=== PATIENT | male | born 1945 | race Caucasian/White ===

== ENCOUNTER → 2016-09-02 | Day surgery (SDC) | payer OTHER ==
[2016-01-07 11:27] VITALS: Ht 167.6 cm; Wt 119.5 kg
[~2016-09-02] VITALS: Ht 167.6 cm; Wt 119.5 kg
[~2016-09-02] MED LIST: ACET-1256 PO; ARTIFICAL TEARS OPB; ASCO10003 PO; ASPEC81 PO; ASPI81TA28 PO; BCTCR/30 EXT; CHOL1CAP57 PO; CLIN300C2 PO; CRAN1CAP15 PO; CYAN500T13 PO; DOCU-94 PO; DOXY100C76 PO; FLEC100T21 PO; FRS/40 PO; LIDOCAINE HCL 2% 2 ML VIAL (20MG/ML) ONE; LOSA1TAB PO; LPR100 PO; LPT/40 PO; MAGN250T3 PO; MIDAZOLAM HCL 1 MG/ML 2ML VIAL ONE; MINEOIL26 PO; MORPHINE SC; MULT-506 PO; NTRGSL/4 UT; POLY99.02 OP; PRLSR20 PO; PROM25TA9 PO; PROPOFOL IV EMULSION 10 MG/ML 20 ML VIAL IV ONE; SENN1TAB25 PO; SODIUM CHLORIDE 0.9% 500ML 500 ML IV ONE; SPIR50TA3 PO; TMPOPS15 OPR; TRAM-10 PO; VITATAB19 PO; WARF1TAB PO
--- NOTE | 2016-09-02 09:30 | Endo History and Physical ---
History & Physical Date of Service: Sep 02, 2016. Chief Complaint: SCREENING FOR COLON CANCER Referring Physician: DR. YOLA VALE History of Present Illness 71 yo CM who presents for screening colonoscopy. Past Medical History Atrial Fibrillation, High Cholesterol, Heart Disease Past Surgical History Hx Cardiac Surgery: Yes (HEART CATH-NO STENTS) Hx Abdominal Surgery: Yes (OPEN MARIO, APPY) Hx Post-Op Nausea and Vomiting: No Hx Cancer Surgery: No Hx Thoracic Surgery: Yes (LUMBAR SURGERY X 5 (LUMBAR FUSION/CAN NOT LAY FLAT)) Hx Orthopedic: Yes (RT/LEFT CTR) Hx Urinary Tract Surgery: Yes (HYDROCELE) Family History Polyp Social History Smoking Status: Never Smoker Hx Substance Use: Yes (SEE MED REC) Hx Alcohol Use: No Allergies Coded Allergies: Penicillins (Verified Allergy, Mild, HIVES, 09/02/16) Ondansetron (Verified Allergy, Unknown, INCREASES GI UPSET, 09/02/16) Uncoded Allergies: [id number] (Allergy, Mild, 04/04/15) [id number] (Allergy, Unknown, ., 04/04/15) Current Medications Reported Home Medications Medications Dose Route/Sig Max Daily Dose Days Date Category Dose Instructions Lipitor (Atorvastatin) 40 Mg Tab 40 Mg PO HS 08/26/16 Reported Coumadin (Warfarin Sodium) 1 Mg Tab 1 Mg PO WK 07/22/16 Reported Saturdays Prilosec (Omeprazole) 20 Mg Capcr 20 Mg PO BID 03/27/16 Reported [Morphine] Unknown Dose SC CONT 01/07/16 Reported IMPLANTED PAIN PUMP IN ABDOMEN Artificial Tears Soln 1-2 Drops OP QID PRN 01/07/16 Reported TO AFFECTED EYE PRN Tambocor (Flecainide Acetate) 100 Mg Tab 100 Mg PO BID 01/07/16 Reported Aldactone (Spironolactone) 50 Mg Tab 50 Mg PO QAM 01/07/16 Reported Lasix (Furosemide) 40 Mg Tab 40 Mg PO QAM 01/07/16 Reported Metoprolol Tartrate 100 Mg Tab 100 Mg PO BID 01/07/16 Reported Magnesium 250 mg (Magnesium) 1 Tab Tab 1 Tab PO QAM 01/07/16 Reported Mineral Oil 1 Oil Oil 1 Tsp PO HS 01/07/16 Reported Cranberry (Cranberry-Vitamin C-Vitamin E) 1 Cap Cap 1 Cap PO QAM 01/07/16 Reported Vitamin A (Vitamin A-Beta Carotene) 1 Tab Tab 3 Tab PO QAM 01/07/16 Reported Vitamin C (Ascorbic Acid) 1,000 Mg Tab 1 Tab PO QAM 01/07/16 Reported Vitamin D3 (Cholecalciferol) 1,000 Unit Cap 3 Cap PO QAM 01/07/16 Reported Vitamin B12 500MCG (Cyanocobalamin) 500 Mcg Tab 500 Mcg PO QAM 01/07/16 Reported Multivitamin (Multivitamins) Tab 1 Tab PO QAM 01/07/16 Reported Colace (Docusate Sodium) 100 Mg Cap 3 Cap PO HS 15 05/22/15 Reported Coumadin (Warfarin Sodium) 1 Mg Tab 0.5 Mg PO 6XWK 04/23/14 Reported Ecotrin Or Generic * (Aspirin) 81 Mg Ectab 81 Mg PO QAM 06/29/11 Reported Vital Signs Weight (Kilograms): 119.55 Height (Feet): 5 Height (Inches): 6 Date Time Temp Pulse Resp B/P Pulse Ox O2 Delivery O2 Flow Rate FiO2 09/02/16 09:00 36.4 50 20 148/59 94 Room Air Physical Exam General Appearance: WD/WN, no apparent distress Respiratory/Chest: Auscultation: breath sounds normal Cardiovascular: Heart Auscultation: RRR Abdomen: Bowel Sounds: normal Inspection & Palpation: soft, non-distended, no tenderness, guarding & rebound Assessment and Plan Assessment: 71 yo CM who presents for screening colonoscopy. Plan: Proceed with colonoscopy.
--- NOTE | 2016-09-02 09:49 | Discharge Instructions ---
Endoscopy Patient Instructions Date / Procedure(s) Performed Sep 02, 2016. Colonoscopy Allergy Information Coded Allergies: Penicillins (Verified Allergy, Mild, HIVES, 09/02/16) Ondansetron (Verified Adverse Reaction, Unknown, INCREASES GI UPSET, ) Uncoded Allergies: [id number] (Allergy, Mild, 04/04/15) [id number] (Allergy, Unknown, ., 04/04/15) Discharge Date / Findings Sep 02, 2016. Melanosis coli Medication Instructions Stopped Medication(s): COUMADIN-LAST DOSE 08/25/16 ASPIRIN-LAST DOSE 09/01/16 Restart Stopped Medication(s): OK to resume all medications today as prescribed Reported Home Medications Medications Dose Route/Sig Max Daily Dose Days Date Category Dose Instructions Lipitor (Atorvastatin) 40 Mg Tab 40 Mg PO HS 08/26/16 Reported Coumadin (Warfarin Sodium) 1 Mg Tab 1 Mg PO WK 07/22/16 Reported Saturdays Prilosec (Omeprazole) 20 Mg Capcr 20 Mg PO BID 03/27/16 Reported [Morphine] Unknown Dose SC CONT 01/07/16 Reported IMPLANTED PAIN PUMP IN ABDOMEN Artificial Tears Soln 1-2 Drops OP QID PRN 01/07/16 Reported TO AFFECTED EYE PRN Tambocor (Flecainide Acetate) 100 Mg Tab 100 Mg PO BID 01/07/16 Reported Aldactone (Spironolactone) 50 Mg Tab 50 Mg PO QAM 01/07/16 Reported Lasix (Furosemide) 40 Mg Tab 40 Mg PO QAM 01/07/16 Reported Metoprolol Tartrate 100 Mg Tab 100 Mg PO BID 01/07/16 Reported Magnesium 250 mg (Magnesium) 1 Tab Tab 1 Tab PO QAM 01/07/16 Reported Mineral Oil 1 Oil Oil 1 Tsp PO HS 01/07/16 Reported Cranberry (Cranberry-Vitamin C-Vitamin E) 1 Cap Cap 1 Cap PO QAM 01/07/16 Reported Vitamin A (Vitamin A-Beta Carotene) 1 Tab Tab 3 Tab PO QAM 01/07/16 Reported Vitamin C (Ascorbic Acid) 1,000 Mg Tab 1 Tab PO QAM 01/07/16 Reported Vitamin D3 (Cholecalciferol) 1,000 Unit Cap 3 Cap PO QAM 01/07/16 Reported Vitamin B12 500MCG (Cyanocobalamin) 500 Mcg Tab 500 Mcg PO QAM 01/07/16 Reported Multivitamin (Multivitamins) Tab 1 Tab PO QAM 01/07/16 Reported Colace (Docusate Sodium) 100 Mg Cap 3 Cap PO HS 15 05/22/15 Reported Coumadin (Warfarin Sodium) 1 Mg Tab 0.5 Mg PO 6XWK 04/23/14 Reported Ecotrin Or Generic * (Aspirin) 81 Mg Ectab 81 Mg PO QAM 06/29/11 Reported Provider Instructions Activity Restrictions - No exercising or heavy lifting for 24 hours. - Do not drink alcohol the day of the procedure. - Do not drive a car or operate machinery until the day after the procedure. - Do not make any important decisions or sign important papers in 24 hours after the procedure. Following Day: - Return to full activity which may include returning to work/school. Diet Start your diet with liquids and light foods (jello, soup, juice, toast). Then eat your usual diet if not nauseated. Treatment For Common After Affects For mild abdominal pain, bloating, or excessive gas: - Rest - Eat lightly - Lie on right side Follow-Up Information Follow-up with DR. YOLA VALE as scheduled Anesthesia Information What You Should Know You have had a procedure that required some medicine to reduce anxiety and discomfort. This treatment is called moderate sedation. After receiving the treatment, you may be sleepy, but you will be able to breathe on your own. The effects of the treatment may last for several hours. Follow these instructions along with Activity/Diet recommendations noted above: * Do NOT do anything where dizziness or clumsiness would be dangerous. * Rest quietly at home today, then you can be up and about tomorrow. * Have a responsible person stay with you the rest of today. * You may have had an I.V. today. If so, you may take the dressing off later today. Recommendations Call your doctor if: * Trouble breathing * Continuous vomiting for more than 24 hours * Temperature above 101 degrees * Severe abdominal pain or bloating * Pain not relieved by pain medicine ordered * There is increased drainage or redness from any incision * A large amount of rectal bleeding greater than 2-3 tablespoons. (If you had a polyp/s removed or have hemorrhoids, a small amount of blood - from the rectum is to be expected.) * You have any unanswered questions or concerns. IN THE EVENT OF A SERIOUS EMERGENCY, GO TO THE NEAREST EMERGENCY ROOM Your discharge instructions were prepared by provider Berlin Jarvis. Patient Instructions Signature Page Nolberto Mitchell Patient (or Guardian) Signature/Date: I have read and understand the instructions given to me by my caregivers. Caregiver/RN/Doctor Signature/Date: The above-named patient and/or guardian has received patient instructions on this date. + Original Patient Signature Page (only) stays with chart. Please make copy for patient.
--- NOTE | 2016-09-02 09:54 | GI REPORT ---
Procedure Date: 09/02/2016 9:05 AM Procedure: Colonoscopy Indications: Screening for colorectal malignant neoplasm Medicines: Monitored Anesthesia Care Complications: No immediate complications. Estimated Blood Loss: Estimated blood loss: none. Procedure: Pre-Anesthesia Assessment: - Prior to the procedure, a History and Physical was performed, and patient medications and allergies were reviewed. The patient's tolerance of previous anesthesia was also reviewed. The risks and benefits of the procedure and the sedation options and risks were discussed with the patient. All questions were answered, and informed consent was obtained. Prior Anticoagulants: The patient last took Coumadin (warfarin) 7 days prior to the procedure and last took aspirin on the day of the procedure. ASA Grade Assessment: III - A patient with severe systemic disease. After reviewing the risks and benefits, the patient was deemed in satisfactory condition to undergo the procedure. After I obtained informed consent, the scope was passed under direct vision. Throughout the procedure, the patient's blood pressure, pulse, and oxygen saturations were monitored continuously. The scope was introduced through the anus and advanced to the terminal ileum. The colonoscopy was performed without difficulty. The patient tolerated the procedure well. The quality of the bowel preparation was good. The terminal ileum, ileocecal valve, appendiceal orifice, and rectum were photographed. Findings: A diffuse area of mild melanosis was found in the entire colon. The exam was otherwise without abnormality. Impression: - Melanosis in the colon. - The examination was otherwise normal. - No specimens collected. Recommendation: - Resume previous diet. - Continue present medications. - No repeat colonoscopy due to age and the absence of advanced adenomas. - Return to primary care physician as previously scheduled. Berlin Jarvis DO 09/02/2016 9:54:14 AM This report has been signed electronically. Note Initiated On: 09/02/2016 9:05 AM
--- NOTE | 2016-09-02 10:14 | Anesthesiology Progress Note ---
Anesthesia Post Op Note Date & Time Sep 02, 2016 at 10:13 Vital Signs Pain Intensity: 2 Vital Signs Past 12 Hours Date Time Temp Pulse Resp B/P Pulse Ox O2 Delivery O2 Flow Rate FiO2 09/02/16 10:08 45 18 111/56 95 Room Air 09/02/16 09:52 44 16 97/54 94 Room Air 09/02/16 09:00 36.4 50 20 148/59 94 Room Air Notes Mental Status: alert / awake / arousable, participated in evaluation Pt Amnestic to Procedure: Yes Nausea / Vomiting: adequately controlled Pain: adequately controlled Airway Patency, RR, SpO2: stable & adequate BP & HR: stable & adequate Hydration State: stable & adequate Anesthetic Complications: no major complications apparent
[2016-09-02 10:24] VITALS: BP 134/63; PULSE 45; O2SAT 95
== END | disposition home or self-care (01) ==
LOC: C.GI 08:39
PROVIDERS: ATTEND Internal Medicine
DX: Z12.11 Encounter for screening for malignant neoplasm of colon (principal); K63.89 Other specified diseases of intestine; I48.91 Unspecified atrial fibrillation; E78.5 Hyperlipidemia, unspecified; I51.9 Heart disease, unspecified; Z98.890 Other specified postprocedural states; Z98.1 Arthrodesis status; Z79.01 Long term (current) use of anticoagulants; Z79.82 Long term (current) use of aspirin; Z88.0 Allergy status to penicillin; Z88.8 Allergy status to other drugs, medicaments and biological substances; Z51.81 Encounter for therapeutic drug level monitoring; D69.6 Thrombocytopenia, unspecified

== ENCOUNTER → 2016-11-01 | Outpatient (CLI) | payer OTHER ==
[~2016-11-01] MED LIST changes: +CEPH500C2 PO; +CLC/300 PO; -DOXY100C76 PO; +FRRS300 PO; +LEVO1TAB33 PO; -LIDOCAINE HCL 2% 2 ML VIAL (20MG/ML) ONE; +METO-596 PO; +METO50TA17 PO; -MIDAZOLAM HCL 1 MG/ML 2ML VIAL ONE; +MISCCAP80 PO; +PROPDRO5 PO; -PROPOFOL IV EMULSION 10 MG/ML 20 ML VIAL IV ONE; +RXC5 PO; -SODIUM CHLORIDE 0.9% 500ML 500 ML IV ONE
--- NOTE | 2016-11-04 11:21 | CODING QUERY NO DIAGNOSIS ---
TREATMENT RENDERED WITHOUT A DIAGNOSIS 47 To promote full compliance with coding requirements relating to patient care, physician participation is requested in all cases of certified coder uncertainty. Please assist us with providing a diagnosis/symptom for the test(s) below: A diagnosis/symptom was not documented on your Order. A valid diagnosis/symptom is required to bill all insurances. Please remember that we are unable to code a diagnosis of rule out, probable, possible, questionable, or suspected. DOS 11/02/16 Tests that require a diagnosis: * CDIFF TOXIN B GENE DIAGNOSIS: Provider Signature: Date: Thank you Camille Guajardo Health Information Management Once completed, please kindly fax back to [phone] For questions please call [phone]
== END | disposition home or self-care (01) ==
LOC: C.LABSPEC 09:09
PROVIDERS: ATTEND Emergency Medicine
DX: R19.7 Diarrhea, unspecified (principal)

== ENCOUNTER → 2016-11-13 | Outpatient (CLI) | payer OTHER ==
[2016-11-13 17:22] LABS: BLOOD UREA NITROGEN 22 mg/dl (7-18)
== END | disposition home or self-care (01) ==
LOC: C.LABBC 12:52
PROVIDERS: ATTEND Physician Assistant
DX: M54.5 Low back pain (principal); M96.1 Postlaminectomy syndrome, not elsewhere classified

== ENCOUNTER → 2017-01-01 | Day surgery (SDC) | payer OTHER ==
[2016-11-24 11:06] VITALS: BMI 42.0
--- NOTE | 2016-11-27 14:49 | HISTORY & PHYSICAL EXAMINATION ---
DATE OF ADMISSION: 12/04/2016 CHIEF COMPLAINT: MRI to be completed with sedation. HISTORY OF PRESENT ILLNESS: Mr. Mitchell is a 71-year-old white male who is well known to the pain service with a history of chronic intractable low back pain secondary to lumbar post-laminectomy syndrome. This has required implantation of intrathecal pump and catheter delivery system for pain control. The patient has end of life pump and is in need of intrathecal pump revision/replacement. The patient has a prior history of catheter occlusion versus granuloma in 2011. MRI of the thoracic spine to evaluate catheter tip has been requested under sedation as the patient has been unable to tolerate similar procedures in the past. The patient has chronic axial low back pain as his predominant pain generator. His symptoms remain adequately controlled with his current intrathecal infusion rate. He rates his pain at a 1-2/10 at its best and 8-9/10 at its worst. His pain is 90% axial and 10% radicular in nature. He describes the pain as aching, throbbing and occasionally stabbing and sharp in characteristic. His symptoms remain aggravated with ambulatory and ADL activities. He does continue to perform his ambulatory and ADL activities with use of intrathecal pump with minimal limitation. The patient denies lower extremity weaknesses, footdrop or falling. He has no bowel or bladder incontinence. The patient has been cleared by the wound clinic due to abdominal wall ulceration, which is healed. He has a prior history of MRSA infection related to the skin infection. The patient has no further constitutional complaints at this time. PAST MEDICAL HISTORY: 1. Atrial fibrillation. 2. Hyperlipidemia. 3. CAD. 4. History of nephrolithiasis. 5. History of MRSA abdominal wound ulceration, superficial. 6. Chronic kidney disease. PAST SURGICAL HISTORY: 1. Appendectomy. 2. Tonsillectomy. 3. Adenoidectomy. 4. Cholecystectomy. 5. Lumbar spine surgery x3 with L4-L5 fusion. 6. Bilateral carpal tunnel release. 7. Hydrocelectomy. 8. Right inguinal herniorrhaphy. 9. Intrathecal pump and catheter implantation with revision in 2011. 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 SOCIAL HISTORY: The patient is and residing with his spouse. He has 2 adult children. He denies tobacco, alcohol or illicit drug use. FAMILY HISTORY: Noncontributory. REVIEW OF SYSTEMS: The patient denies complaints related to cardiac, pulmonary, GI, , endocrine, neurologic, hepatic, renal, ENT, dermatologic or musculoskeletal other than as described above in the HPI. ALLERGIES: ONDANSETRON AND PENICILLIN. CURRENT MEDICATIONS: 1. Acetaminophen 500 mg 2 tablets at bedtime. 2. Vitamin C 1000 mg daily. 3. ASA 81 mg daily. 4. Atorvastatin 40 mg at bedtime. 5. Vitamin D3 two capsules p.o. q.a.m. 6. Cranberry 1 capsule p.o. q.a.m. 7. Cyanocobalamin 500 mcg q.a.m. 8. Flecainide 100 mg b.i.d. 9. Furosemide 40 mg daily. 10. Magnesium 200 mg daily. 11. Metoprolol tartrate 100 mg b.i.d. 12. Mineral oil 1 tablespoon p.o. at bedtime p.r.n. 13. Multivitamin 1 tablet daily. 14. Nitroglycerin 0.4 mg sublingually p.r.n. 15. Omeprazole 20 mg b.i.d. 16. Stool softener, sennoside/docusate sodium 1 tablet p.o. q. 2 days. 17. Aldactone 50 mg q.a.m. 18. Timolol 0.5% ophthalmic solution 1 drop b.i.d. 19. Vitamin A 3 tablets daily. 20. Coumadin 0.5 mg p.o. 2 times weekly. 21. Coumadin 1 mg p.o. 5 times weekly. PHYSICAL EXAMINATION: VITAL SIGNS: Will be per admission. GENERAL: Mr. Mitchell appears to be his approximate stated age of 71. He is overweight and physically deconditioned state. Speech and thought process are appropriate. Mood and affect are appropriate. Cognition is intact. HEENT: No evidence of nasal or oral mucosal lesions. Mucous membranes are moist. NECK: Supple without adenopathy and full range of motion. CHEST: Nontender to palpation at the costosternal junction. LUNGS: Clear to auscultation without wheeze or rhonchi. CARDIAC: Regular rate and rhythm without murmur. ABDOMEN: Soft and nondistended. The pump present in the left lower quadrant without evidence of edema, erythema or skin breakdown over the incisional site. The pump is nontender to palpation. The pump is nonmobile. No organomegaly is appreciated. Bowel sounds are active. LOWER EXTREMITIES: SLR negative. No evidence of edema in the distal lower extremities. Strength testing 5/5 and equal. Sensation is intact without deficits. NEUROLOGIC: Cranial nerves grossly intact. His gait is slow and narrow based. ASSESSMENT: 1. Chronic lumbago. 2. Lumbar post-laminectomy syndrome. 3. Chronic intractable low back pain secondary to above requiring implantation of intrathecal pump and catheter delivery system. 4. Left hip pain with mild osteoarthritis per x-ray. 5. Recent history of right lower quadrant superficial ulceration -- currently healed with a history of methicillin-sensitive Staphylococcus aureus, positive sensitive to vancomycin and clindamycin. 6. Chronic kidney disease. 7. Chronic anticoagulation therapy with Coumadin. 8. History of atrial fibrillation. 9. History of coronary artery disease. TREATMENT AND RECOMMENDATIONS: 1. MRI has been requested of the thoracic spine with sedation to rule out catheter tip granuloma due to end of life intrathecal pump, which is slated for revision/replacement within the next 1 month to determine catheter status and potentially the need for catheter revision/replacement. MRI will be completed without contrast due to his chronic kidney disease and current GFR. 2. Intrathecal dose will not be changed at this time. Further recommendations will be made pending review of the MRI results. MTDD
--- NOTE | 2016-12-31 16:10 | HISTORY & PHYSICAL EXAMINATION ---
DATE OF ADMISSION: 01/01/2017 CHIEF COMPLAINT: MRI to be completed with sedation. SUBJECTIVE: Mr. Mitchell is a 71-year-old white male who is known to the pain service with a history of chronic intractable low back pain secondary to lumbar post-laminectomy syndrome. This has required implantation of intrathecal pump and catheter delivery system for pain control. The patient has end of life intrathecal battery and is in need of an intrathecal pump revision/replacement. The patient has a known prior history of catheter occlusion versus granulomatous in 2011. A repeat MRI scan of the thoracic spine to evaluate catheter tip has been requested under sedation. The patient is unable to tolerate similar procedures in the past. This is being completed to determine catheter status prior to pump replacement. The patient has chronic axial low back pain which remains his predominant pain generator. He reports adequate pain control with his current intrathecal infusion rate and desires no changes to his dose. He rates his overall pain at a 1-2/10 at its best and a 9/10 at its worst. His pain remains 90% axial and 10% radicular in nature, which he describes as aching, throbbing and occasionally sharp and stabbing in characteristic. Symptoms remain aggravated with ambulatory and ADL activities. The patient is performing his ambulatory and ADL activities with minimal limitation with use of his current intrathecal dose. The patient denies lower extremity weaknesses, footdrop or falling. He has no bowel or bladder incontinence. The patient has been cleared by wound clinic due to his abdominal ulceration which is healed at this time for surgical procedure. The patient does have prior history of MRSA related to skin infection. He has no further constitutional complaints at today's visit. PAST MEDICAL HISTORY: Atrial fibrillation, hyperlipidemia, CAD, history of nephrolithiasis, history of MRSA, abdominal wound ulceration -- superficial, and chronic kidney disease. PAST SURGICAL HISTORY: Appendectomy, tonsillectomy, adenoidectomy, cholecystectomy, lumbar spine surgery x3 with L4-5 fusion, bilateral carpal tunnel release, hydrocelectomy, right inguinal herniorrhaphy, intrathecal pump and catheter implantation with revision in 2011. WORK HISTORY: The patient is disabled. 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 SOCIAL HISTORY: The patient is , residing with his spouse. He has 2 adult children. He denies tobacco, alcohol or illicit drug use. FAMILY HISTORY: Noncontributory. REVIEW OF SYSTEMS: The patient denies complaints related to cardiac, pulmonary, GI, , endocrine, neurologic, hepatic, renal, ENT, dermatologic, musculoskeletal other than described above in the HPI. ALLERGIES: 1. ONDANSETRON. 2. PENICILLIN. CURRENT MEDICATIONS: 1. Acetaminophen 500 mg 2 tablets at bedtime. 2. Vitamin C 1000 mg daily. 3. ASA 81 mg daily. 4. Atorvastatin 40 mg at bedtime. 5. Vitamin D3 two capsules p.o. q.a.m. 6. Cranberry 1 capsule p.o. q.a.m. 7. Cyanocobalamin 500 mcg q.a.m. 8. Flecainide 100 mg b.i.d. 9. Furosemide 40 mg daily. 10. Magnesium 200 mg daily. 11. Metoprolol tartrate 100 mg b.i.d. 12. Mineral oil one tablet p.o. at bedtime p.r.n. 13. Multivitamin 1 tablet daily. 14. Nitroglycerin 0.4 mg sublingually p.r.n. 15. Omeprazole 20 mg b.i.d. 16. Sennosides/docusate sodium 1 tablet p.o. q. 2 days. 17. Aldactone 50 mg q.a.m. 18. Timolol 0.5% ophthalmic solution 1 drop b.i.d. 19. Vitamin D3 tablets daily. 20. Coumadin 0.5 mg p.o. 2 times weekly. 21. Coumadin 1 mg p.o. 5 times weekly. PHYSICAL EXAMINATION: VITAL SIGNS: Per admission. GENERAL: Mr. Mitchell appears to be his approximate stated age of 71. The patient is overweight and physically deconditioned state. Speech and thought process are appropriate. He is accompanied by his . Mood and affect are appropriate. Cognition is intact. HEENT: No evidence of nasal or oral mucosal lesion. Mucous membranes are moist. NECK: Supple without adenopathy and full range of motion. CHEST: Clear to auscultation without wheeze or rhonchi. CARDIAC: Regular rate rhythm without murmur. ABDOMEN: Soft and nondistended. The pump is in the left lower quadrant. No evidence of edema, erythema or skin breakdown at the incisional site. The pump was nontender to palpation and remains nonmobile. Bowel sounds are active. He has no organomegaly. LOWER EXTREMITIES: SLR negative. BACK AND SPINE: No evidence of edema in the distal lower extremities. Strength testing 5/5 and equal bilaterally. Sensation is intact to sharp and dull in the lower extremities. NEUROLOGIC: Cranial nerves grossly intact. Gait remains slow and narrow based. ASSESSMENT: 1. Chronic lumbago. 2. Lumbar post-laminectomy syndrome. 3. Chronic intractable low back pain secondary to above requiring implantation of intrathecal pump and catheter delivery system. 4. Left hip pain with mild osteoarthritis per x-ray. 5. Recent history of right lower quadrant superficial ulceration which is currently healed with history of methicillin-resistant Staphylococcus aureus sensitive to vancomycin and clindamycin. 6. Chronic kidney disease. 7. Chronic anticoagulation therapy with Coumadin. 8. History atrial fibrillation. 9. History of coronary artery disease. 10. End of life intrathecal pump. TREATMENT AND RECOMMENDATIONS: 1. MRI has been requested of the thoracic spine with sedation to rule out catheter tip granuloma due to end of life intrathecal pump. MRI will be completed without contrast due to his chronic kidney disease and current GFR status. 2. Further recommendations will be obtained on review of the MRI study. JHONYD
[~2017-01-01] VITALS: Ht 167.6 cm; Wt 119.1 kg
[~2017-01-01] MED LIST changes: -CLIN300C2 PO; -DOCU-94 PO; +FENTANYL CITRATE INJ 50 MCG/1 ML 2 ML VIAL ONE; +LIDOCAINE HCL 2% 2 ML VIAL (20MG/ML) ONE; +MIDAZOLAM HCL 1 MG/ML 2ML VIAL ONE; -PROM25TA9 PO; +PROPOFOL IV EMULSION 10 MG/ML 20 ML VIAL IV ONE; +SODIUM CHLORIDE 0.9% 1000ML 1,000 ML IV SCH
[2017-01-01 06:14] VITALS: BP 148/64; PULSE 51; TEMP 36.5; O2SAT 92; BMI 42.0
[2017-01-01 06:48] VITALS: Ht 167.6 cm; Wt 119.1 kg
[2017-01-01 06:52] LABS: PARTIAL THROMBOPLASTIN RATIO 2.2; PROTHROMBIN TIME (PATIENT) 80.7 SECONDS (9.0-12.0)
[2017-01-01 07:41] LABS: PARTIAL THROMBOPLASTIN RATIO 2.2; PROTHROMBIN TIME (PATIENT) 84.9 SECONDS (9.0-12.0)
[2017-01-01 07:56] LABS: INR 7.3 (0.9-1.1)
--- NOTE | 2017-01-01 08:22 | Anesthesiology Progress Note ---
Anesthesia Progress Note Date of Service January 01, 2017. Progress Notes Patient here for MRI with sedation and was found to have INR elevated to 7.0 this AM. Takes coumadin for a fib and was recently found to be 3.7 and was told to adjust his dosing down. He is very surprised that it is that high but said he has had one other time when he went very high and required vitamin K. I do not feel comfortable proceeding with the procedure at this point and spoke with Dr Askew about having medicine see him and potentially intervene vs observing him and they will be by to see him. Patient understands.
[2017-01-01 09:28] LABS: BASO % 0.2 %; BASO ABS # 0.01 K/uL (0-0.2); COMPLETE YES; EOS % 0.8 %; HEMATOCRIT 39.2 % (42-52); IG% 0.2 %; LYMPH % 21.6 %; LYMPH ABS # 1.12 K/uL (1.2-3.4); MEAN CELL VOLUME 93.8 fL (80-100); MEAN CORPUSCULAR HEMOGLOBIN 31.6 pg (25-34); MEAN CORPUSCULAR HGB CONC 33.7 g/dl (32-36); MEAN PLATELET VOLUME 9.7 fL (7.4-10.4); MONO % 6.2 %; PLATELET COUNT 103 K/uL (130-400); RED BLOOD COUNT 4.18 M/uL (4.7-6.1); WHITE BLOOD COUNT 5.19 K/uL (4.8-10.8)
--- NOTE | 2017-01-01 10:26 | Discharge Instructions ---
Discharge Instructions Date of Service January 01, 2017. Visit Reason for Visit: Chronic Lumbago, Eval Catherter Tip R/O Grangulom Discharge Discharge Diagnosis / Problem: Lumbago, supratherapeutic INR Discharge Goals Goal(s): Improve function Activity Recommendations Activity Limitations: resume your previous activity Lifting Limitations: none Exercise/Sports Limitations: none May Resume Sexual Activity: when tolerated Shower/Bathe: no limitations Driving or Machine Use: no limitations Anesthesia . Post Anesthesia Instructions: If you have had General Anesthesia or IV Sedation: * Do not drive today. * Resume driving when surgeon permits. * Do not make important decisions or sign legal documents today. * Call surgeon for: 1. Temperature elevations greater than 101 degrees F. 2. Uncontrollable pain. 3. Excessive bleeding. 4. Persistent nausea and vomiting. 5. Medication intolerance (nausea, vomiting or rash). * For nausea and vomiting use only clear liquids such as: tea, soda, bouillon until nausea subsides, then gradually increase diet as tolerated. * If you have any concerns or questions, call your surgeon's office. If physician is unavailable and it is an emergency, call 911 or go to the nearest emergency room. . Instructions / Follow-Up Instructions / Follow-Up [facility] will advise you on your coumadin dosing. Please travel to their office downstairs immediately after leaving the same day surgery center Diet Recommendations Recommended Home Diet: no limitations, resume previous diet Procedures Procedures Performed: none Pending Studies Studies pending at discharge: no Medical Emergencies . Who to Call and When: Medical Emergencies: If at any time you feel your situation is an emergency, please call 911 immediately. . Non-Emergent Contact Non-Emergency issues call your: Primary Care Provider . . "Provider Documentation" section prepared by Camelia Light. .
--- NOTE | 2017-01-01 10:38 | Pain Management Progress Note ---
Pain Management Progress Note Date of Service January 01, 2017. Subjective Mr. Mitchell arrived today for routine MRI to assess the possibility of granuloma formation at his intrathecal catheter tip. On arrival it, it was noted that his INR was supratherapeutic at 7.3. Subsequently his MRI scan for today was canceled. He will require MRI for assessing his catheters hip prior to his upcoming surgery to replace his intrathecal battery as well as his as a possible catheter revision. After his INR was noted to be supratherapeutic at 7.3 routine labs were drawn including a CBC and LFT panel to assess for any drop in hematocrit or liver function abnormalities that might influence his INR. Objective Vital Signs: Last Vital Signs Documentation Date Time Temp Pulse Resp B/P Pulse Ox O2 Delivery O2 Flow Rate FiO2 01/01/17 06:14 36.5 51 20 148/64 92 Room Air Physical Exam: Awake alert and oriented 3 2 small bruises noted over left forearm and one of her right hand. No other obvious signs of bleeding are noted. Cranial nerves are grossly intact gait is slow and guarded Catheter catheter and pump sites are unremarkable next is at bedside X Laboratory Laboratory Review: results personally reviewed by me Laboratory Findings 01/01/17 09:00 Red Blood Count 4.18 L, Mean Corpuscular Volume 93.8, Mean Corpuscular Hemoglobin 31.6, Mean Corpuscular Hemoglobin Concent 33.7, Mean Platelet Volume 9.7, Neutrophils (%) (Auto) 71.0, Lymphocytes (%) (Auto) 21.6, Monocytes (%) ( Auto) 6.2, Eosinophils (%) (Auto) 0.8, Basophils (%) (Auto) 0.2, Neutrophils # ( Auto) 3.69, Lymphocytes # (Auto) 1.12 L, Monocytes # (Auto) 0.32, Eosinophils # (Auto) 0.04, Basophils # (Auto) 0.01 Assessment 1. Supratherapeutic INR 2. Intractable pain requiring implanted intrathecal pump and catheter delivery system 3. Lumbago Recommendations 1. After a drop in hematocrit was not noted and LFTs were noted to be normal, the anticoagulation clinic was notified and they requested he be sent to them prior to discharge from the hospital. 2. According to the anticoag clinic there is no reason for admission at this time and they feel comfortable managing him as an outpatient. 3. The patient will be discharged at this time to the anticoagulation clinic. Discharge instructions were given. 4. We will attempt to do this proceed MRI with sedation under oral Valium sedation due to the patient's severe claustrophobia should that not be acceptable to the patient would plan for repeat MRI with sedation under anesthesia 5. Valium. 5 mg by mouth times up to 4 tablets one the night before one the morning of and 1 to 2 tablets 30 minutes prior to the procedure will be provided electronically through [facility] in the pain clinic office arrangements will be made for out of repeat MRI as an outpatient 6. All questions were answered prior to close of today's visit [employer] Voice [employer]ognition This chart was completed in part utilizing [employer] Voice Recognition Software. Random word insertions, pronoun errors, and incomplete sentences are an occasional consequence of this system due to software limitations and ambient noise. Any questions or concerns about the content, text or information contained within the body of this dictation should be directly addressed to the provider for clarification.
== END | disposition home or self-care (01) ==
LOC: C.ACU 05:36
PROVIDERS: ATTEND Anesthesiology
DX: M54.5 Low back pain (principal); R79.1 Abnormal coagulation profile; Z53.09 Procedure and treatment not carried out because of other contraindication; I48.91 Unspecified atrial fibrillation; E78.5 Hyperlipidemia, unspecified; N18.9 Chronic kidney disease, unspecified; M19.90 Unspecified osteoarthritis, unspecified site; I25.10 Atherosclerotic heart disease of native coronary artery without angina pectoris; Z87.442 Personal history of urinary calculi; Z86.14 Personal history of Methicillin resistant Staphylococcus aureus infection; Z90.49 Acquired absence of other specified parts of digestive tract; Z79.01 Long term (current) use of anticoagulants; Z51.81 Encounter for therapeutic drug level monitoring; D69.6 Thrombocytopenia, unspecified

== ENCOUNTER → 2017-01-04 | Day surgery (SDC) | payer OTHER ==
[2017-01-01 06:14] VITALS: BP 148/64; PULSE 51; TEMP 36.5; O2SAT 92
[2017-01-01 06:48] VITALS: BMI 42.0
[~2017-01-04] MED LIST changes: -FENTANYL CITRATE INJ 50 MCG/1 ML 2 ML VIAL ONE; -LIDOCAINE HCL 2% 2 ML VIAL (20MG/ML) ONE; -MIDAZOLAM HCL 1 MG/ML 2ML VIAL ONE; -PROPOFOL IV EMULSION 10 MG/ML 20 ML VIAL IV ONE; -SODIUM CHLORIDE 0.9% 1000ML 1,000 ML IV SCH
--- NOTE | 2017-01-04 16:30 | DIAGNOSTIC IMAGING REPORT ---
KUB HISTORY: CHECK POSITION OF PAIN PUMP COMPARISON: Chest and abdominal series 09/19/2012. FINDINGS: The bowel gas pattern is unremarkable. There are no dilated loops of small bowel to suggest an obstruction. No renal calculi. No ureteral calculi. No pneumoperitoneum or pneumatosis. There is a left lower quadrant pain pump which is unchanged in position. This is not in an axial position. Therefore, an MRI can be performed. The visualized portion of the catheter. Intact. There is L3-L5 decompression and fusion. Moderate right and severe left hip osteoarthritis. IMPRESSION: The left lower quadrant pain pump is unchanged in position. This is not an axial position. Therefore, an MRI can be performed for the patient. Electronically signed by: Leo Mendoza M.D. 01/04/2017 4:29 PM Dictated Date/Time: 01/04/2017 4:27 PM
--- NOTE | 2017-01-04 16:46 | DIAGNOSTIC IMAGING REPORT ---
THORACIC SPINE MRI HISTORY: Pain CHRONIC LUMBAGO TECHNIQUE: Multiplanar multisequence MRI of the thoracic spine was performed without the use of contrast. COMPARISON: None. FINDINGS: Mild degenerative disc changes throughout. Intrathecal catheter approximately level of T2. No evidence for tip granuloma. No significant compromise of the thecal sac. Postoperative changes to the lumbar spine. IMPRESSION: Catheter positioned at approximately T2 level of the thoracic spine. No evidence for tip granuloma. No major compromise of the thoracic spinal canal. Degenerative disc changes throughout Electronically signed by: Chris Stallings M.D. 01/04/2017 4:45 PM Dictated Date/Time: 01/04/2017 4:41 PM
== END | disposition home or self-care (01) ==
LOC: C.MRI 14:42
PROVIDERS: ATTEND Anesthesiology
DX: Z46.89 Encounter for fitting and adjustment of other specified devices (principal); M54.5 Low back pain; Z51.81 Encounter for therapeutic drug level monitoring; Z79.01 Long term (current) use of anticoagulants; D69.6 Thrombocytopenia, unspecified; I48.91 Unspecified atrial fibrillation

== ENCOUNTER 2017-01-26 07:32 | Day surgery (SDC) | payer OTHER ==
--- NOTE | 2017-01-12 10:48 | History and Physical ---
History & Physical Date of Service January 12, 2017. History & Physical Plan of care discussed with Dr. Askew CHIEF COMPLAINT: Chronic intractable low back pain HISTORY OF PRESENT ILLNESS: Mr. Mitchell is a 71 year old white male that is well known to the [facility] with a history of chronic intractable low back pain secondary to lumbar post-laminectomy syndrome. Patient continues to report approximately 90% axial low back pain and 10% radicular pain into the lateral hips. Patient hurtado have an intrathecal pump implanted which has been providing adequate pain relief. Patient rates his pain a 4/10 at all times with intrathecal Morphine and Bupivacaine. PAST MEDICAL HISTORY: 1. Atrial fibrillation 2. Hyperlipidemia 3. Coronary artery disease 4. History of nephrolithiasis 5. History of MRSA 6. Chronic kidney disease 7. Gastroesophageal reflux disease PAST SURGICAL HISTORY: 1. Appendectomy 2. Tonsillectomy and adenoidectomy 3. Cholecystectomy 4. Herniorrhaphy 5. Carpal tunnel release 6. Lumbar surgery 3 with L4-L5 fusion 7. Cataract surgery 8. Hydrocelectomy 9. Intrathecal pump and catheter implantation with revision in 2011 SOCIAL HISTORY: Patient is and has 2 grown children. He denies any tobacco, alcohol, or illicit substance abuse. WORK HISTORY: Patient is disabled. 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 ALLERGIES: 1. Doxycycline 2. Ondansetron 3. Penicillin MEDICATIONS: 1. Acetaminophen 500 mg 2 tablets at bedtime. 2. Vitamin C 1000 mg daily. 3. ASA 81 mg daily. 4. Atorvastatin 40 mg at bedtime. 5. Vitamin D3 two capsules p.o. q.a.m. 6. Cranberry 1 capsule p.o. q.a.m. 7. Cyanocobalamin 500 mcg q.a.m. 8. Flecainide 100 mg b.i.d. 9. Furosemide 40 mg daily. 10. Magnesium 200 mg daily. 11. Metoprolol tartrate 100 mg b.i.d. 12. Mineral oil one tablet p.o. at bedtime p.r.n. 13. Multivitamin 1 tablet daily. 14. Nitroglycerin 0.4 mg sublingually p.r.n. 15. Omeprazole 20 mg b.i.d. 16. Sennosides/docusate sodium 1 tablet p.o. q. 2 days. 17. Aldactone 50 mg q.a.m. 18. Timolol 0.5% ophthalmic solution 1 drop b.i.d. 19. Vitamin D3 tablets daily. 20. Coumadin 0.5 mg p.o. 2 times weekly. 21. Coumadin 1 mg p.o. 5 times weekly. REVIEW OF SYSTEMS: Denies any constitutional, cardiac, pulmonary, neurological, GI, , extremity, endocrine, neuro, ENT, dermatological, or musculoskeletal complaints. PHYSICAL EXAMINATION: VITAL SIGNS: Per admission GENERAL: Mr. Mitchell is a 71-year-old white male that appears his stated age. He is overweight and physically deconditioned. Speech and cognition is intact. Mood and affect is appropriate. HEAD: Normocephalic; atraumatic. EYES: Pupils are round, equal, and reactive to light; EOM intact. ENT: No external ear discharge or lesions. No rhinorrhea or epistaxis. No mucosal lesions. PULM: Clear to auscultation. No wheezes, rales, or rhonchi. CHEST: Regular chest respiration and excursion. ABDOMEN: Active bowel sounds throughout; non-tender to palpation. Intrathecal pump is located in the left lower quadrant and is non-tender. EXTREMITIES: Moving extremities appropriately. 5/5 strength of the bilateral lower extremities. Sensation is intact and equal. BACK: Loss of lumbar lordosis. There is nonfocal lumbosacral tenderness. NEURO: CN II-XII grossly intact with no focal deficits noted. AAO x 3. Slowed gait. SKIN: No lesions, erythema, or rashes noted. ASSESSMENT: Intractable low back pain secondary to postlaminectomy syndrome TREATMENT: Mr. Mitchell is a 71 year old white male with chronic intractable low back pain secondary to lumbar-laminectomy syndrome. He had an intrathecal pump containing Morphine and Bupivacaine implanted which does provide adequate pain control. A thoracic MRI was ordered on the patient to evaluate for a granuloma formation at the tip of the catheter. Thoracic MRI was negative. He was found to have a right lower quadrant ulceration with MRSA cultured. He is to apply mupirocin ointment into the nares for 5 days prior to the surgery. Patients intrathecal pump battery is due to be replaced. Risks and benefits were reviewed with the patient. Procedure was explained and he understands. He would like to proceed with the procedure. He is tentatively scheduled for an intrathecal pump replacement on 01/26/17.
[2017-01-13 09:33] VITALS: Ht 167.6 cm; Wt 119.7 kg
[2017-01-13 10:54] LABS: BASO % 0.2 %; BASO ABS # 0.01 K/uL (0-0.2); COMPLETE YES; EOS % 1.9 %; IG% 0.2 %; LYMPH % 21.1 %; LYMPH ABS # 1.24 K/uL (1.2-3.4); MEAN CELL VOLUME 93.5 fL (80-100); MEAN CORPUSCULAR HEMOGLOBIN 31.7 pg (25-34); MEAN CORPUSCULAR HGB CONC 33.8 g/dl (32-36); MEAN PLATELET VOLUME 9.6 fL (7.4-10.4); MONO % 7.1 %; NEUT % 69.5 %; PLATELET COUNT 126 K/uL (130-400); RED BLOOD COUNT 4.17 M/uL (4.7-6.1); WHITE BLOOD COUNT 5.89 K/uL (4.8-10.8)
[2017-01-13 10:55] LABS: URINE APPEARANCE CLEAR (CLEAR); URINE BILIRUBIN NEG (NEG); URINE COLOR DK YELLOW; URINE NITRITE NEG (NEG); URINE SPECIFIC GRAVITY 1.023 (1.000-1.030); UROBILINOGEN NEG (NEG)
[2017-01-13 11:04] LABS: MANUAL MICROSCOPIC REQUIRED? NO; REVIEW REQ? NO
[2017-01-13 11:33] LABS: CALCIUM 9.6 mg/dl (8.5-10.1)
[2017-01-13 11:34] LABS: BUN/CREATININE RATIO 18.5 (10-20); CREATININE 1.5 mg/dl (0.60-1.40); POTASSIUM 4.4 mmol/L (3.5-5.1)
[~2017-01-26] VITALS: Ht 167.6 cm; Wt 119.7 kg
[~2017-01-26 07:32] MED LIST changes: -ARTIFICAL TEARS OPB; -ASPI81TA28 PO; +BACITRACIN 50000 UNIT VIAL ONE; -BCTCR/30 EXT; +BUPIVACAINE/EPINEPHRINE 0.25% 1:200,000 30 ML VIAL ONE; -CEPH500C2 PO; -CLC/300 PO; -CRAN1CAP15 PO; -FRRS300 PO; +LACTATED RINGER'S 1000ML 1,000 ML IV SCH; -LEVO1TAB33 PO; +LIDOCAINE 2%/EPINEPHRINE 1:100,000 1.8 ML CARTRIDGE ONE; -LOSA1TAB PO; -METO-596 PO; -METO50TA17 PO; -MISCCAP80 PO; -PROPDRO5 PO; -RXC5 PO; -TRAM-10 PO; +VANCOMYCIN 1GM/270ML NSS 270 ML IV SCH
[2017-01-26 08:29] VITALS: BP 166/64; PULSE 46; TEMP 36.6; O2SAT 94
[2017-01-26] MEDS ORDERED: ATROPINE SULFATE 0.1 MG/ML 5ML SYR IV PRN (08:30)
[2017-01-26] MEDS ORDERED: EpHEDrine SULFATE INJ 50 MG/ML AMP IV PRN (08:30)
[2017-01-26] MEDS ORDERED: FENTANYL CITRATE INJ 50 MCG/1 ML 2 ML VIAL IV PRN (08:30)
[2017-01-26] MEDS ORDERED: ONDANSETRON INJ 2 MG/ML 2 ML VIAL IV PRN (08:30)
[2017-01-26 08:36] LABS: INR 1.2 (0.9-1.1); PARTIAL THROMBOPLASTIN RATIO 1.2; PROTHROMBIN TIME (PATIENT) 13.4 SECONDS (9.0-12.0)
[2017-01-26] MEDS ORDERED: BCTCR/30 EXT (08:39)
[2017-01-26] MEDS ORDERED: SUCCINYLCHOLINE CHLORIDE 20 MG/ML 10 ML VIAL IV ONE (09:06)
[2017-01-26] MEDS ORDERED: FENTANYL CITRATE INJ 50 MCG/1 ML 2 ML VIAL ONE (09:06)
[2017-01-26] MEDS ORDERED: LIDOCAINE HCL 2% 2 ML VIAL (20MG/ML) ONE (09:06)
[2017-01-26] MEDS ORDERED: MIDAZOLAM HCL 1 MG/ML 2ML VIAL ONE (09:06)
[2017-01-26] MEDS ORDERED: PROPOFOL IV EMULSION 10 MG/ML 20 ML VIAL IV ONE (09:06)
[2017-01-26] MEDS ORDERED: LIDO 2%/EPINEPHRINE 1:100000 20 ML VIAL INFIL ONE (09:15)
--- NOTE | 2017-01-26 09:39 | History & Physical Bridge Note ---
H&P Re-Evaluation Bridge Note: I have examined the patient, reviewed the History & Physical and in the interval since the performance of the History & Physical I have noted the following changes of clinical significance: No changes noted
[2017-01-26] MEDS ORDERED: ROCURONIUM BROMIDE 10 MG/ML 5 ML VIAL ONE (10:03)
[2017-01-26] MEDS ORDERED: EpHEDrine SULFATE 50MG/5ML SYR ONE (10:16)
[2017-01-26] MEDS ORDERED: ORM MISCELLANEOUS MED XX ONE (10:32)
--- NOTE | 2017-01-26 11:34 | Operative Note-Pain Management ---
Pain Clinic Operative Note PROCEDURE PERFORMED: Intrathecal pump replacement, catheter access port study, pump interrogation, reprogramming, and analysis. PREOPERATIVE DIAGNOSIS: End of life intrathecal pump POSTOPERATIVE DIAGNOSIS: Same. COMPLICATIONS: None. ANESTHESIA: General. MATERIAL FORWARDED TO THE LAB: Explanted pump Estimated blood loss 10 mL INDICATIONS: The patient had an end of life pump thus requiring replacement. The patient was explained the risks, benefits, alternatives of the procedure and agreed to proceed as above. Informed consent was obtained and witnessed. A time out was performed after the patient was brought into the Operating Room. Antibiotics were given. The patient was then induced with general anesthesia without complications and was placed in the supine position. The skin was prepped with duraprep and betadine and draped in sterile fashion. The existing pump was identified and using a scalpel, electrocautery, and blunt dissection, the existing pump was exposed. The two retaining sutures were removed and the old pump was explanted. The catheter was disconnected from the old pump and CSF was noted. The new pump was opened and prepared according to [employer]onic standards. The pump medication from the existing pump was removed and placed into the new pump. The pump catheter was secured to the new pump according to [employer] standards. The catheter access port was accessed and revealed free flowing CSF. Next, the pocket was irrigated with 3 bulb syringes full of sterile normal saline with bacitracin. Hemostasis was achieved. The new pump was placed into the pocket in the 12 O'clock position. The intrathecal pump was anchored in the pocket with one 0 Prolene sutures in addition to the [place]- Kevin sock that was present within the pocket. No complications were noted after the intrathecal pump was placed inside the pocket. Aspiration from the catheter access port revealed free flowing CSF. The skin and subcutaneous tissues of both incisions were closed with running V-LOC 0 sutures then running subcuticulars (3-O V-LOC) and then prineo dermabond without complications. The skin was cleansed and dried followed by 4 x 4's and Tegaderms were placed for closure dressings. No complications were noted throughout the procedure. The patient tolerated the procedure and general anesthesia well and was extubated at the end of the procedure. The patient was then transferred back to the [facility] and was taken to the recovery room in stable condition. The patient will follow up with our clinic within 14 days for a wound check. Pump size inserted: 40ml Medication placed in pump: Morphine 20 mg/mL and bupivacaine 3 mg/mL to run at morphine 8.156 mg per day and bupivacaine 1.2234 mg per day estimated refill interval is 92 days alarm date is 04/28/2017 I attest to the content of the Intraoperative Record and any orders documented therein. Any exceptions are noted below.
--- NOTE | 2017-01-26 11:40 | Discharge Instructions ---
Discharge Instructions Date of Service Jan 26, 2017. Visit Reason for Visit: End-of-Life Intrathecal Drug Administration System Discharge Discharge Diagnosis / Problem: end-of-life intrathecal drug administration system Discharge Goals Goal(s): Decrease discomfort, Improve function Medications Restart Stopped Medication(s): Restart her Coumadin as described by Dr. Abreu Activity Recommendations Activity Limitations: per Instructions/Follow-up section Lifting Limitations: no more than 10 pounds Exercise/Sports Limitations: until after follow-up appointment May Resume Sexual Activity: after follow-up appointment Shower/Bathe: keep incision dry (do not shower for 4 days please keep the incision dry must wear an abdominal binder 24 hours a day for the first 4 weeks) Anesthesia . Post Anesthesia Instructions: If you have had General Anesthesia or IV Sedation: * Do not drive today. * Resume driving when surgeon permits. * Do not make important decisions or sign legal documents today. * Call surgeon for: 1. Temperature elevations greater than 101 degrees F. 2. Uncontrollable pain. 3. Excessive bleeding. 4. Persistent nausea and vomiting. 5. Medication intolerance (nausea, vomiting or rash). * For nausea and vomiting use only clear liquids such as: tea, soda, bouillon until nausea subsides, then gradually increase diet as tolerated. * If you have any concerns or questions, call your surgeon's office. If physician is unavailable and it is an emergency, call 911 or go to the nearest emergency room. . Instructions / Follow-Up Instructions / Follow-Up Followup February 09 2017 at 2:40pm with Fredy Orona PA-C You have a prescription to use for as needed pain control, tramadol 50 mg take 1 tablet by mouth up to 4 times daily as needed for pain Diet Recommendations Recommended Home Diet: no limitations, resume previous diet Procedures Procedures Performed: Replacement of Intrathecal Drug Administration Pain Pump with Reprogramming, Analysis, and Interrogation Pending Studies Studies pending at discharge: no Medical Emergencies . Who to Call and When: If you have any questions aboutpain management please call the [facility] pain management office at [phone] Medical Emergencies: If at any time you feel your situation is an emergency, please call 911 immediately. . Non-Emergent Contact Non-Emergency issues call your: Primary Care Provider, Specialist (pain management) Call Non-Emergent contact if: you have a fever, your pain is not controlled, your pain is worsening, your pain is unusual for you, your pain is concerning you, wound has increased drainage, wound has increased redness, wound has increased pain, you have any medication questions . Past History Medical & Surgical History: (1) New onset atrial fibrillation (2) Hypomagnesemia (3) New onset atrial fibrillation (4) Supratherapeutic INR (5) Back pain (6) Supratherapeutic INR (7) Hematuria (8) Anticoagulation adequate (9) Hematuria (10) Atrial Fibrillation (11) Hyperlipidemia Nec/Nos (12) Hypertension Nos (13) Pure Hypercholesterolem (14) Upper respiratory infection, acute (15) Near syncope (16) Hypertension (17) Chest pain (18) Thrombocytopenia (19) Chronic back pain (20) Arthritis (21) Pancytopenia (22) Appendectomy (23) Cholecystectomy . "Provider Documentation" section prepared by Camelia Light. . [place] Drug Monitoring Program Search Results: patient reviewed within database, no issues identified
[2017-01-26] MEDS ORDERED: TRAMADOL HCL 50 MG TAB PO PRN (11:45)
--- NOTE | 2017-01-26 12:02 | Anesthesiology Progress Note ---
Anesthesia Post Op Note Date & Time Jan 26, 2017 at 12:02 Vital Signs Pain Intensity: 0 Vital Signs Past 12 Hours Date Time Temp Pulse Resp B/P (MAP) Pulse Ox O2 Delivery O2 Flow Rate FiO2 01/26/17 12:00 36.5 60 16 140/69 93 Room Air 01/26/17 11:50 60 16 142/78 94 Room Air 01/26/17 11:40 61 16 154/60 100 Mask 10 01/26/17 11:30 61 16 167/75 97 Mask 10 01/26/17 11:23 36.1 63 16 175/86 95 Mask 10 01/26/17 08:29 36.6 46 18 166/64 (98) 94 Room Air Notes Mental Status: alert / awake / arousable, participated in evaluation Pt Amnestic to Procedure: Yes Nausea / Vomiting: adequately controlled Pain: adequately controlled Airway Patency, RR, SpO2: stable & adequate BP & HR: stable & adequate Hydration State: stable & adequate Anesthetic Complications: no major complications apparent
[2017-01-26 12:05] VITALS: BP 148/72; PULSE 62; TEMP 36.3; O2SAT 94
[2017-01-26 12:35] VITALS: BP 135/62; PULSE 80; O2SAT 95
[2017-01-26 13:05] VITALS: BP 118/55; PULSE 56; TEMP 36.3; O2SAT 100
[2017-02-09] MEDS ORDERED: TRAM-10 PO (14:54)
[2017-04-02] MEDS ORDERED: LOSA1TAB PO (15:56)
[2017-05-12] MEDS ORDERED: FRS/40 PO (09:08)
[2017-05-12] MEDS ORDERED: ARTIFICAL TEARS OPB (09:08)
[2017-05-12] MEDS ORDERED: ACET-1256 PO (09:08)
[2017-05-12] MEDS ORDERED: ASPI81TA28 PO (09:08)
[2017-06-15] MEDS ORDERED: FRRS300 PO (10:36)
[2017-06-15] MEDS ORDERED: METO50TA17 PO (10:36)
[2017-06-15] MEDS ORDERED: RXC5 PO (13:21)
[2017-06-25] MEDS ORDERED: LEVO1TAB33 PO (12:11)
[2017-06-30] MEDS ORDERED: CEPH500C2 PO (07:38)
[2017-06-30] MEDS ORDERED: METO-596 PO (07:50)
[2017-06-30] MEDS ORDERED: METO50TA17 PO (15:13)
[2017-06-30] MEDS ORDERED: MISCCAP80 PO (15:18)
[2017-06-30] MEDS ORDERED: PROPDRO5 PO (15:21)
[2017-07-02] MEDS ORDERED: RXC5 PO (09:19)
== END 2017-01-26 13:20 | disposition home or self-care (01) ==
LOC: C.ACU 07:32
PROVIDERS: ATTEND Anesthesiology
DX: M54.5 Low back pain (principal); M96.1 Postlaminectomy syndrome, not elsewhere classified; G89.28 Other chronic postprocedural pain; I48.91 Unspecified atrial fibrillation; E78.5 Hyperlipidemia, unspecified; I25.10 Atherosclerotic heart disease of native coronary artery without angina pectoris; Z87.442 Personal history of urinary calculi; Z86.14 Personal history of Methicillin resistant Staphylococcus aureus infection; N18.3 Chronic kidney disease, stage 3 (moderate); Z79.899 Other long term (current) drug therapy; K21.9 Gastro-esophageal reflux disease without esophagitis; Z90.89 Acquired absence of other organs; Z90.49 Acquired absence of other specified parts of digestive tract; Z98.49 Cataract extraction status, unspecified eye; Z79.82 Long term (current) use of aspirin; Z79.01 Long term (current) use of anticoagulants; F41.9 Anxiety disorder, unspecified; I12.9 Hypertensive chronic kidney disease with stage 1 through stage 4 chronic kidney disease, or unspecified chronic kidney disease; Z86.711 Personal history of pulmonary embolism; M19.90 Unspecified osteoarthritis, unspecified site; E66.01 Morbid (severe) obesity due to excess calories

== ENCOUNTER → 2017-03-02 | Outpatient (CLI) | payer OTHER ==
[~2017-03-02] MED LIST changes: +ARTIFICAL TEARS OPB; +ASPI81TA28 PO; -BACITRACIN 50000 UNIT VIAL ONE; +BCTCR/30 EXT; -BUPIVACAINE/EPINEPHRINE 0.25% 1:200,000 30 ML VIAL ONE; -LACTATED RINGER'S 1000ML 1,000 ML IV SCH; -LIDOCAINE 2%/EPINEPHRINE 1:100,000 1.8 ML CARTRIDGE ONE; +LOSA1TAB PO; +TRAM-10 PO; -VANCOMYCIN 1GM/270ML NSS 270 ML IV SCH
[2017-03-02 14:23] LABS: HEMATOCRIT 38.7 % (42-52); MEAN CELL VOLUME 92.8 fL (80-100); MEAN CORPUSCULAR HEMOGLOBIN 31.2 pg (25-34); MEAN CORPUSCULAR HGB CONC 33.6 g/dl (32-36); PLATELET COUNT 111 K/uL (130-400); RED BLOOD COUNT 4.17 M/uL (4.7-6.1); WHITE BLOOD COUNT 6.36 K/uL (4.8-10.8)
[2017-03-02 14:35] LABS: ALT/SGPT 23 U/L (12-78); BLOOD UREA NITROGEN 33 mg/dl (7-18); BUN/CREATININE RATIO 20.3 (10-20); CALCIUM 9.4 mg/dl (8.5-10.1); CARBON DIOXIDE 34 mmol/L (21-32); CHLORIDE 105 mmol/L (98-107); CHOLESTEROL 124 mg/dl (0-200); GLUCOSE 91 mg/dl (70-99); POTASSIUM 4.1 mmol/L (3.5-5.1); SODIUM 142 mmol/L (136-145); TRIGLYCERIDES 142 mg/dl (0-150); VERY LOW DENSITY LIPOPROT CALC 28 mg/dl
[2017-03-02 14:46] LABS: ALKALINE PHOSPHATASE 78 U/L (45-117); AST/SGOT 24 U/L (15-37); CHOLESTEROL/HDL RATIO 3.3; ESTIMATED AVERAGE GLUCOSE 108 mg/dl; HA1C FLAG Normal (Normal); HDL CHOLESTEROL 38 mg/dl; LDL CHOLESTEROL CALCULATED 58 mg/dl
--- NOTE | 2017-04-07 09:35 | CODING QUERY MEDICAL NECESSITY ---
SUPPORTING DIAGNOSIS NEEDED Dr. Mcgregor, A supporting diagnosis is required for the test/procedure performed on this patient in order for us to be reimbursed by the patient's insurance. Please provide a supporting diagnosis for the following test/procedure listed below next to the test name along with your signature. *If there is no additional diagnosis for this patient that would support the following test/procedure please document that below next to the test/procedure. Test(s)/Procedure(s) that require a supporting diagnosis: * [id number] GLYCATED HEMOGLOBIN DIAGNOSIS: DATE OF SERVICE: 03/02/17 Provider Signature: Date: Thank you Maikel Dietrich [facility] Information Management Once completed, please kindly fax back to [phone] For questions please call [phone]
== END | disposition home or self-care (01) ==
LOC: C.LABBC 10:38
PROVIDERS: ATTEND Nurse Practitioner Family
DX: I25.10 Atherosclerotic heart disease of native coronary artery without angina pectoris (principal); I48.91 Unspecified atrial fibrillation; E78.00 Pure hypercholesterolemia, unspecified; N18.3 Chronic kidney disease, stage 3 (moderate); I12.9 Hypertensive chronic kidney disease with stage 1 through stage 4 chronic kidney disease, or unspecified chronic kidney disease; M54.5 Low back pain; M96.1 Postlaminectomy syndrome, not elsewhere classified; R73.9 Hyperglycemia, unspecified; Z88.0 Allergy status to penicillin; Z88.8 Allergy status to other drugs, medicaments and biological substances; M16.12 Unilateral primary osteoarthritis, left hip; G89.28 Other chronic postprocedural pain; E88.81 Metabolic syndrome and other insulin resistance

== ENCOUNTER → 2017-03-31 | Outpatient (CLI) | payer OTHER ==
--- NOTE | 2017-03-31 13:07 | DIAGNOSTIC IMAGING REPORT ---
LEFT HIP 2 VIEWS CLINICAL HISTORY: Chronic left hip pain. FINDINGS: AP and frog-leg views of left hip are compared to study dated 08/07/2016. The skeletal structures are osteopenic. There is no radiographic evidence of fracture in the left hip or visualized left hemipelvis. An electronic device partially obscures the left hip. Advanced arthritic change is seen in left hip with near complete loss of the joint space, bony sclerosis, and subchondral cyst formation. Sclerotic degenerative change is seen in the left sacroiliac joint. Fusion hardware is partially imaged in the lumbosacral spine. The overlying soft tissues are normal in appearance. IMPRESSION: 1. No acute bony abnormality is seen in the left hip. 2. Osteopenia and advanced arthritic change as above. Electronically signed by: Stan Barrow M.D. 03/31/2017 1:06 PM Dictated Date/Time: 03/31/2017 1:04 PM
== END | disposition home or self-care (01) ==
LOC: C.RADBC 12:22
PROVIDERS: ATTEND Nurse Practitioner Family
DX: M25.552 Pain in left hip (principal); M85.862 Other specified disorders of bone density and structure, left lower leg

== ENCOUNTER → 2017-06-29 | Outpatient (CLI) | payer OTHER ==
[~2017-06-29] MED LIST changes: +AMOX500C3 PO; -ASPEC81 PO; +CEPH500C2 PO; +CLC/300 PO; +FRRS300 PO; +LEVO1TAB33 PO; -LOSA1TAB PO; -LPR100 PO; +METO-596 PO; +METO50TA17 PO; +MISCCAP80 PO; -POLY99.02 OP; +PROPDRO5 PO; +RXC5 PO; +WARF2.5T8 PO
[2017-06-29 14:27] LABS: INR 2.1 (0.9-1.1)
--- NOTE | 2017-07-19 08:48 | CODING QUERY NO DIAGNOSIS ---
Valid Physician Order Needed A valid physician order must be submitted in order to properly bill for the service(s) provided, including date of service(s), valid diagnosis, and physician signature. If these tests are done on a recurring basis the original physican order must be submitted in order to code and bill for the service(s) provided. Please fax us the original, signed physician order so that we may expedite billing to [phone] DOS 06/29/17 * PT/INR Thank you Mae On License Of [facility] Information Management
== END | disposition home or self-care (01) ==
LOC: C.LABSPEC 14:12
PROVIDERS: ATTEND Nurse Practitioner Family
DX: I48.91 Unspecified atrial fibrillation (principal); Z47.1 Aftercare following joint replacement surgery; Z96.642 Presence of left artificial hip joint

== ENCOUNTER → 2017-06-30 | Outpatient (CLI) | payer OTHER ==
[~2017-06-30] MED LIST changes: -AMOX500C3 PO; -CLC/300 PO; -WARF2.5T8 PO
[2017-06-30 13:34] LABS: INR 1.8 (0.9-1.1); PARTIAL THROMBOPLASTIN RATIO 1.6; PROTHROMBIN TIME (PATIENT) 20.1 SECONDS (9.0-12.0)
[2017-06-30 13:48] LABS: BLOOD UREA NITROGEN 20 mg/dl (7-18); BUN/CREATININE RATIO 15.6 (10-20); CALCIUM 9.6 mg/dl (8.5-10.1); CARBON DIOXIDE 31 mmol/L (21-32); CHLORIDE 100 mmol/L (98-107); CREATININE 1.31 mg/dl (0.60-1.40); GLUCOSE 103 mg/dl (70-99); SODIUM 139 mmol/L (136-145)
[2017-06-30 13:52] LABS: BASO % 0.3 %; BASO ABS # 0.02 K/uL (0-0.2); COMPLETE YES; EOS % 1.4 %; IG% 0.3 %; LYMPH % 15.1 %; MEAN CELL VOLUME 97.3 fL (80-100); MEAN CORPUSCULAR HEMOGLOBIN 30.4 pg (25-34); MEAN CORPUSCULAR HGB CONC 31.3 g/dl (32-36); MEAN PLATELET VOLUME 9.1 fL (7.4-10.4); MONO % 9.7 %; NEUT % 73.2 %; PLATELET COUNT 237 K/uL (130-400); RED BLOOD COUNT 3.29 M/uL (4.7-6.1); WHITE BLOOD COUNT 6.63 K/uL (4.8-10.8)
== END | disposition home or self-care (01) ==
LOC: C.LABBC 11:00
PROVIDERS: ATTEND Orthopaedic Surgery
DX: M25.552 Pain in left hip (principal); Z96.642 Presence of left artificial hip joint; D64.9 Anemia, unspecified; I10 Essential (primary) hypertension

== ENCOUNTER 2017-07-01 12:54 | Observation (INO) | payer OTHER ==
[2017-06-30 15:21] VITALS: BMI 39.0
[2017-07-01] VITALS (8 sets, daily range): BP systolic 116–158; BP diastolic 61–79; PULSE 67–83; TEMP 36.5–36.7; O2SAT 95–99; Ht 175.3 cm; Wt 121.4 kg
[~2017-07-01] VITALS: Ht 175.3 cm; Wt 121.4 kg
--- NOTE | 2017-07-01 08:14 | HISTORY & PHYSICAL EXAMINATION ---
DATE OF ADMISSION: 07/01/2017 CHIEF COMPLAINT: Three weeks status post left total hip arthroplasty with postoperative seroma. HISTORY OF PRESENT ILLNESS: Nolberto is a pleasant 71-year-old male who has been having a several-year history of left hip pain. It got to the point where he was ambulating only with a walker, which increases his hip pain. He has a history of a lumbar fusion and a pain pump and he was taking Coumadin for atrial fibrillation. He was diagnosed with advanced osteoarthritis of the left hip and elected to undergo a left total hip arthroplasty 3 weeks ago. He underwent an uncomplicated total hip, but a bridging Lovenox was recommended. I will put him on 30 mg twice a day and start him back up on his Coumadin. Once his INR was stable after about 4 days, the Lovenox was discontinued. He has been doing fairly well with regards to his hip. He has been having some postoperative nausea and constipation. When I saw him in my office in about 2-1/2 weeks out from the surgery, he still had a little bit of drainage from his hip wound. I sent him over to wound care for possible incisional VAC placement. The wound care took a look at him sterilely and thought that there was enough of seroma that required surgical evacuation before a VAC was placed. I thought that was reasonable and he elected to proceed. PAST MEDICAL HISTORY: Significant for hypomagnesemia, hematuria, hypertension, new onset atrial fibrillation, hyperlipidemia, thrombocytopenia, chronic back pain, osteoarthritis. MEDICATIONS: Include Tylenol 1000 mg as needed, vitamin C 1000 mg daily, aspirin 81 mg daily, Lipitor 40 mg at night, vitamin D3 2000 units daily, vitamin B12 500 mcg daily, Tambocor 100 mg twice a day, Lasix 40 mg daily, Cozaar 25 mg daily, magnesium 200 mg daily, metoprolol 100 mg twice a day, Bactroban, Nitrostat 0.4 mg as needed, Prilosec 20 mg a day, stool softener twice a day, Aldactone 50 mg daily, timolol drops twice a day, tramadol 50 mg 3 times a day as needed for pain, Coumadin 0.5 mg daily, and a morphine pain pump. ALLERGIES: INCLUDE DOXYCYCLINE, ZOFRAN, AND PENICILLINS. FAMILY HISTORY: Significant for heart disease and diabetes. SOCIAL HISTORY: He is . Denies any alcohol or IV drug abuse. He is moderately active. He is retired and currently uses a walker because of his hip pain. REVIEW OF SYSTEMS: He complains of left hip pain and drainage from the wound. All other pertinent review of systems is negative. PHYSICAL EXAMINATION: GENERAL: He is awake, alert and oriented x3. He is in no apparent distress. He is very pleasant. HEENT: Pupils equal, round and reactive to light. Extraocular motion intact. Oral mucosa is pink and moist. HEART: Regular rate per radial pulse. LUNGS: [place] symmetrically bilaterally with no audible breath sounds. ABDOMEN: Soft, nontender, nondistended. MUSCULOSKELETAL: On physical examination of the left hip, he is ambulating with a walker, but he is not having much pain. He is already back to driving. The bridget have been removed. There is a small dehiscence at the lower aspect of the wound and there is persistent serous drainage. The wound has been covered at wound care by a sterile dressing. IMPRESSION: Three weeks status post left total hip arthroplasty with postoperative seroma. PLAN: We will take him to the operating room and do evacuation of seroma, wound closure and likely VAC placement. His INR is currently 2.1, but I would rather do the procedure with an INR like that, then gets INR levels down and bridge him with Lovenox. Postoperatively, he will be kept in the hospital at least overnight for a few doses of IV antibiotics. If this seroma looks more infected, then I am expecting maybe a longer stay.
[~2017-07-01 12:54] MED LIST changes: +ACETAMINOPHEN 500 MG TAB PO SCH; -ARTIFICAL TEARS OPB; -BCTCR/30 EXT; -FRRS300 PO; +LACTATED RINGER'S 1000ML 1,000 ML IV SCH; +LACTATED RINGER'S 1000ML IV SCH; -LEVO1TAB33 PO; -METO-596 PO; +PATIENT'S HEIGHT AND/OR WEIGHT NEEDED SCH; -TRAM-10 PO; +VANCOMYCIN INJ 1,750 MG in SODIUM CHLORIDE 0.9% 500ML 500 ML IV SCH
[2017-07-01 14:14] LABS: INR 1.7 (0.9-1.1); PARTIAL THROMBOPLASTIN RATIO 1.5; PROTHROMBIN TIME (PATIENT) 18.5 SECONDS (9.0-12.0)
[2017-07-01] MEDS ORDERED: FENTANYL CITRATE INJ 50 MCG/1 ML 2 ML VIAL ONE (14:27)
[2017-07-01] MEDS ORDERED: MIDAZOLAM HCL 1 MG/ML 2ML VIAL ONE (14:27)
[2017-07-01] MEDS ORDERED: EpHEDrine SULFATE INJ 50 MG/ML AMP IV PRN (15:30)
[2017-07-01] MEDS ORDERED: LABETALOL HCL IV 5 MG/ML 20ML IV PRN (15:30)
[2017-07-01] MEDS ORDERED: PHENYLEPHRINE 100MCG/ML 5ML SYR IV PRN (15:30)
[2017-07-01] MEDS ORDERED: ATROPINE SULFATE 0.1 MG/ML 5ML SYR IV PRN (15:30)
[2017-07-01] MEDS ORDERED: BACITRACIN 50000 UNIT VIAL ONE (15:33)
[2017-07-01] MEDS ORDERED: PROPOFOL IV EMULSION 10 MG/ML 20 ML VIAL IV ONE (16:06)
[2017-07-01] MEDS ORDERED: METOCLOPRAMIDE HCL INJ 5 MG/ML 2 ML VIAL ONE (16:06)
[2017-07-01] MEDS ORDERED: ROCURONIUM BROMIDE 10 MG/ML 5 ML VIAL IV ONE (16:06)
[2017-07-01] MEDS ORDERED: LIDOCAINE HCL 2% 2 ML VIAL (20MG/ML) ONE (16:06)
[2017-07-01] MEDS ORDERED: DEXAMETHASONE SOD INJ 4 MG/ML VIAL ONE (16:06)
[2017-07-01] MEDS ORDERED: EpHEDrine SULFATE 50MG/5ML SYR ONE (16:17)
[2017-07-01] MEDS: FENTANYL CITRATE INJ 50 MCG/1 ML 2 ML VIAL IV PRN ×4 (17:06→17:21)
--- NOTE | 2017-07-01 17:13 | [facility] Post Operative Brief Note ---
Immediate Operative Summary Operative Date Jul 01, 2017. Pre-Operative Diagnosis Post operative seroma Post-Operative Diagnosis Same Procedure(s) Performed Incision and Debridement of left hip wound Surgeon Dr Lopez [employer] Surgeon(s) Anita Hanna PA-C Estimated Blood Loss 25ml Findings as above Specimens Routine culture and anaerobic culture left hip wound Complication(s) None Disposition Recovery Room / PACU
[2017-07-01] MEDS ORDERED: DOCUSATE SODIUM/SENNA 50/8.6MG TAB PO PRN (17:15)
[2017-07-01] MEDS ORDERED: METOCLOPRAMIDE HCL INJ 5 MG/ML 2 ML VIAL IV PRN (17:15)
[2017-07-01] MEDS ORDERED: MINERAL OIL 473 ML BOTTLE PO PRN (17:15)
[2017-07-01] MEDS ORDERED: NITROGLYCERIN 0.4 MG SL PER TAB CHARGE UT PRN (17:15)
[2017-07-01] MEDS ORDERED: ONDANSETRON INJ 2 MG/ML 2 ML VIAL IV PRN (17:15)
[2017-07-01] MEDS ORDERED: CEFAZOLIN IV 2,000 MG in DEXTROSE 5% 50ML 50 ML IV SCH (17:15)
[2017-07-01] MEDS: HYDROmorphone INJ 1 MG/ML SYR IV PRN ×4 (17:26→17:41)
[2017-07-01] MEDS ORDERED: MEPERIDINE HCL 25 MG/ML CARP IV PRN (17:45)
[2017-07-01] MEDS ORDERED: MEPERIDINE HCL 25 MG/ML CARP ONE ×2 (17:46→17:55)
--- NOTE | 2017-07-01 18:11 | Anesthesiology Progress Note ---
Anesthesia Post Op Note Date & Time Jul 01, 2017 at 18:10 Vital Signs Pain Intensity: 6 Vital Signs Past 12 Hours Date Time Temp Pulse Resp B/P (MAP) Pulse Ox O2 Delivery O2 Flow Rate FiO2 07/01/17 18:00 74 16 136/61 99 Nasal Cannula 3 07/01/17 17:50 72 16 134/58 99 Nasal Cannula 3 07/01/17 17:40 73 16 139/62 100 Nasal Cannula 3 07/01/17 17:30 76 16 143/54 100 Nasal Cannula 3 07/01/17 17:20 75 16 145/61 100 Oxymask 10 07/01/17 17:10 77 16 121/66 100 Oxymask 10 07/01/17 17:04 36.6 80 16 146/48 98 Oxymask 10 07/01/17 13:25 36.5 67 20 132/65 (87) 96 Room Air Notes Mental Status: alert / awake / arousable, participated in evaluation Pt Amnestic to Procedure: Yes Nausea / Vomiting: adequately controlled Pain: adequately controlled Airway Patency, RR, SpO2: stable & adequate BP & HR: stable & adequate Hydration State: stable & adequate Anesthetic Complications: no major complications apparent
[2017-07-01] MEDS ORDERED: IV FLUIDS COMPLETED PRN (18:15)
--- NOTE | 2017-07-01 19:06 | OPERATIVE REPORT ---
DATE OF OPERATION: 07/01/2017 PREOPERATIVE DIAGNOSIS: Seroma of the left hip. POSTOPERATIVE DIAGNOSIS: Same. PROCEDURE: Irrigation and debridement of superficial seroma of the left hip. SURGEON: Neal Lopez DO. BUSINESS STRATEGIST: Jagjit Hanna PA-C, whose assistance was necessary for retraction and closure. ANESTHESIA: General. COMPLICATIONS: None. CONDITION: Stable to PACU. INDICATIONS: Nolberto is a pleasant 71-year-old male who underwent an anterior left total hip arthroplasty about 3 weeks ago. He came earlier this week for staple removal and I saw little bit of serous drainage still coming from the site. I sent him over to wound care hoping they would put an incisional VAC on it. Wound care called and said that they felt it was a little bit deeper and felt should go to the OR. I felt that was reasonable. The wound was cultured earlier by his primary care physician. He was already started on Levaquin and Keflex. OPERATION AND FINDINGS: On 07/01/2017, he arrived at [facility] for the above procedure. He was seen in the preoperative holding area and the operative extremity was identified and signed. He was then taken back to the operating room, laid on the table in supine position and put under general anesthesia. He was then put into a sloppy lateral position with a beanbag. The left hip was then prepped and draped in sterile fashion. Time-out was done and the patient and lower extremity was properly identified. There was some clear serous drainage coming from the wound, but it did not seem to be too excessive. There were very minimal purulent areas around certain aspects of the wound. About 70% of the wound was closed and about 30% had some drainage. The wound was opened the rest of the way. Skin edges were then freshened up with a sharp knife. There were no signs of abscess or deep infection. There was a seroma. The wound was initially irrigated with 3 liters of normal saline solution with bacitracin. A sharp knife was then done to do a debridement of the cavity. The floor of the cavity was the tensor fascia and at no point the tensor fascia seemed violated. It certainly did not seem to go deep. The wound was then irrigated with an additional 3 liters of normal saline solution without bacitracin. The deep fat layer was then closed with #1 PDS suture. The skin was then closed with 2-0 Vicryl and bridget. A Prevena VAC dressing was then placed. He was then extubated and taken to the postanesthesia care unit in stable condition. To note, cultures were taken of the deep portion of the wound. The wound also measured to be about 12 cm in length and 4 cm deep to the fascial layer. I attest to the content of the Intraoperative Record and any orders documented therein. Any exception s are noted below.
[2017-07-01 20:15] LABS: HEMATOCRIT 27.5 % (42-52); MEAN CELL VOLUME 95.8 fL (80-100); MEAN CORPUSCULAR HEMOGLOBIN 30.3 pg (25-34); MEAN PLATELET VOLUME 8.4 fL (7.4-10.4); PLATELET COUNT 146 K/uL (130-400); RED BLOOD COUNT 2.87 M/uL (4.7-6.1); WHITE BLOOD COUNT 4.19 K/uL (4.8-10.8)
[2017-07-01] MEDS ORDERED: WARFARIN SOD 0.5 MG TAB PO SCH (20:15)
[2017-07-01 20:20] LABS: MEAN CORPUSCULAR HGB CONC 31.6 g/dl (32-36)
[2017-07-01] MEDS ORDERED: ATORVASTATIN 40 MG TAB PO SCH (21:00)
[2017-07-01] MEDS: POTASSIUM CHLORIDE INJ 10 MEQ in SODIUM CHLORIDE 0.9% 1000ML 1,000 ML IV SCH (21:07)
[2017-07-01] MEDS: PANTOprazole SOD 40 MG TAB PO SCH (21:10)
[2017-07-01] MEDS: FLECAINIDE ACETATE 100 MG TAB PO SCH (21:10)
[2017-07-01] MEDS: METOPROLOL TARTRATE 50 MG TAB PO SCH (21:10)
[2017-07-01] MEDS: TIMOLOL MALEATE 0.5% OP SOLN 5 ML BTL OPR SCH (21:12)
[2017-07-01] MEDS: CEFAZOLIN IV 2,000 MG in SYRINGE 0 ML IV SCH (22:52)
[2017-07-01] MEDS: OXYCODONE HCL IR 5 MG TAB (IMMEDIATE RELEASE) PO PRN (22:53)
[2017-07-01] MEDS ORDERED: NURSING VERBAL MED ORDER ONE (23:30)
[2017-07-02 02:36] VITALS: BP 143/67; PULSE 72; TEMP 36.2; O2SAT 92
[2017-07-02] MEDS: OXYCODONE HCL IR 5 MG TAB (IMMEDIATE RELEASE) PO PRN ×2 (02:45→08:20)
[2017-07-02] MEDS: CEFAZOLIN IV 2,000 MG in SYRINGE 0 ML IV SCH (05:38)
[2017-07-02] MEDS: POTASSIUM CHLORIDE INJ 10 MEQ in SODIUM CHLORIDE 0.9% 1000ML 1,000 ML IV SCH (05:39)
[2017-07-02 06:56] LABS: HEMATOCRIT 25.5 % (42-52); MEAN CELL VOLUME 95.1 fL (80-100); MEAN CORPUSCULAR HEMOGLOBIN 30.6 pg (25-34); MEAN CORPUSCULAR HGB CONC 32.2 g/dl (32-36); MEAN PLATELET VOLUME 8.4 fL (7.4-10.4); PLATELET COUNT 142 K/uL (130-400); RED BLOOD COUNT 2.68 M/uL (4.7-6.1); WHITE BLOOD COUNT 4.22 K/uL (4.8-10.8)
[2017-07-02 07:09] LABS: PROTHROMBIN TIME (PATIENT) 22.4 SECONDS (9.0-12.0)
[2017-07-02 07:31] LABS: BUN/CREATININE RATIO 14.8 (10-20); CALCIUM 8.4 mg/dl (8.5-10.1); CREATININE 1.3 mg/dl (0.60-1.40); POTASSIUM 3.8 mmol/L (3.5-5.1)
[2017-07-02 07:47] VITALS: BP 109/53; PULSE 64; TEMP 36.5; O2SAT 96
[2017-07-02] MEDS: PANTOprazole SOD 40 MG TAB PO SCH (08:08)
[2017-07-02] MEDS: METOPROLOL TARTRATE 50 MG TAB PO SCH (08:08)
[2017-07-02] MEDS: FLECAINIDE ACETATE 100 MG TAB PO SCH (08:09)
[2017-07-02] MEDS: TIMOLOL MALEATE 0.5% OP SOLN 5 ML BTL OPR SCH (08:10)
[2017-07-02 08:45] VITALS: O2SAT 96
[2017-07-02] MEDS ORDERED: FUROSEMIDE 40 MG TAB PO SCH (09:00)
[2017-07-02] MEDS ORDERED: MAGNESIUM OXIDE 400 MG TAB PO SCH (09:00)
[2017-07-02] MEDS ORDERED: SPIRONOLACTONE 25 MG TAB PO SCH (09:00)
[2017-07-02] MEDS ORDERED: ARTIFICIAL TEARS OP SOLN OPB SCH ×2 (09:00)
[2017-07-02] MEDS ORDERED: MULTIVITAMIN TAB PO SCH (09:00)
[2017-07-02] MEDS ORDERED: SACCHAROMYCES BOUL (FLORASTOR) 250 MG CAP PO SCH (09:00)
[2017-07-02] MEDS ORDERED: ASCORBIC ACID 500 MG TAB PO SCH (09:00)
[2017-07-02] MEDS ORDERED: CHOLECALCIFEROL 1000 INTER.UNIT TAB PO SCH (09:00)
[2017-07-02] MEDS ORDERED: CYANOCOBALAMIN 500 MCG TAB (VIT B-12) PO SCH (09:00)
[2017-07-02] MEDS ORDERED: RXC5 PO (09:19)
--- NOTE | 2017-07-02 09:21 | Discharge Instructions ---
Discharge Instructions Date of Service Jul 02, 2017. Admission Reason for Admission: Post-Operative Seroma -Left Hip Discharge Discharge Diagnosis / Problem: Left hip seroma Discharge Goals Goal(s): Decrease discomfort, Improve function Activity Recommendations Activity Limitations: as noted below . Instructions / Follow-Up Instructions / Follow-Up follow-up with Dr Lopez WednesdayJuly 12 Current Hospital Diet Patient's current hospital diet: Regular Diet Discharge Diet Recommended Diet: Regular Diet Procedures Procedures Performed: Incision and Debridement of left hip wound Pending Studies Studies pending at discharge: no Medical Emergencies . Who to Call and When: Medical Emergencies: If at any time you feel your situation is an emergency, please call 911 immediately. . Non-Emergent Contact Non-Emergency issues call your: Surgeon Call Non-Emergent contact if: wound has increased drainage, wound has increased redness . "Provider Documentation" section prepared by Neal Lopez. . VTE Core Measure Inpt VTE Proph given/why not?: Warfarin (Coumadin)
--- NOTE | 2017-07-02 09:51 | PROGRESS NOTE ---
DATE: 07/02/2017 CHIEF COMPLAINT: Status post evacuation of seroma of the left hip, postop day #1. PROGRESS: Nolberto was seen and examined at bedside today. He said he is having a little soreness at the back side, but otherwise is doing well. He has been up and ambulating around the room. He has no other complaints. PHYSICAL EXAMINATION: LEFT HIP: The Prevena VAC dressing is intact. It is still appropriate to suction. There is no cellulitis. He is neurovascularly intact. His leg lengths are equal. LABORATORIES: He has an H&H today of 8.2 and 25.5, which is stable. His white count is 4.22. His glucose is 116. His vital signs are stable on room air and he is voiding on his own. Micro, many white blood cells, no organisms seen from the deep culture. IMPRESSION: Status post irrigation of left hip seroma, postop day #1. PLAN: I am going to send him home on oral Keflex. He was sensitive to that from a superficial swab that was done in his primary care physician's office. I am expecting the deep swab to likely grow something; however, there were no signs of gross infection within the hip wound. Everything was superficial. He has Prevena VAC dressing in place. We also got him set up with another canister, in case the one he has fills up. He feels comfortable going home today. He already has Keflex 500 mg 4 times a day at home for the next 3 weeks. I gave him some pain medications to help him out as well. He can go home later this morning.
--- NOTE | 2017-07-02 09:55 | DISCHARGE SUMMARY ---
DATE OF DISCHARGE: 07/02/2017 DISCHARGE DIAGNOSIS: Seroma of the left hip. PROCEDURE: Evacuation of neuroma of the left hip on 07/01/[address] Neal Lopez. DISCHARGE INSTRUCTIONS: 1. Keflex 500 mg 4 times a day for 3 weeks. 2. Tylenol 1000 mg at night as needed. 3. Vitamin C 1000 mg daily. 4. Aspirin 81 mg daily. 5. Lipitor 40 mg daily. 6. Vitamin D 2000 units daily. 7. Vitamin B12 500 mcg daily. 8. Tambocor 100 mg twice a day. 9. Lasix 40 mg daily. 10. Magnesium 200 mg daily. 11. Metoprolol 50 mg twice a day. 12. Mineral oil as needed for constipation. 13. Daily multivitamin. 14. Nitrostat 0.4 mg as needed. 15. Prilosec 20 mg twice a day. 16. Oxycodone 5-10 mg every 4 hours as needed for pain. 17. Daily probiotic. 18. Aldactone 50 mg daily. 19. Timolol drops 1 drop each eye twice a day. 20. Vitamin A daily. 21. Coumadin 0.5 mg daily. 22. Follow up with Dr. Lopez on 07/12/2017. 23. Call the office of Dr. Lopez with any questions or concerns. INDICATIONS: Roshan is a 71-year-old male who underwent a left total hip arthroplasty 3 weeks ago. There was a persistent draining seroma from the hip. He elected to undergo an evacuation of seroma and wound closure. On 07/01/2017 he arrived at [facility] and underwent evacuation of seroma and wound closure without complications. A Prevena VAC dressing was placed postoperatively. He was discharged to general orthopedic floors. A deep culture was taken. There was a little bit of purulent discharge superficially around the incision, but the deep portion just was mostly clear seroma. I gave him a couple doses of Ancef IV and started him with Keflex orally postoperatively at discharge home. He will continue with Coumadin 0.5 mg daily. He was given an extra cannister as well for the Prevena VAC dressing. I will see him in the office on 07/12/2017 to remove the VAC dressing. He was discharged under observation status with [facility].
[2017-07-02 10:32] VITALS: BP 109/53; PULSE 64; TEMP 36.5; O2SAT 96
== END 2017-07-02 13:40 | disposition home or self-care (01) ==
LOC: C.ACU 12:54 → C.MSW 17:24 → ENRESERV 18:16
PROVIDERS: ADMIT Orthopaedic Surgery; ATTEND Orthopaedic Surgery
DX: M96.841 Postprocedural hematoma of a musculoskeletal structure following other procedure (principal); I48.91 Unspecified atrial fibrillation; N18.3 Chronic kidney disease, stage 3 (moderate); F41.9 Anxiety disorder, unspecified; F32.9 Major depressive disorder, single episode, unspecified; M19.90 Unspecified osteoarthritis, unspecified site; G47.33 Obstructive sleep apnea (adult) (pediatric); E66.01 Morbid (severe) obesity due to excess calories; Z68.41 Body mass index [BMI] 40.0-44.9, adult; Z90.89 Acquired absence of other organs; Z88.0 Allergy status to penicillin; Z96.642 Presence of left artificial hip joint; Z98.41 Cataract extraction status, right eye; Z98.42 Cataract extraction status, left eye; Z79.899 Other long term (current) drug therapy; Z79.82 Long term (current) use of aspirin

== ENCOUNTER 2017-07-17 11:25 | Inpatient (IN) | payer OTHER ==
[~2017-07-17] VITALS: Ht 165.1 cm; Wt 120.5 kg
[~2017-07-17 11:25] MED LIST changes: -ACETAMINOPHEN 500 MG TAB PO SCH; -LACTATED RINGER'S 1000ML 1,000 ML IV SCH; -LACTATED RINGER'S 1000ML IV SCH; -PATIENT'S HEIGHT AND/OR WEIGHT NEEDED SCH; -VANCOMYCIN INJ 1,750 MG in SODIUM CHLORIDE 0.9% 500ML 500 ML IV SCH
--- NOTE | 2017-07-17 11:47 | EMERGENCY ROOM VISIT NOTE ---
History Report prepared by Heidi: Gavin Miramontes Under the Supervision of: Dr. Vish Hernandez M.D. First contact with patient: 11:40 Chief Complaint: WOUND RECHECK Stated Complaint: WOUND ON FOOT OPEN History of Present Illness The patient is a 71 year old male who presents to the Emergency Room with complaints of a persistent wound on his left foot that started this morning. Per the patient's , the patient's left foot was noted to be completely normal last night, but this morning, the foot was noted to be swollen with a wound. The patient denies that the foot was rubbed on anything. He states that the foot is not painful but he has neuropathy in his feet. The patient has had 2 left hip surgeries in the past month, and recently had a wound vac taken off. He denies any fevers. The patient is not diabetic. He denies using any new detergents or having anything unusual touching his foot. The patient has been on Keflex for 3 weeks. He takes a low dose of Coumadin. Source of History: patient, spouse/significant other Onset: This morning Position: foot (left) Symptom Intensity: swollen Quality: other (wound) Timing: other (persistent) Associated Symptoms: No fevers Note: Associated symptoms: Denies pain, but has neuropathy in feet. Review of Systems All systems have been listed, reviewed, and are negative other than those previously mentioned. Please see Additional Medical History Sheet. Past Medical & Surgical Medical Problems: (1) Arthritis (2) Atrial Fibrillation (3) Chronic back pain (4) Hyperlipidemia Nec/Nos (5) Hypertension Nos (6) Osteoarthritis of hip (7) Pancytopenia (8) Pure Hypercholesterolem (9) Seroma (10) Thrombocytopenia Surgical Problems: (1) Appendectomy (2) Cholecystectomy Family History FH: heart disease Hypertension Social History Smoking Status: Never Smoker Alcohol Use: none Drug Use: none Marital Status: Housing Status: lives with family Occupation Status: employed Current/Historical Medications Scheduled Ascorbic Acid (Vitamin C), 1 TAB PO QAM Aspirin (Aspirin Ec), 81 MG PO DAILY Atorvastatin (Lipitor), 40 MG PO HS Cephalexin Monohydrate (Keflex), 500 MG PO QID Cholecalciferol (Vitamin D3), 2 CAP PO QAM Cyanocobalamin (Vitamin B12 500MCG), 500 MCG PO QAM Flecainide (Tambocor), 100 MG PO BID Furosemide (Lasix), 40 MG PO QAM Magnesium (Magnesium 250 mg), 200 MG PO QAM Metoprolol Tartrate (Metoprolol Tartrate), 1 TAB PO BID Multivitamin (Multivitamin), 1 TAB PO QAM Nitroglycerin (Nitrostat), 0.4 MG UT PRN Omeprazole (Prilosec), 20 MG PO BID Probiotic Product (Probiotic), 1 TAB PO QAM Sennosides-Docusate Sodium (Stool Softener & Stimulan), 1-4 TAB PO HS Spironolactone (Aldactone), 50 MG PO QAM Timolol Maleate (Timolol 0.5% Oph Soln 15 Ml), 1 DROP OPR BID Vitamin A-Beta Carotene (Vitamin A), Unknown Dose PO QAM Warfarin Sodium (Coumadin), 0.5 MG PO [id number] [Morphine], Unknown Dose SC CONT Scheduled PRN Acetaminophen (Tylenol), 1,000 MG PO HS PRN for Pain Mineral Oil (Mineral Oil), 1 TSP PO HS PRN for CONSTIPATION Oxycodone HCl (Oxycodone HCl), 5-10 MG PO Q4H PRN for Pain Propylene Glycol-Glycerin (Artificial Tears), 1 DROP PO QAM PRN for Allergies Coded Allergies: Penicillins (Verified Allergy, Intermediate, HIVES, 07/17/17) 07/01/17: patient tolerated keflex in past (no reaction) Doxycycline (Verified Adverse Reaction, Intermediate, vomiting, 07/17/17) Ondansetron (Verified Adverse Reaction, Intermediate, INCREASES GI UPSET, 07/17/17) Physical Exam Vital Signs Date Time Temp Pulse Resp B/P (MAP) Pulse Ox O2 Delivery O2 Flow Rate FiO2 07/17/17 14:28 66 144/72 94 Room Air 07/17/17 13:28 67 18 132/64 97 07/17/17 12:52 66 17 143/56 98 Room Air 07/17/17 11:30 36.4 72 20 158/67 93 Room Air Physical Exam GENERAL: Patient awake, alert, oriented x 3. Patient follows commands. SKIN: No erythema, pallor, cyanosis or rash HEENT: Normal head, pupils equal, reactive to light and accommodation. LUNGS: Clear to auscultation. No wheezes, no rales, no rhonchi. HEART: No murmurs. No gallops. No rubs ABDOMEN: Pump in left lower quadrant without signs of infection. No masses, no rebound, no hepatomegaly or splenomegaly. EXTREMITIES: Large bleb approximately 10 cm in length on dorsum of left foot and over dorsum of all toes. German along incision of left hip. No pedal or pretibial edema. No calf or thigh tenderness. NEUROLOGIC: Cranial nerves II-XII within normal limits. No gross motor sensory function deficits. Medical Decision & Procedures ER Provider Diagnostic Interpretation: Radiology results as stated below per my review and radiologist interpretation: CHEST 2 VIEWS ROUTINE HISTORY: 71 years-old Male foot infection acute foot infection. COMPARISON: Chest radiograph 06/12/2017 TECHNIQUE: AP and lateral views of the chest FINDINGS: Cardiomediastinal and hilar silhouettes are within normal limits. There is no pneumothorax, pleural effusion, focal airspace consolidation or overt pulmonary edema. Mild right hemidiaphragmatic elevation. Degenerative changes are seen within the shoulders and spine. Surgical clips of the right upper abdomen suggest prior cholecystectomy. IMPRESSION: No acute cardiopulmonary process. The above report was generated using voice recognition software. It may contain grammatical, syntax or spelling errors. Electronically signed by: Anival Baum M.D. 07/17/2017 12:53 PM Dictated Date/Time: 07/17/2017 12:52 PM L FOOT MIN 3 VIEWS ROUTINE HISTORY: 71 years-old Male blebs on dorsum acute left foot swelling with infection COMPARISON: None available TECHNIQUE: 3 views of the left foot FINDINGS: There is moderate to severe first MTP joint osteoarthritis with prominent marginal spurring. At least mild multidigit interphalangeal and metatarsal phalangeal degenerative changes are seen involving the second through fifth digits. Type II accessory navicular. Fracture or dislocation identified. Degenerative changes are seen within the tibiotalar joint and dorsal midfoot. Small Achilles and moderate plantar enthesophyte about the calcaneus. Vascular calcifications are noted. Moderate forefoot soft tissue swelling without opaque foreign body. IMPRESSION: 1. Moderate forefoot soft tissue swelling without acute bony abnormality. 2. Degenerative changes about the foot as above. 3. Peripheral vascular disease. The above report was generated using voice recognition software. It may contain grammatical, syntax or spelling errors. Electronically signed by: Anival Baum M.D. 07/17/2017 12:52 PM Dictated Date/Time: 07/17/2017 12:48 PM Laboratory Results 07/17/17 12:07 Red Blood Count 3.84, Mean Corpuscular Volume 91.7, Mean Corpuscular Hemoglobin 28.1, Mean Corpuscular Hemoglobin Concent 30.7, Mean Platelet Volume 9.5, Neutrophils (%) (Auto) 71.3, Lymphocytes (%) (Auto) 20.8, Monocytes (%) (Auto) 6.6, Eosinophils (%) (Auto) 1.1, Basophils (%) (Auto) 0.2, Neutrophils # (Auto) 4.01, Lymphocytes # (Auto) 1.17, Monocytes # (Auto) 0.37, Eosinophils # (Auto) 0.06, Basophils # (Auto) 0.01 07/17/17 12:07 Test 07/17/17 11:55 07/17/17 12:07 Urine Color YELLOW Urine Appearance CLEAR (CLEAR) Urine pH 7.0 (4.5-7.5) Urine Specific Whiting 1.010 (1.000-1.030) Urine Protein NEG (NEG) Urine Glucose (UA) NEG (NEG) Urine Ketones NEG (NEG) Urine Occult Blood NEG (NEG) Urine Nitrite NEG (NEG) Urine Bilirubin NEG (NEG) Urine Urobilinogen NEG (NEG) Urine Leukocyte Esterase NEG (NEG) White Blood Count 5.62 K/uL (4.8-10.8) Red Blood Count 3.84 M/uL (4.7-6.1) Hemoglobin 10.8 g/dL (14.0-18.0) Hematocrit 35.2 % (42-52) Mean Corpuscular Volume 91.7 fL (80-100) Mean Corpuscular Hemoglobin 28.1 pg (25-34) Mean Corpuscular Hemoglobin Concent 30.7 g/dl (32-36) Platelet Count 197 K/uL (130-400) Mean Platelet Volume 9.5 fL (7.4-10.4) Neutrophils (%) (Auto) 71.3 % Lymphocytes (%) (Auto) 20.8 % Monocytes (%) (Auto) 6.6 % Eosinophils (%) (Auto) 1.1 % Basophils (%) (Auto) 0.2 % Neutrophils # (Auto) 4.01 K/uL (1.4-6.5) Lymphocytes # (Auto) 1.17 K/uL (1.2-3.4) Monocytes # (Auto) 0.37 K/uL (0.11-0.59) Eosinophils # (Auto) 0.06 K/uL (0-0.5) Basophils # (Auto) 0.01 K/uL (0-0.2) RDW Standard Deviation 52.1 fL (36.4-46.3) RDW Coefficient of Variation 15.5 % (11.5-14.5) Immature Granulocyte % (Auto) 0.0 % Immature Granulocyte # (Auto) 0.00 K/uL (0.00-0.02) Prothrombin Time 18.7 SECONDS (9.0-12.0) Prothromb Time International Ratio 1.7 (0.9-1.1) Anion Gap 3.0 mmol/L (3-11) Est Creatinine Clear Calc Drug Dose 63.1 ml/min BUN/Creatinine Ratio 19.4 (10-20) Lactic Acid Level 1.9 mmol/L (0.4-2.0) Calcium Level 9.4 mg/dl (8.5-10.1) Total Bilirubin 0.5 mg/dl (0.2-1) Aspartate Amino Transf (AST/SGOT) 26 U/L (15-37) Alanine Aminotransferase (ALT/SGPT) 23 U/L (12-78) Alkaline Phosphatase 151 U/L (45-117) Troponin I < 0.015 ng/ml (0-0.045) Total Protein 7.7 gm/dl (6.4-8.2) Albumin 2.9 gm/dl (3.4-5.0) Globulin 4.8 gm/dl (2.5-4.0) Albumin/Globulin Ratio 0.6 (0.9-2) Laboratory results as stated above per my review. Medications Administered Medications (Trade) Dose Ordered Sig/Edward Route Start Time Stop Time Status Last Admin Dose Admin Clindamycin Phosphate 600 mg/ Dextrose 54 ml @ 108 mls/hr ONE ONCE IV 07/17/17 14:30 07/17/17 14:59 DC 07/17/17 14:29 108 MLS/HR Vancomycin HCl 1000 mg/Sodium Chloride 270 ml @ 125 mls/hr ONE ONCE IV 12/2/17 14:30 07/17/17 16:39 07/17/17 14:32 125 MLS/HR ECG Indication: other (wounds) Rate (beats per minute): 66 Rhythm: normal sinus Findings: no acute ischemic change, left axis deviation, no ectopy ED Course 1140: Past medical records reviewed. The patient was evaluated in room C3. A complete history and physical examination was performed. 1336: Upon reevaluation, the patient is resting, but is having a slight increase in erythema around his legs. I discussed today's findings with him. He verbalized agreement of the treatment plan. He will be evaluated for further treatment. 1357: Ordered Vancomycin 1 gm/270ml Nss 1 gm IV. 1358: Discussed the patient's case with Dr. Horn - [facility] air [employer] pilot - he will evaluate the patient for further treatment. 1400: Ordered Cleocin 600mg/54ml D5W 600 mg IV. 1415: Dr. Horn informed me that he wants a surgery consult. 1430: Ordered Vancomycin HCl 1000 mg/Sodium Chloride 270 ml @ 125 mls/hr IV, Clindamycin Phosphate 600 mg/Dextrose 54 ml @ 108 mls/hr IV. 1420: I discussed the patient with Dr. Crews - [facility] general surgery. 1450: Dr. Crews suggested a CT scan. Medical Decision Nurses notes reviewed. Medical history sheet reviewed. Differential diagnosis includes but is not limited to: contact dermatitis, infection, gas gangrene, cellulitis, necrotizing fasciitis. The patient is here with swelling of his left foot. The patient had a left hip surgery over one month ago and then had subsequent infection that hip resulting in another surgical intervention. He's had a wound VAC and been on antibiotics. The patient is currently on Keflex. He now comes in with 1 day history of large blebs on the dorsum of his left foot and toes. Patient has slight erythema but no fever. Multiple labs, EKG and imaging were obtained. Please see above. While here in the ED nursing noted slight increase in erythema around the blebs. Patient appears to have some cellulitis. 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 I also discussed care with the patient and his family. Patient will require IV antibiotics. A CT was also ordered to rule out any collection of fluid within the leg. Medication Reconcilliation Current Medication List: was personally reviewed by me Blood Pressure Screening Patient's blood pressure: Elevated blood pressure Blood pressure disposition: Elevated BP felt to be situational Consults Time Called: 1355 Consulting Physician: Dr. Kory BARRIOS air [employer] pilot Returned Call: 1357 Discussed the patient's case with Dr. Kory BARRIOS air [employer] pilot - he will evaluate the patient for further treatment. Additional Consults: Time Called: 1415 Consulted Physician: Dr. Mars Booker general surgery Returned Call: 1420 Additional Comments: I discussed the patient with Dr. Mars Booker general surgery. Time Called: -- Consulted Physician: Dr. Mars Booker general surgery Returned Call: 1450 (in person) Additional Comments: I discussed the patient with Dr. Mars bates - he suggested a CT. Impression Primary Impression: Cellulitis of left leg Scribe Attestation The scribe's documentation has been prepared under my direction and personally reviewed by me in its entirety. I confirm that the note above accurately reflects all work, treatment, procedures, and medical decision making performed by me. Departure Information Dispostion Being Evaluated By Hospitalist Referrals Giancarlo Dumont III, CRNP (PCP) Patient Instructions My [facility]
[2017-07-17 12:18] LABS: URINE APPEARANCE CLEAR (CLEAR); URINE BILIRUBIN NEG (NEG); URINE COLOR YELLOW; URINE NITRITE NEG (NEG); UROBILINOGEN NEG (NEG); ZZUR CULT IF INDIC CLEAN CATCH NO
[2017-07-17 12:23] LABS: MANUAL MICROSCOPIC REQUIRED? NO; REVIEW REQ? NO
[2017-07-17 12:29] LABS: BASO % 0.2 %; BASO ABS # 0.01 K/uL (0-0.2); COMPLETE YES; EOS % 1.1 %; HEMATOCRIT 35.2 % (42-52); LYMPH % 20.8 %; LYMPH ABS # 1.17 K/uL (1.2-3.4); MEAN CELL VOLUME 91.7 fL (80-100); MEAN CORPUSCULAR HEMOGLOBIN 28.1 pg (25-34); MEAN CORPUSCULAR HGB CONC 30.7 g/dl (32-36); MEAN PLATELET VOLUME 9.5 fL (7.4-10.4); MONO % 6.6 %; NEUT % 71.3 %; PLATELET COUNT 197 K/uL (130-400); RED BLOOD COUNT 3.84 M/uL (4.7-6.1); WHITE BLOOD COUNT 5.62 K/uL (4.8-10.8)
[2017-07-17 12:36] LABS: INR 1.7 (0.9-1.1); PROTHROMBIN TIME (PATIENT) 18.7 SECONDS (9.0-12.0)
[2017-07-17 12:48] LABS: ALT/SGPT 23 U/L (12-78); AST/SGOT 26 U/L (15-37); BLOOD UREA NITROGEN 26 mg/dl (7-18); BUN/CREATININE RATIO 19.4 (10-20); CALCIUM 9.4 mg/dl (8.5-10.1); CARBON DIOXIDE 32 mmol/L (21-32); CHLORIDE 100 mmol/L (98-107); CREATININE 1.33 mg/dl (0.60-1.40); GLUCOSE 128 mg/dl (70-99); POTASSIUM 3.7 mmol/L (3.5-5.1); SODIUM 135 mmol/L (136-145)
[2017-07-17 12:53] LABS: ALB/GLOB RATIO 0.6 (0.9-2); ALKALINE PHOSPHATASE 151 U/L (45-117)
--- NOTE | 2017-07-17 12:53 | DIAGNOSTIC IMAGING REPORT ---
L FOOT MIN 3 VIEWS ROUTINE HISTORY: 71 years-old Male blebs on dorsum acute left foot swelling with infection COMPARISON: None available TECHNIQUE: 3 views of the left foot FINDINGS: There is moderate to severe first MTP joint osteoarthritis with prominent marginal spurring. At least mild multidigit interphalangeal and metatarsal phalangeal degenerative changes are seen involving the second through fifth digits. Type II accessory navicular. Fracture or dislocation identified. Degenerative changes are seen within the tibiotalar joint and dorsal midfoot. Small Achilles and moderate plantar enthesophyte about the calcaneus. Vascular calcifications are noted. Moderate forefoot soft tissue swelling without opaque foreign body. IMPRESSION: 1. Moderate forefoot soft tissue swelling without acute bony abnormality. 2. Degenerative changes about the foot as above. 3. Peripheral vascular disease. The above report was generated using voice recognition software. It may contain grammatical, syntax or spelling errors. Electronically signed by: Anival Baum M.D. 07/17/2017 12:52 PM Dictated Date/Time: 07/17/2017 12:48 PM
--- NOTE | 2017-07-17 12:55 | DIAGNOSTIC IMAGING REPORT ---
CHEST 2 VIEWS ROUTINE HISTORY: 71 years-old Male foot infection acute foot infection. COMPARISON: Chest radiograph 06/12/2017 TECHNIQUE: AP and lateral views of the chest FINDINGS: Cardiomediastinal and hilar silhouettes are within normal limits. There is no pneumothorax, pleural effusion, focal airspace consolidation or overt pulmonary edema. Mild right hemidiaphragmatic elevation. Degenerative changes are seen within the shoulders and spine. Surgical clips of the right upper abdomen suggest prior cholecystectomy. IMPRESSION: No acute cardiopulmonary process. The above report was generated using voice recognition software. It may contain grammatical, syntax or spelling errors. Electronically signed by: Anival Baum M.D. 07/17/2017 12:53 PM Dictated Date/Time: 07/17/2017 12:52 PM
[2017-07-17] MEDS ORDERED: VANCOMYCIN 1GM/270ML NSS IV STA (13:57)
[2017-07-17] MEDS ORDERED: ARTIFICIAL TEARS OP SOLN OP PRN ×2 (14:00)
[2017-07-17] MEDS ORDERED: CLINDAMYCIN 600 MG/54 ML D5W IV ONE (14:00)
[2017-07-17] MEDS ORDERED: POLYETHYLENE (MIRALAX) 17 GM PACK PO PRN (14:30)
[2017-07-17] MEDS ORDERED: ACETAMINOPHEN 325 MG TAB PO PRN (14:30)
[2017-07-17] MEDS ORDERED: MAGNESIUM HYDROXIDE SUSP 30 ML UDC PO PRN (14:30)
[2017-07-17] MEDS ORDERED: ALUMINUM/MAGNESIUM/SIMETH (MAALOX MAX) 30 ML UDC PO PRN (14:30)
[2017-07-17] MEDS ORDERED: CLINDAMYCIN IV 600 MG in DEXTROSE 5% 50ML 50 ML IV ONE (14:30)
[2017-07-17] MEDS ORDERED: VANCOMYCIN INJ 1,000 MG in SODIUM CHLORIDE 0.9% 250ML 250 ML IV ONE (14:30)
[2017-07-17] MEDS ORDERED: ONDANSETRON INJ 2 MG/ML 2 ML VIAL IV PRN (14:30)
--- NOTE | 2017-07-17 14:59 | History and Physical ---
History & Physical Date & Time of Service: Jul 17, 2017 at 14:38 Chief Complaint: Wound On Foot Open Primary Care Physician: Giancarlo Dumont III, CRNP History of Present Illness Source: patient 71 y/o M Hx chronic AF, HTN, HPL, peripheral neuropathy, PVD, chronic anemia. Pt underwent a L hip arthroplasty 06/04. he developed a Seroma at the wound site which required evacuation and wound vac placement 07/01. The wound vac was removed the prior week - he remains on Keflex for a wound culture that had grown out pansensitive Proteus. when he woke up this AM he noted a large blister on the dorsum of his R foot with surrounding erythema. This ruptured and then reformed. He denies significant pain at the site, denies fevers/ rigors. He presented to the ER in light of his recent history due to concern for infection. It is noted that he has limited sensation in his lower extremities due to neuropathy, however, he cannot recall sustaining any any trauma to the area. Initial imaging reveals tissue inflammation only. There is no clear evidence of systemic infection per labs/vitals and exam at the time of admission. Past Medical/Surgical History 1) Chronic AF 2) Peripheral - lower extremity neuropathy - per pt this occured following back surgery and he has little or no sensation in his distal LEs 3) HTN 4) HPL 5) Obesity 6) PVD Surgical Problems: 1) Appendectomy 2) Cholecystectomy 3) L MORGAN 06/01 4) Lumbar spinal surgery Family History FH: heart disease Hypertension Social History Smoking Status: Never Smoker Drug Use: none Marital Status: Housing status: lives with family Occupational Status: employed Immunizations History of Influenza Vaccine: Yes Influenza Vaccine Date: Jul 01, 2012 History of Tetanus Vaccine?: Yes History of Pneumococcal: Yes History of Hepatitis B Vaccine: No Multi-Drug Resistant Organisms History of MDRO: Yes Type of MDRO: MRSA Allergies Coded Allergies: Penicillins (Verified Allergy, Intermediate, HIVES, 07/17/17) 07/01/17: patient tolerated keflex in past (no reaction) Doxycycline (Verified Adverse Reaction, Intermediate, vomiting, 07/17/17) Ondansetron (Verified Adverse Reaction, Intermediate, INCREASES GI UPSET, 07/17/17) Home Medications Scheduled Ascorbic Acid (Vitamin C), 1 TAB PO QAM Aspirin (Aspirin Ec), 81 MG PO DAILY Atorvastatin (Lipitor), 40 MG PO HS Cephalexin Monohydrate (Keflex), 500 MG PO QID Cholecalciferol (Vitamin D3), 2 CAP PO QAM Cyanocobalamin (Vitamin B12 500MCG), 500 MCG PO QAM Flecainide (Tambocor), 100 MG PO BID Furosemide (Lasix), 40 MG PO QAM Magnesium (Magnesium 250 mg), 200 MG PO QAM Metoprolol Tartrate (Metoprolol Tartrate), 1 TAB PO BID Multivitamin (Multivitamin), 1 TAB PO QAM Nitroglycerin (Nitrostat), 0.4 MG UT PRN Omeprazole (Prilosec), 20 MG PO BID Probiotic Product (Probiotic), 1 TAB PO QAM Sennosides-Docusate Sodium (Stool Softener & Stimulan), 1-4 TAB PO HS Spironolactone (Aldactone), 50 MG PO QAM Timolol Maleate (Timolol 0.5% Oph Soln 15 Ml), 1 DROP OPR BID Vitamin A-Beta Carotene (Vitamin A), Unknown Dose PO QAM Warfarin Sodium (Coumadin), 0.5 MG PO [id number] [Morphine], Unknown Dose SC CONT Scheduled PRN Acetaminophen (Tylenol), 1,000 MG PO HS PRN for Pain Mineral Oil (Mineral Oil), 1 TSP PO HS PRN for CONSTIPATION Oxycodone HCl (Oxycodone HCl), 5-10 MG PO Q4H PRN for Pain Propylene Glycol-Glycerin (Artificial Tears), 1 DROP PO QAM PRN for Review of Systems Constitutional: No fever, No chills, No sweats Eyes: No worsening of vision ENT: No hearing loss Respiratory: No cough, No wheezing Cardiovascular: No chest pain Abdomen: No pain, No nausea, No vomiting Musculoskeletal: No joint pain Genitourinary - Male: No hematuria, No dysuria Neurologic: + numbness/tingling (LE numbness - chronic), No memory loss, No paralysis Psychiatric: No depression symptoms Endocrine: No fatigue Hematologic / Lymphatic: No abnormal bleeding/bruising Integumentary: + problem reported (Large blister with surrounding erythema on Dorsum of foot) Physical Exam Vital Signs Date Time Temp Pulse Resp B/P (MAP) Pulse Ox O2 Delivery O2 Flow Rate FiO2 07/17/17 13:28 67 18 132/64 97 07/17/17 12:52 66 17 143/56 98 Room Air 07/17/17 11:30 36.4 72 20 158/67 93 Room Air General Appearance: WD/WN, no apparent distress Head: normocephalic Eyes: normal inspection Neck: supple, no JVD Respiratory/Chest: chest non-tender, lungs clear Cardiovascular: regular rate, rhythm, no murmur Abdomen/GI: normal bowel sounds, non tender, soft Back: normal inspection, no CVA tenderness Extremities/Musculoskelatal: + pertinent finding (Large blister on dorsum of L foot - small blisters over L toes - mild erythema at superior aspect of blister - no warmth - cannot assess for tenderness due to neuropathy - There is some erythema at the incision site at the L hip - no tenderness or separation of the wound is present) 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, no motor/sensory deficits, alert, oriented x 3 Skin: + pertinent finding (Large blister on dorsum of L foot - small blisters over L toes - mild erythema at superior aspect of blister - no warmth - cannot assess for tenderness due to neuropathy) Diagnostics Laboratory Results Results Past 24 Hours Test 07/17/17 11:55 07/17/17 12:07 Range/Units Urine Color YELLOW Urine Appearance CLEAR CLEAR Urine pH 7.0 4.5-7.5 Urine Specific [place] 1.010 1.000-1.030 Urine Protein NEG NEG Urine Glucose (UA) NEG NEG Urine Ketones NEG NEG Urine Occult Blood NEG NEG Urine Nitrite NEG NEG Urine Bilirubin NEG NEG Urine Urobilinogen NEG NEG Urine Leukocyte Esterase NEG NEG White Blood Count 5.62 4.8-10.8 K/uL Red Blood Count 3.84 4.7-6.1 M/uL Hemoglobin 10.8 14.0-18.0 g/dL Hematocrit 35.2 42-52 % Mean Corpuscular Volume 91.7 80-100 fL Mean Corpuscular Hemoglobin 28.1 25-34 pg Mean Corpuscular Hemoglobin Concent 30.7 32-36 g/dl Platelet Count 197 130-400 K/uL Mean Platelet Volume 9.5 7.4-10.4 fL Neutrophils (%) (Auto) 71.3 % Lymphocytes (%) (Auto) 20.8 % Monocytes (%) (Auto) 6.6 % Eosinophils (%) (Auto) 1.1 % Basophils (%) (Auto) 0.2 % Neutrophils # (Auto) 4.01 1.4-6.5 K/uL Lymphocytes # (Auto) 1.17 1.2-3.4 K/uL Monocytes # (Auto) 0.37 0.11-0.59 K/uL Eosinophils # (Auto) 0.06 0-0.5 K/uL Basophils # (Auto) 0.01 0-0.2 K/uL RDW Standard Deviation 52.1 36.4-46.3 fL RDW Coefficient of Variation 15.5 11.5-14.5 % Immature Granulocyte % (Auto) 0.0 % Immature Granulocyte # (Auto) 0.00 0.00-0.02 K/uL Prothrombin Time 18.7 9.0-12.0 SECONDS Prothromb Time International Ratio 1.7 0.9-1.1 Sodium Level 135 136-145 mmol/L Potassium Level 3.7 3.5-5.1 mmol/L Chloride Level 100 98-107 mmol/L Carbon Dioxide Level 32 21-32 mmol/L Anion Gap 3.0 3-11 mmol/L Blood Urea Nitrogen 26 7-18 mg/dl Creatinine 1.33 0.60-1.40 mg/dl Est Creatinine Clear Calc Drug Dose 63.1 ml/min Estimated GFR () 62.8 Estimated GFR (Non- 54.2 BUN/Creatinine Ratio 19.4 10-20 Random Glucose 128 70-99 mg/dl Lactic Acid Level 1.9 0.4-2.0 mmol/L Calcium Level 9.4 8.5-10.1 mg/dl Total Bilirubin 0.5 0.2-1 mg/dl Aspartate Amino Transf (AST/SGOT) 26 15-37 U/L Alanine Aminotransferase (ALT/SGPT) 23 12-78 U/L Alkaline Phosphatase 151 45-117 U/L Troponin I < 0.015 0-0.045 ng/ml Total Protein 7.7 6.4-8.2 gm/dl Albumin 2.9 3.4-5.0 gm/dl Globulin 4.8 2.5-4.0 gm/dl Albumin/Globulin Ratio 0.6 0.9-2 Microbiology Results 12/2/17 Blood Culture, Received Pending 07/17/17 Blood Culture, Received Pending 07/17/17 Gram Stain, Received Pending 07/17/17 Wound Culture, Received Pending Impression Assessment and Plan 71 y/o M Hx chronic AF, HTN, HPL, peripheral neuropathy, PVD, chronic anemia. Pt underwent a L hip arthroplasty 06/04. he developed a Seroma at the wound site which required evacuation and wound vac placement 07/01. The wound vac was removed the prior week - he remains on Keflex for a wound culture that had grown out pansensitive Proteus. when he woke up this AM he noted a large blister on the dorsum of his R foot with surrounding erythema. This ruptured and then reformed. He denies significant pain at the site, denies fevers/ rigors. He presented to the ER in light of his recent history due to concern for infection. It is noted that he has limited sensation in his lower extremities due to neuropathy, however, he cannot recall sustaining any any trauma to the area. Initial imaging reveals tissue inflammation only. There is no clear evidence of systemic infection per labs/vitals and exam at the time of admission. 1) Blistering - concern for cellulitis - there is some erythema at the hip wound as well although there is no exudate or evidence of dehiscence. The blister was cultured in the ER and he has been placed on Vanc and Clinda. We will request a surgical evaluation and he may need to be seen by his orthopedist prior to DC if infection is confirmed and there is any concern for seeding. 2) AF - INR is slightly subtherapeutic - will hold off on additional Coumadin dosing pending evaluation by surgery. Rate is controlled with Metoprolol. 3) Anemia - Hb has ranged from 8-11 following surgery - will trend in hospital and should be followed up on DC 4) HTN - combines Metoprolol and Aldactone due to HTN and LE edema - cont as scheduled Full code - Coumadin prophylaxis Total time for this admit including review of labs, meds, imaging, records - discussion with pt and ER attending - 35 min Level of Care Med/Surg Resuscitation Status FULL RESUSCITATION VTE Prophylaxis VTE Risk Assessment Done? Y/N: Yes Risk Level: Moderate Given or contraindicated: Warfarin (Coumadin)
[2017-07-17] MEDS ORDERED: IV FLUIDS COMPLETED PRN (15:00)
--- NOTE | 2017-07-17 15:52 | Pharmacy Progress Note ---
Pharmacy Abx Initial Consult Date of Service Jul 17, 2017. Pharmacy Dosing Scope Date of Consult: 07/17/17 Consultation requested by: Dr. Horn Pharmacy is consulted to initiate Vancomycin IV dosing therapy, order appropriate labs and adjust drug dose/frequency. Subjective The patient is a 71 year old male admitted on Jul 17, 2017 at 14:31. Objective Height (Feet): 5 Height (Inches): 5.00 Weight (Kilograms): 120.500 Vital Signs (Past 12Hrs) Vital Signs Past 12 Hours Date Time Temp Pulse Resp B/P (MAP) Pulse Ox O2 Delivery O2 Flow Rate FiO2 07/17/17 15:28 60 112/55 95 07/17/17 14:28 66 144/72 94 Room Air 07/17/17 13:28 67 18 132/64 97 07/17/17 12:52 66 17 143/56 98 Room Air 07/17/17 11:30 36.4 72 20 158/67 93 Room Air Lab Results (24Hrs) Laboratory Tests (24 Hours) Test 07/17/17 12:07 Lactic Acid Level 1.9 mmol/L (0.4-2.0) White Blood Count 5.62 K/uL (4.8-10.8) Red Blood Count 3.84 M/uL (4.7-6.1) L Hemoglobin 10.8 g/dL (14.0-18.0) L Hematocrit 35.2 % (42-52) L Mean Corpuscular Volume 91.7 fL (80-100) Mean Corpuscular Hemoglobin 28.1 pg (25-34) Mean Corpuscular Hemoglobin Concent 30.7 g/dl (32-36) L Platelet Count 197 K/uL (130-400) Mean Platelet Volume 9.5 fL (7.4-10.4) Neutrophils (%) (Auto) 71.3 % Lymphocytes (%) (Auto) 20.8 % Monocytes (%) (Auto) 6.6 % Eosinophils (%) (Auto) 1.1 % Basophils (%) (Auto) 0.2 % Neutrophils # (Auto) 4.01 K/uL (1.4-6.5) Lymphocytes # (Auto) 1.17 K/uL (1.2-3.4) L Monocytes # (Auto) 0.37 K/uL (0.11-0.59) Eosinophils # (Auto) 0.06 K/uL (0-0.5) Basophils # (Auto) 0.01 K/uL (0-0.2) Micro Results Date/Time Source Procedure Growth Status 07/17/17 14:22 Blood Blood Culture Pending Received 07/17/17 14:19 Blood Blood Culture Pending Received 07/17/17 11:50 Drainage-Deep Foot Left Gram Stain Pending Received 07/17/17 11:50 Drainage-Deep Foot Left Wound Culture Pending Received Risk Factors for Resistance * Hospitalization for 48 hours or more within the past 90 days: Recent hip surgery * Antimicrobial use within the last 90 days: Keflex Assessment & Plan Assessment 71 year old male admitted with blistering/cellulitis, initiated on Vancomycin and Clindamycin IV. Blood cultures and drainage cultures pending. Plan Vancomycin IV * Loading dose: 1000 mg (8 mg/kg) * Maintenance dose: 1750 mg IV (14.5 mg/kg) every 14 hours -->initiate maintenance dose immediately after 1000 mg dose finished infusing to = ~25 mg/kg load * Goal trough level for cellulitis: 15 mcg/mL * Trough level ordered for 07/19/17 @1130 prior to 1200 dose. * Likelihood of drug accumulation in obese patient with CKD - will likely need to drop dosing back on 07/19/17 Pharmacy will continue to follow and will adjust dose/frequency as necessary. Thank you.
[2017-07-17 15:56] VITALS: BP 163/67; PULSE 60; TEMP 36.6; O2SAT 93
[2017-07-17] MEDS ORDERED: VANCOMYCIN CONSULT ACTIVE PRN (16:00)
[2017-07-17] MEDS: WARFARIN SOD 0.5 MG TAB PO SCH (17:18)
[2017-07-17] MEDS: OXYCODONE HCL IR 5 MG TAB (IMMEDIATE RELEASE) PO PRN ×2 (17:18→22:30)
--- NOTE | 2017-07-17 17:32 | Pre-Operative Consultation ---
History General Date of Service: Jul 17, 2017. HPI HPI: The patient is a 71 year old male being seen for dorsal blistering of distal left foot. He came to the ED the blister on his left foot that started this morning. Per the patient's , the patient's left foot was noted to be completely normal last night, but this morning, the foot was noted to be swollen with blistering, there is some erythema associated. The patient denies ant trauma. He states that the foot is not painful but he has neuropathy in his feet. The patient has had 2 left hip surgeries in the past month, and recently had a wound vac taken off. He denies any fevers. The patient is not diabetic. He denies using any new detergents or having anything unusual touching his foot. The patient has been on Keflex for 3 weeks. He takes a low dose of Coumadin. Historian: patient, family Procedure Urgency: Acute Risk Assessment Daily beta cooper use?: Yes Beta Cooper Details Indication Beta Cooper use: hypertension Problem List Medical Problems: (1) Cellulitis of left leg Status: Acute Medical & Surgical History Past Medical History: atrial fibrillation, chronic back pain, diabetes, high cholesterol, hypertension Past Surgical History: adenoidectomy, appendectomy, cardiac catheterization, cholecystectomy, hernia repair, mediport, spinal surgery Family History Family History: hypertension Social History Hx Tobacco Use In Past Year?: No Smoking Status: Never Smoker Alcohol: none Drug Use: none Marital status: Housing status: lives with family Occupation status: employed Immunizations Have You Had Influenza Vaccine: Yes Date Of Influenza Vaccine: Jul 01, 2012 Have You Had Tetanus Vaccine: Yes History of Pneumococcal: Yes History Hepatitis B Vaccine: No History of MDRO History of MDRO?: MRSA Allergies Allergies: Coded Allergies: Penicillins (Verified Allergy, Intermediate, HIVES, 07/17/17) 07/01/17: patient tolerated keflex in past (no reaction) Doxycycline (Verified Adverse Reaction, Intermediate, vomiting, 07/17/17) Ondansetron (Verified Adverse Reaction, Intermediate, INCREASES GI UPSET, 07/17/17) Medications Current Inpatient Medications Current Inpatient Medications Medications (Trade) Dose Ordered Sig/Edward Route Start Time Stop Time Status Last Admin Dose Admin Aspirin (Ecotrin Tab) 81 mg DAILY PO 07/18/17 09:00 08/17/17 08:59 Atorvastatin Calcium (Lipitor Tab) 40 mg HS PO 07/17/17 21:00 08/16/17 20:59 Cyanocobalamin (Vitamin B-12 Tab) 500 mcg QAM PO 07/18/17 09:00 08/17/17 08:59 Flecainide Acetate (Tambocor Tab) 100 mg BID PO 07/17/17 21:00 08/16/17 20:59 Furosemide (Lasix Tab) 40 mg QAM PO 07/18/17 09:00 08/17/17 08:59 Metoprolol Tartrate (Lopressor Tab) 50 mg BID PO 07/17/17 21:00 08/16/17 20:59 Oxycodone HCl (Roxicodone Immediate Rel Tab) 10 mg Q4H PRN PO 07/17/17 14:00 07/31/17 13:59 Senna/Docusate Sodium (Senokot S Tab) 2 tab HS PO 07/17/17 21:00 08/16/17 20:59 Timolol Maleate (Timoptic 0.5% Oph Soln) 1 drops BID OPR 07/17/17 21:00 08/16/17 20:59 Warfarin Sodium (Coumadin Tab) 0.5 mg DAILY@1600 PO 07/17/17 17:00 08/16/17 16:59 Ascorbic Acid (Vitamin C Tab) 1,000 mg QAM PO 07/18/17 09:00 08/17/17 08:59 Cholecalciferol (Vitamin D Tab) 2,000 inter.unit QAM PO 07/18/17 09:00 08/17/17 08:59 Magnesium Oxide (Mag-Ox Tab) 200 mg QAM PO 07/18/17 09:00 08/17/17 08:59 Pantoprazole Sodium (Protonix Tab) 40 mg BID PO 07/17/17 21:00 08/16/17 20:59 Lactobacillus Acidophilus (Floranex Tab) 1 tab QAM PO 07/18/17 09:00 08/17/17 08:59 Artificial Tears (Artificial Tears) 1 drops QAM PRN OP 07/17/17 14:00 08/16/17 13:59 Spironolactone (Aldactone Tab) 50 mg QAM PO 07/18/17 09:00 08/17/17 08:59 Acetaminophen (Tylenol Tab) 650 mg Q4H PRN PO 07/17/17 14:30 08/16/17 14:29 Al Hydrox/Mg Hydrox/Simethicone (Maalox Max Susp) 15 ml Q4H PRN PO 07/17/17 14:30 08/16/17 14:29 Magnesium Hydroxide (Milk Of Magnesia Susp) 30 ml Q6H PRN PO 07/17/17 14:30 08/16/17 14:29 Polyethylene (Miralax Powder Packet) 17 gm DAILY PRN PO 07/17/17 14:30 08/16/17 14:29 Ondansetron HCl (Zofran Inj) 4 mg Q6H PRN IV 07/17/17 14:30 08/16/17 14:29 Clindamycin Phosphate 600 mg/ Dextrose 54 ml @ 100 mls/hr Q8H IV 07/17/17 22:00 07/27/17 21:59 Vancomycin HCl 1750 mg/Sodium Chloride 535 ml @ 200 mls/hr Q14H IV 07/17/17 18:00 07/27/17 17:59 Miscellaneous (Iv Fluids Completed) 1 ea PRN PRN N/A 07/17/17 15:00 07/17/18 14:59 Vancomycin HCl (Consult) 1 ea UD PRN N/A 07/17/17 16:00 08/16/17 15:59 Review of Systems Review of Systems Constitutional: denies chills, denies diaphoresis, denies fever Eyes: reports: no symptoms ENT: reports: no symptoms reported Cardiovascular: denies: chest pain, chest tightness, chest pressure, palpitations Respiratory: denies: cough, short of breath, stridor Gastrointestinal: denies abdominal pain, denies constipation, denies diarrhea, denies nausea, denies vomiting Genitourinary - Male: reports: no symptoms Musculoskeletal: back pain, joint pain, joint swelling, muscle stiffness, denies neck pain Integumentary: rash, other (blistering) Neurologic: reports: numbness, general weakness, denies: focal weakness Psychiatric: reports: no symptoms Endocrine: no symptoms Hematologic / Lymphatic: no symptoms Allergic / Immunologic: no symptoms Physical Exam Physical Exam General Appearance: + WD/WN, No distress Ears, Nose, Throat: + normal ENT inspection Neck: No tracheal deviation, No lymphadenophy, No stiffness, No tenderness Respiratory: No decreased breath sounds, No rhonchi, No stridor, No wheezing Cardiovascular: No tachycardia, No gallop/S3, No diastolic murmur, No gallop/S4 , No bradycardia, No systolic murmur Abdomen: No rebound, No tenderness, No distension, No guarding Extremities: + edema, + swelling, + inflammation, + other (10cm dorsal blsiter ; no flucyuance; no foul smell; some erythema), No tenderness Neurologic/Psychiatric: + motor deficit/weakness, + sensory deficit, No disorientation Skin Characteristics: + abnormal color, No diaphoresis, No pallor, No jaundice , No rash Lymphatic: No abnormal adenopathy Diagnostics Labs Labs Results Past 24 Hours Test 07/17/17 11:55 07/17/17 12:07 Range/Units Urine Color YELLOW Urine Appearance CLEAR CLEAR Urine pH 7.0 4.5-7.5 Urine Specific [place] 1.010 1.000-1.030 Urine Protein NEG NEG Urine Glucose (UA) NEG NEG Urine Ketones NEG NEG Urine Occult Blood NEG NEG Urine Nitrite NEG NEG Urine Bilirubin NEG NEG Urine Urobilinogen NEG NEG Urine Leukocyte Esterase NEG NEG White Blood Count 5.62 4.8-10.8 K/uL Red Blood Count 3.84 4.7-6.1 M/uL Hemoglobin 10.8 14.0-18.0 g/dL Hematocrit 35.2 42-52 % Mean Corpuscular Volume 91.7 80-100 fL Mean Corpuscular Hemoglobin 28.1 25-34 pg Mean Corpuscular Hemoglobin Concent 30.7 32-36 g/dl Platelet Count 197 130-400 K/uL Mean Platelet Volume 9.5 7.4-10.4 fL Neutrophils (%) (Auto) 71.3 % Lymphocytes (%) (Auto) 20.8 % Monocytes (%) (Auto) 6.6 % Eosinophils (%) (Auto) 1.1 % Basophils (%) (Auto) 0.2 % Neutrophils # (Auto) 4.01 1.4-6.5 K/uL Lymphocytes # (Auto) 1.17 1.2-3.4 K/uL Monocytes # (Auto) 0.37 0.11-0.59 K/uL Eosinophils # (Auto) 0.06 0-0.5 K/uL Basophils # (Auto) 0.01 0-0.2 K/uL RDW Standard Deviation 52.1 36.4-46.3 fL RDW Coefficient of Variation 15.5 11.5-14.5 % Immature Granulocyte % (Auto) 0.0 % Immature Granulocyte # (Auto) 0.00 0.00-0.02 K/uL Prothrombin Time 18.7 9.0-12.0 SECONDS Prothromb Time International Ratio 1.7 0.9-1.1 Sodium Level 135 136-145 mmol/L Potassium Level 3.7 3.5-5.1 mmol/L Chloride Level 100 98-107 mmol/L Carbon Dioxide Level 32 21-32 mmol/L Anion Gap 3.0 3-11 mmol/L Blood Urea Nitrogen 26 7-18 mg/dl Creatinine 1.33 0.60-1.40 mg/dl Est Creatinine Clear Calc Drug Dose 63.1 ml/min Estimated GFR () 62.8 Estimated GFR (Non- 54.2 BUN/Creatinine Ratio 19.4 10-20 Random Glucose 128 70-99 mg/dl Lactic Acid Level 1.9 0.4-2.0 mmol/L Calcium Level 9.4 8.5-10.1 mg/dl Total Bilirubin 0.5 0.2-1 mg/dl Aspartate Amino Transf (AST/SGOT) 26 15-37 U/L Alanine Aminotransferase (ALT/SGPT) 23 12-78 U/L Alkaline Phosphatase 151 45-117 U/L Troponin I < 0.015 0-0.045 ng/ml Total Protein 7.7 6.4-8.2 gm/dl Albumin 2.9 3.4-5.0 gm/dl Globulin 4.8 2.5-4.0 gm/dl Albumin/Globulin Ratio 0.6 0.9-2 Microbiology Results 07/17/17 Blood Culture, Received Pending 07/17/17 Blood Culture, Received Pending 07/17/17 Gram Stain, Received Pending 07/17/17 Wound Culture, Received Pending Impression Assessment and Plan Assessment and Plan Cellulitis/blistering left foot; no signs of fascitis or abscess -CT of leg may give clue to wetiology -IV abx -would have his ortho physician evaluate leg -foot is warm with reasonable cap refill
[2017-07-17 18:35] VITALS: BP 163/67; PULSE 60; TEMP 36.6; O2SAT 95; Ht 165.1 cm; Wt 120.5 kg
[2017-07-17] MEDS: VANCOMYCIN INJ 1,750 MG in SODIUM CHLORIDE 0.9% 500ML 500 ML IV SCH (19:21)
--- NOTE | 2017-07-17 19:32 | DIAGNOSTIC IMAGING REPORT ---
L LOWER EXTREMITY WITHOUT HISTORY: 71 years-old Male infection vs necrotizing fascitis acute left foot pain with wound. Concern for infection versus necrotizing fasciitis. COMPARISON: Left foot radiographs of same day TECHNIQUE: Axial CT images of the left lower extremity were obtained without contrast. Coronal and sagittal reformatted images were obtained from the axial data set and cemented for review. A dose lowering technique was used consistent with the principals of JL. 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 Mild to moderate interphalangeal degenerative changes are seen throughout the remaining digits. Midfoot alignment is anatomic. Lisfranc ligament is identified and appears intact. Type II accessory navicular noted. Corticated bone fragments are seen adjacent to the lateral malleolus suggesting accessory ossicles or remote fracture fragments. There is no acute fracture or dislocation identified. Mild degenerative changes of the tibiotalar joint. There is moderate spurring about the calcaneus at both the Achilles and plantar insertion sites. No osteochondral defect of the talar dome. No erosive changes to suggest osteomyelitis. There is moderate subcutaneous edema about the foot, notably the dorsal forefoot with associated skin thickening suggesting cellulitis. There is moderate atrophy of the intrinsic musculature of the foot with peripheral vascular calcifications. No drainable fluid collections, abscess or deep tissue air to suggest fasciitis. No opaque foreign body identified. There is mild thickening of the distal Achilles tendon suggesting tendinosis. Moderate thickening is noted involving the medial cord plantar fascia with associated dystrophic calcifications compatible with chronic plantar fasciitis. IMPRESSION: 1. Moderate dorsal forefoot subcutaneous edema and skin thickening suggests cellulitis. No focal abscess, drainable fluid collection or deep tissue air to suggest fasciitis. 2. No acute fracture or dislocation. No erosive changes to suggest osteomyelitis. 3. Moderate to severe degenerative changes of the first MTP joint. 4. Evidence of chronic plantar fasciitis. The above report was generated using voice recognition software. It may contain grammatical, syntax or spelling errors. Electronically signed by: Anival Baum M.D. 07/17/2017 7:30 PM Dictated Date/Time: 07/17/2017 7:22 PM
[2017-07-17] MEDS: ATORVASTATIN 40 MG TAB PO SCH (20:47)
[2017-07-17] MEDS: PANTOprazole SOD 40 MG TAB PO SCH (20:48)
[2017-07-17] MEDS: METOPROLOL TARTRATE 50 MG TAB PO SCH (20:48)
[2017-07-17] MEDS: DOCUSATE SODIUM/SENNA 50/8.6MG TAB PO SCH (20:49)
[2017-07-17] MEDS: FLECAINIDE ACETATE 100 MG TAB PO SCH (20:50)
[2017-07-17] MEDS: TIMOLOL MALEATE 0.5% OP SOLN 5 ML BTL OPR SCH (20:50)
[2017-07-17] MEDS: CLINDAMYCIN IV 600 MG in DEXTROSE 5% 50ML 50 ML IV SCH (21:48)
[2017-07-17] MEDS ORDERED: PROMETHAZINE HCL INJ 12.5 MG in SODIUM CHLORIDE 0.9% 50ML 50 ML IV PRN (23:15)
[2017-07-17 23:24] VITALS: BP 162/67; PULSE 76; TEMP 36.3; O2SAT 94
[2017-07-18] VITALS (7 sets, daily range): BP systolic 112–130; BP diastolic 63–69; PULSE 59–71; TEMP 36.9–37; O2SAT 91–95
--- NOTE | 2017-07-18 07:05 | Surgery Progress Note ---
Surgery Progress Note Date of Service Jul 18, 2017. Subjective Post OP Day: HD 2 + feeling well, + complaints (minimal pain), + diet (regular) Objective Vital Signs: Date Time Temp Pulse Resp B/P (MAP) Pulse Ox O2 Delivery O2 Flow Rate FiO2 07/18/17 00:00 95 Room Air 07/17/17 23:24 36.3 76 20 162/67 (98) 94 Room Air 07/17/17 18:35 36.6 60 20 163/67 95 Room Air 07/17/17 15:56 36.6 60 20 163/67 (99) 93 Room Air 07/17/17 15:28 60 112/55 95 07/17/17 14:28 66 144/72 94 Room Air 07/17/17 13:28 67 18 132/64 97 07/17/17 12:52 66 17 143/56 98 Room Air 07/17/17 11:30 36.4 72 20 158/67 93 Room Air General Appearance: WD/WN, no apparent distress Head: normocephalic, atraumatic Neck: supple, trachea midline Respiratory/Chest: chest non-tender, lungs clear Cardiovascular: regular rate, rhythm, no edema, no murmur Abdomen: normal bowel sounds, non tender, non distended, soft Extremities: + pedal edema, + pertinent finding (cellulitis w/blistering left foot; no signs abscess or fascitis) Laboratory Results: Results Past 24 Hours Test 07/17/17 11:55 07/17/17 12:07 07/18/17 04:44 Range/Units Urine Color YELLOW Urine Appearance CLEAR CLEAR Urine pH 7.0 4.5-7.5 Urine Specific [place] 1.010 1.000-1.030 Urine Protein NEG NEG Urine Glucose (UA) NEG NEG Urine Ketones NEG NEG Urine Occult Blood NEG NEG Urine Nitrite NEG NEG Urine Bilirubin NEG NEG Urine Urobilinogen NEG NEG Urine Leukocyte Esterase NEG NEG White Blood Count 5.62 4.8-10.8 K/uL Red Blood Count 3.84 4.7-6.1 M/uL Hemoglobin 10.8 14.0-18.0 g/dL Hematocrit 35.2 42-52 % Mean Corpuscular Volume 91.7 80-100 fL Mean Corpuscular Hemoglobin 28.1 25-34 pg Mean Corpuscular Hemoglobin Concent 30.7 32-36 g/dl Platelet Count 197 130-400 K/uL Mean Platelet Volume 9.5 7.4-10.4 fL Neutrophils (%) (Auto) 71.3 % Lymphocytes (%) (Auto) 20.8 % Monocytes (%) (Auto) 6.6 % Eosinophils (%) (Auto) 1.1 % Basophils (%) (Auto) 0.2 % Neutrophils # (Auto) 4.01 1.4-6.5 K/uL Lymphocytes # (Auto) 1.17 1.2-3.4 K/uL Monocytes # (Auto) 0.37 0.11-0.59 K/uL Eosinophils # (Auto) 0.06 0-0.5 K/uL Basophils # (Auto) 0.01 0-0.2 K/uL RDW Standard Deviation 52.1 36.4-46.3 fL RDW Coefficient of Variation 15.5 11.5-14.5 % Immature Granulocyte % (Auto) 0.0 % Immature Granulocyte # (Auto) 0.00 0.00-0.02 K/uL Prothrombin Time 18.7 9.0-12.0 SECONDS Prothromb Time International Ratio 1.7 0.9-1.1 Sodium Level 135 136-145 mmol/L Potassium Level 3.7 3.5-5.1 mmol/L Chloride Level 100 98-107 mmol/L Carbon Dioxide Level 32 21-32 mmol/L Anion Gap 3.0 3-11 mmol/L Blood Urea Nitrogen 26 7-18 mg/dl Creatinine 1.33 0.60-1.40 mg/dl Est Creatinine Clear Calc Drug Dose 63.1 ml/min Estimated GFR () 62.8 Estimated GFR (Non- 54.2 BUN/Creatinine Ratio 19.4 10-20 Random Glucose 128 70-99 mg/dl Lactic Acid Level 1.9 0.4-2.0 mmol/L Calcium Level 9.4 8.5-10.1 mg/dl Total Bilirubin 0.5 0.2-1 mg/dl Aspartate Amino Transf (AST/SGOT) 26 15-37 U/L Alanine Aminotransferase (ALT/SGPT) 23 12-78 U/L Alkaline Phosphatase 151 45-117 U/L Troponin I < 0.015 0-0.045 ng/ml Total Protein 7.7 6.4-8.2 gm/dl Albumin 2.9 3.4-5.0 gm/dl Globulin 4.8 2.5-4.0 gm/dl Albumin/Globulin Ratio 0.6 0.9-2 Microbiology Results 07/17/17 Blood Culture, Received Pending 07/17/17 Blood Culture, Received Pending 07/17/17 Gram Stain, Received Pending 07/17/17 Wound Culture, Received Pending Diagnostic Interpretation: L LOWER EXTREMITY WITHOUT HISTORY: 71 years-old Male infection vs necrotizing fascitis acute left foot pain with wound. Concern for infection versus necrotizing fasciitis. COMPARISON: Left foot radiographs of same day TECHNIQUE: Axial CT images of the left lower extremity were obtained without contrast. Coronal and sagittal reformatted images were obtained from the axial data set and cemented for review. A dose lowering technique was used consistent with the principals of ALARA. 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 Mild to moderate interphalangeal degenerative changes are seen throughout the remaining digits. Midfoot alignment is anatomic. Lisfranc ligament is identified and appears intact. Type II accessory navicular noted. Corticated bone fragments are seen adjacent to the lateral malleolus suggesting accessory ossicles or remote fracture fragments. There is no acute fracture or dislocation identified. Mild degenerative changes of the tibiotalar joint. There is moderate spurring about the calcaneus at both the Achilles and plantar insertion sites. No osteochondral defect of the talar dome. No erosive changes to suggest osteomyelitis. There is moderate subcutaneous edema about the foot, notably the dorsal forefoot with associated skin thickening suggesting cellulitis. There is moderate atrophy of the intrinsic musculature of the foot with peripheral vascular calcifications. No drainable fluid collections, abscess or deep tissue air to suggest fasciitis. No opaque foreign body identified. There is mild thickening of the distal Achilles tendon suggesting tendinosis. Moderate thickening is noted involving the medial cord plantar fascia with associated dystrophic calcifications compatible with chronic plantar fasciitis. IMPRESSION: 1. Moderate dorsal forefoot subcutaneous edema and skin thickening suggests cellulitis. No focal abscess, drainable fluid collection or deep tissue air to suggest fasciitis. 2. No acute fracture or dislocation. No erosive changes to suggest osteomyelitis. 3. Moderate to severe degenerative changes of the first MTP joint. 4. Evidence of chronic plantar fasciitis. Assessment & Plan cellulitis left foot -IV abx -dressings -CT scan without signs of abscess or fascitis
[2017-07-18] MEDS: FLECAINIDE ACETATE 100 MG TAB PO SCH ×2 (07:20→22:13)
[2017-07-18] MEDS: PANTOprazole SOD 40 MG TAB PO SCH ×2 (07:20→22:12)
[2017-07-18] MEDS: FUROSEMIDE 40 MG TAB PO SCH (07:21)
[2017-07-18] MEDS: METOPROLOL TARTRATE 50 MG TAB PO SCH ×2 (07:21→22:13)
[2017-07-18] MEDS: LACTOBACILLUS ACIDOPHILUS (FLORANEX) TAB PO SCH (07:21)
[2017-07-18] MEDS: ASPIRIN 81 MG ECTAB PO SCH (07:22)
[2017-07-18] MEDS: ASCORBIC ACID 500 MG TAB PO SCH (07:22)
[2017-07-18] MEDS: CYANOCOBALAMIN 500 MCG TAB (VIT B-12) PO SCH (07:23)
[2017-07-18] MEDS: MAGNESIUM OXIDE 400 MG TAB PO SCH (07:23)
[2017-07-18] MEDS: SPIRONOLACTONE 25 MG TAB PO SCH (07:23)
[2017-07-18] MEDS: CHOLECALCIFEROL 1000 INTER.UNIT TAB PO SCH (07:24)
[2017-07-18] MEDS: TIMOLOL MALEATE 0.5% OP SOLN 5 ML BTL OPR SCH ×2 (07:28→22:10)
[2017-07-18 08:31] LABS: HEMATOCRIT 31.5 % (42-52); MEAN CELL VOLUME 91.6 fL (80-100); MEAN CORPUSCULAR HEMOGLOBIN 28.8 pg (25-34); MEAN CORPUSCULAR HGB CONC 31.4 g/dl (32-36); MEAN PLATELET VOLUME 9.6 fL (7.4-10.4); PLATELET COUNT 163 K/uL (130-400); RED BLOOD COUNT 3.44 M/uL (4.7-6.1); WHITE BLOOD COUNT 5.14 K/uL (4.8-10.8)
[2017-07-18 09:05] LABS: CREATININE 1.28 mg/dl (0.60-1.40)
[2017-07-18] MEDS: CLINDAMYCIN IV 600 MG in DEXTROSE 5% 50ML 50 ML IV SCH ×3 (10:36→22:14)
[2017-07-18] MEDS: VANCOMYCIN INJ 1,750 MG in SODIUM CHLORIDE 0.9% 500ML 500 ML IV SCH ×2 (11:07→22:14)
--- NOTE | 2017-07-18 15:09 | Progress Note ---
Subjective Date of Service: Jul 18, 2017. Subjective Pt evaluation today including: conversation w/ patient, conversation w/ family (), physical exam, lab review, review of inpatient medication list Pain: no pain PO Intake: adequate Voiding: no voiding problems left dorsal aspect of foot with large blistering, desquamation, drainage not tender but patient has neuropathy labs normal wound culture with pinpoint growth CT left foot: no osteomyelitis, no abscess or fasciitis Problem List Medical Problems: (1) Cellulitis of left leg Status: Acute Review of Systems Skin: + problem reported (left dorsal foot with clear drainage, soaking through dressing, blistering) All Other Systems: Reviewed and Negative Medications Current Inpatient Medications Medications (Trade) Dose Ordered Sig/Edward Route Start Time Stop Time Status Last Admin Dose Admin Aspirin (Ecotrin Tab) 81 mg DAILY PO 07/18/17 09:00 08/17/17 08:59 07/18/17 07:22 81 MG Atorvastatin Calcium (Lipitor Tab) 40 mg HS PO 07/17/17 21:00 08/16/17 20:59 07/17/17 20:47 40 MG Cyanocobalamin (Vitamin B-12 Tab) 500 mcg QAM PO 07/18/17 09:00 08/17/17 08:59 07/18/17 07:23 500 MCG Flecainide Acetate (Tambocor Tab) 100 mg BID PO 07/17/17 21:00 08/16/17 20:59 07/18/17 07:20 100 MG Furosemide (Lasix Tab) 40 mg QAM PO 07/18/17 09:00 08/17/17 08:59 07/18/17 07:21 40 MG Metoprolol Tartrate (Lopressor Tab) 50 mg BID PO 07/17/17 21:00 08/16/17 20:59 07/18/17 07:21 50 MG Oxycodone HCl (Roxicodone Immediate Rel Tab) 10 mg Q4H PRN PO 07/17/17 14:00 07/31/17 13:59 07/17/17 22:30 10 MG Senna/Docusate Sodium (Senokot S Tab) 2 tab HS PO 07/17/17 21:00 08/16/17 20:59 07/17/17 20:49 2 TAB Timolol Maleate (Timoptic 0.5% Oph Soln) 1 drops BID OPR 07/17/17 21:00 08/16/17 20:59 07/18/17 07:28 1 DROPS Warfarin Sodium (Coumadin Tab) 0.5 mg DAILY@1600 PO 07/17/17 17:00 08/16/17 16:59 07/17/17 17:18 0.5 MG Ascorbic Acid (Vitamin C Tab) 1,000 mg QAM PO 07/18/17 09:00 08/17/17 08:59 07/18/17 07:22 1,000 MG Cholecalciferol (Vitamin D Tab) 2,000 inter.unit QAM PO 07/18/17 09:00 08/17/17 08:59 07/18/17 07:24 2,000 INTER.UNIT Magnesium Oxide (Mag-Ox Tab) 200 mg QAM PO 07/18/17 09:00 08/17/17 08:59 07/18/17 07:23 200 MG Pantoprazole Sodium (Protonix Tab) 40 mg BID PO 07/17/17 21:00 08/16/17 20:59 07/18/17 07:20 40 MG Lactobacillus Acidophilus (Floranex Tab) 1 tab QAM PO 07/18/17 09:00 08/17/17 08:59 07/18/17 07:21 1 TAB Artificial Tears (Artificial Tears) 1 drops QAM PRN OP 07/17/17 14:00 08/16/17 13:59 Spironolactone (Aldactone Tab) 50 mg QAM PO 07/18/17 09:00 08/17/17 08:59 07/18/17 07:23 50 MG Acetaminophen (Tylenol Tab) 650 mg Q4H PRN PO 07/17/17 14:30 08/16/17 14:29 Al Hydrox/Mg Hydrox/Simethicone (Maalox Max Susp) 15 ml Q4H PRN PO 07/17/17 14:30 08/16/17 14:29 Magnesium Hydroxide (Milk Of Magnesia Susp) 30 ml Q6H PRN PO 07/17/17 14:30 08/16/17 14:29 Polyethylene (Miralax Powder Packet) 17 gm DAILY PRN PO 07/17/17 14:30 08/16/17 14:29 Ondansetron HCl (Zofran Inj) 4 mg Q6H PRN IV 07/17/17 14:30 08/16/17 14:29 Clindamycin Phosphate 600 mg/ Dextrose 54 ml @ 100 mls/hr Q8H IV 07/17/17 22:00 07/27/17 21:59 07/18/17 14:27 100 MLS/HR Vancomycin HCl 1750 mg/Sodium Chloride 535 ml @ 200 mls/hr Q14H IV 07/17/17 18:00 07/27/17 17:59 07/18/17 11:07 200 MLS/HR Miscellaneous (Iv Fluids Completed) 1 ea PRN PRN N/A 07/17/17 15:00 07/17/18 14:59 Vancomycin HCl (Consult) 1 ea UD PRN N/A 07/17/17 16:00 08/16/17 15:59 Promethazine HCl 12.5 mg/Sodium Chloride 50.5 ml @ 204 mls/hr Q6H PRN IV 07/17/17 23:15 08/16/17 23:14 Objective Vital Signs Date Time Temp Pulse Resp B/P (MAP) Pulse Ox O2 Delivery O2 Flow Rate FiO2 07/18/17 10:40 95 Room Air 07/18/17 07:20 36.9 65 20 130/69 (89) 91 Room Air 07/18/17 00:00 95 Room Air 07/17/17 23:24 36.3 76 20 162/67 (98) 94 Room Air 07/17/17 18:35 36.6 60 20 163/67 95 Room Air 07/17/17 15:56 36.6 60 20 163/67 (99) 93 Room Air 07/17/17 15:28 60 112/55 95 Physical Exam General Appearance: WD/WN, no apparent distress Eyes: normal inspection, EOMI, sclerae normal ENT: normal ENT inspection, hearing grossly normal, pharynx normal Neck: supple, no adenopathy, no JVD, trachea midline Respiratory/Chest: chest non-tender, lungs clear, normal breath sounds, no respiratory distress, no accessory muscle use Cardiovascular: regular rate, rhythm, no edema, no gallop, no JVD, no murmur Abdomen: normal bowel sounds, non tender, soft, no organomegaly Extremities: normal range of motion, non-tender, normal inspection, no pedal edema, no calf tenderness, pelvis stable Neurologic/Psychiatric: director of bands II-XII nml as tested, no motor/sensory deficits, alert, normal mood/affect, oriented x 3 Skin: warm/dry, + pertinent finding (dorsal foot with large area of blister/ desquamation, clear drainage, slightly warm, erythema surrounding area, no redness streaking up leg) Laboratory Results Last 24 Hours Test 07/18/17 07:40 White Blood Count 5.14 K/uL Red Blood Count 3.44 M/uL Hemoglobin 9.9 g/dL Hematocrit 31.5 % Mean Corpuscular Volume 91.6 fL Mean Corpuscular Hemoglobin 28.8 pg Mean Corpuscular Hemoglobin Concent 31.4 g/dl RDW Standard Deviation 53.1 fL RDW Coefficient of Variation 15.7 % Platelet Count 163 K/uL Mean Platelet Volume 9.6 fL Creatinine 1.28 mg/dl Est Creatinine Clear Calc Drug Dose 65.6 ml/min Estimated GFR () 65.7 Estimated GFR (Non- 56.7 Assessment and Plan 71 yo male with recent left hip infection after MORGAN, presents with sudden onset of blister that broke and then further desquamation, clear drainage, redness - Cellulitis of left dorsal foot: continue Vancomycin and Clindamycin today CT negative for osteomyelitis, abscess, fasciitis WBC normal, afebrile no redness spreading proximally so appears contained consult Dr. Russell to see tomorrow to evaluate for any need for debridement dressing changed several times today - Atrial fibrillation: hold Coumadin for now with possible debridement tomorrow rate controlled with metoprolol - Anemia: Hb 9.9 - HTN; metoprolol and Aldactone of note, scheduled to have bridget removed in left hip wound tomorrow call office of Dr. Lopez tomorrow, normally would remove them but he had complications with infection
[2017-07-18] MEDS: WARFARIN SOD 0.5 MG TAB PO SCH (15:42)
[2017-07-18] MEDS: OXYCODONE HCL IR 5 MG TAB (IMMEDIATE RELEASE) PO PRN ×2 (17:04→22:11)
[2017-07-18] MEDS: ATORVASTATIN 40 MG TAB PO SCH (22:12)
[2017-07-18] MEDS: DOCUSATE SODIUM/SENNA 50/8.6MG TAB PO SCH (22:12)
[2017-07-19 00:07] VITALS: O2SAT 95
[2017-07-19] MEDS: OXYCODONE HCL IR 5 MG TAB (IMMEDIATE RELEASE) PO PRN ×2 (03:06→21:57)
[2017-07-19] MEDS ORDERED: MICONAZOLE NITRATE POWDER 43 GM EXT PRN (03:30)
[2017-07-19] MEDS ORDERED: NURSING DECISION MEDICATION ORDER SCH (03:30)
[2017-07-19] MEDS: CLINDAMYCIN IV 600 MG in DEXTROSE 5% 50ML 50 ML IV SCH ×3 (05:41→21:58)
[2017-07-19 07:10] VITALS: BP 125/70; PULSE 63; TEMP 37.1; O2SAT 96
[2017-07-19 07:37] LABS: CREATININE 1.33 mg/dl (0.60-1.40)
[2017-07-19] MEDS: METOPROLOL TARTRATE 50 MG TAB PO SCH ×2 (07:45→21:55)
[2017-07-19] MEDS: ASPIRIN 81 MG ECTAB PO SCH (07:45)
[2017-07-19] MEDS: SPIRONOLACTONE 25 MG TAB PO SCH (07:45)
[2017-07-19] MEDS: LACTOBACILLUS ACIDOPHILUS (FLORANEX) TAB PO SCH (07:45)
[2017-07-19] MEDS: FUROSEMIDE 40 MG TAB PO SCH (07:45)
[2017-07-19] MEDS: PANTOprazole SOD 40 MG TAB PO SCH ×2 (07:46→21:56)
[2017-07-19] MEDS: FLECAINIDE ACETATE 100 MG TAB PO SCH ×2 (07:46→21:55)
[2017-07-19] MEDS: MAGNESIUM OXIDE 400 MG TAB PO SCH (07:46)
[2017-07-19] MEDS: CYANOCOBALAMIN 500 MCG TAB (VIT B-12) PO SCH (07:46)
[2017-07-19] MEDS: ASCORBIC ACID 500 MG TAB PO SCH (07:46)
[2017-07-19] MEDS: CHOLECALCIFEROL 1000 INTER.UNIT TAB PO SCH (07:47)
[2017-07-19] MEDS ORDERED: VANCOMYCIN TROUGH SCH (11:30)
[2017-07-19] MEDS: VANCOMYCIN INJ 1,750 MG in SODIUM CHLORIDE 0.9% 500ML 500 ML IV SCH (12:03)
[2017-07-19] MEDS: TIMOLOL MALEATE 0.5% OP SOLN 5 ML BTL OPR SCH ×2 (13:01→21:54)
[2017-07-19 14:57] VITALS: BP 152/68; PULSE 69; TEMP 36.6; O2SAT 95
--- NOTE | 2017-07-19 15:46 | Pharmacy Progress Note ---
Pharmacy Abx Dose Short Note Date of Service Jul 19, 2017. Assessment & Plan 71 year old male receiving Vancomycin and clindamycin for treatment of blistering/cellulitis. Assessment Day # 3 of antimicrobial therapy. Vancomycin Item Value Date Time Vancomycin Level Trough 24.3 mcg/ml 07/19/17 1145 Trough level of 24.3 mcg/mL is supratherapeutic. Will decrease dose and keep dosing interval as half-life is predicted to be around 12 hours. Trough level appropriately drawn prior to dose being hung. Second maintenance dose hung late, but should not affect trough level to a great degree. Pt had debridement today. Repeat cultures taken. Wound drainage cultures from 07/17 grew coag neg staph. Consider possible switch to PO doxycycline when appropriate. Plan Vancomycin * Change dosing to 1250 mg (10.4mg/kg) IV every 14 hours * Goal trough level for cellulitis=15 mcg/mL * Trough or random level ordered for: 07/21 @1130 Pharmacy will continue to follow and will adjust dose/frequency as necessary. Thank you.
[2017-07-19 16:00] VITALS: O2SAT 95
[2017-07-19] MEDS: WARFARIN SOD 0.5 MG TAB PO SCH (16:35)
--- NOTE | 2017-07-19 16:53 | Surgery Progress Note ---
Surgery Progress Note Date of Service Jul 19, 2017. Subjective + feeling well pt is doing better, no fever, pt had debridement on left foot by wound care surgeon today, Objective Vital Signs: Date Time Temp Pulse Resp B/P (MAP) Pulse Ox O2 Delivery O2 Flow Rate FiO2 07/19/17 14:57 36.6 69 20 152/68 (96) 95 Room Air 07/19/17 09:13 Room Air 07/19/17 07:10 37.1 63 20 125/70 (88) 96 Room Air 07/19/17 00:07 95 Room Air 07/18/17 23:40 37.0 59 21 112/68 (83) 94 Room Air 07/18/17 22:08 37.0 67 119/63 (81) 07/18/17 17:03 37.0 71 20 117/65 (82) 95 Room Air General Appearance: WD/WN Head: normocephalic Neck: supple, no JVD Respiratory/Chest: chest non-tender, lungs clear Cardiovascular: regular rate, rhythm, no edema Abdomen: normal bowel sounds, non tender, non distended Incision(s): clean, dry, intact Extremities: normal range of motion, non-tender, normal inspection (fresh wound on left foot, no tenderness, no drainage) Laboratory Results: Results Past 24 Hours Test 07/19/17 06:16 07/19/17 11:45 Range/Units Creatinine 1.33 0.60-1.40 mg/dl Est Creatinine Clear Calc Drug Dose 63.1 ml/min Estimated GFR () 62.8 Estimated GFR (Non- 54.2 Vancomycin Level Trough 24.3 SEE COMMENT mcg/ml Microbiology Results 07/19/17 Gram Stain, Ordered Pending 07/19/17 Wound Culture, Ordered Pending Assessment & Plan IMP, left foot infection, plan, continue antibiotic, no abscess on left foot, sign off today please call us if any thing change, thanks,
[2017-07-19 17:55] VITALS: O2SAT 97
--- NOTE | 2017-07-19 18:12 | Hospitalist Progress Note ---
Hospitalist Progress Note Date of Service Jul 19, 2017. Subjective Pt evaluation today including: conversation w/ patient, conversation w/ family , physical exam Pt feeling well. Had debridement of the blister on his foot today. Afebrile. Denies CP/SOB/N/V/D. All Other Systems: Reviewed and Negative Objective Vital Signs Date Time Temp Pulse Resp B/P (MAP) Pulse Ox O2 Delivery O2 Flow Rate FiO2 07/19/17 17:55 97 Room Air 07/19/17 14:57 36.6 69 20 152/68 (96) 95 Room Air 07/19/17 09:13 Room Air 07/19/17 07:10 37.1 63 20 125/70 (88) 96 Room Air 07/19/17 00:07 95 Room Air 07/18/17 23:40 37.0 59 21 112/68 (83) 94 Room Air 07/18/17 22:08 37.0 67 119/63 (81) Physical Exam General Appearance: WD/WN, no apparent distress Eyes: normal inspection, sclerae normal ENT: hearing grossly normal Neck: trachea midline Respiratory/Chest: lungs clear, normal breath sounds, no respiratory distress, no accessory muscle use Cardiovascular: regular rate, rhythm, no edema, no murmur Abdomen: normal bowel sounds, non tender, soft Extremities: no pedal edema, no calf tenderness, + pertinent finding (left foot in dressing not removed, no erythema on anterior ankle that is visible; left hip incision with bridget in place, small scab, no erythema or drainage, looks good) Neurologic/Psychiatric: alert, normal mood/affect, oriented x 3 Skin: no rash Laboratory Results Last 24 Hours Test 07/19/17 06:16 07/19/17 11:45 Creatinine 1.33 mg/dl Est Creatinine Clear Calc Drug Dose 63.1 ml/min Estimated GFR () 62.8 Estimated GFR (Non- 54.2 Vancomycin Level Trough 24.3 mcg/ml Assessment and Plan Pt is a 71 yo male with recent left hip infection after MORGAN, presents with sudden onset of left foot erythema and blister while on po keflex for previous hip wound, failed outpt therapy essentially - Cellulitis of left dorsal foot:debrided today by Wound Care MD. Growing Coag neg Staph in wound cx, repeat wound cxs taken today CT negative for osteomyelitis, abscess, fasciitis WBC normal, afebrile no redness spreading proximally so appears contained -dressing changes as per Wound Care-will need outpt f/u and can likely be dc' d to home tomorrow -f/u on latest wound cx when available -will dc Vanco, continue Clinda and likely dc on po clinda tomorrow - Atrial fibrillation: in NSR here, Coumadin was on hold for debridement -can now restart coumadin, follow INR -rate controlled with metoprolol, rhythm controlled with flecainide - Anemia: Hb 9.9, higher than 1 month ago after surgery, likely from blood loss during surgery, chronic disease -cannot tolerate Fe tabs due to constipation -follow CBC as outpt - HTN; controlled -continue metoprolol, lasix, and Aldactone -check PRP in AM -Left hip infection-resolved -Spoke to Dr. Lopez who will be in this evening to remove bridget Proph-coumadin Dispo- likely to home tomorrow, needs PT/OT evbal to assess for safety of returning home, has Left foot/leg orthotic
--- NOTE | 2017-07-19 20:53 | CONSULTATION REPORT ---
DATE OF CONSULTATION: 07/19/2017 REASON FOR REFERRAL: Cellulitis with bullous formation, left foot. HISTORY OF PRESENT ILLNESS: This 71-year-old gentleman with a history of chronic AF, hypertension,peripheral neuropathy, PVD, chronic anemia and status post recent left hip arthroplasty with postop complication of seroma requiring drainage, presented to the hospital with a complaint of redness and blistering to his left foot. The patient states that 3 days ago he noticed some redness to the left foot. Over the next 24 hours, the redness increased and was associated with blistering . He presented to the Emergency Department and was admitted. He is currently on Vancomycin and Clindamycin. At this time, he denies any pain, but is neuropathic. He denies any recent fever. He does complain of some hip pain related to his recent surgery. PREVIOUS MEDICAL HISTORY: Significant for chronic AF, peripheral neuropathy post-back surgery, hypertension, peripheral neuropathy,obesity, PVD. PREVIOUS SURGICAL HISTORY: Appendectomy, cholecystectomy, left total hip arthroplasty; drainage of seroma, left hip; and lumbar spinal surgery. FAMILY HISTORY: Significant for heart disease and hypertension. SOCIAL HISTORY: The patient is , lives with family. Denies cigarette use. HOME MEDICATIONS: Ascorbic acid 1 tab daily, aspirin 81 mg daily, atorvastatin 40 mg at bedtime, Keflex 500 mg q.i.d., vitamin D3 two capsules p.o. q.a.m., vitamin B12 500 mcg q.a.m., flecainide 100 mg b.i.d., furosemide 40 mg q.a.m., magnesium 250 mg q.a.m., metoprolol tartrate 1 tab b.i.d., multivitamin daily, nitroglycerin 0.4 p.r.n.,Prilosec 20 mg bid,., probiotic 1 tab q.a.m., spironolactone 50 mg q.a.m., timolol ophthalmic drops 1 drop each eye b.i.d., vitamin A beta-carotene daily, Coumadin 0.5 mg daily, and morphine p.r.n. ALLERGIES: ACETAMINOPHEN, MINERAL OIL, OXYCODONE AND ARTIFICIAL TEARS. PHYSICAL EXAMINATION: GENERAL: Reveals a pleasant 71-year-old gentleman who is alert and oriented in no acute distress. VITAL SIGNS: Temperature 37.1, pulse 63, respiratory rate 20 and unlabored, O2 sat on room air is 96% ,blood pressure 125/70. SKIN: Warm and dry. HEENT: Normocephalic, atraumatic. PERRL, EOMI. LUNGS: Clear. HEART: Regular rate and rhythm. ABDOMEN: Soft, nontender. EXTREMITIES: With attention to the left foot: Diffuse erythema over the dorsum of his foot with multiple large bullae extending circumferentially around his toes . Area measures 13 cm X 25.5cm . No active drainage or odor. Distal pulses are intact. DIAGNOSTIC TESTING: Blood cultures x2- no growth to date. A wound culture done on 07/17/2017 is growing coag negative staph. CT scan of the foot without signs of osteomyelitis or abscess. ASSESSMENT: Cellulitis, left foot with associated bullae formation. PLAN: The area did require debridement. With the patient's permission and after the application of topical Xylocaine, the blisters were unroofed using scissors and forceps. A wound culture was done. The foot will be dressed with Aquacel AG and gauze, change daily and p.r.n. Will Consult orthotics to assist with offloading. Will monitor the patient's course while hospitalized. Post-discharge, the patient is welcome to follow up at the [facility] for further treatment. This represented a nonexcisional debridement of 331.5 cm2. Thank you for this consultation. PATTI
[2017-07-19] MEDS: ATORVASTATIN 40 MG TAB PO SCH (21:56)
[2017-07-19] MEDS: DOCUSATE SODIUM/SENNA 50/8.6MG TAB PO SCH (21:57)
[2017-07-19 22:14] VITALS: BP 115/58; PULSE 71
--- NOTE | 2017-07-19 22:31 | PROGRESS NOTE ---
DATE: 07/19/2017 CHIEF COMPLAINT: 2-1/2 weeks status post I&D, left hip wound. PROGRESS: Nolberto has been admitted back to the hospital because of a left foot cellulitis and foot blisters. He was scheduled to have his bridget removed to my office today, but because he was in the hospital he is being seen there. He has soreness in the hip, but otherwise is doing well. PHYSICAL EXAMINATION: His leg lengths are equal. The hip incision looks great and is ready for bridget to be removed. There are no signs of infection or cellulitis around the hip. IMPRESSION: 2-1/2 weeks status post I&D of the left hip. PLAN: The incision looks so good and an order was put in for the nursing staff to remove the bridget. I will see him in my office as previously scheduled.
[2017-07-19] MEDS ORDERED: LIDOCAINE HCL 2% JELLY 30 ML TUBE EXT ONE (22:40)
[2017-07-20 00:25] VITALS: BP 144/64; PULSE 66; TEMP 36.2; O2SAT 97
[2017-07-20] MEDS: OXYCODONE HCL IR 5 MG TAB (IMMEDIATE RELEASE) PO PRN ×3 (01:53→16:04)
[2017-07-20] MEDS: CLINDAMYCIN IV 600 MG in DEXTROSE 5% 50ML 50 ML IV SCH ×2 (05:31→13:36)
[2017-07-20 07:53] VITALS: BP 130/71; PULSE 62; TEMP 36.5; O2SAT 94
[2017-07-20] MEDS ORDERED: VANCOMYCIN INJ 1,250 MG in SODIUM CHLORIDE 0.9% 250ML 250 ML IV SCH (08:00)
[2017-07-20] MEDS: TIMOLOL MALEATE 0.5% OP SOLN 5 ML BTL OPR SCH (08:34)
[2017-07-20] MEDS: MAGNESIUM OXIDE 400 MG TAB PO SCH (08:35)
[2017-07-20] MEDS: ASCORBIC ACID 500 MG TAB PO SCH (08:35)
[2017-07-20] MEDS: CHOLECALCIFEROL 1000 INTER.UNIT TAB PO SCH (08:36)
[2017-07-20] MEDS: FLECAINIDE ACETATE 100 MG TAB PO SCH (08:36)
[2017-07-20] MEDS: SPIRONOLACTONE 25 MG TAB PO SCH (08:36)
[2017-07-20] MEDS: FUROSEMIDE 40 MG TAB PO SCH (08:37)
[2017-07-20] MEDS: CYANOCOBALAMIN 500 MCG TAB (VIT B-12) PO SCH (08:37)
[2017-07-20] MEDS: PANTOprazole SOD 40 MG TAB PO SCH (08:37)
[2017-07-20] MEDS: METOPROLOL TARTRATE 50 MG TAB PO SCH (08:37)
[2017-07-20] MEDS: LACTOBACILLUS ACIDOPHILUS (FLORANEX) TAB PO SCH (08:37)
[2017-07-20] MEDS: ASPIRIN 81 MG ECTAB PO SCH (08:38)
[2017-07-20 09:18] LABS: BASO % 0.4 %; BASO ABS # 0.02 K/uL (0-0.2); COMPLETE YES; EOS % 2.8 %; LYMPH % 25.4 %; LYMPH ABS # 1.28 K/uL (1.2-3.4); MEAN CELL VOLUME 90.7 fL (80-100); MEAN CORPUSCULAR HEMOGLOBIN 28.6 pg (25-34); MEAN CORPUSCULAR HGB CONC 31.6 g/dl (32-36); MEAN PLATELET VOLUME 9.7 fL (7.4-10.4); MONO % 8.9 %; NEUT % 62.5 %; PLATELET COUNT 167 K/uL (130-400); RED BLOOD COUNT 3.53 M/uL (4.7-6.1); WHITE BLOOD COUNT 5.04 K/uL (4.8-10.8)
[2017-07-20 09:30] LABS: INR 2.7 (0.9-1.1)
[2017-07-20 09:49] LABS: BUN/CREATININE RATIO 16.3 (10-20); CALCIUM 9.1 mg/dl (8.5-10.1); CREATININE 1.35 mg/dl (0.60-1.40); POTASSIUM 4.1 mmol/L (3.5-5.1)
[2017-07-20] MEDS ORDERED: CLC/300 PO (10:46)
--- NOTE | 2017-07-20 10:53 | Discharge Instructions ---
Discharge Instructions Date of Service Jul 20, 2017. Admission Reason for Admission: Cellulitis Of Left Leg Discharge Discharge Diagnosis / Problem: Cellulitis of Left Foot/leg Discharge Goals Goal(s): Decrease discomfort, Improve function, Increase independence, Improve disease control Activity Recommendations Activity Limitations: resume your previous activity Lifting Limitations: no more than 25 pounds, gradually increase as tolerated Exercise/Sports Limitations: rest today, gradually increase as tolerated May Resume Sexual Activity: when tolerated Shower/Bathe: no limitations Driving or Machine Use: Do Not Drive until cleared by your PCP . Instructions / Follow-Up Instructions / Follow-Up You were admitted to [facility] with left foot redness and blister and diagnosed with cellulitis of the left foot and leg. During your stay here you were treated with intravenous antibiotics, wound care was consulted, and other supportive care. Wound care took cultures of your left foot blister and found that coag negative staph was growing. Repeat cultures are in process and should be followed up by wound care and your family physician. An antibiotics has been prescribed for this infection. Belva from previous left hip surgery were removed during your stay here. Medications: Continue taking antibiotic as directed: Clindamycin 600 mg by mouth every 8 hours for 7 more days, this will complete a 10 day course. Start the first dose tonight 07/20/17 and finish 12/25/16. Continue taking your medications as above. Appointments: Follow up with your Primary Care Provider within 1 week. Follow up with wound clinic on Jul 27 as already scheduled. You have been set up with home health services to change the wound dressing within 24 hours of discharge. Home health services can check your INR during their visit with you and results will be faxed to the coumadin clinic. Your INR at time of discharge was 2.7. Current Hospital Diet Patient's current hospital diet: AHA Diet (Heart Healthy) Discharge Diet Recommended Diet: AHA Diet (Heart Healthy) Pending Studies Studies pending at discharge: yes List of pending studies: Wound culture results Medical Emergencies . Who to Call and When: Medical Emergencies: If at any time you feel your situation is an emergency, please call 911 immediately. . Non-Emergent Contact Non-Emergency issues call your: Primary Care Provider Call Non-Emergent contact if: you have a fever, temperature is above 100.5, your pain is not controlled, your pain is worsening, your pain is unusual for you, your pain is concerning you, you have any medication questions . Past History Medical & Surgical History: (1) Cellulitis of left leg (2) Hypertension (3) Back pain (4) Hyperlipidemia Nec/Nos (5) Atrial Fibrillation . "Provider Documentation" section prepared by Mayda Gallagher. . VTE Core Measure Inpt VTE Proph given/why not?: Warfarin (Coumadin)
--- NOTE | 2017-07-20 10:56 | Discharge Summary ---
Discharge Summary Date of Service Jul 20, 2017. Discharge Summary Admission Date: Jul 18, 2017 at 15:01 Discharge Date: Jul 20, 2017 Discharge Disposition: Home Principal Diagnosis: Cellulitis of the Left Foot Problems/Secondary Diagnoses: Recent left hip infection after MORGAN Cellulitis of left dorsal foot Atrial fibrillation Anemia HTN Left hip infection Immunizations: Have You Had Influenza Vaccine: Yes Influenza Vaccine Date: Jul 01, 2012 History of Tetanus Vaccine?: Yes History of Pneumococcal: Yes History of Hepatitis B Vaccine: No Procedures: L FOOT MIN 3 VIEWS ROUTINE 07/17/17 IMPRESSION: 1. Moderate forefoot soft tissue swelling without acute bony abnormality. 2. Degenerative changes about the foot as above. 3. Peripheral vascular disease. CHEST 2 VIEWS ROUTINE 07/17/17 FINDINGS: Cardiomediastinal and hilar silhouettes are within normal limits. There is no pneumothorax, pleural effusion, focal airspace consolidation or overt pulmonary edema. Mild right hemidiaphragmatic elevation. Degenerative changes are seen within the shoulders and spine. Surgical clips of the right upper abdomen suggest prior cholecystectomy. IMPRESSION: No acute cardiopulmonary process. L LOWER EXTREMITY WITHOUT 07/17/17 IMPRESSION: 1. Moderate dorsal forefoot subcutaneous edema and skin thickening suggests cellulitis. No focal abscess, drainable fluid collection or deep tissue air to suggest fasciitis. 2. No acute fracture or dislocation. No erosive changes to suggest osteomyelitis. 3. Moderate to severe degenerative changes of the first MTP joint. 4. Evidence of chronic plantar fasciitis. Consultations: Orthotic Wound Medication Reconciliation New Medications: Clindamycin HCl (Clindamycin HCl) 300 Mg Cap 2 CAP PO TID for 7 Days, #42 CAP Continued Medications: Acetaminophen (Tylenol) 500 Mg Tab 1000 MG PO HS PRN for Pain, TAB PATIENT REPORTS WILL TAKE TYLENOL OR TRAMADOL IF NEEDED FOR PAIN, DOES NOT TAKE THEM BOTH TOGETHER Ascorbic Acid (Vitamin C) 1,000 Mg Tab 1 TAB PO QAM Aspirin (Aspirin Ec) 81 Mg Tab 81 MG PO DAILY PT NOT SURE WHAT TIME HE TAKES THIS Atorvastatin (Lipitor) 40 Mg Tab 40 MG PO HS, TAB Cholecalciferol (Vitamin D3) 1,000 Unit Cap 2 CAP PO QAM Cyanocobalamin (Vitamin B12 500MCG) 500 Mcg Tab 500 MCG PO QAM, TAB Flecainide (Tambocor) 100 Mg Tab 100 MG PO BID, TAB Furosemide (Lasix) 40 Mg Tab 40 MG PO QAM, TAB Magnesium (Magnesium 250 mg) 1 Tab Tab 200 MG PO QAM Metoprolol Tartrate (Metoprolol Tartrate) 50 Mg Tab 1 TAB PO BID Mineral Oil (Mineral Oil) 1 Oil Oil 1 TSP PO HS PRN for CONSTIPATION Multivitamin (Multivitamin) Tab 1 TAB PO QAM, TAB Nitroglycerin (Nitrostat) 0.4 Mg Tab 0.4 MG UT PRN, BTL Omeprazole (Prilosec) 20 Mg Capcr 20 MG PO BID, CAP Oxycodone HCl (Oxycodone HCl) 5 Mg Tab 5-10 MG PO Q4H PRN for Pain, #40 TAB Probiotic Product (Probiotic) 1 Cap Cap 1 TAB PO QAM Propylene Glycol-Glycerin (Artificial Tears) 1 Geo Geo 1 DROP PO QAM PRN for Sennosides-Docusate Sodium (Stool Softener & Stimulan) 1 Tab Tab 1-4 TAB PO HS for Constipation Spironolactone (Aldactone) 50 Mg Tab 50 MG PO QAM, TAB Timolol Maleate (Timolol 0.5% Oph Soln 15 Ml) 15 Ml Soln 1 DROP OPR BID Vitamin A-Beta Carotene (Vitamin A) Unknown Strength Tab Unknown Dose PO QAM Warfarin Sodium (Coumadin) 1 Mg Tab 0.5 MG PO [id number], TAB [Morphine] () Unknown Dose SC CONT IMPLANTED PAIN PUMP IN ABDOMEN Discontinued Medications: Cephalexin Monohydrate (Keflex) 500 Mg Cap 500 MG PO QID, CAP Discharge Exam The patient was seen and examined this morning. Pt reports doing well other than his foot. He denies any acute pain due to neuropathy up to the level of his ankles bilaterally. Wound was debrided by wound physician last evening. His dressing is saturated at this point, and is asking to shower since he hasn' t since his previous L hip surgery. Denies fever, chills or sweats. No chest pain or shortness of breath. Denies issues with bowels, no bladder incontinence. ROS: 10 point ROS reviewed and otherwise negative. Physical Exam: General Appearance: WD/WN, no apparent distress, + obese Eyes: PERRL, EOMI ENT: hearing grossly normal, pharynx normal Neck: supple, thyroid normal Respiratory/Chest: lungs clear, no respiratory distress, no accessory muscle use, + pertinent finding (on RA) Cardiovascular: regular rate, rhythm, no murmur, normal peripheral pulses Abdomen / GI: normal bowel sounds, non tender, soft Extremities: no calf tenderness, no pedal edema, + pertinent finding (LLE in mechanical boot. Dressing appears saturated with serosanginous drainage. Left hip wound appears well healed, stapels have been removed, scabbing over site, minimal surrounding erythema, no drainage, nontender to palpation.) Neurologic/Psychiatric: alert, normal mood/affect, oriented x 3 Skin: normal color, warm/dry Hospital Course History of Present Illness Source: patient 71 y/o M Hx chronic AF, HTN, HPL, peripheral neuropathy, PVD, chronic anemia. Pt underwent a L hip arthroplasty 06/04. he developed a Seroma at the wound site which required evacuation and wound vac placement 07/01. The wound vac was removed the prior week - he remains on Keflex for a wound culture that had grown out pansensitive Proteus. when he woke up this AM he noted a large blister on the dorsum of his R foot with surrounding erythema. This ruptured and then reformed. He denies significant pain at the site, denies fevers/ rigors. He presented to the ER in light of his recent history due to concern for infection. It is noted that he has limited sensation in his lower extremities due to neuropathy, however, he cannot recall sustaining any any trauma to the area. Initial imaging reveals tissue inflammation only. There is no clear evidence of systemic infection per labs/vitals and exam at the time of admission. Physical Exam General Appearance: WD/WN, no apparent distress Head: normocephalic Eyes: normal inspection Neck: supple, no JVD Respiratory/Chest: chest non-tender, lungs clear Cardiovascular: regular rate, rhythm, no murmur Abdomen/GI: normal bowel sounds, non tender, soft Back: normal inspection, no CVA tenderness Extremities/Musculoskelatal: + pertinent finding (Large blister on dorsum of L foot - small blisters over L toes - mild erythema at superior aspect of blister - no warmth - cannot assess for tenderness due to neuropathy - There is some erythema at the incision site at the L hip - no tenderness or separation of the wound is present) 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 Growing Coag neg Staph in wound cx 07/17, repeat wound cxs taken 07/19 CT negative for osteomyelitis, abscess, fasciitis WBC normal, afebrile no redness spreading proximally so appears contained - some warmth over dorsal aspect, minimal erythema -dressing changes as per Wound Care-will have home health services see the pt within 1 day after discharge. -Wound and PCP to follow repeat wound culture -will dc Vanco, continue Clinda and dc on po clinda x 7 more days to complete a 10 day course - Atrial fibrillation: in NSR here, Coumadin was on hold for debridement -can now restart coumadin, follow INR - INR 2.7 at time of discharge -rate controlled with metoprolol, rhythm controlled with flecainide - Anemia: Hb 9.9, higher than 1 month ago after surgery, likely from blood loss during surgery, chronic disease -cannot tolerate Fe tabs due to constipation -follow CBC as outpt - HTN; controlled -continue metoprolol, lasix, and Aldactone -check PRP in AM -Left hip infection-resolved - Spoke to Dr. Lopez- removed bridget on 07/19 - PT on board and cleared the patient for return home DVT Proph-coumadin Dispo- dc to home today, has Left foot/leg orthotic Total Time Spent: Greater than 30 minutes This includes examination of the patient, discharge planning, medication reconciliation, and communication with other providers. Discharge Instructions Please refer to the electronic Patient Visit Report (Discharge Instructions) for additional information. Follow-Up Follow up with your Primary Care Provider within 1 week. Follow up with wound clinic on Jul 27 as already scheduled. You have been set up with home health services to change the wound dressing within 24 hours of discharge. Home health services can check your INR during their visit with you and results will be faxed to the coumadin clinic. Your INR at time of discharge was 2.7. Additional Copies To Giancarlo Dumont III, AALIYAH
[2017-07-20 13:57] VITALS: BP 130/71; PULSE 62; TEMP 36.5; O2SAT 94
[2017-07-21] MEDS ORDERED: VANCOMYCIN TROUGH ONE (11:30)
== END 2017-07-20 16:30 | disposition home health service (06) | DRG 603 ==
LOC: C.EDB 11:27 → C.MS2W 14:31 → ENRESERV 14:54 → OBSVTOIN 07-18 15:01
PROVIDERS: ADMIT Internal Medicine; ATTEND Family Medicine
PROC: 0HDNXZZ Extraction of Left Foot Skin, External Approach (ICD-10-PCS; principal; 2017-07-19)
DX: L03.116 Cellulitis of left lower limb (principal); D64.9 Anemia, unspecified; G62.9 Polyneuropathy, unspecified; E78.5 Hyperlipidemia, unspecified; I48.2 Chronic atrial fibrillation; I10 Essential (primary) hypertension; E66.9 Obesity, unspecified; Z79.01 Long term (current) use of anticoagulants; Z79.82 Long term (current) use of aspirin; Z79.899 Other long term (current) drug therapy; Z88.0 Allergy status to penicillin; Z88.1 Allergy status to other antibiotic agents; Z96.642 Presence of left artificial hip joint

== ENCOUNTER → 2017-07-22 | Outpatient (CLI) | payer OTHER ==
[~2017-07-22] MED LIST changes: -CEPH500C2 PO; +CLC/300 PO
[2017-07-22 11:28] LABS: INR 2.3 (0.9-1.1); PROTHROMBIN TIME (PATIENT) 24.2 SECONDS (9.0-12.0)
== END | disposition home or self-care (01) ==
LOC: C.LABSPEC 10:23
PROVIDERS: ATTEND Family Medicine
DX: Z79.01 Long term (current) use of anticoagulants (principal)

== ENCOUNTER → 2017-07-23 | Outpatient (CLI) | payer OTHER ==
[2017-07-23 14:01] LABS: BLOOD UREA NITROGEN 20 mg/dl (7-18); BUN/CREATININE RATIO 16.4 (10-20); CALCIUM 9.1 mg/dl (8.5-10.1); CARBON DIOXIDE 30 mmol/L (21-32); CHLORIDE 100 mmol/L (98-107); CREATININE 1.22 mg/dl (0.60-1.40); GLUCOSE 117 mg/dl (70-99); POTASSIUM 4.2 mmol/L (3.5-5.1); SODIUM 135 mmol/L (136-145)
== END | disposition home or self-care (01) ==
LOC: C.LABBC 11:19
PROVIDERS: ATTEND Nurse Practitioner Family
DX: I10 Essential (primary) hypertension (principal)

== ENCOUNTER → 2017-07-29 | Outpatient (CLI) | payer OTHER ==
[~2017-07-29] MED LIST changes: +AMOX500C3 PO; -CLC/300 PO; +WARF2.5T8 PO
[2017-07-29 15:06] LABS: INR 1.3 (0.9-1.1)
--- NOTE | 2017-08-03 09:07 | CODING QUERY NO DIAGNOSIS ---
Valid Physician Order Needed 47 A valid physician order must be submitted in order to properly bill for the service(s) provided, including date of service(s), valid diagnosis, and physician signature. If these tests are done on a recurring basis the original physician order must be submitted in order to code and bill for the service(s) provided. Please fax us the original, signed physician order so that we may expedite billing to [phone] DOS 07/29/2017 * PT/INR Thank you Camille [facility] Information Management
== END | disposition home or self-care (01) ==
LOC: C.LABSPEC 14:14
PROVIDERS: ATTEND Family Medicine
DX: Z01.89 Encounter for other specified special examinations (principal)

== ENCOUNTER → 2017-08-05 | Outpatient (CLI) | payer OTHER ==
[~2017-08-05] MED LIST changes: -WARF2.5T8 PO
[2017-08-05 12:05] LABS: INR 2.2 (0.9-1.1); PROTHROMBIN TIME (PATIENT) 22.7 SECONDS (9.0-12.0)
== END | disposition home or self-care (01) ==
LOC: C.LABSPEC 11:49
PROVIDERS: ATTEND Family Medicine
DX: Z79.01 Long term (current) use of anticoagulants (principal); Z51.81 Encounter for therapeutic drug level monitoring

== ENCOUNTER → 2017-08-11 | Outpatient (CLI) | payer OTHER ==
[~2017-08-11] MED LIST changes: +ALFU10TA2 PO; +PANT40TA PO; -SPIR50TA3 PO; +SPIR50TA5 PO; +WARF1TAB6 PO; +WARF2.5T8 PO
[2017-08-11 12:06] LABS: BASO % 0.3 %; BASO ABS # 0.02 K/uL (0-0.2); EOS % 1.7 %; HEMATOCRIT 32.4 % (42-52); HEMOGLOBIN 9.8 g/dL (14.0-18.0); IG# 0.01 K/uL (0.00-0.02); MEAN CELL VOLUME 87.3 fL (80-100); MEAN CORPUSCULAR HEMOGLOBIN 26.4 pg (25-34); MEAN CORPUSCULAR HGB CONC 30.2 g/dl (32-36); MEAN PLATELET VOLUME 9.6 fL (7.4-10.4); MONO % 10.2 %; MONO ABS # 0.61 K/uL (0.11-0.59); NEUT % 62.6 %; NEUT ABS # 3.76 K/uL (1.4-6.5); PLATELET COUNT 190 K/uL (130-400); RED CELL DISTRIBUTION WIDTH CV 16.3 % (11.5-14.5); RED CELL DISTRIBUTION WIDTH SD 52.2 fL (36.4-46.3)
== END | disposition home or self-care (01) ==
LOC: C.LAB1850 10:51
PROVIDERS: ATTEND Nurse Practitioner Family
DX: I48.91 Unspecified atrial fibrillation (principal); D64.9 Anemia, unspecified

== ENCOUNTER → 2017-08-12 | Outpatient (CLI) | payer OTHER ==
[~2017-08-12] MED LIST changes: -ALFU10TA2 PO; -PANT40TA PO; +SPIR50TA3 PO; -SPIR50TA5 PO
[2017-08-12 11:33] LABS: INR 1.9 (0.9-1.1)
--- NOTE | 2017-08-24 12:16 | CODING QUERY NO DIAGNOSIS ---
Valid Physician Order Needed A valid physician order must be submitted in order to properly bill for the service(s) provided, including date of service(s), valid diagnosis, and physician signature. If these tests are done on a recurring basis the original physican order must be submitted in order to code and bill for the service(s) provided. Please fax us the original, signed physician order so that we may expedite billing to [phone] DOS 08/12/17 * PT/INR Thank you Mae [facility] Information Management
== END | disposition home or self-care (01) ==
LOC: C.LABSPEC 11:09
PROVIDERS: ATTEND Nurse Practitioner Family
DX: Z01.89 Encounter for other specified special examinations (principal)

== ENCOUNTER → 2017-08-18 | Outpatient (CLI) | payer OTHER ==
[~2017-08-18] MED LIST changes: -WARF1TAB6 PO; -WARF2.5T8 PO
[2017-08-18 12:56] LABS: INR 2.1 (0.9-1.1)
--- NOTE | 2017-08-19 08:44 | CODING QUERY NO DIAGNOSIS ---
Valid Physician Order Needed 47 A valid physician order must be submitted in order to properly bill for the service(s) provided, including date of service(s), valid diagnosis, and physician signature. If these tests are done on a recurring basis the original physician order must be submitted in order to code and bill for the service(s) provided. Please fax us the original, signed physician order so that we may expedite billing to [phone] DOS 08/18/2017 * PT/INR Thank you Camille [facility] Information Management
== END | disposition home or self-care (01) ==
LOC: C.LABSPEC 12:18
PROVIDERS: ATTEND Family Medicine
DX: Z79.01 Long term (current) use of anticoagulants (principal); L03.116 Cellulitis of left lower limb; Z48.00 Encounter for change or removal of nonsurgical wound dressing; Z96.642 Presence of left artificial hip joint

== ENCOUNTER → 2017-08-26 | Outpatient (CLI) | payer OTHER ==
[2017-08-26 11:54] LABS: INR 3.4 (0.9-1.1)
== END | disposition home or self-care (01) ==
LOC: C.LABSPEC 11:19
PROVIDERS: ATTEND Family Medicine
DX: Z79.01 Long term (current) use of anticoagulants (principal); Z51.81 Encounter for therapeutic drug level monitoring

== ENCOUNTER 2017-09-01 12:11 | Inpatient (IN) | payer OTHER ==
[~2017-09-01] VITALS: Ht 170.2 cm; Wt 121.2 kg
[2017-09-01] MEDS ORDERED: WARF2.5T8 PO (12:21)
[2017-09-01] MEDS ORDERED: ASPIRIN 81 MG CHEW PO STA (12:57)
[2017-09-01 13:12] LABS: BASO % 0.2 %; BASO ABS # 0.01 K/uL (0-0.2); EOS % 1.2 %; EOS ABS # 0.06 K/uL (0-0.5); HEMATOCRIT 32.4 % (42-52); HEMOGLOBIN 9.9 g/dL (14.0-18.0); IG# 0.01 K/uL (0.00-0.02); LYMPH % 19.5 %; MEAN CELL VOLUME 84.8 fL (80-100); MEAN CORPUSCULAR HEMOGLOBIN 25.9 pg (25-34); MEAN CORPUSCULAR HGB CONC 30.6 g/dl (32-36); MEAN PLATELET VOLUME 9.6 fL (7.4-10.4); MONO % 6.6 %; MONO ABS # 0.34 K/uL (0.11-0.59); NEUT % 72.3 %; NEUT ABS # 3.72 K/uL (1.4-6.5); PLATELET COUNT 149 K/uL (130-400); RED CELL DISTRIBUTION WIDTH CV 17.4 % (11.5-14.5); RED CELL DISTRIBUTION WIDTH SD 53.8 fL (36.4-46.3); WHITE BLOOD COUNT 5.14 K/uL (4.8-10.8)
[2017-09-01 13:23] LABS: BLOOD UREA NITROGEN 30 mg/dl (7-18); CALCIUM 9.3 mg/dl (8.5-10.1); CARBON DIOXIDE 28 mmol/L (21-32); CREATININE 1.34 mg/dl (0.60-1.40); GLUCOSE 95 mg/dl (70-99); POTASSIUM 4.1 mmol/L (3.5-5.1); SODIUM 139 mmol/L (136-145)
[2017-09-01 13:28] LABS: CKMB 2.1 ng/ml (0.5-3.6)
--- NOTE | 2017-09-01 13:50 | DIAGNOSTIC IMAGING REPORT ---
CHEST ONE VIEW PORTABLE CLINICAL HISTORY: Chest pain. Shortness of breath. COMPARISON STUDY: Chest radiograph July 17, 2017. FINDINGS: Lung volumes are normal. No pneumothorax or pleural effusion is noted. There is mild enlargement of the cardiac silhouette which may be technical. There is no evidence for pulmonary edema. No consolidation. IMPRESSION: 1. No acute cardiopulmonary findings. 2. Mild enlargement of the cardiac silhouette. Electronically signed by: Best Soto M.D. 09/01/2017 1:48 PM Dictated Date/Time: 09/01/2017 1:40 PM
[2017-09-01] MEDS ORDERED: MAGNESIUM HYDROXIDE SUSP 30 ML UDC PO PRN (14:00)
[2017-09-01] MEDS ORDERED: NITROGLYCERIN 0.4 MG SL PER TAB CHARGE UT PRN (14:00)
[2017-09-01] MEDS ORDERED: POLYETHYLENE (MIRALAX) 17 GM PACK PO PRN (14:00)
[2017-09-01] MEDS ORDERED: ONDANSETRON INJ 2 MG/ML 2 ML VIAL IV PRN (14:00)
[2017-09-01] MEDS ORDERED: MoRPHine SULFATE 2 MG/ML CARP IV PRN (14:00)
[2017-09-01] MEDS ORDERED: ACETAMINOPHEN 500 MG TAB PO PRN (14:00)
[2017-09-01 14:05] LABS: INR 2.7 (0.9-1.1)
--- NOTE | 2017-09-01 14:38 | History and Physical ---
History & Physical Date & Time of Service: Sep 01, 2017 at 13:58 Chief Complaint: Cp/Sob Primary Care Physician: Giancarlo Dumont III, CRNP History of Present Illness Source: patient This is a 72-year-old male with PMHx of atrial fibrillation on Coumadin, anemia of chronic disease, thrombocytopenia, HTN, GERD, Recent left hip infection after MORGAN who was recently admitted in Jul 2017 for cellulitis of the left foot. The patient has been seeing wound clinic for a left lower extremity cellulitis and home health was in to change the bandage this morning where they noted him to become more short of breath, and insisted he come to the ER. The patient was seen with his and son present at bedside. The patient notes his shortness of breath started approximately 2 weeks ago when he was outside working in the cold air. Patient notes increased shortness of breath 3 days and is influencing his ADLs. He does report missing Lasix 40 mg by mouth dose 3 days now by choice (pres[facility], Wednesday, and yesterday). He reports having a substernal chest pain which occurs approximately 4 times a day, waxes and wanes and radiates to the right shoulder. The pain lasts for approximately 10-20 seconds and resolves on its own the patient does not necessarily need to be performing exertional activities for this pain to occur. The patient has never experienced this pain before. Pt denies any sick contacts. Typically ambulates with a walker at baseline. Here in the ER chest x-ray was performed and shows no pulmonary congestion. Initial troponin is negative, EKG is unremarkable, in NSR without ST-T wave inversions or signs of ischemia. VSS. Past Medical/Surgical History Medical Problems: (1) Arthritis (2) Atrial Fibrillation (3) Chronic back pain (4) Hyperlipidemia Nec/Nos (5) Hypertension Nos (6) Osteoarthritis of hip (7) Pancytopenia (8) Pure Hypercholesterolem (9) Seroma (10) Thrombocytopenia Surgical Problems: (1) Appendectomy (2) Cholecystectomy Family History FH: heart disease Hypertension Social History Smoking Status: Never Smoker Drug Use: none Marital Status: Housing status: lives with family Occupational Status: retired Immunizations History of Influenza Vaccine: Yes Influenza Vaccine Date: Jul 01, 2012 History of Tetanus Vaccine?: Yes History of Pneumococcal: Yes History of Hepatitis B Vaccine: No Multi-Drug Resistant Organisms History of MDRO: Yes Type of MDRO: MRSA Allergies Coded Allergies: Penicillins (Verified Allergy, Intermediate, HIVES, 09/01/17) 07/01/17: patient tolerated keflex in past (no reaction) Doxycycline (Verified Adverse Reaction, Intermediate, vomiting, 09/01/17) Ondansetron (Verified Adverse Reaction, Intermediate, INCREASES GI UPSET, 09/01/17) Home Medications Scheduled Ascorbic Acid (Vitamin C), 1 TAB PO QAM Aspirin (Aspirin Ec), 81 MG PO DAILY Atorvastatin (Lipitor), 40 MG PO HS Cholecalciferol (Vitamin D3), 2 CAP PO QAM Cyanocobalamin (Vitamin B12 500MCG), 500 MCG PO QAM Flecainide (Tambocor), 100 MG PO BID Furosemide (Lasix), 40 MG PO QAM Magnesium (Magnesium 250 mg), 200 MG PO QPM Metoprolol Tartrate (Metoprolol Tartrate), 1 TAB PO BID Multivitamin (Multivitamin), 1 TAB PO QAM Nitroglycerin (Nitrostat), 0.4 MG UT PRN Omeprazole (Prilosec), 20 MG PO BID Probiotic Product (Probiotic), 1 TAB PO QAM Sennosides-Docusate Sodium (Stool Softener & Stimulan), 1-4 TAB PO HS Spironolactone (Aldactone), 50 MG PO QAM Timolol Maleate (Timolol 0.5% Oph Soln 15 Ml), 1 DROP OPR BID Vitamin A-Beta Carotene (Vitamin A), Unknown Dose PO QAM Warfarin Sod (Jantoven), 1.25 MG PO 3XWK Warfarin Sodium (Coumadin), 0.5 MG PO 2XWK [Morphine], Unknown Dose SC CONT Scheduled PRN Acetaminophen (Tylenol), 1,000 MG PO HS PRN for Pain Mineral Oil (Mineral Oil), 1 TSP PO HS PRN for CONSTIPATION Propylene Glycol-Glycerin (Artificial Tears), 1 DROP PO QAM PRN for Review of Systems Constitutional: No fever, sweats or chills Eyes: No diplopia, no worsening or blurred vision ENT: normal hearing, no trouble swallowing Respiratory: See history of present illness Cardiovascular: See history of present illness Abdomen: No pain, nausea, vomiting, diarrhea or constipation Musculoskeletal: No joint pain, calf pain, swelling, + LLE wound Neurologic: No weakness, numbness/tingling, or balance problems Psychiatric: No anxiety or depression Skin: No rash or itch Physical Exam Vital Signs Date Time Temp Pulse Resp B/P (MAP) Pulse Ox O2 Delivery O2 Flow Rate FiO2 09/01/17 13:00 66 18 155/80 95 Room Air 09/01/17 12:26 65 09/01/17 12:16 94 Room Air 09/01/17 12:16 36.6 67 18 160/60 95 Room Air 09/01/17 12:16 97 Room Air General Appearance: WD/WN, no apparent distress Head: normocephalic, atraumatic Eyes: PERRL, EOMI ENT: hearing grossly normal, pharynx normal Neck: supple, no JVD Respiratory/Chest: chest non-tender, no respiratory distress, no accessory muscle use, + pertinent finding (on 2 L via NC, diminished breath sounds throughout, no crackles or rales. + mild expiratory wheeze. ) Cardiovascular: regular rate, rhythm, + systolic murmur (grade III/), + pertinent finding (JVD difficult to assess due to neck habitus) Abdomen/GI: normal bowel sounds, non tender, soft Back: normal inspection Extremities/Musculoskelatal: + pertinent finding (LLE wrapped in kerlix dressing. No surrounding erythema. 2+ pitting edema in BLE up to knees) Neurologic/Psych: alert, normal reflexes, oriented x 3 Skin: normal color, warm/dry Diagnostics Laboratory Results Results Past 24 Hours Test 09/01/17 12:30 Range/Units White Blood Count 5.14 4.8-10.8 K/uL Red Blood Count 3.82 4.7-6.1 M/uL Hemoglobin 9.9 14.0-18.0 g/dL Hematocrit 32.4 42-52 % Mean Corpuscular Volume 84.8 80-100 fL Mean Corpuscular Hemoglobin 25.9 25-34 pg Mean Corpuscular Hemoglobin Concent 30.6 32-36 g/dl Platelet Count 149 130-400 K/uL Mean Platelet Volume 9.6 7.4-10.4 fL Neutrophils (%) (Auto) 72.3 % Lymphocytes (%) (Auto) 19.5 % Monocytes (%) (Auto) 6.6 % Eosinophils (%) (Auto) 1.2 % Basophils (%) (Auto) 0.2 % Neutrophils # (Auto) 3.72 1.4-6.5 K/uL Lymphocytes # (Auto) 1.00 1.2-3.4 K/uL Monocytes # (Auto) 0.34 0.11-0.59 K/uL Eosinophils # (Auto) 0.06 0-0.5 K/uL Basophils # (Auto) 0.01 0-0.2 K/uL RDW Standard Deviation 53.8 36.4-46.3 fL RDW Coefficient of Variation 17.4 11.5-14.5 % Immature Granulocyte % (Auto) 0.2 % Immature Granulocyte # (Auto) 0.01 0.00-0.02 K/uL Sodium Level 139 136-145 mmol/L Potassium Level 4.1 3.5-5.1 mmol/L Chloride Level 103 98-107 mmol/L Carbon Dioxide Level 28 21-32 mmol/L Anion Gap 8.0 3-11 mmol/L Blood Urea Nitrogen 30 7-18 mg/dl Creatinine 1.34 0.60-1.40 mg/dl Est Creatinine Clear Calc Drug Dose 65.5 ml/min Estimated GFR () 61.8 Estimated GFR (Non- 53.3 BUN/Creatinine Ratio 22.7 10-20 Random Glucose 95 70-99 mg/dl Calcium Level 9.3 8.5-10.1 mg/dl Total Creatine Kinase 93 39-308 U/L Creatine Kinase MB 2.1 0.5-3.6 ng/ml Creatine Kinase MB Ratio 2.3 0-3.0 Troponin I < 0.015 0-0.045 ng/ml Diagnostic Radiology CHEST ONE VIEW PORTABLE CLINICAL HISTORY: Chest pain. Shortness of breath. COMPARISON STUDY: Chest radiograph July 17, 2017. FINDINGS: Lung volumes are normal. No pneumothorax or pleural effusion is noted. There is mild enlargement of the cardiac silhouette which may be technical. There is no evidence for pulmonary edema. No consolidation. IMPRESSION: 1. No acute cardiopulmonary findings. 2. Mild enlargement of the cardiac silhouette. Electronically signed by: Best Soto M.D. 09/01/2017 1:48 PM Dictated Date/Time: 09/01/2017 1:40 PM The status of this report is Signed. EKG Normal sinus rhythm Left axis deviation Left bundle branch block Abnormal ECG When compared with ECG of 17-JUL-2017 12:12, No significant change was found Vent. rate 67 BPM UT interval 156 ms QRS duration 142 ms QT/QTc 470/496 ms P-R-T axes 59 -34 12 Impression Assessment and Plan This is a 72-year-old male with PMHx of atrial fibrillation on Coumadin, anemia of chronic disease, thrombocytopenia, HTN, GERD, Recent left hip infection after MORGAN who was recently admitted in Jul 2017 for cellulitis of the left foot. The patient has been seeing wound clinic for a left lower extremity cellulitis and home health was in to change the bandage this morning where they noted him to become more short of breath, and insisted he come to the ER. Chest Pain/ Shortness of breath HTN HLD - Admit to telemetry for observation - Initial troponin negative, trending 2 more sets - EKG reviewed as above negative for any ST-T wave inversions or signs of ischemia - Echo ordered, if troponins are negative patient will need a dobutamine stress test. Patient had a Lexiscan in August 2014 but only achieved 53% of max heart rate. Therefore in the study was nondiagnostic. - Patient missed Lasix 3 days, will order 40 mg IV now and resume 40 mg PO tomorrow morning. - strict I's/O's, daily weights - ASA 81 mg atorvastatin 40 mg QHS, flecainide 100 mg BID, metoprolol tartrate 100 mg BID, - PT/OT Atrial fibrillation - Patient INR=2.7, can continue 0.5 mg daily, Trend INR. - At home pt uses alternating doses of 1.25 mg and 0.5 mg as per med rec -Trend daily INR LLE wound - Wound care consulted and he is following them as outpt, using Aquacel topically on the wound and wrap with Kerlix dressing DVT PPX: teds, SCDs, Coumadin CODE STATUS: DO NOT RESUSCITATE Disposition: Patient from home, lives with , PT OT to JOSSELINE issa to assist with discharge planning i personally examined pt and verified all higgins points uvaldo Gallagher PAC SOB - likely CHF related, w CP will rule out ACS vitals noted nad breathing unlabored CP - likely CHF related, lasix as above, enzymes/stress - home once feeling better Level of Care Telemetry Advanced Directives Existing Advance Directive: Yes Existing Living Will: Yes Existing Power of County Engineer: Yes Existing Health Care Proxy: Yes Resuscitation Status DO NOT RESUSCITATE VTE Prophylaxis Risk Level: Very Low Given or contraindicated: Warfarin (Coumadin), T.E.DAnnika Stockings, SCD's
[2017-09-01 14:40] VITALS: O2SAT 94; BMI 43.7
[2017-09-01] MEDS ORDERED: IV FLUIDS COMPLETED PRN (15:00)
[2017-09-01] MEDS: LEVALBUTEROL 1.25MG/3ML NEB INH SCH ×2 (15:00→19:18)
[2017-09-01] MEDS ORDERED: FUROSEMIDE INJ 40 MG in SYRINGE 0 ML IV ONE (15:55)
[2017-09-01 16:00] VITALS: BP 167/78; PULSE 66; TEMP 36.7; O2SAT 93
[2017-09-01] MEDS ORDERED: WARFARIN SOD 0.5 MG TAB PO SCH (16:00)
[2017-09-01] MEDS: NITROGLYCERIN 2% OINTMENT 30GM TUBE EXT SCH ×2 (16:54→22:00)
--- NOTE | 2017-09-01 17:45 | ECHOCARDIOGRAM REPORT ---
*NOTICE TO RECEIVING CONSTITUTION PARTY AGENCY This information is strictly Confidential and protected under [place] law. [place] law prohibits you from making any further disclosure of this information unless further disclosure is expressly permitted by the written consent of the person to whom it pertains or is authorized by law. A general authorization for the release of medical or other information is not sufficient for this purpose. Hospital accepts no responsibility if the information is made available to any other person, INCLUDING THE PATIENT. Interpretation Summary * Name: JAIDA MICHEL Study Date: 09/01/2017 02:54 PM BP: 145/65 mmHg * [facility] * : 1945 (M/d/yyyy) Gender: Male Height: 67 in * Age: 72 yrs Ethnicity: CA Weight: 279 lb * Ordering Physician: Estephania Gallagher * Referring Physician: Daylin Wilson * Performed By: Julissa Oneal RDCS * * Reason For Study: CHEST PAIN * BSA: 2.3 m2 * -- Conclusions -- * 1. Normal LV size. Mild concentric LVH. * 2. Normal LV systolic function. LVEF 55-60 %. No regional wall motion abnormalities. * 3. RV not well visualized. Size grossly normal, normal RV function. * 4. Aortic valve sclerosis without stenosis. * 5. Mild pulmonary hypertension, estimated PASP greater than 40 mm Hg. * 6. Compared with prior study on 12/14/2012: No significant change Procedure Details * A contrast injection of Definity was performed to improve assessment of LV function. * Contrast was injected into an intravenous site in the left arm. * One vial of Definity ultrasound contrast was diluted in normal saline to a total volume of 10 ml. A total of '1' ml of solution was administered during imaging. * Lot # [id number] of Definity utilized for procedure. * Expiration date 1 OCT 04. * The attending nurse who injected the contrast agent was FRANCESCA LOWRY. Left Ventricle * The left ventricle is grossly normal size. * There is mild concentric left ventricular hypertrophy. * Ejection Fraction = 55-60%. * No regional wall motion abnormalities noted. Right Ventricle * The right ventricle is not well visualized. * The right ventricular systolic function is normal as assessed by tricuspid annular plane systolic excursion (TAPSE) (normal >1.5 cm). Atria * The left atrial size is normal. * Right atrial size is normal. * No ASD detected; PFO is not assessed. Mitral Valve * The mitral valve is grossly normal. * There is no mitral valve stenosis. * There is trace mitral regurgitation. Tricuspid Valve * There is trace tricuspid regurgitation. * Right ventricular systolic pressure is elevated at 40-50mmHg. Aortic Valve * The aortic valve opens well. * The aortic valve is trileaflet. * Aortic valve sclerosis mild, without significant aortic valvular stenosis. * No hemodynamically significant valvular aortic stenosis. * There is no significant aortic regurgitation. Pulmonic Valve * The pulmonary valve is inadequately visualized, but the Doppler data is adequate for interpretation. * Pulmonic stenosis is absent. * Trace pulmonic valvular regurgitation. Great Vessels * The aortic root and proximal ascending aorta are normal sized. Pericardium/Pleural * There is no pericardial effusion. MMode 2D Measurements and Calculations IVSd 1.5 cm IVSs 2.3 cm LVIDd 5.3 cm LVIDs 3.7 cm LVPWd 1.3 cm LVPWs 1.5 cm IVS/LVPW 1.2 FS 29.6 % EDV(Teich) 136.2 ml ESV(Teich) 59.7 ml EF(Teich) 56.2 % EDV(cubed) 150.1 ml ESV(cubed) 52.4 ml EF(cubed) 65.1 % % IVS thick 52.8 % % LVPW thick 18.5 % LV mass(C)d 314.7 grams LV mass(C)dI 135.1 grams/m\S\2 LV mass(C)s 311.8 grams LV mass(C)sI 133.8 grams/m\S\2 SV(Teich) 76.5 ml SI(Teich) 32.8 ml/m\S\2 SV(cubed) 97.7 ml SI(cubed) 42.0 ml/m\S\2 Ao root diam 3.4 cm Ao root area 9.1 cm\S\2 LVOT diam 2.0 cm LVOT area 3.3 cm\S\2 LVAd ap4 35.9 cm\S\2 LVLd ap4 9.5 cm EDV(MOD-sp4) 106.2 ml EDV(sp4-el) 114.9 ml LVAs ap4 21.4 cm\S\2 LVLs ap4 7.3 cm ESV(MOD-sp4) 50.9 ml ESV(sp4-el) 53.3 ml EF(MOD-sp4) 52.1 % EF(sp4-el) 53.6 % LVAd ap2 35.9 cm\S\2 LVLd ap2 9.5 cm EDV(MOD-sp2) 109.8 ml EDV(sp2-el) 115.0 ml LVAs ap2 22.0 cm\S\2 LVLs ap2 7.9 cm ESV(MOD-sp2) 49.1 ml ESV(sp2-el) 51.9 ml EF(MOD-sp2) 55.3 % EF(sp2-el) 54.9 % LVLd %diff -0.15 % EDV(MOD-bp) 108.7 ml LVLs %diff 7.8 % ESV(MOD-bp) 51.8 ml EF(MOD-bp) 52.3 % SV(MOD-sp4) 55.3 ml SI(MOD-sp4) 23.7 ml/m\S\2 SV(MOD-sp2) 60.7 ml SI(MOD-sp2) 26.1 ml/m\S\2 SV(MOD-bp) 56.9 ml SI(MOD-bp) 24.4 ml/m\S\2 SV(sp4-el) 61.6 ml SI(sp4-el) 26.5 ml/m\S\2 SV(sp2-el) 63.1 ml SI(sp2-el) 27.1 ml/m\S\2 Doppler Measurements and Calculations MV E max noel 129.2 cm/sec MV A max noel 105.0 cm/sec MV E/A 1.2 MV dec time 0.25 sec Ao V2 max 210.0 cm/sec Ao max PG 17.6 mmHg Ao max PG (full) 11.2 mmHg Ao V2 mean 130.9 cm/sec Ao mean PG 8.0 mmHg Ao mean PG (full) 4.9 mmHg Ao V2 VTI 47.3 cm AMIRA(I,A) 2.3 cm\S\2 AMIRA(I,D) 2.3 cm\S\2 AMIRA(V,A) 2.0 cm\S\2 AMIRA(V,D) 2.0 cm\S\2 LV V1 max PG 6.4 mmHg LV V1 mean PG 3.1 mmHg LV V1 max 126.7 cm/sec LV V1 mean 80.5 cm/sec LV V1 VTI 33.2 cm SV(Ao) 432.6 ml SI(Ao) 185.7 ml/m\S\2 SV(LVOT) 109.5 ml SI(LVOT) 47.0 ml/m\S\2 TR max noel 320.1 cm/sec
[2017-09-01] MEDS: ACETAMINOPHEN 325 MG TAB PO PRN (18:23)
[2017-09-01] MEDS ORDERED: PROMETHAZINE HCL 25 MG TAB PO PRN (18:45)
--- NOTE | 2017-09-01 19:03 | EMERGENCY ROOM VISIT NOTE ---
History Report prepared by Heidi: Jeri Oliveira Under the Supervision of: Dr. Isiah Vera D.O. First contact with patient: 12:46 Chief Complaint: CHEST PAIN Stated Complaint: CP/SOB Nursing Triage Summary: pt reports CP that comes and goes and SOB for several weeks. "it's a cool feeling in my chest. like pins and needles". Difficulty breathing, wheezing at time per . denies cough. Hx of A fib. was at Coumadin clinic today, INR was 3.9. Pt reports seeing wound clinic for cellulitis of left foot. healing. finished abx today History of Present Illness The patient is a 72 year old male who presents to the Emergency Room with complaints of intermittent chest pain for two weeks. The patient notes chest pain that worsens with exertion. He states that he gets a cold sensation in his chest while walking out in the cold weather. He also states that he develops chest pain while sitting inside his home. He states the pain worsens with exertion. He notes shortness of breath. He describes the pain as pins and needles. He denies any jaw pain. He is currently taking Coumadin for atrial fibrillation. He reports his Coumadin level is 3.9 and has not recently been low. The patient took a baby aspirin this morning and states that he does not currently have chest pain. The patient's left foot is wrapped and he notes there are sores that are being cleaned out every week and are healing well. The patient has a history of HTN. He denies any history of CT. Patient denies diabetes, blood clots, hyperlipidemia, CAD, family history of sudden at a young age, and smoking. Patient denies swelling of calves, recent trips, history of immobilization or recent surgery, prior history of DVT, hemoptysis, history of malignancy, or history of smoking. Source of History: patient Onset: two weeks Position: chest Quality: other (feels like pins and needles) Timing: intermittent Modifying Factors (Relieving): exertion Associated Symptoms: + SOB Note: He notes chest pain. He denies any jaw pain. Review of Systems See HPI for pertinent positives & negatives. A total of 10 systems reviewed and were otherwise negative. Past Medical & Surgical Medical Problems: (1) Arthritis (2) Atrial Fibrillation (3) Chronic back pain (4) Hyperlipidemia Nec/Nos (5) Hypertension Nos (6) Osteoarthritis of hip (7) Pancytopenia (8) Pure Hypercholesterolem (9) Seroma (10) Thrombocytopenia Surgical Problems: (1) Appendectomy (2) Cholecystectomy Family History FH: heart disease Hypertension Social History Smoking Status: Never Smoker Smokeless Tobacco Use: No Alcohol Use: none Drug Use: none Marital Status: Housing Status: lives with family Occupation Status: retired Current/Historical Medications Scheduled Ascorbic Acid (Vitamin C), 1 TAB PO QAM Aspirin (Aspirin Ec), 81 MG PO DAILY Atorvastatin (Lipitor), 40 MG PO HS Cholecalciferol (Vitamin D3), 2 CAP PO QAM Cyanocobalamin (Vitamin B12 500MCG), 500 MCG PO QAM Flecainide (Tambocor), 100 MG PO BID Furosemide (Lasix), 40 MG PO QAM Magnesium (Magnesium 250 mg), 200 MG PO QPM Metoprolol Tartrate (Metoprolol Tartrate), 1 TAB PO BID Multivitamin (Multivitamin), 1 TAB PO QAM Nitroglycerin (Nitrostat), 0.4 MG UT PRN Omeprazole (Prilosec), 20 MG PO BID Probiotic Product (Probiotic), 1 TAB PO QAM Sennosides-Docusate Sodium (Stool Softener & Stimulan), 1-4 TAB PO HS Spironolactone (Aldactone), 50 MG PO QAM Timolol Maleate (Timolol 0.5% Oph Soln 15 Ml), 1 DROP OPR BID Vitamin A-Beta Carotene (Vitamin A), Unknown Dose PO QAM Warfarin Sod (Jantoven), 1.25 MG PO 3XWK Warfarin Sodium (Coumadin), 0.5 MG PO 2XWK [Morphine], Unknown Dose SC CONT Scheduled PRN Acetaminophen (Tylenol), 1,000 MG PO HS PRN for Pain Mineral Oil (Mineral Oil), 1 TSP PO HS PRN for CONSTIPATION Propylene Glycol-Glycerin (Artificial Tears), 1 DROP PO QAM PRN for Allergies Coded Allergies: Penicillins (Verified Allergy, Intermediate, HIVES, 09/01/17) 07/01/17: patient tolerated keflex in past (no reaction) Doxycycline (Verified Adverse Reaction, Intermediate, vomiting, 09/01/17) Ondansetron (Verified Adverse Reaction, Intermediate, INCREASES GI UPSET, 09/01/17) Physical Exam Vital Signs Date Time Temp Pulse Resp B/P (MAP) Pulse Ox O2 Delivery O2 Flow Rate FiO2 09/01/17 13:00 66 18 155/80 95 Room Air 09/01/17 12:26 65 09/01/17 12:16 94 Room Air 09/01/17 12:16 36.6 67 18 160/60 95 Room Air 09/01/17 12:16 97 Room Air Physical Exam GENERAL: Sitting up in bed, alert, chronically ill-appearing, no distress, non- toxic EYE EXAM: normal conjunctiva. OROPHARYNX: no exudate, no erythema, lips, buccal mucosa, and tongue normal and mucous membranes are moist NECK: supple, no nuchal rigidity, no adenopathy, non-tender LUNGS: Clear to auscultation. Normal chest wall mechanics HEART: Positive systolic injection murmur, S1 normal and S2 normal CHEST: No reproducible anterior chest wall pain. ABDOMEN: abdomen soft, non-tender, normo-active bowel sounds, no masses, no rebound or guarding. BACK: Back is symmetrical on inspection and there is no deformity, no midline tenderness, no CVA tenderness. SKIN: no rashes and no bruising UPPER EXTREMITIES: upper extremities are grossly normal. LOWER EXTREMITIES: Faint pitting edema bilaterally. Left lower foot wrapped. NEURO EXAM: Normal sensorium, cranial nerves II-XII grossly intact, normal speech, no gross weakness of arms, no gross weakness of legs. Medical Decision & Procedures ER Provider Diagnostic Interpretation: Radiology results as stated below per my review and the radiologist's interpretation: CHEST ONE VIEW PORTABLE CLINICAL HISTORY: Chest pain. Shortness of breath. COMPARISON STUDY: Chest radiograph July 17, 2017. FINDINGS: Lung volumes are normal. No pneumothorax or pleural effusion is noted. There is mild enlargement of the cardiac silhouette which may be technical. There is no evidence for pulmonary edema. No consolidation. IMPRESSION: 1. No acute cardiopulmonary findings. 2. Mild enlargement of the cardiac silhouette. Electronically signed by: Best Soto M.D. 09/01/2017 1:48 PM Dictated Date/Time: 09/01/2017 1:40 PM Laboratory Results 09/01/17 12:30 Red Blood Count 3.82, Mean Corpuscular Volume 84.8, Mean Corpuscular Hemoglobin 25.9, Mean Corpuscular Hemoglobin Concent 30.6, Mean Platelet Volume 9.6, Neutrophils (%) (Auto) 72.3, Lymphocytes (%) (Auto) 19.5, Monocytes (%) (Auto) 6.6, Eosinophils (%) (Auto) 1.2, Basophils (%) (Auto) 0.2, Neutrophils # (Auto) 3.72, Lymphocytes # (Auto) 1.00, Monocytes # (Auto) 0.34, Eosinophils # (Auto) 0.06, Basophils # (Auto) 0.01 09/01/17 12:30 Test 09/01/17 12:30 White Blood Count 5.14 K/uL (4.8-10.8) Red Blood Count 3.82 M/uL (4.7-6.1) Hemoglobin 9.9 g/dL (14.0-18.0) Hematocrit 32.4 % (42-52) Mean Corpuscular Volume 84.8 fL (80-100) Mean Corpuscular Hemoglobin 25.9 pg (25-34) Mean Corpuscular Hemoglobin Concent 30.6 g/dl (32-36) Platelet Count 149 K/uL (130-400) Mean Platelet Volume 9.6 fL (7.4-10.4) Neutrophils (%) (Auto) 72.3 % Lymphocytes (%) (Auto) 19.5 % Monocytes (%) (Auto) 6.6 % Eosinophils (%) (Auto) 1.2 % Basophils (%) (Auto) 0.2 % Neutrophils # (Auto) 3.72 K/uL (1.4-6.5) Lymphocytes # (Auto) 1.00 K/uL (1.2-3.4) Monocytes # (Auto) 0.34 K/uL (0.11-0.59) Eosinophils # (Auto) 0.06 K/uL (0-0.5) Basophils # (Auto) 0.01 K/uL (0-0.2) RDW Standard Deviation 53.8 fL (36.4-46.3) RDW Coefficient of Variation 17.4 % (11.5-14.5) Immature Granulocyte % (Auto) 0.2 % Immature Granulocyte # (Auto) 0.01 K/uL (0.00-0.02) Prothrombin Time 28.3 SECONDS (9.0-12.0) Prothromb Time International Ratio 2.7 (0.9-1.1) Anion Gap 8.0 mmol/L (3-11) Est Creatinine Clear Calc Drug Dose 65.5 ml/min Estimated GFR () 61.8 Estimated GFR (Non- 53.3 BUN/Creatinine Ratio 22.7 (10-20) Calcium Level 9.3 mg/dl (8.5-10.1) Total Creatine Kinase 93 U/L (39-308) Creatine Kinase MB 2.1 ng/ml (0.5-3.6) Creatine Kinase MB Ratio 2.3 (0-3.0) Troponin I < 0.015 ng/ml (0-0.045) Laboratory results per my review. Medications Administered Medications (Trade) Dose Ordered Sig/Edward Route Start Time Stop Time Status Last Admin Dose Admin Aspirin (Aspirin Chew) 324 mg NOW STAT PO 09/01/17 12:57 09/01/17 12:58 DC 09/01/17 13:00 324 MG Acetaminophen (Tylenol Tab) 650 mg Q4H PRN PO 09/01/17 14:00 10/01/17 13:59 09/01/17 18:23 650 MG ECG Indication: chest pain Rate (beats per minute): 67 Rhythm: sinus rhythm Findings: nonspecific-ST abn (in high lateral leads ), left axis deviation, other (Poor baseline in septal leads) ED Course ED COURSE: Vital signs were reviewed and showed hypertensive. The patients medical record was reviewed The above diagnostic studies were performed and reviewed. ED treatments and interventions as stated above. 1247: The patient was evaluated in room A12B. A complete history and physical examination was performed. 1257: Ordered Aspirin 324 mg PO 1339: I spoke with Dr. Wilson, senior statistical programmer. We discussed the patients case. When the patient was walking, he clenched his chest and became boubacar and lee. 1346: I spoke with Dr. Day, hospitalist. We discussed the patients case. The patient will be evaluated by the [facility] for further management. 1349: Upon reevaluation, I discussed my findings with the patient and he understands and agrees with the treatment plan. Based on the patients age, coexisting illnesses, exam and lab findings the decision to treat as an inpatient was made. The patient remained stable while under my care. The patient will be evaluated for further management. Medical Decision Differential diagnoses includes but is not limited to acute coronary syndrome, myocardial infarction, pericarditis, pulmonary embolus, aortic dissection, pneumonia, pneumothorax, musculoskeletal, shingles, esophageal. Patient is a 72-year-old male who presents to ER for exertional chest pain associated with shortness of breath which has been intermittent over the past several days. He has had a seventh awakening. He was down at the Coumadin clinic and was exerting himself and started to having severe chest pain and became diaphoretic and ashen per Dr. Abreu. Patient does have a history of hypertension and A. fib. INR was 2.9 earlier this morning. CBC shows a hemoglobin of 9.9. BMP along with troponin was negative. INR was 2.7. Chest x -ray unremarkable. EKG was nondiagnostic. Patient was updated bedside. He had no pain while resting in the ER. He was admitted to internal medicine for further workup of his chest pain. Medication Reconcilliation Current Medication List: was personally reviewed by me Blood Pressure Screening Patient's blood pressure: Elevated blood pressure Blood pressure disposition: Elevated BP felt to be situational Consults Time Called: 1337 Consulting Physician: Dr. Wilson, senior statistical programmer Returned Call: [address] Wilson, senior statistical programmer. We discussed the patients case. When the patient was walking, he clenched his chest and became boubacar and lee. Additional Consults: Time Called: 1346 Consulted Physician: Dr. Day, hospitalist Additional Comments: I spoke with Dr. Day, hospitalist. We discussed the patients case. The patient will be evaluated by the [facility] for further management. Impression Primary Impression: Exertional chest pain Scribe Attestation The scribe's documentation has been prepared under my direction and personally reviewed by me in its entirety. I confirm that the note above accurately reflects all work, treatment, procedures, and medical decision making performed by me. Departure Information Dispostion Being Evaluated By Hospitalist Referrals Luba Mcgregor DO (PCP) Patient Instructions [facility]
[2017-09-01 19:18] VITALS: PULSE 74; O2SAT 95
[2017-09-01 19:22] VITALS: BP 133/54; PULSE 60; TEMP 36.4; O2SAT 95
[2017-09-01] MEDS: TIMOLOL MALEATE 0.5% OP SOLN 5 ML BTL OPR SCH (20:28)
[2017-09-01] MEDS: FLECAINIDE ACETATE 100 MG TAB PO SCH (20:29)
[2017-09-01] MEDS: DOCUSATE SODIUM/SENNA 50/8.6MG TAB PO SCH (20:29)
[2017-09-01] MEDS: METOPROLOL TARTRATE 50 MG TAB PO SCH (20:29)
[2017-09-01] MEDS: ATORVASTATIN 40 MG TAB PO SCH (20:30)
[2017-09-01 22:43] VITALS: BP 149/67; PULSE 55; TEMP 37; O2SAT 92
[2017-09-02] VITALS (13 sets, daily range): BP systolic 107–164; BP diastolic 57–76; PULSE 59–125; TEMP 36.5–36.7; O2SAT 92–95; Ht 170.2 cm; Wt 121.2 kg
[2017-09-02] MEDS: NITROGLYCERIN 2% OINTMENT 30GM TUBE EXT SCH ×4 (04:00→22:31)
[2017-09-02 04:31] LABS: BASO % 0.2 %; BASO ABS # 0.01 K/uL (0-0.2); EOS % 1.6 %; EOS ABS # 0.08 K/uL (0-0.5); HEMATOCRIT 30.7 % (42-52); HEMOGLOBIN 9.4 g/dL (14.0-18.0); IG# 0.01 K/uL (0.00-0.02); LYMPH % 22.4 %; MEAN CELL VOLUME 83.9 fL (80-100); MEAN CORPUSCULAR HEMOGLOBIN 25.7 pg (25-34); MEAN CORPUSCULAR HGB CONC 30.6 g/dl (32-36); MEAN PLATELET VOLUME 8.8 fL (7.4-10.4); MONO % 8.6 %; MONO ABS # 0.42 K/uL (0.11-0.59); NEUT ABS # 3.28 K/uL (1.4-6.5); PLATELET COUNT 118 K/uL (130-400); RED CELL DISTRIBUTION WIDTH CV 17.5 % (11.5-14.5); RED CELL DISTRIBUTION WIDTH SD 53.5 fL (36.4-46.3)
[2017-09-02 04:40] LABS: INR 3.3 (0.9-1.1)
[2017-09-02 04:48] LABS: BLOOD UREA NITROGEN 26 mg/dl (7-18); CALCIUM 9.2 mg/dl (8.5-10.1); CARBON DIOXIDE 33 mmol/L (21-32); CREATININE 1.41 mg/dl (0.60-1.40); GLUCOSE 122 mg/dl (70-99); POTASSIUM 4.1 mmol/L (3.5-5.1); SODIUM 138 mmol/L (136-145)
[2017-09-02 04:53] LABS: CHOLESTEROL 83 mg/dl (0-200); LDL CHOLESTEROL CALCULATED 26 mg/dl
[2017-09-02 06:38] LABS: HEMOGLOBIN A1C 5.6 % (4.5-5.6)
[2017-09-02] MEDS: LEVALBUTEROL 1.25MG/3ML NEB INH SCH ×3 (07:15→19:28)
[2017-09-02] MEDS: TIMOLOL MALEATE 0.5% OP SOLN 5 ML BTL OPR SCH ×2 (08:22→20:39)
[2017-09-02] MEDS: FLECAINIDE ACETATE 100 MG TAB PO SCH ×2 (08:23→20:41)
[2017-09-02] MEDS: METOPROLOL TARTRATE 50 MG TAB PO SCH ×3 (08:23→20:40)
[2017-09-02] MEDS: ASPIRIN 81 MG ECTAB PO SCH (08:24)
[2017-09-02] MEDS: MULTIVITAMIN TAB PO SCH (08:24)
[2017-09-02] MEDS: CYANOCOBALAMIN 500 MCG TAB (VIT B-12) PO SCH (08:25)
[2017-09-02] MEDS ORDERED: FUROSEMIDE 40 MG TAB PO SCH (09:00)
--- NOTE | 2017-09-02 15:07 | Hospitalist Progress Note ---
Hospitalist Progress Note Date of Service Sep 02, 2017. Subjective Pt evaluation today including: conversation w/ patient, conversation w/ family ( at bedside), chart review, lab review, review of studies, review of inpatient medication list Pain: None PO Intake: Tolerating PO diet Voiding: no voiding problems The patient reports feeling better. He currently denies any chest pain or shortness of breath. He states he has been urinating a lot and feels better. He is concerned regarding the dressing of his left foot. He reports some nausea but does not want to take anything for it at the moment. The patient denies fevers, chills, sweats, chest pain, palpitations, claudication, cough, wheezing, shortness of breath, vomiting, abdominal pain, dysuria, hematuria, urinary retention, paralysis, weakness, numbness and tingling. Additional Comments: See HPI for pertinent positives and negatives. All other systems reviewed and negative. Objective Vital Signs Date Time Temp Pulse Resp B/P (MAP) Pulse Ox O2 Delivery O2 Flow Rate FiO2 09/02/17 14:26 66 18 93 Room Air 09/02/17 12:00 Room Air 09/02/17 11:33 36.7 59 18 164/62 (96) 92 Room Air 09/02/17 08:05 36.5 60 18 161/67 (98) 95 Room Air 09/02/17 08:00 Room Air 09/02/17 07:17 68 18 94 Room Air 09/02/17 04:19 36.6 60 18 146/64 (91) 94 Room Air 09/02/17 04:00 Room Air 09/02/17 00:01 Room Air 09/01/17 22:43 37.0 55 19 149/67 (94) 92 Room Air 09/01/17 20:00 Room Air 09/01/17 19:22 36.4 60 18 133/54 (80) 95 Room Air 09/01/17 19:18 74 18 95 Room Air 09/01/17 16:00 Room Air 09/01/17 16:00 36.7 66 16 167/78 (107) 93 Room Air 09/01/17 15:40 69 16 145/65 96 09/01/17 15:32 69 16 145/65 96 Room Air Physical Exam Notes: General appearance: +Morbidly obese. Well-developed, well-nourished, no apparent distress Head: Normocephalic, atraumatic Eyes: Normal inspection, PERRL, EOMI ENT: Normal ENT inspection, hearing grossly normal, pharynx normal Neck: Supple, no JVD, trachea midline Respiratory/Chest: +Decreased breath sounds. Lungs clear to auscultation, no respiratory distress Cardiovascular: Regular rate & rhythm, no gallop, no murmur Abdomen/GI: Normal bowel sounds, non-tender, soft Extremities/Musculoskeletal: +1-2+ pitting edema. Normal inspection, no calf tenderness Neurological/Psych: Alert, normal mood/affect, oriented x 3 Skin: Normal color, warm/dry, no rash Laboratory Results Last 24 Hours Test 09/01/17 20:20 09/02/17 04:22 Troponin I 0.016 ng/ml < 0.015 ng/ml White Blood Count 4.90 K/uL Red Blood Count 3.66 M/uL Hemoglobin 9.4 g/dL Hematocrit 30.7 % Mean Corpuscular Volume 83.9 fL Mean Corpuscular Hemoglobin 25.7 pg Mean Corpuscular Hemoglobin Concent 30.6 g/dl Platelet Count 118 K/uL Mean Platelet Volume 8.8 fL Neutrophils (%) (Auto) 67.0 % Lymphocytes (%) (Auto) 22.4 % Monocytes (%) (Auto) 8.6 % Eosinophils (%) (Auto) 1.6 % Basophils (%) (Auto) 0.2 % Neutrophils # (Auto) 3.28 K/uL Lymphocytes # (Auto) 1.10 K/uL Monocytes # (Auto) 0.42 K/uL Eosinophils # (Auto) 0.08 K/uL Basophils # (Auto) 0.01 K/uL RDW Standard Deviation 53.5 fL RDW Coefficient of Variation 17.5 % Immature Granulocyte % (Auto) 0.2 % Immature Granulocyte # (Auto) 0.01 K/uL Prothrombin Time 34.1 SECONDS Prothromb Time International Ratio 3.3 Sodium Level 138 mmol/L Potassium Level 4.1 mmol/L Chloride Level 102 mmol/L Carbon Dioxide Level 33 mmol/L Anion Gap 3.0 mmol/L Blood Urea Nitrogen 26 mg/dl Creatinine 1.41 mg/dl Est Creatinine Clear Calc Drug Dose 62.3 ml/min Estimated GFR () 58.1 Estimated GFR (Non- 50.1 BUN/Creatinine Ratio 18.8 Random Glucose 122 mg/dl Estimated Average Glucose 114 mg/dl Hemoglobin A1c 5.6 % Calcium Level 9.2 mg/dl Triglycerides Level 112 mg/dl Cholesterol Level 83 mg/dl HDL Cholesterol 35 mg/dl LDL Cholesterol, Calculated 26 mg/dl VLDL Cholesterol, Calculated 22 mg/dl Cholesterol/HDL Ratio 2.4 Assessment and Plan 72-year-old male with PMHx of atrial fibrillation on Coumadin, anemia of chronic disease, thrombocytopenia, HTN, HLD, CKD stage III, GERD, Recent left hip infection after MORGAN who was recently admitted in Jul 2017 for cellulitis of the left foot. The patient has been seeing wound clinic for a left lower extremity cellulitis and home health was in to change the bandage this morning where they noted him to become more short of breath, and insisted he come to the ER. Chest pain, ACS r/o--resolved. May be more related to CHF -Admit to telemetry for observation. No acute events overnight. Pt in sinus rhythm/sinus bradycardia with HR 50s-60s -Troponin negative x3 -Resting echo shows LVEF 55-60%, no WMA, mild LVH, mild pulmonary HTN -Cannot do exercise stress test -Scheduled for nuclear stress test tomorrow -EKG q am and prn chest pain Fluid overload--no documented h/o CHF, no noted systolic or diastolic dysfunction on echo as above - Patient missed Lasix 3 days, received Lasix 40 mg IV x1, now back on home dose Lasix 40 mg PO qd - strict I's/O's, daily weights - UO 1900 cc, net balance -1325 cc 09/01 HTN, HLD--stable - Continue ASA, atorvastatin 40 mg PO hs, metoprolol tartrate 100 mg PO BID Atrial fibrillation--rate controlled, sinus rhythm - Continue flecainide 100 mg BID, metoprolol, warfarin 0.5 mg PO qd - INR 3.3 on 09/02 LLE wound--stable - Wound care consulted and he is following them as outpt, using Aquacel topically on the wound and wrap with Kerlix dressing CKD stage III--creatinine around baseline 1.3-1.6 DVT prophylaxis -Warfarin -PATSY hose and SCDs Code Status -Level V, DO NOT RESUSCITATE Dispo -From home w/ -PT/OT evaluate and treat
[2017-09-02] MEDS: WARFARIN SOD 0.5 MG TAB PO SCH (16:39)
[2017-09-02] MEDS: ACETAMINOPHEN 325 MG TAB PO PRN (18:05)
[2017-09-02] MEDS: ATORVASTATIN 40 MG TAB PO SCH (20:40)
[2017-09-02] MEDS: DOCUSATE SODIUM/SENNA 50/8.6MG TAB PO SCH (20:41)
[2017-09-02] MEDS ORDERED: METOPROLOL TARTRATE 1 MG/ML VIAL IV STA (22:59)
--- NOTE | 2017-09-02 23:02 | Progress Note ---
Progress Note Date of Service Sep 02, 2017. Progress Note notified of a fibb with RVR which occurred at approx 2030. After PO metoprolol given HR remained elevated but improved plan for IV metoprolol with parameters, ekg ordered, mag and TSH patient asymptomatic
[2017-09-02] MEDS ORDERED: METOPROLOL TARTRATE 1 MG/ML VIAL ONE (23:03)
[2017-09-03] MEDS ORDERED: METOPROLOL TARTRATE 1 MG/ML VIAL IV STA (00:22)
[2017-09-03] MEDS ORDERED: DILTIAZEM BOLUS / DRIP IV STA (01:39)
[2017-09-03] MEDS ORDERED: hydrOXYzine HCL 25 MG TAB PO PRN (01:45)
[2017-09-03] MEDS ORDERED: DILTIAZEM HCL 5 MG/ML 5 ML VIAL BOLUS/OMNI IV SCH (02:00)
[2017-09-03] MEDS ORDERED: DILTIAZEM HCL INJ 125 MG in DEXTROSE 5% 100ML IV PRN (02:00)
[2017-09-03 03:12] VITALS: BP 132/58; PULSE 63; TEMP 36.7; O2SAT 97
[2017-09-03] MEDS: NITROGLYCERIN 2% OINTMENT 30GM TUBE EXT SCH ×2 (05:03→10:00)
[2017-09-03 07:37] VITALS: BP 116/57; PULSE 58; TEMP 37; O2SAT 93
[2017-09-03 08:03] LABS: BASO % 0.5 %; BASO ABS # 0.03 K/uL (0-0.2); EOS % 1.9 %; EOS ABS # 0.11 K/uL (0-0.5); HEMATOCRIT 33.4 % (42-52); HEMOGLOBIN 10.2 g/dL (14.0-18.0); IG# 0.02 K/uL (0.00-0.02); LYMPH % 24.7 %; LYMPH ABS # 1.43 K/uL (1.2-3.4); MEAN CELL VOLUME 83.5 fL (80-100); MEAN CORPUSCULAR HEMOGLOBIN 25.5 pg (25-34); MEAN CORPUSCULAR HGB CONC 30.5 g/dl (32-36); MEAN PLATELET VOLUME 9.4 fL (7.4-10.4); MONO % 10.6 %; MONO ABS # 0.61 K/uL (0.11-0.59); NEUT ABS # 3.58 K/uL (1.4-6.5); PLATELET COUNT 160 K/uL (130-400); RED CELL DISTRIBUTION WIDTH CV 17.6 % (11.5-14.5); RED CELL DISTRIBUTION WIDTH SD 54.3 fL (36.4-46.3); WHITE BLOOD COUNT 5.78 K/uL (4.8-10.8)
[2017-09-03 08:18] LABS: INR 3.6 (0.9-1.1)
[2017-09-03 08:36] LABS: CALCIUM 9.5 mg/dl (8.5-10.1); CREATININE 1.35 mg/dl (0.60-1.40); POTASSIUM 3.9 mmol/L (3.5-5.1)
--- NOTE | 2017-09-03 08:48 | Clinical Documentation Query ---
CLINICAL DOCUMENTATION QUERY Dr. ELLIOTT, In your clinical opinion is this patient being managed for: ( ) Atrial fibrillation, POA possibly causing intermittent chest discomfort (x ) Not Agree, because the relation between with Atrial fibrillation, and intermittent chest discomfort is very difficult to define ( ) Other explanation of clinical findings (Please Explain) ( ) Unable to determine (Please Define) ( ) Need to Discuss The medical record reflects the following clinical findings, treatment, and risk factors. Clinical Indicators: 72 yo male presenting with intermittent chest pain x 2 weeks, noted to be worse with exertion. Initial EKG showed NSR with L BBB (unchanged from prior EKG). Pt later developed A fib with HR 100-140's. Pt spontaneously converted back to NSR before cardizem gtt could be started. Treatment: rhythm change reported to physician, IV metoprolol x 2, tele monitoring, ECHO, cardizem gtt ordered but not started due to spontaneous return to NSR Risk Factors: hx A fib, HTN, age Please clarify and document your clinical opinion in the progress notes and discharge summary. Terms such as "probable", "suspected", "likely", "questionable", "possible", or "still to be ruled out" are acceptable. IF IN AGREEMENT, YOU MUST DOCUMENT ABOVE DIAGNOSTIC STATEMENT IN DAILY PROGRESS NOTES AND DISCHARGE SUMMARY. This document is not part of the patient's record. Thank You, Karlie Crump RN [phone]
[2017-09-03] MEDS: TIMOLOL MALEATE 0.5% OP SOLN 5 ML BTL OPR SCH (10:47)
[2017-09-03] MEDS: ASPIRIN 81 MG ECTAB PO SCH (10:48)
[2017-09-03] MEDS: MULTIVITAMIN TAB PO SCH (10:48)
[2017-09-03] MEDS: CYANOCOBALAMIN 500 MCG TAB (VIT B-12) PO SCH (10:48)
[2017-09-03] MEDS: FLECAINIDE ACETATE 100 MG TAB PO SCH ×2 (10:48→16:51)
[2017-09-03 11:00] VITALS: BP 127/53; PULSE 61; TEMP 36.5; O2SAT 95
[2017-09-03 12:15] VITALS: O2SAT 95
[2017-09-03] MEDS ORDERED: METOPROLOL TARTRATE 1 MG/ML VIAL ONE (13:04)
[2017-09-03] MEDS ORDERED: ATROPINE SULFATE 0.1 MG/ML 5ML SYR ONE (13:04)
[2017-09-03] MEDS ORDERED: DOBUTamine HCL 12.5 MG/ML 20 ML VIAL ONE (13:04)
[2017-09-03] MEDS ORDERED: PERFLUTREN LIPID MICROSPHERE (DEFINITY) IV ONE (14:12)
--- NOTE | 2017-09-03 14:30 | Discharge Instructions ---
Discharge Instructions Date of Service Sep 03, 2017. Admission Reason for Admission: Chest Pain Discharge Discharge Diagnosis / Problem: Chest pain, ACS rule out Discharge Goals Goal(s): Decrease discomfort, Improve function, Increase independence, Improve disease control, Improve nutritional status, Learn about illness, Diagnostic testing, Therapeutic intervention, Prevent Disease Progression, Specific goals Activity Recommendations Activity Limitations: resume your previous activity . Instructions / Follow-Up Instructions / Follow-Up You have chest pain, stress test per verbal report is negative, he will be released to home if formal report is negative you was having episode of atrial fibrillation overnight , you need to continue current medications , follow up with cardiology as instructed You are on Coumadin , today's INR is 3.6 from yesterday 3.3 , you need to hold Coumadin tonight, Rx included in this discharge, resume Coumadin tomorrow after checking INR if <3 You have left lower extremity wound, need to continue following with Wound care as outpt, using Aquacel topically on the wound and wrap with Kerlix dressing You have CKD stage III, baseline , creatinine around baseline 1.3-1.6, you need to follow up this condition with PCP Follow up with cardiology as instructed - you need to follow up with your primary care physician in 1 week, - take medication as instructed, never overdose or any misuse, or take with alcohol, because misuse of medicine may cause organ damage or , call your primary care physician if have questions of medicaitons. - call your primary care physician OR go to local emergency room if has any fever/chill, chest pain, shortness of breathing, nausea/vomiting/abdominal pain , facial droop/slurry speech/local weakness, or if has any questions. - fall precaution - diet as instructed - you need to follow up with your subspecialist - you should understand that it is important to follow up the above instruction , and "not following the above instruction" may cause delayed or missed care of your medical conditions which may cause permanent organ damage and even . Current Hospital Diet Patient's current hospital diet: AHA Diet (Heart Healthy) Discharge Diet Recommended Diet: AHA Diet (Heart Healthy) Pending Studies Studies pending at discharge: no Laboratory Results Hemoglobin A1c Test 09/02/17 04:22 Range/Units Estimated Average Glucose 114 mg/dl Hemoglobin A1c 5.6 4.5-5.6 % Lipid Panel Test 09/02/17 04:22 Range/Units Triglycerides Level 112 0-150 mg/dl Cholesterol Level 83 0-200 mg/dl HDL Cholesterol 35 mg/dl Cholesterol/HDL Ratio 2.4 LDL Cholesterol, Calculated 26 mg/dl Medical Emergencies . Who to Call and When: Medical Emergencies: If at any time you feel your situation is an emergency, please call 911 immediately. . Non-Emergent Contact Non-Emergency issues call your: Primary Care Provider, Electric Drill Operator Call Non-Emergent contact if: you have a fever . . "Provider Documentation" section prepared by Дмитрий Alonzo. . VTE Core Measure Inpt VTE Proph given/why not?: Warfarin (Coumadin), T.E.DAnnika Stockings, SCD's
--- NOTE | 2017-09-03 14:39 | Discharge Summary ---
Discharge Summary Date of Service Sep 03, 2017. 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 Medication Reconciliation Continued Medications: Acetaminophen (Tylenol) 500 Mg Tab 1000 MG PO HS PRN for Pain, TAB PATIENT REPORTS WILL TAKE TYLENOL OR TRAMADOL IF NEEDED FOR PAIN, DOES NOT TAKE THEM BOTH TOGETHER Ascorbic Acid (Vitamin C) 1,000 Mg Tab 1 TAB PO QAM Aspirin (Aspirin Ec) 81 Mg Tab 81 MG PO DAILY PT NOT SURE WHAT TIME HE TAKES THIS Atorvastatin (Lipitor) 40 Mg Tab 40 MG PO HS, TAB Cholecalciferol (Vitamin D3) 1,000 Unit Cap 2 CAP PO QAM Cyanocobalamin (Vitamin B12 500MCG) 500 Mcg Tab 500 MCG PO QAM, TAB Flecainide (Tambocor) 100 Mg Tab 100 MG PO BID, TAB Furosemide (Lasix) 40 Mg Tab 40 MG PO QAM, TAB Magnesium (Magnesium 250 mg) 1 Tab Tab 200 MG PO QPM Metoprolol Tartrate (Metoprolol Tartrate) 50 Mg Tab 1 TAB PO BID Mineral Oil (Mineral Oil) 1 Oil Oil 1 TSP PO HS PRN for CONSTIPATION Multivitamin (Multivitamin) Tab 1 TAB PO QAM, TAB Nitroglycerin (Nitrostat) 0.4 Mg Tab 0.4 MG UT PRN, BTL Omeprazole (Prilosec) 20 Mg Capcr 20 MG PO BID, CAP Probiotic Product (Probiotic) 1 Cap Cap 1 TAB PO QAM Propylene Glycol-Glycerin (Artificial Tears) 1 Geo Geo 1 DROP PO QAM PRN for Sennosides-Docusate Sodium (Stool Softener & Stimulan) 1 Tab Tab 1-4 TAB PO HS for Constipation Timolol Maleate (Timolol 0.5% Oph Soln 15 Ml) 15 Ml Soln 1 DROP OPR BID Vitamin A-Beta Carotene (Vitamin A) Unknown Strength Tab Unknown Dose PO QAM Warfarin Sod (Jantoven) 2.5 Mg Tab 1.25 MG PO 3XWK, TAB WEDNESDAY, WEDNESDAY, WEDNESDAY NO WARFARIN ON WEDNESDAYS AND WEDNESDAY Warfarin Sodium (Coumadin) 1 Mg Tab 0.5 MG PO 2XWK, TAB WEDNESDAY, WEDNESDAY [Morphine] () Unknown Dose SC CONT IMPLANTED PAIN PUMP IN ABDOMEN Discontinued Medications: Spironolactone (Aldactone) 50 Mg Tab 50 MG PO QAM, TAB Discharge Exam No more chest pain, doing well, conversational, has stress test done, eager to go home Review of Systems: Constitutional: No fever, No chills, No sweats, No weight loss, No weakness , No fatigue, No problem reported Eyes: No worsening of vision, No eye pain, No redness, No discharge, No diplopia, No problem reported ENT: No hearing loss, No unusual epistaxis, No nasal symptoms, No sore throat, No tinnitus, No dental problems, No trouble swallowing, No problem reported Respiratory: No cough, No sputum, No wheezing, No shortness of breath, No dyspnea on exertion, No dyspnea at rest, No hemoptysis, No problem reported Cardiovascular: No chest pain, No orthopnea, No PND, No edema, No claudication, No palpitations, No problem reported Abdomen: No pain, No nausea, No vomiting, No diarrhea, No constipation, No GI bleeding, No problem reported Musculoskeletal: + joint pain (hip pain is not new), No muscle pain, No swelling, No calf pain, No problem reported Genitourinary - Male: No hematuria, No dysuria, No urinary frequency, No urinary urgency, No urinary hesitancy, No urinary retention, No urinary incontinence, No penile discharge, No lesions, No impotence, No problem reported Neurologic: No memory loss, No paralysis, No weakness, No numbness/tingling , No vertigo, No balance problems, No problem reported Psychiatric: No depression symptoms, No anhedonism, No anxiety, No insomnia , No substance abuse, No problem reported Endocrine: No fatigue, No excessive thirst, No excessive urination, No problem reported Hematologic / Lymphatic: No abnormal bleeding/bruising, No clotting problems , No swollen lymph nodes, No night sweats, No problem reported Hospital Course 72-year-old male with more short of breath, Chest pain/shortness of breath ACS r/o has been on telemetry , was having A. fib episodes last night, currently is resolved and is NSR -Troponin negative x3 -Resting echo shows LVEF 55-60%, no WMA, mild LVH, mild pulmonary HTN -Cannot do exercise stress test, have had a dobutamine stress echo done, per verbal report which is negative, will be discharged to home if he is negative after we get formal report Fluid overload--no documented h/o CHF, no noted systolic or diastolic dysfunction on echo as above Patient missed Lasix 3 days prior to admission, received Lasix 40 mg IV x1, now back on home dose Lasix 40 mg PO qd - strict I's/O's, daily weights HTN, HLD--stable - Continue ASA, atorvastatin 40 mg PO hs, metoprolol tartrate 100 mg PO BID Atrial fibrillation--rate controlled, sinus rhythm, Continue flecainide 100 mg BID, metoprolol, warfarin 0.5 mg PO qd, INR 3.3 on 09/02, and today is 3.6, has otherwise hold denies Coumadin, check PT/INR tomorrow morning, prescription given to patient, adjust dose by Coumadin clinic or by PCP LLE wound--stable - Wound care consulted and he is following them as outpt, using Aquacel topically on the wound and wrap with Kerlix dressing CKD stage III--creatinine around baseline 1.3-1.6 DVT prophylaxis -Warfarin -PATSY rose and SCDs Code Status -Level V, DO NOT RESUSCITATE Dispo -From home w/ -PT/OT evaluate and treat Discussed with patient about a care plan, answered all questions Instructions / Follow-Up You have chest pain, stress test per verbal report is negative, he will be released to home if formal report is negative you was having episode of atrial fibrillation overnight , you need to continue current medications , follow up with cardiology as instructed You are on Coumadin , today's INR is 3.6 from yesterday 3.3 , you need to hold Coumadin tonight, Rx included in this discharge, resume Coumadin tomorrow after checking INR if <3 You have left lower extremity wound, need to continue following with Wound care as outpt, using Aquacel topically on the wound and wrap with Kerlix dressing You have CKD stage III, baseline , creatinine around baseline 1.3-1.6, you need to follow up this condition with PCP Follow up with cardiology as instructed - you need to follow up with your primary care physician in 1 week, - take medication as instructed, never overdose or any misuse, or take with alcohol, because misuse of medicine may cause organ damage or , call your primary care physician if have questions of medicaitons. - call your primary care physician OR go to local emergency room if has any fever/chill, chest pain, shortness of breathing, nausea/vomiting/abdominal pain , facial droop/slurry speech/local weakness, or if has any questions. - fall precaution - diet as instructed - you need to follow up with your subspecialist - you should understand that it is important to follow up the above instruction , and "not following the above instruction" may cause delayed or missed care of your medical conditions which may cause permanent organ damage and even . Total Time Spent: Greater than 30 minutes This includes examination of the patient, discharge planning, medication reconciliation, and communication with other providers. Discharge Instructions Please refer to the electronic Patient Visit Report (Discharge Instructions) for additional information. Additional Copies To Giancarlo Dumont III, CRNP; Senthil Vides M.D.
--- NOTE | 2017-09-03 15:10 | Cardiology Consultation ---
Cardiology Consultation Date of Consultation: Sep 03, 2017. Requesting Physician: Dr. Alonzo Reason for Consultation: Chest pain Pt evaluation today including: conversation w/ patient, conversation w/ family , physical exam, lab review, review of studies, review of inpatient medication list, conversation w/ attending History of Present Illness This is a very pleasant 72-year-old gentleman who presented with what was felt to be asymptomatic atrial fibrillation on 03/16/2014 which was identified when he underwent his routine physical examination. He also has a history of coronary artery disease. He had cardiac catheterization performed on 11/06/2007 , this showed nonobstructive but clearly identifiable coronary artery disease. He has not had a myocardial infarction. He does not seem to have symptoms of angina. Although he was felt to be asymptomatic in his atrial fibrillation he did complain of some fatigue with exertion and tiredness for the prior 6 months and that may represent the duration of his arrhythmia prior to discovery although it was not known. He may have had occasional palpitations and he fell asleep easily. He does not have lightheadedness or dizziness or presyncope. With these symptoms we elected to perform cardioversion which was performed on 05/18/2014. He thinks he felt better for a short time, however he felt that he went back into atrial fibrillation and had an electrocardiogram which did confirm that on 05/29/2014. We therefore started flecainide on 05/30/2014 and arranged cardioversion again on 06/01/2014. Shortly thereafter he felt somewhat poorly but on physical exam he appeared to be in a regular rhythm and he did take a few extra doses of his diuretic. In mid August 2014 he noticed a little worsening of shortness of breath and some edema, he seemed to be of little bit fluid overloaded and his diuretic was increased. He has been doing well in that regard since. He underwent hip replacement in 2017, following his hip replacement he had a seroma which had to be evacuated, he then developed a left foot infection and is still being treated for that. That has slowed him down considerably but he is gradually improving. 09/01/2017 he presented with symptoms of shortness of breath and came to the emergency room. He has had about 2 weeks shortness of breath while working outside in the cold, although it worsened several days prior to admission. He also has some chest discomfort, this radiates to his right shoulder, it has been present on-and-off for several days. It is not necessarily associated with exertion or any other cardiovascular symptoms. In the emergency room his cardiac enzymes were negative, his chest x-ray did not show significant heart failure and he was in sinus rhythm. He was admitted. Past Medical/Surgical History (1) Atrial Fibrillation (2) Hyperlipidemia Nec/Nos (3) Arthritis (4) Appendectomy (5) Cholecystectomy Family History FH: heart disease Hypertension Social History Smoking Status: Never Smoker History of Alcohol Use: No Review of Systems Constitutional: No fever, No weight loss, No weakness Respiratory: + shortness of breath, + dyspnea on exertion Cardiac: + see HPI, + chest pain, No orthopnea, No PND, No edema, No palpitations Abdomen: No pain, No nausea, No vomiting, No diarrhea, No GI bleeding Male : No urinary frequency, No nocturia more than once/night, No slowing stream, No sexual dysfunction Neurologic: No paralysis, No weakness, No numbness/tingling, No balance problems Heme: No abnormal bleeding/bruising, No clotting problems Endo: No fatigue Skin: No problem reported All Other Systems: Reviewed and Negative Allergies Coded Allergies: Penicillins (Verified Allergy, Intermediate, HIVES, 09/01/17) 07/01/17: patient tolerated keflex in past (no reaction) Doxycycline (Verified Adverse Reaction, Intermediate, vomiting, 09/01/17) Ondansetron (Verified Adverse Reaction, Intermediate, INCREASES GI UPSET, 09/01/17) Medications Current Inpatient Medications Medications (Trade) Dose Ordered Sig/Edward Route Start Time Stop Time Status Last Admin Dose Admin Acetaminophen (Tylenol Tab) 650 mg Q4H PRN PO 09/01/17 14:00 10/01/17 13:59 09/02/17 18:05 650 MG Magnesium Hydroxide (Milk Of Magnesia Susp) 30 ml Q12H PRN PO 09/01/17 14:00 10/01/17 13:59 Nitroglycerin (Nitroglycerin 2% Oint) 1 inch Q6H EXT 09/01/17 16:00 10/01/17 15:59 09/03/17 05:03 1 INCH Morphine Sulfate (MoRPHine SULFATE INJ) 2 mg Q30M PRN IV 09/01/17 14:00 09/15/17 13:59 Polyethylene (Miralax Powder Packet) 17 gm DAILY PRN PO 09/01/17 14:00 10/01/17 13:59 Aspirin (Ecotrin Tab) 81 mg DAILY PO 09/02/17 09:00 10/02/17 08:59 09/03/17 10:48 81 MG Atorvastatin Calcium (Lipitor Tab) 40 mg HS PO 09/01/17 21:00 10/01/17 20:59 09/02/17 20:40 40 MG Cyanocobalamin (Vitamin B-12 Tab) 500 mcg QAM PO 09/02/17 09:00 10/02/17 08:59 09/03/17 10:48 500 MCG Furosemide (Lasix Tab) 40 mg QAM PO 09/02/17 09:00 10/02/17 08:59 09/02/17 08:23 40 MG Metoprolol Tartrate (Lopressor Tab) 50 mg BID PO 09/01/17 21:00 10/01/17 20:59 09/02/17 20:40 50 MG Multivitamins (Multivitamin Tab) 1 tab QAM PO 09/02/17 09:00 10/02/17 08:59 09/03/17 10:48 1 TAB Nitroglycerin (Nitrostat Tab) 0.4 mg UD PRN UT 09/01/17 14:00 10/01/17 13:59 Senna/Docusate Sodium (Senokot S Tab) 2 tab HS PO 09/01/17 21:00 10/01/17 20:59 09/02/17 20:41 2 TAB Timolol Maleate (Timoptic 0.5% Oph Soln) 1 drops BID OPR 09/01/17 21:00 10/01/17 20:59 09/03/17 10:47 1 DROPS Warfarin Sodium (Coumadin Tab) 0.5 mg DAILY@1600 PO 09/02/17 16:00 10/02/17 15:59 09/02/17 16:39 0.5 MG Miscellaneous (Iv Fluids Completed) 1 ea PRN PRN N/A 09/01/17 15:00 09/01/18 14:59 Promethazine HCl (Phenergan Tab) 12.5 mg Q6H PRN PO 09/01/17 18:45 10/01/17 18:44 Flecainide Acetate (Tambocor Tab) 100 mg BID@0900,1600 PO 09/03/17 09:00 10/03/17 08:59 09/03/17 10:48 100 MG Hydroxyzine HCl (Vistaril Tab) 25 mg HSZ PRN PO 09/03/17 01:45 10/03/17 01:44 09/03/17 02:02 25 MG Physical Exam Vital Signs Past 12 Hours Date Time Temp Pulse Resp B/P (MAP) Pulse Ox O2 Delivery O2 Flow Rate FiO2 09/03/17 12:15 95 Room Air 09/03/17 11:00 36.5 61 20 127/53 (77) 95 Room Air 09/03/17 08:00 Room Air 09/03/17 07:37 37.0 58 20 116/57 (76) 93 Room Air 09/03/17 04:00 Room Air 09/03/17 03:12 36.7 63 18 132/58 (82) 97 Room Air Constitutional: General Apperance: heathly-appearing Level of Distress: NAD Psychiatric: Mental Status: active & alert Head: normocephalic Eyes: EOM: EOMI ENMT: normal ENT inspection, hearing grossly normal Neck: supple, no masses Lungs: Respiratory effort: no dyspnea, good air movement Auscultation: breath sounds normal, no wheezing Cardiovascular: Heart Auscultation: RRR, no murmurs, no rubs, no gallops Peripheral Pulses: Bruits: none appreciated Abdomen: Bowel Sounds: normal Inspection & Palpation: soft, no tenderness, guarding & rebound, no masses Musculoskeletal: normal strength (5/5 throughout) Extremities: no edema Neurologic: Cranial Nerves: grossly intact Sensation: grossly intact Data Laboratory Results: Last 24 Hours Test 09/02/17 23:08 09/03/17 06:59 Magnesium Level 1.8 mg/dl Thyroid Stimulating Hormone (TSH) 3.550 uIu/ml White Blood Count 5.78 K/uL Red Blood Count 4.00 M/uL Hemoglobin 10.2 g/dL Hematocrit 33.4 % Mean Corpuscular Volume 83.5 fL Mean Corpuscular Hemoglobin 25.5 pg Mean Corpuscular Hemoglobin Concent 30.5 g/dl Platelet Count 160 K/uL Mean Platelet Volume 9.4 fL Neutrophils (%) (Auto) 62.0 % Lymphocytes (%) (Auto) 24.7 % Monocytes (%) (Auto) 10.6 % Eosinophils (%) (Auto) 1.9 % Basophils (%) (Auto) 0.5 % Neutrophils # (Auto) 3.58 K/uL Lymphocytes # (Auto) 1.43 K/uL Monocytes # (Auto) 0.61 K/uL Eosinophils # (Auto) 0.11 K/uL Basophils # (Auto) 0.03 K/uL RDW Standard Deviation 54.3 fL RDW Coefficient of Variation 17.6 % Immature Granulocyte % (Auto) 0.3 % Immature Granulocyte # (Auto) 0.02 K/uL Prothrombin Time 36.4 SECONDS Prothromb Time International Ratio 3.6 Sodium Level 139 mmol/L Potassium Level 3.9 mmol/L Chloride Level 101 mmol/L Carbon Dioxide Level 31 mmol/L Anion Gap 7.0 mmol/L Blood Urea Nitrogen 26 mg/dl Creatinine 1.35 mg/dl Est Creatinine Clear Calc Drug Dose 63.5 ml/min Estimated GFR () 61.2 Estimated GFR (Non- 52.8 BUN/Creatinine Ratio 19.0 Random Glucose 88 mg/dl Calcium Level 9.5 mg/dl Imaging: An echocardiogram done on admission shows normal left ventricular size , mild concentric left ventricular hypertrophy and aortic sclerosis without stenosis. Mild pulmonary hypertension. Similar to 2013. A chest x-ray on admission was reviewed, it does not show significant congestive heart failure. EKG: An electrocardiogram on admission demonstrates sinus rhythm, left bundle branch block, no acute changes Telemetry reviewed: Sinus rhythm with an episode of atrial fibrillation lasting about 5-1/2 hours at a rate of around 100 bpm during the night. Evidently asymptomatic. Assessment & Plan #1. Chest discomfort: His symptoms are very atypical for coronary artery disease , his electrocardiogram does not show any changes but he does have a somewhat wide QRS and his enzymes were negative. He does have known coronary artery disease however and I think it would be prudent to perform a stress test. His baseline echo images are adequate and I was able to perform a stress ( pharmacologic) echo today. He did not have any anginal symptoms during the test , the images were adequate. The formal report is not available as yet but on my initial preliminary review I did not see any significant abnormality. As long as the test showed no ischemia I would not pursue this further. #2. Atrial fibrillation: He has been doing very well clinically on flecainide with no recurrence of his persistent atrial fibrillation (in the past he had required cardioversion). He did have an episode of paroxysmal atrial fibrillation here, but the rate was well-controlled and he was asymptomatic. It is possible he has other episodes of paroxysmal atrial fibrillation but he is protected on an anticoagulant, and this is certainly adequate control of his arrhythmia. I would therefore continue anticoagulation and flecainide. Thank you for allowing me to participate in his care.
[2017-09-03 16:12] VITALS: BP 109/70; PULSE 65; TEMP 36.5; O2SAT 93
[2017-09-03 16:23] VITALS: BP 109/70; PULSE 65; TEMP 36.5; O2SAT 93
--- NOTE | 2017-09-03 16:26 | DOBUTAMINE ECHO ---
*NOTICE TO RECEIVING REPUBLICAN AGENCY This information is strictly Confidential and protected under [place] law. [place] law prohibits you from making any further disclosure of this information unless further disclosure is expressly permitted by the written consent of the person to whom it pertains or is authorized by law. A general authorization for the release of medical or other information is not sufficient for this purpose. Hospital accepts no responsibility if the information is made available to any other person, INCLUDING THE PATIENT. Interpretation Summary * Name: JAIDA MICHEL Study Date: 09/03/2017 12:20 PM BP: 151/54 mmHg * Patient Location: C.2T\S\S244\S\1 HR: 65 * : 1945 (M/d/yyyy) Gender: Male Height: 67 in * Age: 72 yrs Ethnicity: CA Weight: 267 lb * Ordering Physician: Дмитрий Alonzo * Referring Physician: Daylin Wilson * Performed By: Marquita Russ RCS * * Reason For Study: CHEST PAIN * BSA: 2.3 m2 * -- Conclusions -- * 1. Negative dobutamine stress echo for ischemia at 81% MPHR. * 2. Negative dobutamine stress ECG for ischemia. * 3. Normal resting LV size and function. For full details of resting function see echo report from 09/01/2017. Procedure Details * DOBUTAMINE ECHO, CPT#57084 * A contrast injection of Definity was performed to improve assessment of LV function. * Contrast was injected into an intravenous site in the right arm. * One vial of Definity ultrasound contrast was diluted in normal saline to a total volume of 10 ml. A total of '5.5' ml of solution was administered during imaging. * Lot # [id number] of Definity utilized for procedure. * Expiration date SEP 03. * The attending nurse who injected the contrast agent was NAOMY LEE CPL, RN. Left Ventricle * The left ventricle is grossly normal size. * There is mild concentric left ventricular hypertrophy. * Ejection Fraction = 60-65%. * Resting wall motion: Normal. Stress wall motion: Appropriate increase in Left ventricular systolic function and decrease in cavity size. No stress induced segmental wall motion abnormalities. Pericardium * There is no pericardial effusion. Stress Parameters * Normal sinus rhythm, nonspecific intraventricular conduction delay, possible septal infarct. * Stress ECG: No ST changes. No arrhythmias. * The stress portion of this study was personally supervised by the undersigned interpreting physician. * Rest heart rate was '65' BPM. * Rest blood pressure was '151/54' * Maximum heart rate achieved was 122 bpm. * Maximum heart rate was 81 % of maximum age-predicted heart rate. * Maximum blood pressure was '191/43' * Maximum Dobutamine infusion rate was '50' mcg/kg/min. * A total of 0.5 mg of intravenous Atropine was used to supplement Dobutamine for heart rate response. * Dobutamine infusion was terminated due to end of protocol/maximum medication doses * A total of 5.0 mg of IV Metoprolol was administered to reverse Dobutamine-induced tachycardia.
[2017-09-03] MEDS: METOPROLOL TARTRATE 50 MG TAB PO SCH (16:47)
[2017-09-03] MEDS: WARFARIN SOD 0.5 MG TAB PO SCH (16:49)
--- NOTE | 2017-09-07 11:24 | EDITING REQUIRED CODING QUERY ---
CHEST PAIN To promote full compliance with coding requirements relating to patient care physician participation is requested in all cases of certified coder uncertainty. Please assist us with the question(s) below: Please list a more specific chest pain diagnosis or cause of chest pain if known by placing an X within the parenthesis (x): (x ) Atypical Chest Pain ( ) Chest Wall Pain ( ) Midsternal Chest Pain ( ) Musculoskeletal Chest Pain ( ) Pleuritic Chest Pain ( ) Substernal Chest Pain ( ) Costochondral Chest Pain ( ) Other (please Specify) ( ) Unable to Determine Thank you ELSIE Oneal CCS
== END 2017-09-03 18:19 | disposition home health service (06) | DRG 313 ==
LOC: EDBD 12:11 → C.EDA 12:13 → C.2T 14:05 → ENRESERV 14:45 → OBSVTOIN 09-02 16:57
PROVIDERS: ADMIT Family Medicine; ATTEND Hospitalist
DX: R07.89 Other chest pain (principal); I48.91 Unspecified atrial fibrillation; E78.5 Hyperlipidemia, unspecified; I12.9 Hypertensive chronic kidney disease with stage 1 through stage 4 chronic kidney disease, or unspecified chronic kidney disease; Z79.01 Long term (current) use of anticoagulants; D64.9 Anemia, unspecified; Z96.642 Presence of left artificial hip joint; I25.10 Atherosclerotic heart disease of native coronary artery without angina pectoris; Z86.14 Personal history of Methicillin resistant Staphylococcus aureus infection; Z88.0 Allergy status to penicillin; Z66 Do not resuscitate; N18.3 Chronic kidney disease, stage 3 (moderate)

== ENCOUNTER → 2017-09-06 | Outpatient (CLI) | payer OTHER ==
[~2017-09-06] MED LIST changes: -AMOX500C3 PO; -RXC5 PO; -SPIR50TA3 PO; +WARF2.5T8 PO
[2017-09-06 09:45] LABS: INR 3.1 (0.9-1.1)
== END | disposition home or self-care (01) ==
LOC: C.LABSPEC 09:19
PROVIDERS: ATTEND Family Medicine
DX: Z79.01 Long term (current) use of anticoagulants (principal); Z51.81 Encounter for therapeutic drug level monitoring

== ENCOUNTER → 2018-03-02 | Outpatient (CLI) | payer OTHER ==
[~2018-03-02] MED LIST changes: +PANT40TA PO; +WARF1TAB6 PO; -WARF2.5T8 PO
[2018-03-02 13:05] LABS: BASO % 0.3 %; BASO ABS # 0.02 K/uL (0-0.2); EOS % 2.4 %; EOS ABS # 0.15 K/uL (0-0.5); HEMATOCRIT 42.4 % (42-52); HEMOGLOBIN 13.5 g/dL (14.0-18.0); IG# 0.02 K/uL (0.00-0.02); LYMPH % 22.4 %; LYMPH ABS # 1.38 K/uL (1.2-3.4); MEAN CELL VOLUME 90.6 fL (80-100); MEAN CORPUSCULAR HEMOGLOBIN 28.8 pg (25-34); MEAN CORPUSCULAR HGB CONC 31.8 g/dl (32-36); MEAN PLATELET VOLUME 10.5 fL (7.4-10.4); MONO % 8.9 %; MONO ABS # 0.55 K/uL (0.11-0.59); NEUT % 65.7 %; NEUT ABS # 4.05 K/uL (1.4-6.5); PLATELET COUNT 128 K/uL (130-400); RED CELL DISTRIBUTION WIDTH CV 16.6 % (11.5-14.5); RED CELL DISTRIBUTION WIDTH SD 54.2 fL (36.4-46.3); WHITE BLOOD COUNT 6.17 K/uL (4.8-10.8)
[2018-03-02 13:22] LABS: BLOOD UREA NITROGEN 34 mg/dl (7-18); CALCIUM 9.8 mg/dl (8.5-10.1); CARBON DIOXIDE 35 mmol/L (21-32); CREATININE 1.61 mg/dl (0.60-1.40); GLUCOSE 100 mg/dl (70-99); SODIUM 141 mmol/L (136-145)
== END | disposition home or self-care (01) ==
LOC: C.LABBC 09:27
PROVIDERS: ATTEND Nurse Practitioner Family
DX: D64.9 Anemia, unspecified (principal); I25.10 Atherosclerotic heart disease of native coronary artery without angina pectoris; I50.9 Heart failure, unspecified

== ENCOUNTER 2019-10-17 11:33 | Observation (INO) ==
[2019-10-17] MEDS ORDERED: CLINDAMYCIN PHOS 300 MG/2 ML VIAL ONE (12:09)
[2019-10-17] MEDS ORDERED: MIDAZOLAM HCL 5 MG/ML 1 ML VIAL ONE ×2 (12:18→14:20)
[2019-10-17] MEDS ORDERED: fentaNYL citrate 100 MCG/2 ML VIAL ONE ×2 (12:18→14:20)
[2019-10-17] MEDS ORDERED: LIDOCAINE HCL 1% 20 ML VIAL ONE (12:51)
--- NOTE | 2019-10-17 13:15 | History & Physical Bridge Note ---
Date of Service October 17, 2019 History & Physical Bridge Note I have examined the patient, reviewed the History & Physical and in the interval since the performance of the History & Physical I have noted the following changes of clinical significance: no changes noted. I reviewed the indications, procedure, risks and alternatives of pacemaker implantation with him and his as well as his daughter and her and they understand and he agrees to proceed. Consent obtained. I also reviewed sedation with them and they are agreeable. Consent obtained.
--- NOTE | 2019-10-17 13:16 | Pre Anesthesia Assessment ---
Date of Service October 17, 2019 Pre Sedation Assessment Vital Signs Temp Pulse Resp BP Pulse Ox 10/17/19 11:49 37 C 55 L 20 165/65 H 90 Cardiovascular RRR, no murmur, no edema Respiratory normal respiratory effort, lungs clear to auscultation Pre-Sedation Airway Assessment Smoking Status: Never smoker Hx Sleep Apnea: Yes Hx Difficult Intubation: No Short, Thick Neck: Yes Thyromental Distance: < 3.5 Finger Breadths Oral Cavity: + Dentures Mallampati Class: II ASA: ASA4 NPO Status Date of Last Intake of Fluids: 10/17/19 Time of Last Intake of Fluids: 07:00 Date of Last Intake of Solid Food: 10/16/19 Time of Last Intake of Solid Foods: 18:00 Procedure Planning Contraindications for Sedation: none Current Medications Reviewed: Yes Notes The planned sedation has been discussed with the patient. Informed Consent was obtained. I have identified the patient, determined the appropriateness of sedation and have assessed the patient immediately prior to the procedure. All medicine(s) and interventions are by my order.
[2019-10-17] MEDS ORDERED: BACITRACIN OINT 0.9 GM PKT ONE ×2 (15:29→15:39)
--- NOTE | 2019-10-17 16:00 | Electrophysiology Report ---
Date of Service October 17, 2019 Electrophysiology Procedure Electrophysiology Procedure Report Preoperative diagnosis: Sick sinus syndrome Postoperative diagnosis: Same Procedure: 1. Left subclavian venogram 2. 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 The left prepectoral region was anesthetized with 1% lidocaine local anesthetic and dye was injected the left arm IV site to opacify the left subclavian vein. The subclavian vein was identified and found to be free of obstruction. Left axillary venipuncture was performed by percutaneous technique and a guidewire placed through the left subclavian vein into the superior vena cava. The area was further infiltrated with 1% lidocaine local anesthetic and a 5 cm incision was made parallel to the left clavicle and 2 cm below it and carried down to the anterior pectoralis fascia. A pacemaker pocket was formed by blunt dissection anterior to the pectoralis fascia and a bacitracin-soaked sponge (50,000 units in 50 cc normal saline solution) was placed in the pocket. An 8 [place] [employer] lead introducer was placed over the guidewire into the left subclavian vein, the dilator and guidewire were removed and a bipolar active fixation steroid tipped ventricular lead was advanced through the introducer into the superior vena cava. A guidewire was placed through the introducer and the introducer was stripped from the lead and guidewire. Another 8 [place] [employer] lead introducer was placed over the guidewire into the left subclavian vein, the dilator and guidewire were removed and a bipolar active fixation steroid tipped atrial lead was advanced through the introducer into the superior vena cava. A guidewire was placed back through the introducer and the introducer was stripped from the lead and guidewire. Using a curved stylette the ventricular lead was advanced through the right ventricular outflow tract into the pulmonary artery and then using a straight stylette was positioned in the right ventricular apex. The screw was extended fixing the lead in position. Several positions were tested before adequate numbers were obtained. Pacing and sensing thresholds were evaluated in bipolar configuration and are recorded on the implant data sheet. Using a curved stylette the atrial lead was positioned in the region of the atrial appendage and the screw extended fixing the lead in position. Several positions in the appendage as well as outside the appendage were tested with high measurements. A new atrial lead was placed by removing the first atrial lead, using another 8 [place] [employer] lead introducer over the guidewire which remained in place and placing a new 8 [place] lead into the atrium. Ultimately an acceptable position was identified although not ideal. Pacing and sensing thresholds were evaluated in bipolar configuration and are recorded on the implant data sheet. Once the leads were in position they were attached to the anterior pectoralis fascia using 2 sutures of 2-0 silk around each lead collar. The bacitracin- soaked sponge was removed from the pocket, hemostasis was obtained, the pacemaker was attached to the leads and placed in the pocket with the leads coiled beneath it. The incision was closed with a running double subcutaneous closure of 3-0 Vicryl absorbable suture, followed by running subcuticular skin closure of 4-0 Vicryl absorbable suture. Bacitracin ointment was placed on the incision and a pressure dressing applied. [facility] Electrophysiology codes Indication for Procedure (1) Sinus node dysfunction: Pacing Procedure 1: Pacin Insert/Replace Pacer A & V Miscellaneous Procedures Procedure 1: EP Miscellaneous: 26866 Contrast injection for venography Procedure 2: EP Miscellaneous: 63687-25 Vengraphy, extremity PG Moderate Sedation Codes Moderate Sedation Codes Procedure 1: Sedation/Anesthesia: 27802 Mod Sedation by the same physician;Init15 Min Child Age 5 & Up Procedure 2: Sedation/Anesthesia: 63807 Mod Sedation by the same physician; Ea [id number] Minutes
[2019-10-17] MEDS ORDERED: ACETAMINOPHEN 325 MG TAB PO PRN (16:01)
[2019-10-17] MEDS ORDERED: NITROGLYCERIN SL 0.4 MG/TAB TAB SL PRN (16:02)
[2019-10-17] MEDS ORDERED: PROCHLORPERAZINE MALEATE 10 MG TAB PO PRN (16:02)
[2019-10-17] MEDS ORDERED: ACETAMINOPHEN 500 MG TAB PO PRN (16:02)
[2019-10-17] MEDS ORDERED: WARFARIN SOD 2 MG TAB PO ONE (16:06)
[2019-10-17] MEDS: FLECAINIDE ACETATE 100 MG TABLET PO SCH (18:23)
[2019-10-17] MEDS: CARBIDOPA/LEVODOPA 25/100MG TAB PO SCH ×2 (18:23→20:08)
[2019-10-17] MEDS: ACETAMINOPHEN W/CODEINE #3 1 TAB PO PRN (20:07)
[2019-10-17] MEDS: TIMOLOL MALEATE 0.25% OP SOLN 5 ML BTL OP SCH (20:08)
[2019-10-18] MEDS: ACETAMINOPHEN W/CODEINE #3 1 TAB PO PRN ×2 (00:26→05:06)
[2019-10-18] MEDS: FLECAINIDE ACETATE 100 MG TABLET PO SCH (04:03)
--- NOTE | 2019-10-18 07:20 | XRay Report ---
XR chest 2V PA/lateral CLINICAL HISTORY: 74 years-old Male presenting with EXACT TIME ORDERED Evaluate for pneumothorax and l. TECHNIQUE: PA and lateral views of the chest were obtained. COMPARISON: . FINDINGS: There has been interval placement of a left subclavian pacer with leads to the right atrium and right ventricular apex. The right ventricular lead is somewhat posteriorly oriented on lateral view, which is unexpected. Atherosclerosis of the aortic arch. Cardiac silhouette normal in size. Allowing for e xaggerated thoracic kyphosis and suboptimal positioning, no pneumothorax. Minimal bibasilar opacities . No pleural effusion. Degenerative changes of the thoracic spine. Cholecystectomy clips noted. IMPRESSION: 1. The right ventricular lead is somewhat posteriorly oriented on lateral view. This may be within t he range of acceptable positioning. No pneumothorax. 2. Minimal bibasilar atelectasis. The report will be called/faxed according to standard departmental protocol. ACT 112: Negative or not required by law. Electronically signed by: Femi Mar M.D. 10/18/2019 7:19 AM
[2019-10-18] MEDS: CARBIDOPA/LEVODOPA 25/100MG TAB PO SCH (07:33)
[2019-10-18] MEDS: TIMOLOL MALEATE 0.25% OP SOLN 5 ML BTL OP SCH (07:35)
--- NOTE | 2019-10-18 08:28 | Post Anesthesia Assessment ---
Date of Service October 18, 2019 Post Sedation Assessment Vital Signs Temp Pulse Pulse Resp BP Pulse Ox 10/18/19 07:14 36.9 C 60 18 147/69 H 93 10/18/19 03:38 37 C 59 L 16 152/71 H 93 10/17/19 22:59 36.8 C 60 18 135/68 92 10/17/19 19:19 36.7 C 60 19 143/63 H 90 10/17/19 18:00 60 10/17/19 16:46 60 20 130/75 99 10/17/19 16:31 59 L 20 137/77 96 10/17/19 16:16 60 19 157/75 H 90 10/17/19 16:01 36.6 C 60 19 157/76 H 90 10/17/19 16:00 60 20 165/69 H 90 10/17/19 15:45 62 20 174/71 H 91 10/17/19 11:49 37 C 55 L 20 165/65 H 90 Recovery Score Activity: Moves 4 extremities Respiration: Deep Breath/Cough Circulation: +/-20% PreAnes Value Consciousness: Fully Awake Oxygen Saturation: > 92% On Room Air Post Anesthesia Score: 10 Discharge Sedation Level of Care: Fast Track Phase II Post Sedation Plan On clinical assessment, the patient appears to have tolerated the sedation without complications. Patient is recovering as anticipated. Patient will continue to be monitored by nursing and may be discharged when sedation discharge criteria are met per below protocol. Upon Completions of procedure up to 15 minutes continue every 5 minute vital signs and the P.A.R. score; then discharge to a Phase I or Fast Track to Phase II per the following guidelines: * Discharge Patient to appropriate Phase II area if PAR is 8 or greater or return to pre- procedure baseline. The post - procedure orders will be as directed. * If PAR score is less than 8 or not return to pre-procedure baseline then pa tient will follow Phase I monitoring till PAR is reached for Phase II. The Phase I may be done in procedure room or may call to secure a Phase I area. * If naloxone or flumazenil are used for reversal, hold in Phase I for continued monitoring from when last reversal dose was given for a minimum of 60 minutes or longer pending the nurse and/or physician discretion of patient condition before discharge to Phase II. Please call the Sedation Physician to re-evaluate and complete post-note for discharge to Phase II area. Do NOT discharge from procedure sedation or Phase 1 until post- sedation evaluation note is complete by procedure /sedation MD Sedation Discharge Instructions to be given to the patient at discharge to home.
[2019-10-18] MEDS ORDERED: MAGNESIUM OXIDE 400 MG TAB PO SCH (09:00)
[2019-10-18] MEDS ORDERED: LEVOTHYROXINE SODIUM 25 MCG TABLET PO SCH (09:00)
[2019-10-18] MEDS ORDERED: FUROSEMIDE 40 MG TAB PO SCH (09:00)
[2019-10-18] MEDS ORDERED: CHOLECALCIFEROL 1,000 UNITS 25 MCG TAB PO SCH (09:00)
[2019-10-18] MEDS ORDERED: ATORVASTATIN 40 MG TAB PO SCH (09:00)
[2019-10-18] MEDS ORDERED: MULTIVITAMIN TAB PO SCH (09:00)
[2019-10-18] MEDS ORDERED: CYANOCOBALAMIN 500 MCG TABLET (VITAMIN B-12) PO SCH (09:00)
[2019-10-18] MEDS ORDERED: ARTIFICIAL TEARS OP SCH (09:00)
[2019-10-18] MEDS ORDERED: ALFUZOSIN HCL 10 MG TAB PO SCH (09:00)
[2019-10-18] MEDS ORDERED: LACTOBACILLUS ACIDOPHILUS (FLORANEX) TAB PO SCH (09:00)
[2019-10-18] MEDS ORDERED: SPIRONOLACTONE 25 MG TAB PO SCH (09:00)
[2019-10-18] MEDS ORDERED: ASCORBIC ACID 500 MG TAB PO SCH (09:00)
--- NOTE | 2019-10-18 09:21 | Cardiology Progress Note ---
Date of Service October 18, 2019 Assessment & Plan (1) Status post placement of cardiac pacemaker: Postop day #1: He is doing well following pacemaker implantation, the site looks good, he has minimal discomfort, the chest x-ray looks good and the device measurements are good. He is stable for discharge with no change in his medications. He did receive warfarin 2 mg last evening and will go to the coagulation clinic in 2 days and he also has an office visit for his incision in 2 days. Admission and Anticipated Discharge Date Admission Date: October 17, 2019 Subjective Minimal incisional discomfort, no other complaints Physical Exam Physical Exam: The pacer site is clean and dry, no swelling or erythema. Results & Data ([facility]) Vital Signs (Past 12 Hours) Vital Signs Temp Pulse Resp BP Pulse Ox 10/18/19 07:14 36.9 C 60 18 147/69 H 93 10/18/19 03:38 37 C 59 L 16 152/71 H 93 10/17/19 22:59 36.8 C 60 18 135/68 92 Laboratory Results Intake and Output 10/17/19 10/18/19 10/18/19 22:59 06:59 14:59 Output Total 250 / 250 Balance -250 / -250 Output: Urine 250 / 250 Other: # Unmeasured Voids 1 1 Weight 105.9 kg Diagnostic Findings Postop electrocardiogram: Atrial pacing with intact AV conduction and a wide QRS complex Telemetry: Normal pacemaker function with predominantly atrial pacing Chest x-ray: Good lead position, no pneumothorax Pacemaker evaluation: Good pacing and sensing characteristics PG Care Time/CCT Total # of Minutes Spent Total Time Spent with Patient: Total time spent is greater than 50% in coordination of care (as documented) at patient's floor/unit and/or counseling patient: Coding Level of Care Code 67630 Post Operative Follow-Up Diagnoses Status post placement of cardiac pacemaker Z95.0 CPT Codes Dual Lead Pacemaker System - 18245 ([id number])
--- NOTE | 2019-10-18 16:01 | Electrocardiogram Report ---
Test Reason : Blood Pressure : / mmHG Vent. Rate : 062 BPM Atrial Rate : 062 BPM P-R Int : 278 ms QRS Dur : 174 ms QT Int : 478 ms P-R-T Axes : 000 -58 011 degrees QTc Int : 485 ms Atrial-paced rhythm with prolonged AV conduction Left bundle branch block Abnormal ECG When compared with ECG of 03-SEP-2017 00:12, Electronic atrial pacemaker has replaced Atrial fibrillation Vent. rate has decreased BY 31 BPM QRS duration has increased Nonspecific T wave abnormality now evident in Anterior leads Confirmed by Amol López ([id number]) on 10/18/2019 4:01:25 PM Referred By: Senthil Vides Confirmed By:Amol López
--- NOTE | 2019-10-31 11:25 | Discharge Summary ---
Date of Service October 18, 2019 Admission HPI Per Admitting Provider This is a 73-year-old male with a long history of tachybradycardia syndrome including paroxysmal atrial fibrillation and sinus node dysfunction. He also has coronary artery disease. He had symptoms suggestive of bradycardia and therefore a pacemaker has been recommended and he is brought to the hospital for that procedure. Admission Exam (Per Admitting) Respiratory normal respiratory effort, lungs clear to auscultation Cardiovascular Rate/Rhythm: regular rate and + bradycardic Discharge Data Procedures Performed Operation Date: 10/17/19 13:00 Actual Procedures p Pacer with A/V Leads (Dual) - Senthil Vides MD Hospital Course (1) Status post placement of cardiac pacemaker: He was brought to the hospital on October 17, 2019 and a pacemaker was implanted that day. The procedure was uneventful. He was monitored overnight, chest x-ray, pacer evaluation and electrocardiography were performed following the procedure. This was unremarkable and he was discharged on October 18, 2019. Coding Level of Care Code None Diagnoses Status post placement of cardiac pacemaker Z95.0
== END 2019-10-18 11:06 | disposition home or self-care (01) ==
LOC: 2S 11:33 → EP 11:33 → 2S 16:59

== ENCOUNTER 2020-06-01 20:40 | Inpatient (IN) ==
[2020-06-01] MEDS ORDERED: SODIUM CHLORIDE 0.9% 1000ML 500 ML IV ONE (20:49)
--- NOTE | 2020-06-01 21:08 | Emergency Department Note ---
Impression & Plan Pneumonia, Acute alteration in mental status, Fever, Hypomagnesemia ED Provider Note NAME: JAIDA MICHEL AGE: 74 SEX: M : 1945 ARRIVES VIA: Ambulance INFORMANT: Patient, ED PROVIDER(S): Amol Cheatham DO CHIEF COMPLAINT: Altered mental status HPI: The patient is a 74-year-old male has a history of atrial fibrillation as well as chronic renal insufficiency who presented to the emergency department by ambulance for an evaluation of altered mental status. According to the prehospital personnel there was concerns that this could represent a stroke the patient's symptoms began at around 5 PM. Talking the patient he states that he has been feeling "not myself and ill". The patient states that the symptoms began approximately 1 week ago. He states he has been noticing generalized weakness. He is been having difficulty ambulating. He was noted to have a low- grade fever and hypoxia prior to arrival. He does complain of shortness of breath and slight cough. He denies any Covid exposures. He notices no vomiting but has had nausea. His significant other does report dark foul-smelling urine as well. The patient has had urine infections in the past according to him. Otherwise he states that he has been compliant with his outpatient medication regimen. The patient denies having any headache. He has no history of recent falls. ROS: See above HPI for pertinent positives & negatives. A total of 10 systems reviewed and were otherwise negative. PAST MEDICAL HISTORY: See Below PAST SURGICAL HISTORY: See Below FAMILY HISTORY: See Below SOCIAL HISTORY: See Below HOME MEDICATIONS: See Below ALLERGIES: See Below VITALS: See Below PHYSICAL EXAMINATION: GENERAL: The patient is awake and alert. He is slow to answer questions but answers appropriately. His speech is understandable. EYES: The conjunctivae are clear. The pupils are round and reactive. EARS, NOSE, MOUTH AND THROAT: The nose is without any evidence of any deformity. Mucous membranes are dry. NECK: The neck is nontender and supple. RESPIRATORY: Diminished breath sounds are noted throughout. There is no tachypnea or conversational dyspnea. CARDIOVASCULAR: Irregular rhythm was noted to auscultation. Systolic murmur was suggested. GASTROINTESTINAL: The abdomen is soft. Abdomen is nontender. MUSCULOSKELETAL/EXTREMITIES: There is no evidence of gross deformity full range of motion is noted in the hips and shoulders. SKIN: Skin is warm and dry. There is pedal edema bilaterally. NEUROLOGIC: Patient is awake and oriented to person place and situation. There was no drift in the upper extremities. Patient is able to hold each leg off the bed for greater than 5 seconds. There is no facial droop appreciated. MEDICAL DECISION MAKING: The patient is a 74-year-old male who presented to the emergency department for an evaluation of altered mental status. We received a prehospital notification about the patient requesting possible stroke alert however the patient was not having focal neurologic deficits. He was found to have low-grade fever. He did have some difficulty breathing and hypoxia. Chest x-ray could be consistent with right lower lobe infiltrate. I discussed the patient's laboratory and radiographic studies with him and his significant other. He was treated with IV fluids and IV antibiotics. On subsequent reevaluation he was feeling much better. He was placed on supplemental oxygen. Given his findings I discussed this case with the on-call [facility] hospitalist. They have agreed to evaluate the patient in the emergency department for further management and disposition. Triage Nursing notes reviewed. Prior medical records reviewed Vital Signs: reviewed and remarkable for hypoxia Differential diagnosis: Infection, dehydration, metabolic abnormality, hypo/hyperglycemia, electrolyte disturbance, anemia, hypoxia, cardiac sources, intracerebral event, toxicologic, neurologic, as well as other pathologies. ER treatment provided: See below Diagnostics interpreted by me: ECG: EKG was obtained in the emergency department. My interpretation is atrial fibrillation at 83 bpm. PVCs were noted. Atrial paced beats were also noted. Left bundle branch block pattern was favored. This was compared to a tracing from October 172019. No significant changes were noted. Cardiac Monitoring: An order was placed for continuous cardiac monitoring. The monitor shows a rate of 68 bpm with sinus rhythm. Laboratory studies: As stated above and show below. Imaging studies: See below Consultation(s): 2345: I discussed this case with Dr. 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 Lumbar post-laminectomy syndrome Near syncope New onset atrial fibrillation Pancytopenia Presence of intrathecal pump Sinus node dysfunction Supratherapeutic INR Thrombocytopenia Urinary stream slowing Surgical History History of back surgery History of cholecystectomy History of hernia repair History of tonsillectomy S/P appendectomy S/P carpal tunnel release S/P hip replacement S/P wisdom tooth extraction Status post placement of cardiac pacemaker Family History Father Heart disease Diabetes Cardiac disorder Neck fracture Mother Heart disease Diabetes Myocardial infarction Sister Stroke Daughter Multiple sclerosis Denies family history of Ovarian cancer Prostate cancer Breast cancer Colorectal cancer Social History Smoking Status: Never smoker Hx Alcohol Use: No Hx Substance Use: No Preferred Language: Guamanian Communication Ability: Effective Visual Impairment: Diminished Hearing Ability: Use of Hearing Aid Health And Wellness 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 Required: No Beliefs That Will Affect Care: None marital status: Current Living Situation: Spouse current occupational status: retired Feels Safe at Home: Yes Dental Care, Regularly: No Physical Activity Frequency: Does not Exercise Seatbelt Use: always Assistive Devices: Glasses and Hearing Aid - Bilateral Allergies Allergies Allergy/AdvReac Type Severity Reaction Status Date / Time Penicillins Allergy Intermediate Hives Verified 06/01/20 22:29 doxycycline AdvReac Intermediate Vomiting Verified 06/01/20 22:29 ondansetron AdvReac Intermediate Gastrointestinal Verified 06/01/20 22:29 Upset Home Meds Home Medications Medication Instructions Recorded Confirmed acetaminophen 500 mg tablet 1,000 mg PO HS tab 04/25/18 06/01/20 ascorbic acid (vitamin C) 1,000 mg 1,000 mg PO DAILY tab 04/25/18 06/01/20 tablet cyanocobalamin (vitamin B-12) 500 500 mcg PO DAILY 04/25/18 06/01/20 mcg tablet multivitamin 1 cap PO DAILY 04/25/18 06/01/20 nitroglycerin 0.4 mg sublingual 0.4 mg SL DIRECTED PRN 04/25/18 06/01/20 tablet peg [id number] 1 1 drops OPHTHALMIC (EYE) DAILY 04/25/18 06/01/20 %-0.2 %-0.2 % eye drops timolol maleate 0.5 % eye drops 1 drops OPR BID 04/25/18 06/01/20 lactobacillus combination no.9 4 4,000 mmu cells PO DAILY 04/26/18 06/01/20 billion cell capsule Pain Pump See Rx Instructions .ROUTE .COMPLEX 06/01/20 06/01/20 magnesium 250 mg PO DAILY 06/01/20 06/01/20 mineral oil 0 ml PO DAILY PRN 06/01/20 06/01/20 prochlorperazine maleate 10 mg PO Q6H PRN 06/01/20 06/01/20 sennosides-docusate sodium [Senna 3 tab PO HS 06/01/20 06/01/20 with Docusate Sodium] trazodone 50 mg PO HS 06/01/20 06/01/20 warfarin 0.5 mg PO DAILY 06/01/20 06/01/20 Previous Rx's Medication Instructions Recorded cholecalciferol (vitamin D3) 125 5,000 units PO DAILY #90 cap 09/11/19 mcg (5,000 unit) capsule atorvastatin 40 mg tablet 40 mg PO DAILY #90 tab 04/09/20 carbidopa 25 mg-levodopa 100 mg 1.5 tab PO QID 90 Days #540 tab 04/11/20 tablet alfuzosin 10 mg tablet,extended 10 mg PO DAILY #90 tab 04/17/20 release 24 hr flecainide 100 mg tablet 100 mg PO Q12H #180 tab 04/17/20 furosemide 40 mg tablet 40 mg PO DAILY #180 tab 04/17/20 levothyroxine 25 mcg tablet 25 mcg PO DAILY #90 tab 04/17/20 spironolactone 50 mg tablet 50 mg PO DAILY #90 tab 04/17/20 Results & Data (ED) Vital Signs Vital Signs - 24 hr 06/01/20 20:45 06/01/20 20:50 06/01/20 21:00 Temperature 37.2 C Temperature Source Oral Pulse Rate 76 81 75 Pulse Rate [Apical] Pulse Rate from SpO2 Sensor 81 76 Pulse Rhythm Irregular Pulse Strength Normal Respiratory Rate 20 Respiratory Effort / Characteristics Non-Labored Spontaneous Respiratory Depth Normal Respiratory Pattern Regular Blood Pressure 131/69 131/69 116/60 Blood Pressure [Right Arm] Blood Pressure Mean 89 93 70 Blood Pressure Mean [Right Arm] Blood Pressure Position Lying Pulse Oximetry 91 94 93 Oxygen Delivery Method Nasal Cannula Nasal Cannula Nasal Cannula Oxygen Flow Rate 3 4 4 Sepsis Recent Fever Within 48 Hours Yes Sepsis New/Unexplained Change in Mental Status Yes Sepsis Action Taken by Nursing No Action Required 06/01/20 21:55 06/01/20 22:44 06/01/20 23:32 Temperature Temperature Source Pulse Rate Pulse Rate [Apical] 74 65 Pulse Rate from SpO2 Sensor Pulse Rhythm Pulse Strength Respiratory Rate 16 18 Respiratory Effort / Characteristics Non-Labored Spontaneous Respiratory Depth Respiratory Pattern Blood Pressure Blood Pressure [Right Arm] 107/58 L 124/60 Blood Pressure Mean Blood Pressure Mean [Right Arm] 74 81 Blood Pressure Position Pulse Oximetry 94 97 89 L Oxygen Delivery Method Nasal Cannula Nasal Cannula Room Air Oxygen Flow Rate 4 4 Sepsis Recent Fever Within 48 Hours Sepsis New/Unexplained Change in Mental Status Sepsis Action Taken by Nursing 06/01/20 23:33 06/01/20 23:41 Temperature Temperature Source Pulse Rate Pulse Rate [Apical] Pulse Rate from SpO2 Sensor Pulse Rhythm Pulse Strength Respiratory Rate Respiratory Effort / Characteristics Non-Labored Spontaneous Respiratory Depth Respiratory Pattern Blood Pressure Blood Pressure [Right Arm] Blood Pressure Mean Blood Pressure Mean [Right Arm] Blood Pressure Position Pulse Oximetry 93 95 Oxygen Delivery Method Nasal Cannula Nasal Cannula Oxygen Flow Rate 3 3 Sepsis Recent Fever Within 48 Hours Sepsis New/Unexplained Change in Mental Status Sepsis Action Taken by Group Home Medications Current Medication List: was personally reviewed by me Laboratory Data Attestation: I reviewed the patient's lab results. Result diagrams: 06/01/20 20:55 06/01/20 20:55 Lab Results 06/01/20 06/01/20 06/01/20 Range/Units 20:55 20:55 20:55 WBC 9.70 (4.8-10.8) K/uL RBC 4.09 L (4.7-6.1) M/uL Hgb 13.1 L (14.0-18.0) g/dL Hct 38.2 L (42-52) % MCV 93.4 (80-100) fL MCH 32.0 (25-34) pg MCHC 34.3 (32-36) g/dL RDW Std Deviation 45.3 (36.4-46.3) fL RDW Coeff of Ese 13.3 (11.5-14.5) % Plt Count 82 L (130-400) K/uL MPV 9.8 (7.4-10.4) fL Immature Gran % (Auto) 0.2 % Neut % (Auto) 89.6 % Lymph % (Auto) 5.5 % [place] % (Auto) 4.4 % Eos % (Auto) 0.1 % Baso % (Auto) 0.2 % Neut # (Auto) 8.69 H (1.4-6.5) K/uL Lymph # (Auto) 0.53 L (1.2-3.4) K/uL [place] # (Auto) 0.43 (0.11-0.59) K/uL Eos # (Auto) 0.01 (0-0.5) K/uL Baso # (Auto) 0.02 (0-0.2) K/uL Immature Gran # (Auto) 0.02 (0.00-0.02) K/uL Platelet Estimate Decreased L (Normal) PT 26.6 H (9.0-12.0) Seconds INR 2.7 H (0.9-1.1) APTT 39.0 H (21.0-31.0) Seconds PTT Ratio 1.4 Sodium 135 L (136-145) mmol/L Potassium 3.8 (3.5-5.1) mmol/L Chloride 99 (98-107) mmol/L Carbon Dioxide 31 (21-32) mmol/L Anion Gap 6.0 (3-11) BUN 16 (7-18) mg/dl Creatinine 1.50 H (0.6-1.4) mg/dl Est Cr Clr Drug Dosing 51.2 ml/min Est GFR ( Amer) 53.1 Est GFR (Non-Af Amer) 45.9 BUN/Creatinine Ratio 10.5 (10-20) Glucose 115 H (70-99) mg/dl POC Glucose (70-99) mg/dl Lactate (0.4-2.0) mmol/L Calcium 9.8 (8.5-10.1) mg/dl Magnesium 1.3 L (1.8-2.4) mg/dl Total Bilirubin 0.6 (0.2-1) mg/dl AST 26 (15-37) U/L ALT 6 L (12-78) U/L Alkaline Phosphatase 107 (45-117) U/L Troponin I < 0.015 (0-0.045) ng/ml Total Protein 6.8 (6.4-8.2) gm/dl Albumin 3.1 L (3.4-5.0) gm/dl Globulin 3.7 (2.5-4.0) gm/dl Albumin/Globulin Ratio 0.8 L (0.9-2) Procalcitonin (0-0.5) ng/ml Specimen Hemolysis Urine Color Urine Appearance (Clear) Urine pH (4.5-7.5) Ur Specific [place] (1.000-1.030) Urine Protein (Negative) Urine Glucose (UA) (Negative) Urine Ketones (Negative) Urine Blood (Negative) Urine Nitrite (Negative) Urine Bilirubin (Negative) Urine Urobilinogen (Negative) Ur Leukocyte Esterase (Negative) COVID-19 Eval Order COVID-19 PCR (Negative) Influ A Molecular Assay (Negative) Influ B Molecular Assay (Negative) SARS-CoV-2, RNA, NAAT 06/01/20 06/01/20 06/01/20 Range/Units 20:55 20:55 20:57 WBC (4.8-10.8) K/uL RBC (4.7-6.1) M/uL Hgb (14.0-18.0) g/dL Hct (42-52) % MCV (80-100) fL MCH (25-34) pg MCHC (32-36) g/dL RDW Std Deviation (36.4-46.3) fL RDW Coeff of Ese (11.5-14.5) % Plt Count (130-400) K/uL MPV (7.4-10.4) fL Immature Gran % (Auto) % Neut % (Auto) % Lymph % (Auto) % [place] % (Auto) % Eos % (Auto) % Baso % (Auto) % Neut # (Auto) (1.4-6.5) K/uL Lymph # (Auto) (1.2-3.4) K/uL [place] # (Auto) (0.11-0.59) K/uL Eos # (Auto) (0-0.5) K/uL Baso # (Auto) (0-0.2) K/uL Immature Gran # (Auto) (0.00-0.02) K/uL Platelet Estimate (Normal) PT (9.0-12.0) Seconds INR (0.9-1.1) APTT (21.0-31.0) Seconds PTT Ratio Sodium (136-145) mmol/L Potassium (3.5-5.1) mmol/L Chloride (98-107) mmol/L Carbon Dioxide (21-32) mmol/L Anion Gap (3-11) BUN (7-18) mg/dl Creatinine (0.6-1.4) mg/dl Est Cr Clr Drug Dosing ml/min Est GFR ( Amer) Est GFR (Non-Af Amer) BUN/Creatinine Ratio (10-20) Glucose (70-99) mg/dl POC Glucose 114 H (70-99) mg/dl Lactate 1.3 (0.4-2.0) mmol/L Calcium (8.5-10.1) mg/dl Magnesium (1.8-2.4) mg/dl Total Bilirubin (0.2-1) mg/dl AST (15-37) U/L ALT (12-78) U/L Alkaline Phosphatase (45-117) U/L Troponin I (0-0.045) ng/ml Total Protein (6.4-8.2) gm/dl Albumin (3.4-5.0) gm/dl Globulin (2.5-4.0) gm/dl Albumin/Globulin Ratio (0.9-2) Procalcitonin 0.23 (0-0.5) ng/ml Specimen Hemolysis Urine Color Urine Appearance (Clear) Urine pH (4.5-7.5) Ur Specific [place] (1.000-1.030) Urine Protein (Negative) Urine Glucose (UA) (Negative) Urine Ketones (Negative) Urine Blood (Negative) Urine Nitrite (Negative) Urine Bilirubin (Negative) Urine Urobilinogen (Negative) Ur Leukocyte Esterase (Negative) COVID-19 Eval Order COVID-19 PCR (Negative) Influ A Molecular Assay (Negative) Influ B Molecular Assay (Negative) SARS-CoV-2, RNA, NAAT 06/01/20 06/01/20 06/01/20 Range/Units 21:00 21:15 21:15 WBC (4.8-10.8) K/uL RBC (4.7-6.1) M/uL Hgb (14.0-18.0) g/dL Hct (42-52) % MCV (80-100) fL MCH (25-34) pg MCHC (32-36) g/dL RDW Std Deviation (36.4-46.3) fL RDW Coeff of Ese (11.5-14.5) % Plt Count (130-400) K/uL MPV (7.4-10.4) fL Immature Gran % (Auto) % Neut % (Auto) % Lymph % (Auto) % [place] % (Auto) % Eos % (Auto) % Baso % (Auto) % Neut # (Auto) (1.4-6.5) K/uL Lymph # (Auto) (1.2-3.4) K/uL [place] # (Auto) (0.11-0.59) K/uL Eos # (Auto) (0-0.5) K/uL Baso # (Auto) (0-0.2) K/uL Immature Gran # (Auto) (0.00-0.02) K/uL Platelet Estimate (Normal) PT (9.0-12.0) Seconds INR (0.9-1.1) APTT (21.0-31.0) Seconds PTT Ratio Sodium (136-145) mmol/L Potassium (3.5-5.1) mmol/L Chloride (98-107) mmol/L Carbon Dioxide (21-32) mmol/L Anion Gap (3-11) BUN (7-18) mg/dl Creatinine (0.6-1.4) mg/dl Est Cr Clr Drug Dosing ml/min Est GFR ( Amer) Est GFR (Non-Af Amer) BUN/Creatinine Ratio (10-20) Glucose (70-99) mg/dl POC Glucose (70-99) mg/dl Lactate (0.4-2.0) mmol/L Calcium (8.5-10.1) mg/dl Magnesium (1.8-2.4) mg/dl Total Bilirubin (0.2-1) mg/dl AST (15-37) U/L ALT (12-78) U/L Alkaline Phosphatase (45-117) U/L Troponin I (0-0.045) ng/ml Total Protein (6.4-8.2) gm/dl Albumin (3.4-5.0) gm/dl Globulin (2.5-4.0) gm/dl Albumin/Globulin Ratio (0.9-2) Procalcitonin (0-0.5) ng/ml Specimen Hemolysis Urine Color Yellow Urine Appearance Clear (Clear) Urine pH 6.5 (4.5-7.5) Ur Specific [place] 1.014 (1.000-1.030) Urine Protein Negative (Negative) Urine Glucose (UA) Negative (Negative) Urine Ketones Negative (Negative) Urine Blood Negative (Negative) Urine Nitrite Negative (Negative) Urine Bilirubin Negative (Negative) Urine Urobilinogen Negative (Negative) Ur Leukocyte Esterase Negative (Negative) COVID-19 Eval Order Covid19 Done at [facility] COVID-19 PCR (Negative) Influ A Molecular Assay Negative (Negative) Influ B Molecular Assay Negative (Negative) SARS-CoV-2, RNA, NAAT Cancelled 06/01/20 Range/Units 21:15 WBC (4.8-10.8) K/uL RBC (4.7-6.1) M/uL Hgb (14.0-18.0) g/dL Hct (42-52) % MCV (80-100) fL MCH (25-34) pg MCHC (32-36) g/dL RDW Std Deviation (36.4-46.3) fL RDW Coeff of Ese (11.5-14.5) % Plt Count (130-400) K/uL MPV (7.4-10.4) fL Immature Gran % (Auto) % Neut % (Auto) % Lymph % (Auto) % [place] % (Auto) % Eos % (Auto) % Baso % (Auto) % Neut # (Auto) (1.4-6.5) K/uL Lymph # (Auto) (1.2-3.4) K/uL [place] # (Auto) (0.11-0.59) K/uL Eos # (Auto) (0-0.5) K/uL Baso # (Auto) (0-0.2) K/uL Immature Gran # (Auto) (0.00-0.02) K/uL Platelet Estimate (Normal) PT (9.0-12.0) Seconds INR (0.9-1.1) APTT (21.0-31.0) Seconds PTT Ratio Sodium (136-145) mmol/L Potassium (3.5-5.1) mmol/L Chloride (98-107) mmol/L Carbon Dioxide (21-32) mmol/L Anion Gap (3-11) BUN (7-18) mg/dl Creatinine (0.6-1.4) mg/dl Est Cr Clr Drug Dosing ml/min Est GFR ( Amer) Est GFR (Non-Af Amer) BUN/Creatinine Ratio (10-20) Glucose (70-99) mg/dl POC Glucose (70-99) mg/dl Lactate (0.4-2.0) mmol/L Calcium (8.5-10.1) mg/dl Magnesium (1.8-2.4) mg/dl Total Bilirubin (0.2-1) mg/dl AST (15-37) U/L ALT (12-78) U/L Alkaline Phosphatase (45-117) U/L Troponin I (0-0.045) ng/ml Total Protein (6.4-8.2) gm/dl Albumin (3.4-5.0) gm/dl Globulin (2.5-4.0) gm/dl Albumin/Globulin Ratio (0.9-2) Procalcitonin (0-0.5) ng/ml Specimen Hemolysis Urine Color Urine Appearance (Clear) Urine pH (4.5-7.5) Ur Specific [place] (1.000-1.030) Urine Protein (Negative) Urine Glucose (UA) (Negative) Urine Ketones (Negative) Urine Blood (Negative) Urine Nitrite (Negative) Urine Bilirubin (Negative) Urine Urobilinogen (Negative) Ur Leukocyte Esterase (Negative) COVID-19 Eval Order COVID-19 PCR NEGATIVE (Negative) Influ A Molecular Assay (Negative) Influ B Molecular Assay (Negative) SARS-CoV-2, RNA, NAAT Administered Medications Discontinued Medications Sodium Chloride (Nss 1000ml) 500 mls @ 999 mls/hr IV .Q31M ONE Stop: 06/01/20 21:19 Last Infusion: 06/01/20 21:58 Dose: 0 mls/hr Documented by: [id number] Admin: 06/01/20 21:26 Dose: 999 mls/hr Documented by: [id number] Sodium Chloride (Nss) 500 mls @ 999 mls/hr IV .Q31M ONE Stop: 06/01/20 23:58 Last Admin: 06/01/20 23:39 Dose: 999 mls/hr Documented by: [id number] Ceftriaxone Sodium (Rocephin) 1,000 mg in 50 mls @ 100 mls/hr IV NOW STA Stop: 06/01/20 23:57 Last Admin: 06/01/20 23:39 Dose: 100 mls/hr Documented by: [id number] Imaging Data Attestation: I personally reviewed and interpreted this imaging study as follows: My Impression: 1 view the chest was obtained in the emergency department. My interpretation is atelectasis versus right lower lobe infiltrate was noted. No free air. Heart size is top normal. Radiologist's Impression: Patient: JAIDA MICHEL (Male) : 49 Status: ER Date: 06/01/20 21:49 Room #: History: ALTERED MS Slices: 65 Priors: Tech: Evangelist Bonilla @ [phone] Exams: CT HEAD Contrast: Accession Numbers: [id number] Preliminary Findings Only See Final Report For Complete Findings CT HEAD: Comparison is made to CT head on 03/16/2019. No acute intracranial abnormality identified. Stable mild chronic small vessel ischemic disease and cerebral volume loss. Bilateral lens implants. Mild mucosal thickening in the right maxillary sinus with hyperostosis of the sinus wall, suggesting chronic sinusitis. Postsurgical changes of the right paranasal sinuses. Atherosclerotic ossifications in the intracranial vasculature. Radiologist: Guy Cha M.D. Blood Pressure Blood Pressure Findings: Normal blood pressure Discharge Plan Visit Data Chief Complaint: Neuro Symptoms/Deficit Stated Complaint: ALTERED MENTAL STATUS/FACIAL DROOP ED Provider: Amol Cheatham Discharge Problem: Pneumonia, Acute alteration in mental status, Fever, Hypomagnesemia Patient Disposition: Being Evaluated by Hospitalist Condition: Good Forms Stand Alone Forms: My [facility] Prescriptions Prescriptions: No Action ascorbic acid (vitamin C) 1,000 mg tablet 1,000 mg PO DAILY RF: 0 acetaminophen [Tylenol Extra Strength] 500 mg tablet 1,000 mg PO HS RF: 0 cyanocobalamin (vitamin B-12) 500 mcg tablet 500 mcg PO DAILY RF: 0 nitroglycerin 0.4 mg tablet, sublingual 0.4 mg SL DIRECTED PRN (Reason: Chest Pain) RF: 0 timolol maleate 0.5 % drops 1 drops OPR BID RF: 0 multivitamin capsule 1 cap PO DAILY RF: 0 peg [id number] [Artificial Tears([id number])] 1-0.2-0.2 % drops 1 drops ophthalmic (eye) DAILY RF: 0 lactobacillus combination no.9 [Adult 50 Plus Probiotic] 4 billion cell capsule 4,000 mmu cells PO DAILY RF: 0 atorvastatin [Lipitor] 40 mg tablet 40 mg PO DAILY Qty: 90 RF: 1 cholecalciferol (vitamin D3) 125 mcg (5,000 unit) capsule 5,000 units PO DAILY Qty: 90 RF: 12 carbidopa-levodopa [Sinemet] 25-100 mg tablet 1.5 tab PO QID 90 Days Qty: 540 RF: 1 furosemide [Lasix] 40 mg tablet 40 mg PO DAILY Qty: 180 RF: 1 levothyroxine [Synthroid] 25 mcg tablet 25 mcg PO DAILY Qty: 90 RF: 1 alfuzosin 10 mg tablet extended release 24 hr 10 mg PO DAILY Qty: 90 RF: 3 flecainide 100 mg tablet 100 mg PO Q12H Qty: 180 RF: 1 spironolactone 50 mg tablet 50 mg PO DAILY Qty: 90 RF: 1 sennosides-docusate sodium [Senna with Docusate Sodium] 8.6-50 mg Tablet 3 tab PO HS RF: 0 magnesium 250 mg Tablet 250 mg PO DAILY RF: 0 warfarin 1 mg tablet 0.5 mg PO DAILY RF: 0 trazodone 50 mg tablet 50 mg PO HS RF: 0 prochlorperazine maleate 10 mg tablet 10 mg PO Q6H PRN (Reason: Nausea And Vomiting) RF: 0 Pain Pump See Rx Instructions .ROUTE .COMPLEX RF: 0 mineral oil Oil 0 ml PO DAILY PRN (Reason: Constipation) RF: 0 Referrals Referrals: Giancarlo Dumont III, CRNP [Primary Care Provider] - Discharge Problem: Pneumonia Qualifiers: Pneumonia type: due to unspecified organism Laterality: right Lung location: lower lobe of lung Qualified Code(s): J18.9 - Pneumonia, unspecified organism Fever Qualifiers: Fever type: unspecified Qualified Code(s): R50.9 - Fever, unspecified
[2020-06-01 21:13] LABS: Hematocrit (blood only) 38.2 % (42-52); Hemoglobin 13.1 g/dL (14.0-18.0); Mean Corpuscular Hgb Conc 34.3 g/dL (32-36); Mean Corpuscular Volume 93.4 fL (80-100); RDW Coefficient of Variation 13.3 % (11.5-14.5); RDW Standard Deviation 45.3 fL (36.4-46.3); Red Blood Count 4.09 M/uL (4.7-6.1)
[2020-06-01 21:25] LABS: INR 2.7 (0.9-1.1); Partial Thromboplastin Ratio 1.4; Prothrombin Time 26.6 Seconds (9.0-12.0)
[2020-06-01 21:30] LABS: Appearance Urine Clear (Clear); Bilirubin Urine Negative (Negative); Blood Urine Negative (Negative); Color Urine Yellow; Glucose Urine UA Negative (Negative); Ketones Urine Negative (Negative); Leukocyte Esterase Urine Negative (Negative); Nitrite Urine Negative (Negative); Protein Urine Negative (Negative); Specific Gravity Urine 1.014 (1.000-1.030); Urobilinogen Urine Negative (Negative); pH Urine 6.5 (4.5-7.5)
[2020-06-01 21:32] LABS: Alanine Aminotransferase 6 U/L (12-78); Albumin Level 3.1 gm/dl (3.4-5.0); Aspartate Aminotransferase 26 U/L (15-37); BUN Creatinine Ratio 10.5 (10-20); Blood Urea Nitrogen 16 mg/dl (7-18); Calcium 9.8 mg/dl (8.5-10.1); Carbon Dioxide 31 mmol/L (21-32); Chloride 99 mmol/L (98-107); Creatinine Clr Calc Pharmacy 51.2 ml/min; Est GFR (African American) 53.1; Est GFR (Non-African American) 45.9; Glucose 115 mg/dl (70-99); Magnesium 1.3 mg/dl (1.8-2.4); Potassium 3.8 mmol/L (3.5-5.1); Sodium 135 mmol/L (136-145)
[2020-06-01 21:39] LABS: Albumin Globulin Ratio 0.8 (0.9-2); Alkaline Phosphatase 107 U/L (45-117); Bilirubin,Total 0.6 mg/dl (0.2-1); Globulin 3.7 gm/dl (2.5-4.0); Mean Platelet Volume 9.8 fL (7.4-10.4); Platelet Count 82 K/uL (130-400); Total Protein 6.8 gm/dl (6.4-8.2); Troponin I < 0.015 ng/ml (0-0.045)
[2020-06-01 21:40] LABS: Basophils # (auto) 0.02 K/uL (0-0.2); Basophils % (auto) 0.2 %; Eosinophils # (auto) 0.01 K/uL (0-0.5); Eosinophils % (auto) 0.1 %; Immature Granulocytes # (auto) 0.02 K/uL (0.00-0.02); Immature Granulocytes % (auto) 0.2 %; Lymphocytes # (auto) 0.53 K/uL (1.2-3.4); Lymphocytes % (auto) 5.5 %; Monocytes # (auto) 0.43 K/uL (0.11-0.59); Monocytes % (auto) 4.4 %; Neutrophils # (auto) 8.69 K/uL (1.4-6.5); Neutrophils % (auto) 89.6 %; Platelet Estimate Decreased (Normal)
[2020-06-01 21:58] LABS: Influenza A virus by PCR Negative (Negative); Influenza B virus by PCR Negative (Negative)
[2020-06-01] MEDS ORDERED: SODIUM CHLORIDE 0.9% 500 ML IV ONE (23:28)
[2020-06-01] MEDS ORDERED: cefTRIAXone SODIUM 1,000 MG/50 ML BAG IV STA (23:28)
[2020-06-02] MEDS: MAGNESIUM SULFATE / D5W 1 GM/100 ML BAG IV SCH ×2 (00:10→01:12)
[2020-06-02] MEDS ORDERED: AZTREONAM 1,000 MG in DEXTROSE 5% 100 ML IV STA (00:21)
[2020-06-02] MEDS ORDERED: VANCOMYCIN CONSULT ACTIVE PRN ×2 (00:21→02:01)
[2020-06-02] MEDS ORDERED: VANCOMYCIN HCL 2,000 MG in SODIUM CHLORIDE 0.9% 500 ML IV ONE (00:21)
[2020-06-02] MEDS ORDERED: ACETAMINOPHEN 325 MG TAB PO PRN (02:01)
[2020-06-02] MEDS ORDERED: POLYETHYLENE (MIRALAX) 17 GM PACK PO PRN (02:01)
[2020-06-02] MEDS ORDERED: MAGNESIUM HYDROXIDE SUSP 30 ML UDC PO PRN (02:01)
[2020-06-02] MEDS ORDERED: NITROGLYCERIN SL 0.4 MG/TAB TAB SL PRN (02:01)
[2020-06-02] MEDS ORDERED: ONDANSETRON INJ 2 MG/ML 2 ML VIAL IV PRN (02:01)
[2020-06-02] MEDS ORDERED: ALUMINUM/MAGNESIUM SUSP 30 ML UDC PO PRN (02:01)
[2020-06-02] MEDS ORDERED: PROCHLORPERAZINE MALEATE 10 MG TAB PO PRN (02:01)
--- NOTE | 2020-06-02 02:52 | History & Physical Report ---
Date of Service June 02, 2020 Assessment & Plan (1) Acute alteration in mental status: Confusion likely secondary to pneumonia with hypoxia, with aggravation of underlying Parkinson disease and dementia. Patient was COVID-19 negative and influenza A/B negative with testing while in the ED. Present on Admission?: Yes (2) Pneumonia: The patient initially received ceftriaxone IV from the ED. However, recommendation was given to them to start vancomycin IV and aztreonam IV due to likelihood of aspiration pneumonia. Duonebs every 4 hours while awake and every 2 hours when necessary. Nasal cannula 2 L oxygen titrate to keep pulse ox around 95% Present on Admission?: Yes (3) Hypomagnesemia: Magnesium was 1.3 upon admission, with creatinine 1.50. Patient received 2 g of mag sulfate IV, and will recheck in the a.m. Present on Admission?: Yes (4) Mild dementia: Predisposing to confusion with illness. No behavior disturbance. Present on Admission?: Yes (5) Gait disorder: May need PT OT consult by the time of discharge Present on Admission?: Yes (6) Chronic low back pain: Chronic low back pain/postlaminectomy syndrome- Managed with intrathecal pump Present on Admission?: Yes (7) Presence of intrathecal pump: Continue present pump Present on Admission?: Yes (8) Post laminectomy syndrome: See above Present on Admission?: Yes (9) Atrial fibrillation: Atrial fibrillation/hypertension/CHF-. Continue flecainide, furosemide, spironolactone and warfarin. Follow serial laboratories Present on Admission?: Yes (10) Parkinson disease: Continue carbidopa levodopa Present on Admission?: Yes (11) REM sleep behavior disorder: Continue usual meds including trazodone Present on Admission?: Yes Admission and Anticipated Discharge Date Admission Date: June 02, 2020 History of Present Illness Chief Complaint: The patient was brought to the emergency department via EMS due to confusion noted by his at home. Primary Care Provider: Giancarlo Dumont III, AALIYAH The patient is a 74-year-old male with a past medical history including edema of left upper extremity, mild dementia, gait disorder, pacemaker, sinus node dysfunction, chronic anticoagulation, hematuria, chronic low back pain, presence of intrathecal pump, postlaminectomy syndrome, CHF, atrial fibrillation, REM sleep behavior disorder, Parkinson disease, bilateral hearing loss, allergic rhinitis, anemia, CAD, BPH with LUTS/OBS, disc metabolic syndrome X, hypercholesterolemia, hypothyroidism, stage III chronic kidney disease, vitamin D deficiency, chronic venous insufficiency, thrombocytopenia and pancytopenia. The patient presents to the emergency department with generalized weakness of again about 1 week ago, with more difficulty ambulating over the past day. He is noted and intermittently productive cough, and shortness of breath. He denies any recent travels or sick exposures, including [facility] [employer] He has been taking his medications as directed, with the assistance of his , who is his primary hospice home care coordinator. In the emergency department, work-up included laboratories: Magnesium 1.3, platelets 82, INR 2.7, creatinine within normal range at 1.50. Patient was COVID-19 negative and influenza negative. Chest x-ray revealed pneumonia. His pulse ox was at its lowest 89% on room air, that improved with 2 L to 98% Allergies Allergy/AdvReac Type Severity Reaction Status Date / Time Penicillins Allergy Intermediate Hives Verified 06/01/20 22:29 doxycycline AdvReac Intermediate Vomiting Verified 06/01/20 22:29 ondansetron AdvReac Intermediate Gastrointestinal Verified 06/01/20 22:29 Upset Home Medications Home Medications Medication Instructions Recorded Confirmed Type acetaminophen 500 mg tablet 1,000 mg PO HS tab 04/25/18 06/01/20 History ascorbic acid (vitamin C) 1,000 mg 1,000 mg PO DAILY tab 04/25/18 06/01/20 History tablet cyanocobalamin (vitamin B-12) 500 500 mcg PO DAILY 04/25/18 06/01/20 History mcg tablet multivitamin 1 cap PO DAILY 04/25/18 06/01/20 History nitroglycerin 0.4 mg sublingual 0.4 mg SL DIRECTED PRN 04/25/18 06/01/20 History tablet peg 300-xhirmunncaal-fpzieyrp 1 1 drops OPHTHALMIC (EYE) DAILY 04/25/18 06/01/20 History %-0.2 %-0.2 % eye drops timolol maleate 0.5 % eye drops 1 drops OPR BID 04/25/18 06/01/20 History lactobacillus combination no.9 4 4,000 mmu cells PO DAILY 04/26/18 06/01/20 History billion cell capsule cholecalciferol (vitamin D3) 125 5,000 units PO DAILY #90 cap 09/11/19 06/01/20 Rx mcg (5,000 unit) capsule atorvastatin 40 mg tablet 40 mg PO DAILY #90 tab 04/09/20 06/01/20 Rx carbidopa 25 mg-levodopa 100 mg 1.5 tab PO QID 90 Days #540 tab 04/11/20 06/01/20 Rx tablet alfuzosin 10 mg tablet,extended 10 mg PO DAILY #90 tab 04/17/20 06/01/20 Rx release 24 hr flecainide 100 mg tablet 100 mg PO Q12H #180 tab 04/17/20 06/01/20 Rx furosemide 40 mg tablet 40 mg PO DAILY #180 tab 04/17/20 06/01/20 Rx levothyroxine 25 mcg tablet 25 mcg PO DAILY #90 tab 04/17/20 06/01/20 Rx spironolactone 50 mg tablet 50 mg PO DAILY #90 tab 04/17/20 06/01/20 Rx Pain Pump See Rx Instructions .ROUTE .COMPLEX 06/01/20 06/01/20 History magnesium 250 mg PO DAILY 06/01/20 06/01/20 History mineral oil 0 ml PO DAILY PRN 06/01/20 06/01/20 History prochlorperazine maleate 10 mg PO Q6H PRN 06/01/20 06/01/20 History sennosides-docusate sodium [Senna 3 tab PO HS 06/01/20 06/01/20 History with Docusate Sodium] trazodone 50 mg PO HS 06/01/20 06/01/20 History warfarin 0.5 mg PO DAILY 06/01/20 06/01/20 History Past Med/Surg History Medical History Anticoagulation adequate Chronic low back pain Hematuria Hiatal hernia Hypomagnesemia 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 Lumbar post-laminectomy syndrome Near syncope New onset atrial fibrillation Pancytopenia Presence of intrathecal pump Sinus node dysfunction Supratherapeutic INR Thrombocytopenia Urinary stream slowing Surgical History History of back surgery History of cholecystectomy History of hernia repair History of tonsillectomy S/P appendectomy S/P carpal tunnel release S/P hip replacement S/P wisdom tooth extraction Status post placement of cardiac pacemaker Family History Father Heart disease Diabetes Cardiac disorder Neck fracture Mother Heart disease Diabetes Myocardial infarction Sister Stroke Daughter Multiple sclerosis Denies family history of Ovarian cancer Prostate cancer Breast cancer Colorectal cancer Social History Smoking Status: Never smoker Hx Alcohol Use: No Hx Substance Use: No Preferred Language: Gambian Communication Ability: Effective Visual Impairment: Diminished Hearing Ability: Use of Hearing Aid Delivery Assistant Required: No Beliefs That Will Affect Care: None marital status: Current Living Situation: Spouse current occupational status: retired Feels Safe at Home: Yes Safety Concerns: Feels Safe At This Time Dental Care, Regularly: No Physical Activity Frequency: Does not Exercise Seatbelt Use: always Assistive Devices: Denture - Upper, Denture - Lower, Glasses, Hearing Aid - Left and Walker Review of Systems Review of Systems: The patient denies chest pain, palpitations, Sore throat, fevers, chills, sweats, nausea, vomiting, diarrhea , constipation, abdominal pain, pelvic pain, blood in urine or stool, dysuria, urinary frequency or urgency, loss of consciousness, rash, abnormal bruising or bleeding, focal weakness, numbness or tingling in arms or legs, generalized arthralgias or myalgias, neck pain, or night sweats. The review of systems is otherwise negative other than for that already noted above, and at least 10 systems have been reviewed. Physical Exam Physical Exam: The patient is awake, oriented 3, lethargic with fatigue, well developed and well nourished, normocephalic and atraumatic, lying in bed and in no acute distress. HEENT--PERRL, EOMI, mucous membranes and oropharynx dry. Neck--supple. No JVD. No bruits. Thyroid normal, trachea midline, no adenopathy. Heart--normal S1 and S2. No murmurs, rubs or gallops. Lungs--few coarse breath sounds no wheezes bilaterally. No respiratory distress, no accessory muscle use. Abdomen--normal bowel sounds and soft. Nontender. Nondistended. Obese Extremities--no cyanosis or clubbing. No edema. Dermatologic--normal skin turgor, normal color, no abnormal lymph nodes, no rash. Neurologic--cranial nerves II through XII grossly intact. Rheumatologic--limited exam Psychiatric--normal affect. Results & Data Results & Data ([facility]) Vital Signs (Past 12 Hours) Vital Signs Temp Pulse Pulse Resp BP BP Pulse Ox 06/02/20 02:02 97.7 F 68 16 159/65 H 98 06/02/20 01:35 68 21 134/67 95 06/02/20 00:46 66 22 132/64 95 06/01/20 23:41 95 06/01/20 23:33 93 06/01/20 23:32 65 18 124/60 89 L 06/01/20 22:44 97 06/01/20 21:55 74 16 107/58 L 94 06/01/20 21:00 75 116/60 93 06/01/20 20:50 81 131/69 94 06/01/20 20:45 99.0 F 76 20 131/69 91 Laboratory Results Laboratory Results WBC 9.70 K/uL (4.8-10.8) 06/01/20 20:55 RBC 4.09 M/uL (4.7-6.1) L 06/01/20 20:55 Hgb 13.1 g/dL (14.0-18.0) L 06/01/20 20:55 Hct 38.2 % (42-52) L 06/01/20 20:55 MCV 93.4 fL (80-100) 06/01/20 20:55 MCH 32.0 pg (25-34) 06/01/20 20:55 MCHC 34.3 g/dL (32-36) 06/01/20 20:55 RDW Std Deviation 45.3 fL (36.4-46.3) 06/01/20 20:55 RDW Coeff of Ese 13.3 % (11.5-14.5) 06/01/20 20:55 Plt Count 82 K/uL (130-400) L 06/01/20 20:55 MPV 9.8 fL (7.4-10.4) 06/01/20 20:55 Immature Gran % (Auto) 0.2 % 06/01/20 20:55 Neut % (Auto) 89.6 % 06/01/20 20:55 Lymph % (Auto) 5.5 % 06/01/20 20:55 [place] % (Auto) 4.4 % 06/01/20 20:55 Eos % (Auto) 0.1 % 06/01/20 20:55 Baso % (Auto) 0.2 % 06/01/20 20:55 Neut # (Auto) 8.69 K/uL (1.4-6.5) H 06/01/20 20:55 Lymph # (Auto) 0.53 K/uL (1.2-3.4) L 06/01/20 20:55 Winston # (Auto) 0.43 K/uL (0.11-0.59) 06/01/20 20:55 Eos # (Auto) 0.01 K/uL (0-0.5) 06/01/20 20:55 Baso # (Auto) 0.02 K/uL (0-0.2) 06/01/20 20:55 Immature Gran # (Auto) 0.02 K/uL (0.00-0.02) 06/01/20 20:55 Platelet Estimate Decreased (Normal) L 06/01/20 20:55 PT 26.6 Seconds (9.0-12.0) H 06/01/20 20:55 INR 2.7 (0.9-1.1) H 06/01/20 20:55 APTT 39.0 Seconds (21.0-31.0) H 06/01/20 20:55 PTT Ratio 1.4 06/01/20 20:55 Sodium 135 mmol/L (136-145) L 06/01/20 20:55 Potassium 3.8 mmol/L (3.5-5.1) 06/01/20 20:55 Chloride 99 mmol/L (98-107) 06/01/20 20:55 Carbon Dioxide 31 mmol/L (21-32) 06/01/20 20:55 Anion Gap 6.0 (3-11) 06/01/20 20:55 BUN 16 mg/dl (7-18) 06/01/20 20:55 Creatinine 1.50 mg/dl (0.6-1.4) H 06/01/20 20:55 Est Cr Clr Drug Dosing 51.2 ml/min 06/01/20 20:55 Est GFR ( Amer) 53.1 06/01/20 20:55 Est GFR (Non-Af Amer) 45.9 06/01/20 20:55 BUN/Creatinine Ratio 10.5 (10-20) 06/01/20 20:55 Glucose 115 mg/dl (70-99) H 06/01/20 20:55 POC Glucose 114 mg/dl (70-99) H 06/01/20 20:57 Lactate 1.3 mmol/L (0.4-2.0) 06/01/20 20:55 Calcium 9.8 mg/dl (8.5-10.1) 06/01/20 20:55 Magnesium 1.3 mg/dl (1.8-2.4) L 06/01/20 20:55 Total Bilirubin 0.6 mg/dl (0.2-1) 06/01/20 20:55 AST 26 U/L (15-37) 06/01/20 20:55 ALT 6 U/L (12-78) L 06/01/20 20:55 Alkaline Phosphatase 107 U/L (45-117) 06/01/20 20:55 Troponin I < 0.015 ng/ml (0-0.045) 06/01/20 20:55 Total Protein 6.8 gm/dl (6.4-8.2) 06/01/20 20:55 Albumin 3.1 gm/dl (3.4-5.0) L 06/01/20 20:55 Globulin 3.7 gm/dl (2.5-4.0) 06/01/20 20:55 Albumin/Globulin Ratio 0.8 (0.9-2) L 06/01/20 20:55 Procalcitonin 0.23 ng/ml (0-0.5) 06/01/20 20:55 Specimen Hemolysis 06/01/20 20:55 Urine Color Yellow 06/01/20 21:00 Urine Appearance Clear (Clear) 06/01/20 21:00 Urine pH 6.5 (4.5-7.5) 06/01/20 21:00 Ur Specific [place] 1.014 (1.000-1.030) 06/01/20 21:00 Urine Protein Negative (Negative) 06/01/20 21:00 Urine Glucose (UA) Negative (Negative) 06/01/20 21:00 Urine Ketones Negative (Negative) 06/01/20 21:00 Urine Blood Negative (Negative) 06/01/20 21:00 Urine Nitrite Negative (Negative) 06/01/20 21:00 Urine Bilirubin Negative (Negative) 06/01/20 21:00 Urine Urobilinogen Negative (Negative) 06/01/20 21:00 Ur Leukocyte Esterase Negative (Negative) 06/01/20 21:00 COVID-19 Eval Order Covid19 Done at [facility] 06/01/20 21:15 COVID-19 PCR NEGATIVE (Negative) 06/01/20 21:15 Influ A Molecular Assay Negative (Negative) 06/01/20 21:15 Influ B Molecular Assay Negative (Negative) 06/01/20 21:15 SARS-CoV-2, RNA, NAAT Cancelled 06/01/20 21:15 Diagnostic Findings [facility] Patient: JAIDA MICHEL (Male) : 49 Status: ER Date: 06/01/20 21:49 Room #: History: ALTERED MS Slices: 65 Priors: Tech: Evangelist Bonilla @ [phone] Exams: CT HEAD Contrast: Accession Numbers: [id number] Preliminary Findings Only See Final Report For Complete Findings CT HEAD: Comparison is made to CT head on 03/16/2019. No acute intracranial abnormality identified. Stable mild chronic small vessel ischemic disease and cerebral volume loss. Bilateral lens implants. Mild mucosal thickening in the right maxillary sinus with hyperostosis of the sinus wall, suggesting chronic sinusitis. Postsurgical changes of the right paranasal sinuses. Atherosclerotic ossifications in the intracranial vasculature. Radiologist: Guy Cha M.D. Study ready at 21:54 and initial results transmitted at 22:04 *This report constitutes a preliminary interpretation only. Non-acute findings felt to be unrelated to the clinical presentation may not be discussed in this report. The study will be interpreted and a final report will be generated by the local Radiologist the following shift. To reach the hospital radiology department call [phone]. If a discrepancy is found between the preliminary and final interpretations of this study, please notify us via our Client Portal at [email or web address] under QA Exams.You can also fax this report with a description of the discrepancy, or include the final report, to our daytime fax number [phone].If faxing, please indicate the severity of discrepancy using one of the following categories: [ ] 1 - Agree/Informational [ ] 2 - Unlikely to Affect Management [ ] 3 - Possible Eventual Change of Management [ ] 4 - Probable Immediate Change of Management For all other patient related information, please fax us at [phone]. [id number] Code Status & VTE Plan Code Status Full code VTE Prophylaxis Plan VTE Prophylaxis will be ordered: Yes PG Care Time/CCT Total # of Minutes Spent Total Time Spent with Patient: Total time spent is greater than 50% in coordination of care (as documented) at patient's floor/unit and/or counseling patient: Coding Level of Care Code 66024 Initial Inpt Care Lvl 3 Diagnoses Acute alteration in mental status R41.82 Pneumonia J18.9 Laterality: right Lung location: lower lobe of lung Pneumonia type: due to unspecified organism Hypomagnesemia E83.42 Mild dementia F03.90 Gait disorder R26.9 Chronic low back pain M54.5; G89.29 Presence of intrathecal pump Z96.89 Post laminectomy syndrome M96.1 Atrial fibrillation I48.91 Parkinson disease G20 REM sleep behavior disorder G47.52 (1) Pneumonia Laterality: right Lung location: lower lobe of lung Pneumonia type: due to unspecified organism Qualified Code(s): J18.9 - Pneumonia, unspecified organism
[2020-06-02] MEDS: TIMOLOL MALEATE 0.25% OP SOLN 5 ML BTL OPR SCH ×3 (02:58→21:01)
[2020-06-02 05:42] LABS: INR 2.5 (0.9-1.1); Prothrombin Time 25.4 Seconds (9.0-12.0)
[2020-06-02] MEDS: LEVOTHYROXINE SODIUM 25 MCG TABLET PO SCH (06:10)
[2020-06-02] MEDS: ALBUT/IPRATROP 3MG/0.5MG NEB 3 ML VIAL NEB SCH ×4 (07:15→19:08)
--- NOTE | 2020-06-02 07:19 | CT Scan Report ---
CT head/brain wo con CLINICAL HISTORY: Acute change in mental status COMPARISON STUDY: March 16, 2019 TECHNIQUE: Axial CT of the brain is performed from the vertex to the skull base. IV contrast was not administered for this examination. A dose lowering technique was utilized adhering to the principles of ALARA. CT DOSE: 884.08 mGy.cm FINDINGS: No intra or extra-axial mass lesions are visualized. There is no CT evidence of acute cortical infarc tion. There is no evidence of midline shift. There is no acute hemorrhage. No calvarial fractures ar e visualized. There are patchy white matter hypodensities likely on a small vessel basis. There is no evidence of pathologic ventricular dilatation. There is right maxillary sinus mucosal thickening. Postsurgical changes are present within the parana ivan sinuses. IMPRESSION: No acute intracranial findings ACT 112: Negative or not required by law. Electronically signed by: Bhupendra Hess M.D. 06/02/2020 7:18 AM
[2020-06-02] MEDS: AZTREONAM 2,000 MG in DEXTROSE 5% 100 ML IV SCH ×2 (07:34→16:58)
--- NOTE | 2020-06-02 08:04 | XRay Report ---
XR chest 1V portable CLINICAL HISTORY: SEPSIS COMPARISON STUDY: 10/18/2019 FINDINGS: The heart is normal in size. There is a left subclavian dual-chamber central venous pacemak er. There is no failure. There is no lobar consolidation. There are bibasilar opacities likely atelec tatic, although an inflammatory process could potentially appear similar[ IMPRESSION: Bibasilar opacities, likely atelectatic. ACT 112: Negative or not required by law. Electronically signed by: Bhupendra Hess M.D. 06/02/2020 8:03 AM
[2020-06-02] MEDS: ATORVASTATIN 40 MG TAB PO SCH (08:56)
[2020-06-02] MEDS: SPIRONOLACTONE 25 MG TAB PO SCH (08:57)
[2020-06-02] MEDS: CARBIDOPA/LEVODOPA 25/100MG TAB PO SCH ×4 (08:58→21:00)
[2020-06-02] MEDS: MAGNESIUM OXIDE 400 MG TAB PO SCH (08:58)
[2020-06-02] MEDS: FUROSEMIDE 40 MG TAB PO SCH (08:59)
[2020-06-02] MEDS: MULTIVITAMIN TAB PO SCH (08:59)
[2020-06-02] MEDS ORDERED: VANCOMYCIN HCL 1,000 MG in SODIUM CHLORIDE 0.9% 250 ML IV SCH (09:00)
[2020-06-02] MEDS: ARTIFICIAL TEARS OP SCH (09:00)
[2020-06-02] MEDS: CYANOCOBALAMIN 500 MCG TABLET (VITAMIN B-12) PO SCH (09:01)
[2020-06-02] MEDS: ADVANCED PROBIOTIC 1250 MG CAPSULE PO SCH (09:01)
[2020-06-02] MEDS: CHOLECALCIFEROL 1,000 UNITS 25 MCG TAB PO SCH (09:02)
[2020-06-02] MEDS: ASCORBIC ACID 500 MG TAB PO SCH (09:02)
[2020-06-02] MEDS: FLECAINIDE ACETATE 100 MG TABLET PO SCH ×2 (09:06→21:00)
--- NOTE | 2020-06-02 10:36 | Electrocardiogram Report ---
Test Reason : Blood Pressure : / mmHG Vent. Rate : 083 BPM Atrial Rate : 085 BPM P-R Int : 000 ms QRS Dur : 172 ms QT Int : 422 ms P-R-T Axes : 000 -56 067 degrees QTc Int : 495 ms Poor data quality Sequential atrial-ventricular pacing Left bundle branch block Abnormal ECG When compared with ECG of 18-OCT-2019 08:25, No significant change was found Confirmed by Ted Dent ([id number]) on 06/02/2020 10:36:16 AM Referred By: REFERRED SELF Confirmed By:Ted Dent
--- NOTE | 2020-06-02 10:47 | Pharmacy Report ---
Pharmacy Abx Initial Consult - Date of Service June 02, 2020 - Pharmacy Dosing Scope Date of Consult: 06/01/20 Consultation requested by: Dr. Mei Pharmacy is consulted to initiate vancomycin IV dosing therapy, order appropriate labs and adjust drug dose/frequency. - Subjective The patient is a 74 year old M admitted on 06/02/20 01:02. - Objective Height: 5 ft 7 in Weight: 99.8 kg Vital Signs (Past 12hrs): Vital Signs Temp Pulse Pulse Pulse Resp BP Pulse Ox 06/02/20 09:05 60 120/67 06/02/20 07:41 36.4 C L 60 16 132/73 99 06/02/20 07:15 60 17 98 06/02/20 06:33 16 98 06/02/20 06:20 16 98 06/02/20 05:36 16 98 06/02/20 05:11 16 98 06/02/20 04:30 16 98 06/02/20 04:26 16 98 06/02/20 02:02 36.5 C 68 16 159/65 H 98 06/02/20 01:50 36.5 C 68 16 159/65 H 98 06/02/20 01:35 68 21 134/67 95 06/02/20 00:46 66 22 132/64 95 06/01/20 23:41 95 06/01/20 23:33 93 06/01/20 23:32 65 18 124/60 89 L 06/01/20 22:44 97 Lab Results (24hrs): Laboratory Tests (24 Hours) 06/01/20 06/01/20 06/01/20 20:55 20:55 20:55 WBC 9.70 Neut # (Auto) 8.69 H Creatinine 1.50 H Est Cr Clr Drug Dosing 51.2 Procalcitonin 0.23 Micro Results: 06/01/20 21:00 Aerobic Blood Culture - Pending Blood Anaerobic Blood Culture - Pending 06/01/20 20:55 Aerobic Blood Culture - Pending Blood Anaerobic Blood Culture - Pending - Assessment & Plan Assessment * 74 year old M admitted to [facility] for confusion secondary to aspiration pneumonia. * COVID negative. Flu A/B negative as well. * WBCs 9.7 upon admission. Patient is afebrile. * SCr = 1.5 which has been patient's baseline for about the past two years. * Placed on Vanc + Azactam. * Blood cultures obtained and pending. Plan Vancomycin IV * Estimated PK Parameters: Vd 0.65 L/kg, Dionicio 0.043 hr-1, t1/2 16 hr * Loading dose: 2000 mg (20 mg/kg) * Maintenance dose: 1000 mg IV (10 mg/kg) every 18 hours * Goal trough level: 15 to 20 mcg/mL * Trough ordered for 06/04 @0530 * A less than traditional dose and/or extended dosing interval has/have been selected due to likelihood of drug accumulation in obese patient Pharmacy will continue to follow and will adjust dose/frequency as necessary. Thank you.
--- NOTE | 2020-06-02 13:44 | Hospitalist Progress Note ---
Date of Service June 02, 2020 Assessment & Plan (1) Acute alteration in mental status: Resolved Confusion likely secondary to pneumonia with hypoxia, with aggravation of underlying Parkinson disease and dementia. Patient was COVID-19 negative and influenza A/B negative with testing while in the ED. (2) Pneumonia: Continue vancomycin IV and aztreonam IV for aspiration pneumonia. BC growing gram positive cocci x1 vial Duonebs every 4 hours while awake and every 2 hours when necessary Supplemental O2 as necessary (3) Hypomagnesemia: Magnesium was 1.3 upon admission - given 2g Recheck am (4) Mild dementia: Predisposing to confusion with illness. No behavior disturbance. (5) Gait disorder: PT/OT evals (6) Chronic low back pain: Chronic low back pain/postlaminectomy syndrome- Managed with intrathecal pump (7) Presence of intrathecal pump: Continue present pump (8) Post laminectomy syndrome: See above (9) Atrial fibrillation: Atrial fibrillation/hypertension/CHF-. Continue flecainide, furosemide, spironolactone and warfarin. INR therapeutic (10) Parkinson disease: Continue carbidopa levodopa (11) REM sleep behavior disorder: Continue usual meds including trazodone (12) Thrombocytopenia: Platelets 82,000, chronic (13) DVT prophylaxis: SCDs - hold chemoprophylaxis for thrombocytopenia Admission and Anticipated Discharge Date Admission Date: June 02, 2020 Subjective Mr. Mitchell is feeling better than admission, is awake and alert, appropriate. ROS Constitutional: no chills, aches, sweats or fever Respiratory: no sob,cough, sputum, or wheezing Cardiac: no chest pain, palpitations, edema, orthopnea or lightheadedness GI: no abdominal pain, nausea, vomiting, diarrhea or constipation : no dysuria or hesitancy Extremities: no joint pain or weakness Skin: no rash All other systems reviewed and negative Physical Exam Physical Exam: General: no distress Eyes: normal inspection, PERLL Respiratory: chest non tender, clear to auscultation, normal breath sounds, no respiratory distress, no accessory muscle use Cardiac: regular rate and rhythm, no rub or gallop, no murmur, no edema, no jvd GI/: active bowel sounds, no abd pain or tenderness, soft, non distended Extremities: normal range of motion, normal strength, non tender Neuro/Psych: alert and oriented x 3, normal mood and affect Skin: normal color, dry Results & Data Results & Data ([facility]) Vital Signs (Past 12 Hours) Vital Signs Temp Pulse Pulse Pulse Resp BP Pulse Ox 06/02/20 11:23 61 18 98 06/02/20 09:05 60 120/67 06/02/20 07:41 36.4 C L 60 16 132/73 99 06/02/20 07:15 60 17 98 06/02/20 06:33 16 98 06/02/20 06:20 16 98 06/02/20 05:36 16 98 06/02/20 05:11 16 98 06/02/20 04:30 16 98 06/02/20 04:26 16 98 06/02/20 02:02 36.5 C 68 16 159/65 H 98 06/02/20 01:50 36.5 C 68 16 159/65 H 98 PG Care Time/CCT Total # of Minutes Spent Total Time Spent with Patient: Total time spent is greater than 50% in coordination of care (as documented) at patient's floor/unit and/or counseling patient: Coding Level of Care Code 48689 Subseq Hosp Care Lvl 3 Diagnoses Acute alteration in mental status R41.82 Pneumonia J18.9 Laterality: right Lung location: lower lobe of lung Pneumonia type: due to unspecified organism Hypomagnesemia E83.42 Mild dementia F03.90 Gait disorder R26.9 Chronic low back pain M54.5; G89.29 Presence of intrathecal pump Z96.89 Post laminectomy syndrome M96.1 Atrial fibrillation I48.91 Parkinson disease G20 REM sleep behavior disorder G47.52 Thrombocytopenia D69.6 DVT prophylaxis Z29.9 (1) Pneumonia Laterality: right Lung location: lower lobe of lung Pneumonia type: due to unspecified organism Qualified Code(s): J18.9 - Pneumonia, unspecified organism
[2020-06-02] MEDS: WARFARIN SOD 0.5 MG TAB PO SCH (16:55)
[2020-06-02] MEDS: VANCOMYCIN HCL 1,000 MG in SODIUM CHLORIDE 0.9% 250 ML IV SCH (18:17)
[2020-06-02] MEDS: DOCUSATE SODIUM/SENNA 50/8.6MG TAB PO SCH (20:59)
[2020-06-02] MEDS: ACETAMINOPHEN 500 MG TAB PO SCH (21:00)
[2020-06-02] MEDS: ALFUZOSIN HCL 10 MG TAB PO SCH (21:00)
[2020-06-02] MEDS: traZODone HCL 50 MG TAB PO SCH (21:00)
[2020-06-03] MEDS: AZTREONAM 2,000 MG in DEXTROSE 5% 100 ML IV SCH ×3 (00:05→16:32)
[2020-06-03] MEDS: LEVOTHYROXINE SODIUM 25 MCG TABLET PO SCH (05:38)
[2020-06-03] MEDS: ALBUT/IPRATROP 3MG/0.5MG NEB 3 ML VIAL NEB SCH ×2 (07:12→11:03)
[2020-06-03 08:37] LABS: Hematocrit (blood only) 35.2 % (42-52); Hemoglobin 11.6 g/dL (14.0-18.0); Mean Corpuscular Hemoglobin 31.6 pg (25-34); Mean Corpuscular Volume 95.9 fL (80-100); RDW Coefficient of Variation 13.7 % (11.5-14.5); RDW Standard Deviation 48.2 fL (36.4-46.3); Red Blood Count 3.67 M/uL (4.7-6.1); White Blood Count 4.89 K/uL (4.8-10.8)
[2020-06-03 08:45] LABS: Mean Platelet Volume 9.9 fL (7.4-10.4); Platelet Count 84 K/uL (130-400)
[2020-06-03 08:54] LABS: INR 2.6 (0.9-1.1); Partial Thromboplastin Ratio 1.6; Prothrombin Time 25.9 Seconds (9.0-12.0)
[2020-06-03 09:00] LABS: Eosinophils # (auto) 0.09 K/uL (0-0.5); Eosinophils % (auto) 1.8 %; Immature Granulocytes # (auto) 0.01 K/uL (0.00-0.02); Immature Granulocytes % (auto) 0.2 %; Lymphocytes # (auto) 0.84 K/uL (1.2-3.4); Lymphocytes % (auto) 17.2 %; Monocytes # (auto) 0.36 K/uL (0.11-0.59); Monocytes % (auto) 7.4 %; Neutrophils # (auto) 3.59 K/uL (1.4-6.5); Neutrophils % (auto) 73.4 %
[2020-06-03 09:04] LABS: Albumin Level 2.7 gm/dl (3.4-5.0); BUN Creatinine Ratio 12.9 (10-20); Calcium 9.7 mg/dl (8.5-10.1); Creatinine Clr Calc Pharmacy 64.2 ml/min; Est GFR (African American) 71.8; Est GFR (Non-African American) 61.9; Magnesium 1.9 mg/dl (1.8-2.4)
[2020-06-03 09:07] LABS: Albumin Globulin Ratio 0.8 (0.9-2); Bilirubin,Total 0.5 mg/dl (0.2-1); Globulin 3.3 gm/dl (2.5-4.0)
[2020-06-03 09:22] LABS: Partial Thromboplastin Time 45.3 Seconds (21.0-31.0)
--- NOTE | 2020-06-03 09:44 | Hospitalist Progress Note ---
Date of Service June 03, 2020 Assessment & Plan (1) Pneumonia: * On CXR on admission -- concerns for aspiration pneumonia * BC growing gram positive cocci in clusters 1/2 and other set with coag neg staph not ludg --> follow * Repeat BCx * Continue vancomycin IV and aztreonam IV for aspiration pneumonia. * Duonebs every 4 hours while awake and every 2 hours when necessary * Supplemental O2 as necessary -- no longer requiring supplemental oxygen --> 94% on RA * Speech consulted -- slippery minced/moist. avoid all soft bread. add extra liquids/gravy/broth to make food more slippery. Aspiration precautions/reflux precautions. HOB 30 degrees at ALL times (2) Bacteremia: * As above * Repeat BCx pending * ECHO without evidence of vegetation (3) Acute alteration in mental status: * Metabolic encephalopathy secondary to pneumonia/WILFRID --> resolving * Confusion likely secondary to pneumonia with hypoxia, with aggravation of underlying Parkinson disease and dementia. * Patient was COVID-19 negative and influenza A/B negative with testing while in the ED. (4) Hypomagnesemia: * Magnesium was 1.3 upon admission - given 2g * Resolved -- mag 1.9 (5) Mild dementia: * Predisposing to confusion with illness. * No behavior disturbance. (6) Gait disorder: * PT/OT evals (7) Chronic low back pain: * Chronic low back pain/postlaminectomy syndrome- * Managed with intrathecal pump (8) Presence of intrathecal pump: Continue present pump (9) Post laminectomy syndrome: See above (10) Atrial fibrillation: * Atrial fibrillation/hypertension/CHF- in regular rhythm on examination. Consider consulting Dr. Vides if any issues w/ pacemaker/cardiac symptoms * Continue flecainide, furosemide, spironolactone and warfarin. * INR therapeutic, INR 2.6 (11) Parkinson disease: * Continue carbidopa levodopa (12) REM sleep behavior disorder: * Continue usual meds including trazodone (13) Thrombocytopenia: * Platelets 81,000, chronic (14) DVT prophylaxis: * SCDs * Warfarin Admission and Anticipated Discharge Date Admission Date: June 02, 2020 Supervising Physician Co-Signing Physician Notes HUGH Supervision Note: I did not personally see or examine the patient today, but I verified all higgins points of HUGH Patel's assessment and plan with the following exceptions/additions: None Subjective Patient evaluated this morning with at bedside. Feeling much better. Shortness of breath/cough improved. No sputum production. Discussed blood cultures and repeating to determine length of treatment. Patient with artificial hip approx 10 year ago, but did have a pacemaker placed earlier this year by Dr. Vides (was to have appt today) for sinus node dysfunction as his pulse kept dipping into the 30-40s and hasn't had symptoms since that time. Will repeat ECHO to ensure no IE. Denies fever, chills, chest pain, shortness of breath, abd pain, n/v/d/c at this time. Dr. Wilson arriving for social visit on my way out the door. Questions/concerns addressed at this time. Review of Systems Review of Systems: All systems reviewed & are unremarkable except as noted in HPI & below Physical Exam Constitutional: WD/WN, vitals as above no acute distress Eyes: + anicteric sclerae and PERRL Neck: trachea midline, no thyromegaly Respiratory: normal respiratory effort, lungs clear to auscultation Cardiovascular: Rate/Rhythm: regular rate and regular rhythm Heart Sounds: + murmur Vessels: no JVD Extremities: no edema Chest (Breasts): Additional Comments: L pacemaker Gastrointestinal (Abdomen): normal bowel sounds, soft, nontender, no hepatosplenomegaly Skin: warm, dry Neurologic: PERRL, EOMI, accommodation nl, no face palsy, no dysarthria Psychiatric: Orientation: alert and oriented x 3 Lymphatic: no cervical or axillary lymphadenopathy Results & Data Results & Data ([facility]) Vital Signs (Past 12 Hours) Vital Signs Temp Pulse Resp BP Pulse Ox 06/03/20 07:39 36.8 C 60 18 120/73 93 06/03/20 07:12 60 17 94 06/03/20 00:00 36.5 C 60 14 127/74 95 Laboratory Results 06/03/20 06/03/20 06/03/20 Range/Units 07:37 07:37 07:37 WBC 4.89 (4.8-10.8) K/uL RBC 3.67 L (4.7-6.1) M/uL Hgb 11.6 L (14.0-18.0) g/dL Hct 35.2 L (42-52) % MCV 95.9 (80-100) fL MCH 31.6 (25-34) pg MCHC 33.0 (32-36) g/dL RDW Std Deviation 48.2 H (36.4-46.3) fL RDW Coeff of Ese 13.7 (11.5-14.5) % Plt Count 84 L (130-400) K/uL MPV 9.9 (7.4-10.4) fL Immature Gran % (Auto) 0.2 % Neut % (Auto) 73.4 % Lymph % (Auto) 17.2 % [place] % (Auto) 7.4 % Eos % (Auto) 1.8 % Baso % (Auto) 0.0 % Neut # (Auto) 3.59 (1.4-6.5) K/uL Lymph # (Auto) 0.84 L (1.2-3.4) K/uL [place] # (Auto) 0.36 (0.11-0.59) K/uL Eos # (Auto) 0.09 (0-0.5) K/uL Baso # (Auto) 0.00 (0-0.2) K/uL Immature Gran # (Auto) 0.01 (0.00-0.02) K/uL PT 25.9 H (9.0-12.0) Seconds INR 2.6 H (0.9-1.1) APTT 45.3 H* (21.0-31.0) Seconds PTT Ratio 1.6 Sodium 138 (136-145) mmol/L Potassium 4.0 (3.5-5.1) mmol/L Chloride 102 (98-107) mmol/L Carbon Dioxide 33 H (21-32) mmol/L Anion Gap 3.0 (3-11) BUN 15 (7-18) mg/dl Creatinine 1.17 D (0.6-1.4) mg/dl Est Cr Clr Drug Dosing 64.2 ml/min Est GFR ( Amer) 71.8 Est GFR (Non-Af Amer) 61.9 BUN/Creatinine Ratio 12.9 (10-20) Glucose 79 (70-99) mg/dl Calcium 9.7 (8.5-10.1) mg/dl Magnesium 1.9 (1.8-2.4) mg/dl Total Bilirubin 0.5 (0.2-1) mg/dl AST 16 (15-37) U/L ALT 7 L (12-78) U/L Alkaline Phosphatase 87 (45-117) U/L Total Protein 6.0 L (6.4-8.2) gm/dl Albumin 2.7 L (3.4-5.0) gm/dl Globulin 3.3 (2.5-4.0) gm/dl Albumin/Globulin Ratio 0.8 L (0.9-2) PG Care Time/CCT Total # of Minutes Spent Total Time Spent with Patient: Total time spent is greater than 50% in coordination of care (as documented) at patient's floor/unit and/or counseling patient: Coding Level of Care Code 78619 Subseq Hosp Care Lvl 2 Diagnoses Pneumonia J18.9 Laterality: right Lung location: lower lobe of lung Pneumonia type: due to unspecified organism Bacteremia R78.81 Acute alteration in mental status R41.82 Hypomagnesemia E83.42 Mild dementia F03.90 Gait disorder R26.9 Chronic low back pain M54.5; G89.29 Presence of intrathecal pump Z96.89 Post laminectomy syndrome M96.1 Atrial fibrillation I48.91 Parkinson disease G20 REM sleep behavior disorder G47.52 Thrombocytopenia D69.6 DVT prophylaxis Z29.9 (1) Pneumonia Laterality: right Lung location: lower lobe of lung Pneumonia type: due to unspecified organism Qualified Code(s): J18.9 - Pneumonia, unspecified organism
[2020-06-03] MEDS: ATORVASTATIN 40 MG TAB PO SCH (10:45)
[2020-06-03] MEDS: MAGNESIUM OXIDE 400 MG TAB PO SCH (10:45)
[2020-06-03] MEDS: CYANOCOBALAMIN 500 MCG TABLET (VITAMIN B-12) PO SCH (10:45)
[2020-06-03] MEDS: FUROSEMIDE 40 MG TAB PO SCH (10:45)
[2020-06-03] MEDS: ASCORBIC ACID 500 MG TAB PO SCH (10:45)
[2020-06-03] MEDS: ADVANCED PROBIOTIC 1250 MG CAPSULE PO SCH (10:46)
[2020-06-03] MEDS: CHOLECALCIFEROL 1,000 UNITS 25 MCG TAB PO SCH (10:46)
[2020-06-03] MEDS: FLECAINIDE ACETATE 100 MG TABLET PO SCH ×2 (10:46→20:33)
[2020-06-03] MEDS: SPIRONOLACTONE 25 MG TAB PO SCH (10:46)
[2020-06-03] MEDS: MULTIVITAMIN TAB PO SCH (10:46)
[2020-06-03] MEDS: ARTIFICIAL TEARS OP SCH (10:47)
[2020-06-03] MEDS: CARBIDOPA/LEVODOPA 25/100MG TAB PO SCH ×4 (10:47→20:33)
[2020-06-03] MEDS: TIMOLOL MALEATE 0.25% OP SOLN 5 ML BTL OPR SCH ×2 (10:48→20:34)
[2020-06-03] MEDS ORDERED: ALBUT/IPRATROP 3MG/0.5MG NEB 3 ML VIAL NEB PRN (11:34)
[2020-06-03] MEDS: VANCOMYCIN HCL 1,000 MG in SODIUM CHLORIDE 0.9% 250 ML IV SCH (12:20)
[2020-06-03] MEDS ORDERED: PERFLUTREN LIPID MICROSPHERE (DEFINITY) IV ONE (13:36)
--- NOTE | 2020-06-03 16:06 | XCELERA ---
[id number]
[2020-06-03] MEDS: WARFARIN SOD 0.5 MG TAB PO SCH (16:31)
[2020-06-03] MEDS: DOCUSATE SODIUM/SENNA 50/8.6MG TAB PO SCH (20:33)
[2020-06-03] MEDS: traZODone HCL 50 MG TAB PO SCH (20:33)
[2020-06-03] MEDS: ALFUZOSIN HCL 10 MG TAB PO SCH (20:33)
[2020-06-03] MEDS: ACETAMINOPHEN 500 MG TAB PO SCH (20:33)
[2020-06-04] MEDS: AZTREONAM 2,000 MG in DEXTROSE 5% 100 ML IV SCH ×4 (00:10→23:21)
[2020-06-04] MEDS: VANCOMYCIN HCL 1,000 MG in SODIUM CHLORIDE 0.9% 250 ML IV SCH ×3 (00:10→23:21)
[2020-06-04] MEDS: LEVOTHYROXINE SODIUM 25 MCG TABLET PO SCH (05:10)
[2020-06-04] MEDS ORDERED: VANCOMYCIN TROUGH ONE ×2 (05:30→11:30)
[2020-06-04 07:02] LABS: Hematocrit (blood only) 33.9 % (42-52); Hemoglobin 11.1 g/dL (14.0-18.0); Mean Corpuscular Hemoglobin 31.1 pg (25-34); Mean Corpuscular Hgb Conc 32.7 g/dL (32-36); RDW Coefficient of Variation 13.5 % (11.5-14.5); RDW Standard Deviation 47.2 fL (36.4-46.3); Red Blood Count 3.57 M/uL (4.7-6.1); White Blood Count 3.82 K/uL (4.8-10.8)
[2020-06-04 07:12] LABS: INR 1.9 (0.9-1.1); Partial Thromboplastin Ratio 1.4; Prothrombin Time 19.5 Seconds (9.0-12.0)
[2020-06-04 07:28] LABS: Albumin Level 2.5 gm/dl (3.4-5.0); BUN Creatinine Ratio 13.5 (10-20); Basophils # (auto) 0.02 K/uL (0-0.2); Basophils % (auto) 0.5 %; Creatinine Clr Calc Pharmacy 61.6 ml/min; Eosinophils # (auto) 0.08 K/uL (0-0.5); Eosinophils % (auto) 2.1 %; Est GFR (African American) 68.2; Est GFR (Non-African American) 58.9; Immature Granulocytes # (auto) 0.01 K/uL (0.00-0.02); Immature Granulocytes % (auto) 0.3 %; Lymphocytes # (auto) 0.84 K/uL (1.2-3.4); Magnesium 1.9 mg/dl (1.8-2.4); Mean Platelet Volume 9.4 fL (7.4-10.4); Monocytes # (auto) 0.31 K/uL (0.11-0.59); Monocytes % (auto) 8.1 %; Neutrophils # (auto) 2.56 K/uL (1.4-6.5); Platelet Count 83 K/uL (130-400); Potassium 4.2 mmol/L (3.5-5.1)
[2020-06-04 07:31] LABS: Albumin Globulin Ratio 0.7 (0.9-2); Bilirubin,Total 0.5 mg/dl (0.2-1); Globulin 3.4 gm/dl (2.5-4.0); Total Protein 5.9 gm/dl (6.4-8.2)
[2020-06-04] MEDS: ARTIFICIAL TEARS OP SCH (08:35)
[2020-06-04] MEDS: CARBIDOPA/LEVODOPA 25/100MG TAB PO SCH ×4 (08:35→20:05)
[2020-06-04] MEDS: FLECAINIDE ACETATE 100 MG TABLET PO SCH ×2 (08:35→20:04)
[2020-06-04] MEDS: ASCORBIC ACID 500 MG TAB PO SCH (08:36)
[2020-06-04] MEDS: CHOLECALCIFEROL 1,000 UNITS 25 MCG TAB PO SCH (08:36)
[2020-06-04] MEDS: ATORVASTATIN 40 MG TAB PO SCH (08:36)
[2020-06-04] MEDS: MAGNESIUM OXIDE 400 MG TAB PO SCH (08:36)
[2020-06-04] MEDS: SPIRONOLACTONE 25 MG TAB PO SCH (08:36)
[2020-06-04] MEDS: CYANOCOBALAMIN 500 MCG TABLET (VITAMIN B-12) PO SCH (08:37)
[2020-06-04] MEDS: MULTIVITAMIN TAB PO SCH (08:37)
[2020-06-04] MEDS: FUROSEMIDE 40 MG TAB PO SCH (08:37)
[2020-06-04] MEDS: TIMOLOL MALEATE 0.25% OP SOLN 5 ML BTL OPR SCH ×2 (08:37→20:06)
[2020-06-04] MEDS: ADVANCED PROBIOTIC 1250 MG CAPSULE PO SCH (08:37)
--- NOTE | 2020-06-04 12:55 | Pharmacy Report ---
Pharmacy Abx Dose Short Note - Date of Service June 04, 2020 - Assessment & Plan Assessment 74 year old M receiving vancomycin for bacteremia Day # 3 of antimicrobial therapy. Plan Vancomycin * Trough level came back therapeutic at ~19 mcg/ml (goal 15-20 mcg/ml for bacteremia) * Plan to continue same vancomycin dosing for now, renal function remains stable * Repeat blood cultures are pending. Initial blood cultures with coag neg staph with sensitivities pending. Echo negative for vegetations * Patient remains afebrile, no leukocytosis noted. Will continue to follow Pharmacy will continue to follow and will adjust dose/frequency as necessary. Thank you.
--- NOTE | 2020-06-04 13:03 | Hospitalist Progress Note ---
Date of Service June 04, 2020 Assessment & Plan (1) Bacteremia: * Initially just 1/2 sets with gram + cocci --> now both with coag negative staph * Repeat from 06/03 without growth after 24 hours * No further fevers, WBC 3.8k * ECHO without evidence of vegetation * Also concerning of the presence of an intrathecal pain pump as well as a pacemaker * ID consulted -- appreciate recs * Continue IV vancomycin for now (2) Pneumonia: * On CXR on admission -- concerns for aspiration pneumonia * Continue vancomycin IV and aztreonam IV for aspiration pneumonia (on day 3 of treatment) * Duonebs changed to prn -- currently 94% on RA * Supplemental O2 as necessary -- no longer requiring supplemental oxygen --> 94% on RA * Speech consulted -- slippery minced/moist. avoid all soft bread. add extra liquids/gravy/broth to make food more slippery. Aspiration precautions/reflux precautions. HOB 30 degrees at ALL times * Repeat imaging in AM (3) Acute alteration in mental status: * Metabolic encephalopathy secondary to pneumonia/WILFRID --> RESOLVED, at baseline * Confusion likely secondary to pneumonia with hypoxia, with aggravation of underlying Parkinson disease and dementia. * Patient was COVID-19 negative and influenza A/B negative with testing while in the ED. (4) Hypomagnesemia: * Magnesium was 1.3 upon admission - given 2g * Resolved -- mag 1.9 (5) Mild dementia: * Predisposing to confusion with illness. * No behavior disturbance. (6) Gait disorder: * PT/OT evals -- almost to baseline and will return home at d/c (7) Chronic low back pain: * Chronic low back pain/postlaminectomy syndrome- * Managed with intrathecal pump (8) Presence of intrathecal pump: * Continue present pump (9) Post laminectomy syndrome: * See above (10) Atrial fibrillation: * Atrial fibrillation/hypertension/CHF- in regular rhythm on examination. Consider consulting Dr. Vides if any issues w/ pacemaker/cardiac symptoms * Continue flecainide, furosemide, spironolactone and warfarin. * INR 1.9 however will continue current 0.5mg daily warfarin given on abx and expect rise in AM (11) Parkinson disease: * Continue carbidopa levodopa (12) REM sleep behavior disorder: * Continue usual meds including trazodone (13) Thrombocytopenia: * Platelets 83,000, chronic (14) DVT prophylaxis: * SCDs * Warfarin -- INR 1.9 today Admission and Anticipated Discharge Date Admission Date: June 02, 2020 Supervising Physician Co-Signing Physician Notes HUGH Supervision Note: I did not personally see or examine the patient today, but I verified all higgins points of HUGH Patel's assessment and plan with the following exceptions/additions: None Subjective Patient evaluated this morning. Doing well. Worked with therapy. Eating/drinking without difficulty. Had BM. No fever, chills, chest pain, shortness of breath, abdominal pain, n/v or dysuria at this time. Discussed reaching out to ID for recommendations for continued abx/duration. Hopeful for discharge in next day or two, as soon as medically able. Review of Systems Review of Systems: All systems reviewed & are unremarkable except as noted in HPI & below Physical Exam Constitutional: WD/WN, vitals as above no acute distress Eyes: + anicteric sclerae and PERRL Neck: trachea midline, no thyromegaly Respiratory: normal respiratory effort, lungs clear to auscultation faint bibasilar crackles Cardiovascular: Rate/Rhythm: regular rate and regular rhythm Heart Sounds: + murmur Vessels: no JVD Extremities: no edema Gastrointestinal (Abdomen): normal bowel sounds, soft, nontender, no hepatosplenomegaly pain pump LLQ Musculoskeletal: no cyanosis or clubbing, extremities motor strength 5/5 Skin: warm, dry some flaking/dry skin to left hand no open wounds appreciated Neurologic: PERRL, EOMI, accommodation nl, no face palsy, no dysarthria Psychiatric: Orientation: alert and oriented x 3 Lymphatic: no cervical or axillary lymphadenopathy Results & Data Results & Data ([facility]) Vital Signs (Past 12 Hours) Vital Signs Temp Pulse Resp BP Pulse Ox 06/04/20 07:01 36.7 C 60 16 107/61 94 Laboratory Results 06/04/20 06/04/20 06/04/20 Range/Units 11:19 06:35 06:35 WBC (4.8-10.8) K/uL RBC (4.7-6.1) M/uL Hgb (14.0-18.0) g/dL Hct (42-52) % MCV (80-100) fL MCH (25-34) pg MCHC (32-36) g/dL RDW Std Deviation (36.4-46.3) fL RDW Coeff of Ese (11.5-14.5) % Plt Count (130-400) K/uL MPV (7.4-10.4) fL Immature Gran % (Auto) % Neut % (Auto) % Lymph % (Auto) % [place] % (Auto) % Eos % (Auto) % Baso % (Auto) % Neut # (Auto) (1.4-6.5) K/uL Lymph # (Auto) (1.2-3.4) K/uL [place] # (Auto) (0.11-0.59) K/uL Eos # (Auto) (0-0.5) K/uL Baso # (Auto) (0-0.2) K/uL Immature Gran # (Auto) (0.00-0.02) K/uL PT 19.5 H (9.0-12.0) Seconds INR 1.9 H (0.9-1.1) APTT 40.0 H (21.0-31.0) Seconds PTT Ratio 1.4 Sodium 139 (136-145) mmol/L Potassium 4.2 (3.5-5.1) mmol/L Chloride 104 (98-107) mmol/L Carbon Dioxide 34 H (21-32) mmol/L Anion Gap 1.0 L (3-11) BUN 17 (7-18) mg/dl Creatinine 1.22 (0.6-1.4) mg/dl Est Cr Clr Drug Dosing 61.6 ml/min Est GFR ( Amer) 68.2 Est GFR (Non-Af Amer) 58.9 BUN/Creatinine Ratio 13.5 (10-20) Glucose 77 (70-99) mg/dl Calcium 9.0 (8.5-10.1) mg/dl Magnesium 1.9 (1.8-2.4) mg/dl Total Bilirubin 0.5 (0.2-1) mg/dl AST 19 (15-37) U/L ALT 7 L (12-78) U/L Alkaline Phosphatase 94 (45-117) U/L Total Protein 5.9 L (6.4-8.2) gm/dl Albumin 2.5 L (3.4-5.0) gm/dl Globulin 3.4 (2.5-4.0) gm/dl Albumin/Globulin Ratio 0.7 L (0.9-2) Vancomycin Trough 19.3 (See Comment) mcg/ml 06/04/20 Range/Units 06:35 WBC 3.82 L (4.8-10.8) K/uL RBC 3.57 L (4.7-6.1) M/uL Hgb 11.1 L (14.0-18.0) g/dL Hct 33.9 L (42-52) % MCV 95.0 (80-100) fL MCH 31.1 (25-34) pg MCHC 32.7 (32-36) g/dL RDW Std Deviation 47.2 H (36.4-46.3) fL RDW Coeff of Ese 13.5 (11.5-14.5) % Plt Count 83 L (130-400) K/uL MPV 9.4 (7.4-10.4) fL Immature Gran % (Auto) 0.3 % Neut % (Auto) 67.0 % Lymph % (Auto) 22.0 % [place] % (Auto) 8.1 % Eos % (Auto) 2.1 % Baso % (Auto) 0.5 % Neut # (Auto) 2.56 (1.4-6.5) K/uL Lymph # (Auto) 0.84 L (1.2-3.4) K/uL [place] # (Auto) 0.31 (0.11-0.59) K/uL Eos # (Auto) 0.08 (0-0.5) K/uL Baso # (Auto) 0.02 (0-0.2) K/uL Immature Gran # (Auto) 0.01 (0.00-0.02) K/uL PT (9.0-12.0) Seconds INR (0.9-1.1) APTT (21.0-31.0) Seconds PTT Ratio Sodium (136-145) mmol/L Potassium (3.5-5.1) mmol/L Chloride (98-107) mmol/L Carbon Dioxide (21-32) mmol/L Anion Gap (3-11) BUN (7-18) mg/dl Creatinine (0.6-1.4) mg/dl Est Cr Clr Drug Dosing ml/min Est GFR ( Amer) Est GFR (Non-Af Amer) BUN/Creatinine Ratio (10-20) Glucose (70-99) mg/dl Calcium (8.5-10.1) mg/dl Magnesium (1.8-2.4) mg/dl Total Bilirubin (0.2-1) mg/dl AST (15-37) U/L ALT (12-78) U/L Alkaline Phosphatase (45-117) U/L Total Protein (6.4-8.2) gm/dl Albumin (3.4-5.0) gm/dl Globulin (2.5-4.0) gm/dl Albumin/Globulin Ratio (0.9-2) Vancomycin Trough (See Comment) mcg/ml PG Care Time/CCT Total # of Minutes Spent Total Time Spent with Patient: Total time spent is greater than 50% in coordination of care (as documented) at patient's floor/unit and/or counseling patient: Coding Level of Care Code 67032 Subseq Hosp Care Lvl 2 Diagnoses Bacteremia R78.81 Pneumonia J18.9 Laterality: right Lung location: lower lobe of lung Pneumonia type: due to unspecified organism Acute alteration in mental status R41.82 Hypomagnesemia E83.42 Mild dementia F03.90 Gait disorder R26.9 Chronic low back pain M54.5; G89.29 Presence of intrathecal pump Z96.89 Post laminectomy syndrome M96.1 Atrial fibrillation I48.91 Parkinson disease G20 REM sleep behavior disorder G47.52 Thrombocytopenia D69.6 DVT prophylaxis Z29.9 (1) Pneumonia Laterality: right Lung location: lower lobe of lung Pneumonia type: due to unspecified organism Qualified Code(s): J18.9 - Pneumonia, unspecified organism
[2020-06-04] MEDS: WARFARIN SOD 0.5 MG TAB PO SCH (15:40)
[2020-06-04] MEDS: ALFUZOSIN HCL 10 MG TAB PO SCH (20:04)
[2020-06-04] MEDS: DOCUSATE SODIUM/SENNA 50/8.6MG TAB PO SCH (20:04)
[2020-06-04] MEDS: ACETAMINOPHEN 500 MG TAB PO SCH (20:04)
[2020-06-04] MEDS: traZODone HCL 50 MG TAB PO SCH (20:05)
[2020-06-05] MEDS: LEVOTHYROXINE SODIUM 25 MCG TABLET PO SCH (05:56)
--- NOTE | 2020-06-05 07:36 | XRay Report ---
XR chest 2V PA/lateral HISTORY: Sepsis. Follow-up. COMPARISON: Chest 06/01/2020. FINDINGS: There is left-sided dual-chamber pacemaker. There are low lung volumes. Bibasilar linear de nsities persist. The upper lung zones are clear. No evidence for pulmonary edema. The heart is normal in size. No pneumothorax. No pleural effusions. The patient's chin partially obscures the lung apice s. IMPRESSION: No significant change compared to the prior study. Bibasilar linear densities persist and favor atele ctasis. ACT 112: Negative or not required by law. Electronically signed by: Leo Mendoza M.D. 06/05/2020 7:35 AM
[2020-06-05] MEDS: AZTREONAM 2,000 MG in DEXTROSE 5% 100 ML IV SCH ×2 (07:51→18:14)
[2020-06-05 08:06] LABS: Hematocrit (blood only) 33.5 % (42-52); Hemoglobin 11.4 g/dL (14.0-18.0); Mean Corpuscular Hemoglobin 31.9 pg (25-34); Mean Corpuscular Volume 93.8 fL (80-100); RDW Coefficient of Variation 13.3 % (11.5-14.5); RDW Standard Deviation 46.1 fL (36.4-46.3); Red Blood Count 3.57 M/uL (4.7-6.1); White Blood Count 3.71 K/uL (4.8-10.8)
[2020-06-05 08:14] LABS: Mean Platelet Volume 9.1 fL (7.4-10.4); Platelet Count 78 K/uL (130-400)
[2020-06-05 08:41] LABS: BUN Creatinine Ratio 15.1 (10-20); Calcium 9.8 mg/dl (8.5-10.1); Creatinine Clr Calc Pharmacy 62.6 ml/min; Est GFR (African American) 69.6; Est GFR (Non-African American) 60.1; Magnesium 1.9 mg/dl (1.8-2.4); Potassium 4.1 mmol/L (3.5-5.1)
[2020-06-05 08:42] LABS: INR 1.6 (0.9-1.1); Partial Thromboplastin Ratio 1.3; Partial Thromboplastin Time 37.2 Seconds (21.0-31.0); Prothrombin Time 16.8 Seconds (9.0-12.0)
[2020-06-05] MEDS: TIMOLOL MALEATE 0.25% OP SOLN 5 ML BTL OPR SCH ×2 (08:55→21:05)
[2020-06-05] MEDS: FLECAINIDE ACETATE 100 MG TABLET PO SCH ×2 (08:56→21:07)
[2020-06-05] MEDS: FUROSEMIDE 40 MG TAB PO SCH (08:56)
[2020-06-05] MEDS: CYANOCOBALAMIN 500 MCG TABLET (VITAMIN B-12) PO SCH (08:56)
[2020-06-05] MEDS: ASCORBIC ACID 500 MG TAB PO SCH (08:56)
[2020-06-05] MEDS: SPIRONOLACTONE 25 MG TAB PO SCH (08:56)
[2020-06-05] MEDS: ADVANCED PROBIOTIC 1250 MG CAPSULE PO SCH (08:56)
[2020-06-05] MEDS: ARTIFICIAL TEARS OP SCH (08:56)
[2020-06-05] MEDS: CHOLECALCIFEROL 1,000 UNITS 25 MCG TAB PO SCH (08:57)
[2020-06-05] MEDS: CARBIDOPA/LEVODOPA 25/100MG TAB PO SCH ×4 (08:57→21:06)
[2020-06-05] MEDS: MULTIVITAMIN TAB PO SCH (08:57)
[2020-06-05] MEDS: MAGNESIUM OXIDE 400 MG TAB PO SCH (08:57)
[2020-06-05] MEDS: ATORVASTATIN 40 MG TAB PO SCH (08:57)
--- NOTE | 2020-06-05 11:56 | Hospitalist Progress Note ---
Date of Service June 05, 2020 Assessment & Plan (1) Bacteremia: * Initially just 1/2 sets with gram + cocci --> now both with coag negative staph * Repeat from 06/03 without growth after 48 hours * No further fevers, WBC 3.7k * ECHO without evidence of vegetation * Also concerning of the presence of an intrathecal pain pump as well as a pacemaker * Continue IV vancomycin/aztreonam for now * ID consulted -- appreciate recs. To be seen today (2) Pneumonia: * On CXR on admission -- concerns for aspiration pneumonia on admission * Continue vancomycin IV and aztreonam IV for above (on day 4 of treatment) * Duonebs changed to prn * Supplemental O2 as necessary -- no longer requiring supplemental oxygen * Speech consulted -- slippery minced/moist. avoid all soft bread. add extra liquids/gravy/broth to make food more slippery. Aspiration precautions/reflux precautions. HOB 30 degrees at ALL times * CXR with atelectasis, no evidence of pneumonia * Ordered incentive spirometer (3) Acute alteration in mental status: * Metabolic encephalopathy secondary to pneumonia/WILFRID --> RESOLVED, at baseline * Confusion likely secondary to pneumonia with hypoxia, with aggravation of underlying Parkinson disease and dementia. * Patient was COVID-19 negative and influenza A/B negative with testing while in the ED. (4) Hypomagnesemia: * Magnesium was 1.3 upon admission - given 2g * Resolved (5) Mild dementia: * Predisposing to confusion with illness. * No behavior disturbance. (6) Gait disorder: * PT/OT evals -- almost to baseline and will return home at d/c (7) Chronic low back pain: * Chronic low back pain/postlaminectomy syndrome- * Managed with intrathecal pump (8) Presence of intrathecal pump: * Continue present pump (9) Post laminectomy syndrome: * See above (10) Atrial fibrillation: * Atrial fibrillation/hypertension/CHF- in regular rhythm on examination. Consider consulting Dr. Vides if any issues w/ pacemaker/cardiac symptoms * Continue flecainide, furosemide, spironolactone and warfarin. * INR 1.6 * Discussed with Dr. Wilson, patient slow metabolizer and usually on 4.5mg weekly and instructed to give 1mg additional dose this evening and expect may take day or two to normalize (0.5mg daily and 1.5mg on Wednesdays) (11) Parkinson disease: * Continue carbidopa levodopa (12) REM sleep behavior disorder: * Continue usual meds including trazodone (13) Thrombocytopenia: * Platelets 78,000, chronic * Follow (14) DVT prophylaxis: * SCDs * Warfarin -- INR 1.6 today . Coumadin as above Admission and Anticipated Discharge Date Admission Date: June 02, 2020 Supervising Physician Co-Signing Physician Notes PA Supervision Note: I did not personally see or examine the patient today, but I verified all higgins points of HUGH Patel's assessment and plan with the following exceptions/additions: None Subjective Patient evaluated early this afternoon. Doing well overall. Anxious for discharge as soon as possible but has not been seen by ID provider yet. Checking with community youth secretary to see about time. Discussed repeat bcx negative to date after 48 hours but that given staph, likely skin given negative urine or other identified source. Patient denies any breaks/opening in skin, although did have lesion to LUE, slightly reddened but had been there for a little while. Also with healing scabbed area to L dorsal hand. He does admit that he may have been playing with the dog and got scratched slightly. Denies any erythema/edema to that area in previous weeks, but this occurred approximately 2 weeks ago. Has had multiple falls at home as well. Per , patient does deal with chronic dry skin like his mother and had been using an OTC topical for upper arms and eucerin for legs but discussed dry/cracked skin should be avoided to avoid introduction of bacteria to bloodstream. Eating/drinking without issue. Did have BM today. Discussed additional 1mg dose of warfarin as per discussion with Dr. Wilson this morning. Denies fever, chill, chest pain, shortness of breath, abdominal pain, n/v/dysuria at this time. If they will require IV antibiotics, they have a neighbor that goes to their adventist that is a RN at this facility, Sharda Valadez, who may be willing to help administer if doing at home. Will await ID input prior to decision on agent/duration/route for discharge and coordinate with CM. Review of Systems Review of Systems: All systems reviewed & are unremarkable except as noted in HPI & below Physical Exam Constitutional: WD/WN, vitals as above no acute distress Eyes: + anicteric sclerae and PERRL Neck: trachea midline, no thyromegaly Respiratory: normal respiratory effort, lungs clear to auscultation Cardiovascular: Rate/Rhythm: regular rate and regular rhythm Heart Sounds: + murmur Vessels: no JVD Extremities: no edema Gastrointestinal (Abdomen): normal bowel sounds, soft, nontender, no hepatosplenomegaly Musculoskeletal: no cyanosis or clubbing, extremities motor strength 5/5 Skin: small scabbed area dorsal aspect L hand as well as 1.5cm reddened area to L forearm. Non-tender to palpation. No evidence of streaking old bruising to left foot from previous injury, unchanged Neurologic: PERRL, EOMI, accommodation nl, no face palsy, no dysarthria Psychiatric: Orientation: alert and oriented x 3 Lymphatic: no cervical or axillary lymphadenopathy Results & Data Results & Data ([facility]) Vital Signs (Past 12 Hours) Vital Signs Temp Pulse Resp BP Pulse Ox 06/05/20 07:04 36.8 C 72 18 146/74 H 93 Laboratory Results 06/05/20 06/05/20 06/05/20 Range/Units 07:54 07:54 07:54 WBC 3.71 L (4.8-10.8) K/uL RBC 3.57 L (4.7-6.1) M/uL Hgb 11.4 L (14.0-18.0) g/dL Hct 33.5 L (42-52) % MCV 93.8 (80-100) fL MCH 31.9 (25-34) pg MCHC 34.0 (32-36) g/dL RDW Std Deviation 46.1 (36.4-46.3) fL RDW Coeff of Ese 13.3 (11.5-14.5) % Plt Count 78 L (130-400) K/uL MPV 9.1 (7.4-10.4) fL PT 16.8 H (9.0-12.0) Seconds INR 1.6 H (0.9-1.1) APTT 37.2 H (21.0-31.0) Seconds PTT Ratio 1.3 Sodium 138 (136-145) mmol/L Potassium 4.1 (3.5-5.1) mmol/L Chloride 103 (98-107) mmol/L Carbon Dioxide 32 (21-32) mmol/L Anion Gap 3.0 (3-11) BUN 18 (7-18) mg/dl Creatinine 1.20 (0.6-1.4) mg/dl Est Cr Clr Drug Dosing 62.6 ml/min Est GFR ( Amer) 69.6 Est GFR (Non-Af Amer) 60.1 BUN/Creatinine Ratio 15.1 (10-20) Glucose 83 (70-99) mg/dl Calcium 9.8 (8.5-10.1) mg/dl Magnesium 1.9 (1.8-2.4) mg/dl PG Care Time/CCT Total # of Minutes Spent Total Time Spent with Patient: Total time spent is greater than 50% in coordination of care (as documented) at patient's floor/unit and/or counseling patient: Coding Level of Care Code 11973 Subseq Hosp Care Lvl 3 Diagnoses Bacteremia R78.81 Pneumonia J18.9 Laterality: right Lung location: lower lobe of lung Pneumonia type: due to unspecified organism Acute alteration in mental status R41.82 Hypomagnesemia E83.42 Mild dementia F03.90 Gait disorder R26.9 Chronic low back pain M54.5; G89.29 Presence of intrathecal pump Z96.89 Post laminectomy syndrome M96.1 Atrial fibrillation I48.91 Parkinson disease G20 REM sleep behavior disorder G47.52 Thrombocytopenia D69.6 DVT prophylaxis Z29.9 (1) Pneumonia Laterality: right Lung location: lower lobe of lung Pneumonia type: due to unspecified organism Qualified Code(s): J18.9 - Pneumonia, unspecified organism
[2020-06-05] MEDS: VANCOMYCIN HCL 1,000 MG in SODIUM CHLORIDE 0.9% 250 ML IV SCH (12:46)
[2020-06-05] MEDS ORDERED: WARFARIN SOD 1 MG TAB PO ONE (16:00)
[2020-06-05] MEDS: WARFARIN SOD 0.5 MG TAB PO SCH (18:15)
[2020-06-05] MEDS: traZODone HCL 50 MG TAB PO SCH (21:06)
[2020-06-05] MEDS: ACETAMINOPHEN 500 MG TAB PO SCH (21:06)
[2020-06-05] MEDS: ALFUZOSIN HCL 10 MG TAB PO SCH (21:06)
[2020-06-05] MEDS: DOCUSATE SODIUM/SENNA 50/8.6MG TAB PO SCH (21:07)
[2020-06-06] MEDS: AZTREONAM 2,000 MG in DEXTROSE 5% 100 ML IV SCH ×2 (00:11→08:08)
[2020-06-06] MEDS: VANCOMYCIN HCL 1,000 MG in SODIUM CHLORIDE 0.9% 250 ML IV SCH (01:17)
[2020-06-06] MEDS: LEVOTHYROXINE SODIUM 25 MCG TABLET PO SCH (05:49)
[2020-06-06 08:09] LABS: Hematocrit (blood only) 33.9 % (42-52); Hemoglobin 11.1 g/dL (14.0-18.0); Mean Corpuscular Hemoglobin 31.1 pg (25-34); Mean Corpuscular Hgb Conc 32.7 g/dL (32-36); RDW Coefficient of Variation 13.3 % (11.5-14.5); RDW Standard Deviation 46.3 fL (36.4-46.3); Red Blood Count 3.57 M/uL (4.7-6.1); White Blood Count 3.84 K/uL (4.8-10.8)
[2020-06-06] MEDS: TIMOLOL MALEATE 0.25% OP SOLN 5 ML BTL OPR SCH ×2 (08:10→19:52)
[2020-06-06] MEDS: ARTIFICIAL TEARS OP SCH (08:11)
[2020-06-06] MEDS: FLECAINIDE ACETATE 100 MG TABLET PO SCH ×2 (08:13→19:51)
[2020-06-06] MEDS: ADVANCED PROBIOTIC 1250 MG CAPSULE PO SCH (08:13)
[2020-06-06] MEDS: CHOLECALCIFEROL 1,000 UNITS 25 MCG TAB PO SCH (08:13)
[2020-06-06] MEDS: CYANOCOBALAMIN 500 MCG TABLET (VITAMIN B-12) PO SCH (08:13)
[2020-06-06] MEDS: MAGNESIUM OXIDE 400 MG TAB PO SCH (08:13)
[2020-06-06] MEDS: CARBIDOPA/LEVODOPA 25/100MG TAB PO SCH ×4 (08:14→19:52)
[2020-06-06] MEDS: FUROSEMIDE 40 MG TAB PO SCH (08:14)
[2020-06-06] MEDS: SPIRONOLACTONE 25 MG TAB PO SCH (08:14)
[2020-06-06] MEDS: MULTIVITAMIN TAB PO SCH (08:14)
[2020-06-06] MEDS: ASCORBIC ACID 500 MG TAB PO SCH (08:14)
[2020-06-06] MEDS: ATORVASTATIN 40 MG TAB PO SCH (08:14)
[2020-06-06 08:17] LABS: INR 1.5 (0.9-1.1); Prothrombin Time 15.1 Seconds (9.0-12.0)
[2020-06-06 08:29] LABS: Mean Platelet Volume 9.7 fL (7.4-10.4); Platelet Count 88 K/uL (130-400)
[2020-06-06 08:34] LABS: Platelet Estimate Decreased (Normal)
[2020-06-06 08:44] LABS: BUN Creatinine Ratio 16.4 (10-20); Calcium 9.5 mg/dl (8.5-10.1); Creatinine Clr Calc Pharmacy 65.9 ml/min; Est GFR (African American) 74.1; Est GFR (Non-African American) 63.9; Potassium 4.2 mmol/L (3.5-5.1)
[2020-06-06] MEDS ORDERED: VANCOMYCIN TROUGH ONE (11:30)
[2020-06-06 14:40] LABS: C Reactive Protein 1.39 mg/dl (0-0.29)
--- NOTE | 2020-06-06 15:25 | Hospitalist Progress Note ---
Date of Service June 06, 2020 Assessment & Plan (1) Bacteremia: * Initially just 1/2 sets with gram + cocci --> now both with coag negative staph from separate sites. * Repeat from 06/03 without growth * No further fevers, WBC 3.8k * ECHO without evidence of vegetation. Spoke with cardiology. Could consider outpatient SERVANDO/repeat blood cultures if wanted, although would be technically difficult study due to body habitus and felt it would not change treatment as patient with pacemaker and typical stranding on ECHO. * Also concerning of the presence of an intrathecal pain pump as well as a pacemaker * ID consulted -- appreciate recs * --> I personally spoke with Dr. Rooney after speaking with cardiology to confirm no vegetations. He felt CoNS not to be contaminant given separate sites and rec Ancef 2g Q8 for total 14 days from last negative blood culture * D/c'd IV vancomycin/aztreonam and placed on Ancef * USG IV placed for abx at discharge. CM following. Home health to be able to show in am after morning dose. * Baseline inflammatory markers not previously drawn-- added to AM labs. * ==> CRP 1.39, ESR 30 (2) Pneumonia: * On CXR on admission -- concerns for aspiration pneumonia on admission * vancomycin IV and aztreonam IV as above (got 6 days of therapy) * Duonebs changed to prn * Supplemental O2 as necessary -- no longer requiring supplemental oxygen * Speech consulted -- slippery minced/moist. avoid all soft bread. add extra liquids/gravy/broth to make food more slippery. Aspiration precautions/reflux precautions. HOB 30 degrees at ALL times * CXR with atelectasis, no evidence of pneumonia * Ordered incentive spirometer -- instructed patient to continue at home given he does not do deep breathing/bibasilar crackles * 94% on RA (3) Acute alteration in mental status: * Metabolic encephalopathy secondary to pneumonia/WILFRID --> RESOLVED, at baseline * Confusion likely secondary to pneumonia with hypoxia, with aggravation of underlying Parkinson disease and dementia. * Patient was COVID-19 negative and influenza A/B negative with testing while in the ED. (4) Hypomagnesemia: * Magnesium was 1.3 upon admission - given 2g * Resolved (5) Mild dementia: * Predisposing to confusion with illness. * No behavior disturbance. (6) Gait disorder: * PT/OT evals -- did have a little more difficulty with therapy today although patient states he is wanting to return home. Will ask CM about home therapy if notes show need. Previously able to ambulate >200ft with assistive device (7) Chronic low back pain: * Chronic low back pain/postlaminectomy syndrome- * Managed with intrathecal pump (8) Presence of intrathecal pump: * Continue present pump (9) Post laminectomy syndrome: * See above (10) Atrial fibrillation: * Atrial fibrillation/hypertension/CHF- in regular rhythm on examination. Consider consulting Dr. Vides if any issues w/ pacemaker/cardiac symptoms * Continue flecainide, furosemide, spironolactone and warfarin. * INR 1.5 * Discussed with Dr. Wilson, patient slow metabolizer and usually on 4.5mg weekly and instructed to give 1mg additional dose this evening again and expect may take day or two to normalize (0.5mg daily and 1.5mg on Wednesdays-- patient's states he takes his extra dose on at home) * --> Will need close follow-up early next week with coag clinic per discussion with Dr. Wilson (11) Parkinson disease: * Continue carbidopa levodopa (12) REM sleep behavior disorder: * Continue usual meds including trazodone (13) Thrombocytopenia: * Platelets 88,000, chronic * Follow (14) DVT prophylaxis: * SCDs * Warfarin -- INR 1.5 today . Coumadin as above Dispo: discharge tomorrow morning after dose of Ancef. CM following Admission and Anticipated Discharge Date Admission Date: June 02, 2020 Supervising Physician Co-Signing Physician Notes PA Supervision Note: I did not personally see or examine the patient today, but I verified all higgins points of HUGH Patel's assessment and plan with the following exceptions/additions: None Subjective Patient evaluated this morning. Was a little more fatigued with therapy this morning but discussed possibility of rehab. Patient adamant about returning home. Discussed ID consult and recommendations to move forward with Ancef for next two weeks as it was felt no vegetations on TTE and did not feel SERVANDO needed for further eval by cardiology. Could consider repeat bcx at their recommendation, although reached back out to ID and they stated this not necessary and that given both bottles from different sites with CoNS, cannot feel safely that this is contaminant. Patient hopeful for discharge this evening although he and are aware due to insurance and setting up abx, this may be delayed until the morning. Eating/drinking without difficulty. I spoke with Dr. Wilson this morning with rec to give another 1mg warfarin this evening and will need close follow up early next week. No fever, chill, chest pain, shortness of breath, abdominal pain, nausea, vomiting. Review of Systems Review of Systems: All systems reviewed & are unremarkable except as noted in HPI & below Physical Exam Constitutional: WD/WN, vitals as above no acute distress Eyes: + anicteric sclerae and PERRL Neck: trachea midline, no thyromegaly Respiratory: normal respiratory effort and able to speak in complete sentences; no labored breathing Auscultation: + crackles (bibasilar crackles ); no rhonchi and no wheezes Cardiovascular: Rate/Rhythm: regular rate and regular rhythm Heart Sounds: + murmur Vessels: no JVD Extremities: no edema Gastrointestinal (Abdomen): normal bowel sounds, soft, nontender, no hepatosplenomegaly Musculoskeletal: no cyanosis or clubbing, extremities motor strength 5/5 Skin: small scabbed area dorsal aspect L hand as well as 1.5cm reddened area to L forearm. Non-tender to palpation. No evidence of streaking old bruising to left foot from previous injury, unchanged Neurologic: PERRL, EOMI, accommodation nl, no face palsy, no dysarthria Psychiatric: Orientation: alert and oriented x 3 Lymphatic: no cervical or axillary lymphadenopathy Results & Data Results & Data ([facility]) Vital Signs (Past 12 Hours) Vital Signs Temp Pulse Resp BP Pulse Ox 06/06/20 08:00 36.7 C 66 20 115/67 94 Laboratory Results 06/06/20 06/06/20 06/06/20 Range/Units 11:16 07:28 07:28 WBC (4.8-10.8) K/uL RBC (4.7-6.1) M/uL Hgb (14.0-18.0) g/dL Hct (42-52) % MCV (80-100) fL MCH (25-34) pg MCHC (32-36) g/dL RDW Std Deviation (36.4-46.3) fL RDW Coeff of Ese (11.5-14.5) % Plt Count (130-400) K/uL MPV (7.4-10.4) fL Platelet Estimate (Normal) ESR 30 H (0-14) mm/hr PT (9.0-12.0) Seconds INR (0.9-1.1) Sodium (136-145) mmol/L Potassium (3.5-5.1) mmol/L Chloride (98-107) mmol/L Carbon Dioxide (21-32) mmol/L Anion Gap (3-11) BUN (7-18) mg/dl Creatinine (0.6-1.4) mg/dl Est Cr Clr Drug Dosing ml/min Est GFR ( Amer) Est GFR (Non-Af Amer) BUN/Creatinine Ratio (-20) Glucose (70-99) mg/dl Calcium (8.5-10.1) mg/dl Total Creatine Kinase 45 (39-308) U/L C-Reactive Protein 1.39 H (0-0.29) mg/dl Vancomycin Trough 24.9 (See Comment) mcg/ml 06/06/20 06/06/20 06/06/20 Range/Units 07:28 07:28 07:28 WBC 3.84 L (4.8-10.8) K/uL RBC 3.57 L (4.7-6.1) M/uL Hgb 11.1 L (14.0-18.0) g/dL Hct 33.9 L (42-52) % MCV 95.0 (80-100) fL MCH 31.1 (25-34) pg MCHC 32.7 (32-36) g/dL RDW Std Deviation 46.3 (36.4-46.3) fL RDW Coeff of Ese 13.3 (11.5-14.5) % Plt Count 88 L (130-400) K/uL MPV 9.7 (7.4-10.4) fL Platelet Estimate Decreased L (Normal) ESR (0-14) mm/hr PT 15.1 H (9.0-12.0) Seconds INR 1.5 H (0.9-1.1) Sodium 136 (136-145) mmol/L Potassium 4.2 (3.5-5.1) mmol/L Chloride 102 (98-107) mmol/L Carbon Dioxide 33 H (21-32) mmol/L Anion Gap 1.0 L (3-11) BUN 19 H (7-18) mg/dl Creatinine 1.14 (0.6-1.4) mg/dl Est Cr Clr Drug Dosing 65.9 ml/min Est GFR ( Amer) 74.1 Est GFR (Non-Af Amer) 63.9 BUN/Creatinine Ratio 16.4 (10-20) Glucose 79 (70-99) mg/dl Calcium 9.5 (8.5-10.1) mg/dl Total Creatine Kinase (39-308) U/L C-Reactive Protein (0-0.29) mg/dl Vancomycin Trough (See Comment) mcg/ml PG Care Time/CCT Total # of Minutes Spent Total Time Spent with Patient: Total time spent is greater than 50% in coordination of care (as documented) at patient's floor/unit and/or counseling patient: Coding Level of Care Code 81744 Subseq Hosp Care Lvl 3 Diagnoses Bacteremia R78.81 Pneumonia J18.9 Laterality: right Lung location: lower lobe of lung Pneumonia type: due to unspecified organism Acute alteration in mental status R41.82 Hypomagnesemia E83.42 Mild dementia F03.90 Gait disorder R26.9 Chronic low back pain M54.5; G89.29 Presence of intrathecal pump Z96.89 Post laminectomy syndrome M96.1 Atrial fibrillation I48.91 Parkinson disease G20 REM sleep behavior disorder G47.52 Thrombocytopenia D69.6 DVT prophylaxis Z29.9 (1) Pneumonia Laterality: right Lung location: lower lobe of lung Pneumonia type: due to unspecified organism Qualified Code(s): J18.9 - Pneumonia, unspecified organism
[2020-06-06] MEDS ORDERED: WARFARIN SOD 1 MG TAB PO SCH (16:00)
[2020-06-06] MEDS: WARFARIN SOD 0.5 MG TAB PO SCH (16:26)
[2020-06-06] MEDS: ceFAZolin 2000MG 2,000 MG/15 ML SYR IV SCH (16:27)
[2020-06-06] MEDS: DOCUSATE SODIUM/SENNA 50/8.6MG TAB PO SCH (19:50)
[2020-06-06] MEDS: traZODone HCL 50 MG TAB PO SCH (19:51)
[2020-06-06] MEDS: ALFUZOSIN HCL 10 MG TAB PO SCH (19:52)
[2020-06-06] MEDS: ACETAMINOPHEN 500 MG TAB PO SCH (19:53)
[2020-06-07] MEDS: ceFAZolin 2000MG 2,000 MG/15 ML SYR IV SCH ×2 (00:14→08:05)
[2020-06-07 05:46] LABS: Hematocrit (blood only) 33.6 % (42-52); Hemoglobin 11.4 g/dL (14.0-18.0); Mean Corpuscular Hemoglobin 31.9 pg (25-34); Mean Corpuscular Hgb Conc 33.9 g/dL (32-36); Mean Corpuscular Volume 94.1 fL (80-100); Mean Platelet Volume 10.2 fL (7.4-10.4); Platelet Count 102 K/uL (130-400); RDW Coefficient of Variation 13.4 % (11.5-14.5); RDW Standard Deviation 46.4 fL (36.4-46.3); Red Blood Count 3.57 M/uL (4.7-6.1); White Blood Count 4.21 K/uL (4.8-10.8)
[2020-06-07] MEDS: LEVOTHYROXINE SODIUM 25 MCG TABLET PO SCH (06:25)
[2020-06-07 06:34] LABS: INR 1.6 (0.9-1.1); Prothrombin Time 16.4 Seconds (9.0-12.0)
[2020-06-07 06:34] LABS: Albumin Globulin Ratio 0.7 (0.9-2); Albumin Level 2.4 gm/dl (3.4-5.0); BUN Creatinine Ratio 16.1 (10-20); Bilirubin,Total 0.5 mg/dl (0.2-1); Calcium 9.5 mg/dl (8.5-10.1); Creatinine Clr Calc Pharmacy 65.4 ml/min; Est GFR (African American) 73.3; Est GFR (Non-African American) 63.2; Globulin 3.5 gm/dl (2.5-4.0); Potassium 4.2 mmol/L (3.5-5.1); Total Protein 5.9 gm/dl (6.4-8.2)
[2020-06-07] MEDS: ASCORBIC ACID 500 MG TAB PO SCH (07:54)
[2020-06-07] MEDS: ADVANCED PROBIOTIC 1250 MG CAPSULE PO SCH (07:54)
[2020-06-07] MEDS: FLECAINIDE ACETATE 100 MG TABLET PO SCH (07:55)
[2020-06-07] MEDS: CYANOCOBALAMIN 500 MCG TABLET (VITAMIN B-12) PO SCH (07:55)
[2020-06-07] MEDS: CARBIDOPA/LEVODOPA 25/100MG TAB PO SCH ×2 (07:55→12:13)
[2020-06-07] MEDS: MULTIVITAMIN TAB PO SCH (07:55)
[2020-06-07] MEDS: FUROSEMIDE 40 MG TAB PO SCH (07:56)
[2020-06-07] MEDS: MAGNESIUM OXIDE 400 MG TAB PO SCH (07:56)
[2020-06-07] MEDS: ATORVASTATIN 40 MG TAB PO SCH (07:57)
[2020-06-07] MEDS: CHOLECALCIFEROL 1,000 UNITS 25 MCG TAB PO SCH (07:57)
[2020-06-07] MEDS: SPIRONOLACTONE 25 MG TAB PO SCH (07:58)
[2020-06-07] MEDS: ARTIFICIAL TEARS OP SCH (07:59)
[2020-06-07] MEDS: TIMOLOL MALEATE 0.25% OP SOLN 5 ML BTL OPR SCH (07:59)
--- NOTE | 2020-06-07 10:17 | Discharge Summary ---
Date of Service June 07, 2020 Admission HPI Per Admitting Provider The patient is a 74-year-old male with a past medical history including edema of left upper extremity, mild dementia, gait disorder, pacemaker, sinus node dysfunction, chronic anticoagulation, hematuria, chronic low back pain, presence of intrathecal pump, postlaminectomy syndrome, CHF, atrial fibrillation, REM sleep behavior disorder, Parkinson disease, bilateral hearing loss, allergic rhinitis, anemia, CAD, BPH with LUTS/OBS, disc metabolic syndrome X, hypercholesterolemia, hypothyroidism, stage III chronic kidney disease, vitamin D deficiency, chronic venous insufficiency, thrombocytopenia and pancytopenia. The patient presents to the emergency department with generalized weakness of again about 1 week ago, with more difficulty ambulating over the past day. He is noted and intermittently productive cough, and shortness of breath. He denies any recent travels or sick exposures, including to [employer]. He has been taking his medications as directed, with the assistance of his , who is his primary admissions rn. In the emergency department, work-up included laboratories: Magnesium 1.3, platelets 82, INR 2.7, creatinine within normal range at 1.50. Patient was COVID-19 negative and influenza negative. Chest x-ray revealed pneumonia. His pulse ox was at its lowest 89% on room air, that improved with 2 L to 98% Admission Exam Per Admitting Provider The patient is awake, oriented 3, lethargic with fatigue, well developed and well nourished, normocephalic and atraumatic, lying in bed and in no acute distress. HEENT--PERRL, EOMI, mucous membranes and oropharynx dry. Neck--supple. No JVD. No bruits. Thyroid normal, trachea midline, no adenopathy. Heart--normal S1 and S2. No murmurs, rubs or gallops. Lungs--few coarse breath sounds no wheezes bilaterally. No respiratory distress, no accessory muscle use. Abdomen--normal bowel sounds and soft. Nontender. Nondistended. Obese Extremities--no cyanosis or clubbing. No edema. Dermatologic--normal skin turgor, normal color, no abnormal lymph nodes, no rash. Neurologic--cranial nerves II through XII grossly intact. Rheumatologic--limited exam Psychiatric--normal affect. Principal Diagnosis Coag Negative Staph Bacteremia Discharge Exam Constitutional WD/WN, vitals as above no acute distress Eyes + anicteric sclerae and PERRL Neck trachea midline, no thyromegaly Respiratory normal respiratory effort and able to speak in complete sentences; no labored breathing Auscultation: + crackles (bibasilar); no rhonchi and no wheezes Cardiovascular Rate/Rhythm: regular rate and regular rhythm Heart Sounds: + murmur Vessels: no JVD Extremities: no edema Chest (Breasts) Additional Comments: pacemaker present Gastrointestinal (Abdomen) normal bowel sounds, soft, nontender, no hepatosplenomegaly Musculoskeletal Head/Neck/Chest: head atraumatic and neck supple strength 4/5 throughout Skin multiple scabbed areas -- L forearm, dorsal hand skin dry and cracked Neurologic PERRL, EOMI, accommodation nl, no face palsy, no dysarthria Psychiatric Orientation: alert and oriented x 3 Affect: + flat affect Lymphatic no cervical or axillary lymphadenopathy Discharge Data Allergies Allergy/AdvReac Type Severity Reaction Status Date / Time Penicillins Allergy Intermediate Hives Verified 06/11/20 09:10 doxycycline AdvReac Intermediate Vomiting Verified 06/11/20 09:10 ondansetron AdvReac Intermediate Gastrointestinal Verified 06/11/20 09:10 Upset Consultations 06/01/20 23:33 ED Decision to Admit Stat 06/02/20 02:01 Consult Case Management - Discharge Planning Routine 06/04/20 13:39 Consult Infectious Diseases Routine Ordered Studies 06/01 CXR 06/01/20 21:08 CT head/brain wo con Urgent 06/03 ECHO 06/05 CXR Hospital Course (1) Bacteremia: Presented with weakness and trouble ambulating. Initially thought to have concerns for aspiration pneumonia. Was placed on Vancomycin and Aztreonam (got 6 days of therapy) and found to have CoNS bacteremia in both bottles 06/01. Repeat blood cultures drawn and are WITHOUT GROWTH final ECHO without evidence of vegetation. [place] no vegetations confirmed with cardiology on telephone. Could consider SERVANDO but with pacemaker would be technically difficult as well as body habitus and anesthesia/risks. Typical stranding of pacemaker lead only. Also concerning given presence of intrathecal pain pump and pacemaker (placed earlier this year) ID consulted -- personally spoke with Marcelo Rooney. [place] CoNS not to be contaminant given separate sites and rec Ancef 2g Q8 for total 14 days from last negative blood culture. Had USG IV placed and discharged home on Ancef 2g Q8 for total 14 days treatment. Home health to meet them this afternoon at 4pm Baseline inflammatory markers drawn -- CRP 1.39, ESR 30 Weekly labs while on abx therapy Set up with home health with services Discharged home with (2) Pneumonia: On CXR on admission -- concerns for aspiration pneumonia on admission Vancomycin IV and aztreonam IV as above (got 6 days of therapy) Duonebs Supplemental O2 as needed 93% on RA Repeat CXR without evidence of pneumonia Patient with poor inspitatory effort and instructed to continue using incentive spirometer at home to prevent atelectasis Speech consulted -- continue with slippery minced/moist. avoid all soft bread. add extra liquids/gravy/broth to make food more slippery. Educated on importance of staying upright for all meals Have elevated bed at home (3) Acute alteration in mental status: Metabolic encephalopathy secondary to pneumonia/WILFRID --> RESOLVED, at baseline Confusion likely secondary to pneumonia with hypoxia, with aggravation of underlying Parkinson disease and dementia. Patient was COVID-19 negative and influenza A/B negative with testing while in the ED. (4) Hypomagnesemia: Magnesium was 1.3 upon admission - given 2g Resolved (5) Mild dementia: Predisposing to confusion with illness. No behavior disturbance. (6) Gait disorder: PT/OT evals -- did have a little more difficulty with therapy today although patient states he is wanting to return home. Set up with home services (7) Chronic low back pain: Chronic low back pain/postlaminectomy syndrome- Managed with intrathecal pump (8) Presence of intrathecal pump: Continued present pump (9) Post laminectomy syndrome: See above (10) Atrial fibrillation: Atrial fibrillation/hypertension/CHF- in regular rhythm on examination. Continue flecainide, furosemide, spironolactone and warfarin. INR 1.[address] Wilson, patient slow metabolizer and usually on 4.5mg weekly and instructed to give 1mg additional dose for previous two days and to continue normal dose at discharge (0.5mg daily and 1.5mg on Wednesdays-- patient's states he takes his extra dose on at home) --> Will need close follow-up early next week with coag clinic per discussion with Dr. Wilson (11) Parkinson disease: Continued carbidopa levodopa (12) REM sleep behavior disorder: Continued usual meds including trazodone (13) Thrombocytopenia: Platelets 88,000, chronic, f/u PCP (14) DVT prophylaxis: SCDs Warfarin -- INR 1.6 Coumadin as above and to have follow up with Dr. Wilson early next week Patient to also follow up with Dr. Vides for recent pacemaker as well. Discharged home with USG IV, Ancef x 14 days total duration, home health with services Total Time Total Time Spent Total Time Spent (In Minutes): 80 Discharge Plan Discharge Items Patient Disposition: Home - Home Health Services Reason For Visit: ASPIRATION PNEUMONIA Discharge Diagnosis: Bacteremia Condition on Discharge: Good Activity: Resume your previous activity Activity Comment: PT through home health services Non-emergency contact: Primary Care Provider and Automatic Oven Operator Call non-emergency contact if: you have any medication questions, your symptoms worsen and your pain is concerning for you Follow-up/Referrals: Senthil Vides MD [Physician] - 06/13/20 11:00 am (within next week for pacemaker check appointment scheduled for June 13, 2020 at 11:[address] Vides ) Giancarlo Dumont III, CRNP [Primary Care Provider] - 06/10/20 9:20 am (Appointment scheduled with Giancarlo Dumont June 10, 2020 at 9:20 am) Daylin Wilson MD, PhD [Pathologist] - 06/11/20 8:30 am (early next week please -- wednesday or wednesday) Diet: Heart Healthy Add Attending Provider Instructions: You have been hospitalized and there were concerns for aspiration pneumonia. Repeat imaging showed that this was likely atelectasis (collapsing of lower airways from not breathing deeply) and no evidence of pneumonia was shown. You have blood cultures which were drawn and found to have bacteria in your blood stream. You were treated with IV antibiotics and evaluated by infectious disease. Echocardiogram of your heart was done to ensure no vegetations on your heart valves and was felt to be negative without evidence. You are being continued on IV Ancef to be given every 8 hours for a total of 14 days from the last negative blood cultures, which are negative to date from June 03. You have been set up with home health to help show how to administer this medication as well as home therapy to help improve strength/gait. You are to be seen in the anticoagulation clinic early next week to monitor your INR and make further adjustments as needed. You should also follow up with Dr. Vides to follow up on your pacemaker. You should follow up with your PCP in two weeks to monitor your progress as well. As discussed, it is very important to keep skin clean/dry/moisturized to prevent portals of entry for bacteria to enter the blood stream, as this is likely the source of current infection. Please return to the emergency department if you have any worsening pain, fevers, chest pain, shortness of breath or for any other symptoms that are concerning for you. It has been a pleasure being a part of the medical team providing for you while you have been in the hospital. Take care! Pending Studies at Discharge: Yes Studies:: Blood cultures -- no growth to date Stand-Alone Forms: My [facility] Medications and DC Order Prescriptions: New cefazolin 1 gram recon soln 2 g IV Q8H 10 Days Qty: 25 RF: 0 Continued ascorbic acid (vitamin C) 1,000 mg tablet 1,000 mg PO DAILY RF: 0 acetaminophen [Tylenol Extra Strength] 500 mg tablet 1,000 mg PO HS RF: 0 cyanocobalamin (vitamin B-12) 500 mcg tablet 500 mcg PO DAILY RF: 0 nitroglycerin 0.4 mg tablet, sublingual 0.4 mg SL DIRECTED PRN (Reason: Chest Pain) RF: 0 timolol maleate 0.5 % drops 1 drops OPR BID RF: 0 multivitamin capsule 1 cap PO DAILY RF: 0 peg [id number] [Artificial Tears([id number])] 1-0.2-0.2 % drops 1 drops ophthalmic (eye) DAILY RF: 0 lactobacillus combination no.9 [Adult 50 Plus Probiotic] 4 billion cell capsule 4,000 mmu cells PO DAILY RF: 0 atorvastatin [Lipitor] 40 mg tablet 40 mg PO DAILY Qty: 90 RF: 1 cholecalciferol (vitamin D3) 125 mcg (5,000 unit) capsule 5,000 units PO DAILY Qty: 90 RF: 12 carbidopa-levodopa [Sinemet] 25-100 mg tablet 1.5 tab PO QID 90 Days Qty: 540 RF: 1 furosemide [Lasix] 40 mg tablet 40 mg PO DAILY Qty: 180 RF: 1 levothyroxine [Synthroid] 25 mcg tablet 25 mcg PO DAILY Qty: 90 RF: 1 flecainide 100 mg tablet 100 mg PO Q12H Qty: 180 RF: 1 spironolactone 50 mg tablet 50 mg PO DAILY Qty: 90 RF: 1 sennosides-docusate sodium [Senna with Docusate Sodium] 8.6-50 mg Tablet 3 tab PO HS RF: 0 magnesium 250 mg Tablet 250 mg PO DAILY RF: 0 warfarin 1 mg tablet 0.5 mg PO DAILY RF: 0 trazodone 50 mg tablet 50 mg PO HS RF: 0 prochlorperazine maleate 10 mg tablet 10 mg PO Q6H PRN (Reason: Nausea And Vomiting) RF: 0 Pain Pump See Rx Instructions .ROUTE .COMPLEX RF: 0 mineral oil Oil 0 ml PO DAILY PRN (Reason: Constipation) RF: 0 No Action alfuzosin 10 mg tablet extended release 24 hr 10 mg PO DAILY Qty: 90 RF: 3 potassium chloride 10 mEq capsule, extended release 10 meq PO BID Qty: 60 RF: 2 Discharge Orders: Discharge Order (Routine); Ordered 06/07/20 Ordered By: Zandra Patel Admission Data Admit Date/Time: 06/02/20 01:02 Attending Provider: Janet Davila Admit Provider: Faustino Mei Primary Care Provider: Giancarlo Dumont III Other Providers: Faustino Mei ; [facility]Home [facility] ; Jose Luis Mcdonald ; Maria E Armstrong ; Jed Chowdhury I. ; Cornel Rooney II ; Marce Arnold ; hCris Horowitz Other Interventions: Discharge Summary Assessment (RN) Last Done: 06/07/20 10:55 Supervising Physician Co-Signing Physician Notes PA Supervision Note: I personally saw and examined the patient. I verified all higgins points and agree with HUGH Patel with the following exceptions and/or additions: Pt feeling better, Afebrile, no CP or SOB. Ready for dc to home. VSS NAD, AAOx2 RRR no mgr CTAB no wcr Abd +BS soft NT ND Ext no edema 74 yo female with Coag neg Staph bacteremia, improved. Stable for dc to home on IV abx Coding Level of Care Code D/C Day Management >30 mins Diagnoses Bacteremia R78.81 Pneumonia J18.9 Laterality: right Lung location: lower lobe of lung Pneumonia type: due to unspecified organism Acute alteration in mental status R41.82 Hypomagnesemia E83.42 Mild dementia F03.90 Gait disorder R26.9 Chronic low back pain M54.5; G89.29 Presence of intrathecal pump Z96.89 Post laminectomy syndrome M96.1 Atrial fibrillation I48.91 Parkinson disease G20 REM sleep behavior disorder G47.52 Thrombocytopenia D69.6 DVT prophylaxis Z29.9
--- NOTE | 2020-06-19 06:49 | Coding Query ---
CODING QUERY To promote full compliance with coding requirements relating to patient care, provider participation is requested in all cases of saw maker uncertainty. Please assist us with the question(s) below: Coding Question(s): 1. There is documentation of initially thought to have concerns for aspiration pneumonia and concerns for aspiration pneumonia on admission and there is documentation on the Discharge Summary, under Addtl Attending Provider Instructions of, "You have been hospitalized and there were concerns for aspiration pneumonia. Repeat imaging showed that this was likely atelectasis (collapsing of lower airways from not breathing deeply) and no evidence of pneumonia was shown.". Please specify below, in your clinical opinion, regarding Aspiration Pneumonia. ( ) Possible Aspiration Pneumonia ( x ) Aspiration Pneumonia is Ruled-Out ( ) Other: Please Specify 2. Please specify below, in your clinical opinion, regarding the etiology of Coag Negative Staph Bacteremia. ( ) Unknown etiology ( x ) Other Etiology. Please Specify likely from breakdown of dry,cracked skin Physician's Response(s): Thank you Alisson Reeves Principal Diagnosis: "that condition established after study, to be chiefly responsible for occasioning the admission of the patient to the hospital for care." Co-Existing Principal Diagnosis: "when two or more diagnoses equally meet the criteria for principal diagnosis as determined by the circumstances of admission, diagnostic work up, and/or therapy provided, and the Alphabetic Index, Tabular List, or another coding guideline does not provide sequencing direction, any one of the diagnoses may be sequenced first." "When the physician has documented what appears to be a current diagnosis in the body of the record, but has not included the diagnosis in the final diagnostic statement, the physician should be asked whether the diagnosis should be added." ([facility] 2 QTR90. p3-4) PATTI
--- NOTE | 2020-06-19 06:51 | Coding Query ---
CODING QUERY To promote full compliance with coding requirements relating to patient care, provider participation is requested in all cases of business programmer uncertainty. Please assist us with the question(s) below: Please clarify the meaning of WILFRID. WILFRID is not a valid abbreviation. Thank you. ( x ) Acute Kidney Injury ( ) Acute Kidney Insufficiency ( ) Other (Specify): Principal Diagnosis: "that condition established after study, to be chiefly responsible for occasioning the admission of the patient to the hospital for care." Co-Existing Principal Diagnosis: "when two or more diagnoses equally meet the criteria for principal diagnosis as determined by the circumstances of admission, diagnostic work up, and/or therapy provided, and the Alphabetic Index, Tabular List, or another coding guideline does not provide sequencing direction, any one of the diagnoses may be sequenced first." "When the physician has documented what appears to be a current diagnosis in the body of the record, but has not included the diagnosis in the final diagnostic statement, the physician should be asked whether the diagnosis should be added." ([facility] 2 QTR90. p3-4) PATTI
== END 2020-06-07 13:06 | disposition home health service (06) | DRG 871 ==
LOC: ED 20:40 → SUATTDRO 06-02 01:02 → 3N 06-02 01:02

== ENCOUNTER 2021-10-15 22:08 | Observation (INO) ==
--- NOTE | 2021-10-15 22:22 | Emergency Department Note ---
Impression & Plan Aspiration into respiratory tract, Hypoxia, Choking episode ED Provider Note NAME: JAIDA MICHEL AGE: 76 SEX: M : 1945 ARRIVES VIA: Ambulance INFORMANT: Patient, EMS personnel ED PROVIDER(S): Amol Cheatham DO CHIEF COMPLAINT: Choking episode HPI: The patient is a 76-year-old male who has a history of Parkinson's who presented to the emergency department after having a choking episode. The patient had a choking episode while eating beef jerky and drinking water. He was having significant difficulty breathing and his significant other called 911. The patient was noted to have diminished breath sounds and hypoxia. The patient states his symptoms are significantly improved at this time. He denies having any chest pain. He denies having any swelling in the lower extremities. The patient denies having any recent trauma. He has been experiencing similar episodes in the past with trying to swallow. The patient states that he does not have a foreign body sensation. ROS: See above HPI for pertinent positives & negatives. A total of 10 systems reviewed and were otherwise negative. PAST MEDICAL HISTORY: See Below PAST SURGICAL HISTORY: See Below FAMILY HISTORY: See Below SOCIAL HISTORY: See Below HOME MEDICATIONS: See Below ALLERGIES: See Below VITALS: See Below PHYSICAL EXAMINATION: GENERAL: The patient is awake and alert. He is nonanxious appearing. EYES: The conjunctivae are clear. The pupils are round and reactive. EARS, NOSE, MOUTH AND THROAT: The nose is without any evidence of any deformity. NECK: The neck is nontender and supple. RESPIRATORY: Diminished breath sounds are noted in the left lung field. There is slight wheezing in the right lung field. There is no tachypnea or conversational dyspnea. CARDIOVASCULAR: Regular rate and rhythm noted there no murmurs rubs or gallops normal S1 normal S2. GASTROINTESTINAL: The abdomen is soft. Abdomen is nontender. MUSCULOSKELETAL/EXTREMITIES: There is no evidence of gross deformity full range of motion is noted in the hips and shoulders. SKIN: There is no obvious evidence of any rash. There are no petechiae, pallor or cyanosis noted. NEUROLOGIC: Patient is awake alert and oriented x3 MEDICAL DECISION MAKING: The patient is a 76-year-old male who presented to the emergency department for an evaluation of difficulty breathing. The patient was evaluated in the emergency department. I discussed the patient's laboratory and radiographic studies with him. He was found to have persistent hypoxia. I discussed his case with the on-call [facility] hospitalist. They have agreed to evaluate the patient in the emergency department. Cultures were obtained but at this time I do not feel the patient requires antibiotics. Triage Nursing notes reviewed. Prior medical records reviewed Vital Signs: reviewed and remarkable for hypoxia and elevated blood pressure. Differential diagnosis: Reactive airway disease, pneumonia, pneumothorax, COPD, CHF, infections, cardiac ischemia, pulmonary embolism, musculoskeletal, gastrointestinal, as well as other pathologies. ER treatment provided: See below Diagnostics interpreted by me: ECG: EKG was obtained in the emergency department. My interpretation is atrial paced rhythm at 65 bpm. There was ventricular sensing noted. This was compared to a tracing from June [id number]. Paced rhythm is noted on the new tracing. Cardiac Monitoring: An order was placed for continuous cardiac monitoring. The monitor shows a rate of 60 bpm with paced rhythm. Laboratory studies: As stated above and show below. Imaging studies: See below Consultation(s): [facility] the patient in the emergency department. Past Med/Surg History Medical History Anticoagulation adequate BPH with obstruction/lower urinary tract symptoms Chronic low back pain Hematuria Hiatal hernia Hypomagnesemia FPC (current) use of anticoagulants Lumbar post-laminectomy syndrome Near syncope New onset atrial fibrillation Pancytopenia Pneumonia Presence of intrathecal pump Sinus node dysfunction Supratherapeutic INR Urinary stream slowing Surgical History History of back surgery History of cholecystectomy History of hernia repair History of tonsillectomy S/P appendectomy S/P carpal tunnel release S/P hip replacement S/P wisdom tooth extraction Status post placement of cardiac pacemaker Family History Father Heart disease Diabetes Cardiac disorder Neck fracture Mother Heart disease Diabetes Myocardial infarction Sister Stroke Daughter Multiple sclerosis Denies family history of Ovarian cancer Prostate cancer Breast cancer Colorectal cancer Social History Smoking Status: Never smoker Second Hand Exposure: No; Hx Alcohol Use: No Hx Substance Use: No Preferred Language: Mongolian Communication Ability: Effective Visual Impairment: Diminished Hearing Ability: Use of Hearing Aid Emergency Vehicle Operator Required: No Beliefs That Will Affect Care: None marital status: Current Living Situation: Spouse current occupational status: retired Feels Safe at Home: Yes Childhood Exposure to Second-Hand Smoke: No Diet Comment: needs cut up finely Dental Care, Regularly: No Physical Activity Frequency: Does not Exercise Seatbelt Use: always Sunscreen Use: No Assistive Devices: Walker Allergies Allergies Allergy/AdvReac Type Severity Reaction Status Date / Time Penicillins Allergy Intermediate Hives Verified 10/16/21 01:11 doxycycline AdvReac Intermediate Vomiting Verified 10/16/21 01:11 ondansetron AdvReac Intermediate Gastrointestinal Verified 10/16/21 01:11 Upset Home Meds Home Medications Medication Instructions Recorded Confirmed acetaminophen 500 mg tablet 1,000 mg PO HS tab 04/25/18 10/16/21 (Tylenol Extra Strength) ascorbic acid (vitamin C) 1,000 mg 1,000 mg PO DAILY tab 04/25/18 10/16/21 tablet cyanocobalamin (vitamin B-12) 500 500 mcg PO DAILY 04/25/18 10/16/21 mcg tablet multivitamin 1 cap PO DAILY 04/25/18 10/16/21 nitroglycerin 0.4 mg sublingual 0.4 mg SL DIRECTED PRN 04/25/18 10/16/21 tablet peg [id number] 1 1 drops OPHTHALMIC (EYE) DAILY 04/25/18 10/16/21 %-0.2 %-0.2 % eye drops (Artificial Tears ([id number])) timolol maleate 0.5 % eye drops 1 drops OPR BID 04/25/18 10/16/21 lactobacillus combination no.9 4 4,000 mmu cells PO DAILY 04/26/18 10/16/21 billion cell capsule (Adult 50 Plus Probiotic) Pain Pump See Rx Instructions .ROUTE .COMPLEX 06/01/20 10/16/21 magnesium 250 mg tablet 250 mg PO DAILY 06/01/20 10/16/21 mineral oil 0 ml PO DAILY PRN 06/01/20 10/16/21 sennosides 8.6 mg-docusate sodium 3 tab PO HS 06/01/20 10/16/21 50 mg tablet (Senna with Docusate Sodium) warfarin 1 mg tablet 1 mg PO QPM 10/16/21 10/16/21 Previous Rx's Medication Instructions Recorded cholecalciferol (vitamin D3) 125 5,000 units PO DAILY #90 cap 09/11/19 mcg (5,000 unit) capsule potassium chloride 10 mEq 10 meq PO BID #60 cap 06/13/20 capsule,extended release atorvastatin 40 mg tablet (Lipitor) 40 mg PO DAILY #90 tab 05/11/21 spironolactone 50 mg tablet 50 mg PO DAILY #90 tab 05/11/21 trazodone 50 mg tablet 50 mg PO HS #90 tab 05/11/21 flecainide 100 mg tablet 100 mg PO Q12H #180 tab 05/19/21 naloxone 4 mg/actuation nasal 1 spray INTRANASAL Q2M PRN #2 ea 05/30/21 spray (Narcan) alfuzosin 10 mg tablet,extended 10 mg PO DAILY #90 tab 06/16/21 release 24 hr prochlorperazine maleate 10 mg 10 mg PO Q6H PRN #90 tab 08/07/21 tablet carbidopa 25 mg-levodopa 100 mg 2 tab PO QID 90 Days #720 tab 08/20/21 tablet (Sinemet) furosemide 40 mg tablet (Lasix) 40 mg PO DAILY #180 tab 08/27/21 donepezil 10 mg tablet 10 mg PO DAILY #90 tab 08/28/21 nystatin 100,000 unit/gram topical 1 applic TOPICAL BID #30 g 09/16/21 ointment levothyroxine 25 mcg tablet 25 mcg PO DAILY #90 tab 09/17/21 (Synthroid) Results & Data (ED) Vital Signs Vital Signs - 24 hr 10/15/21 22:13 10/15/21 22:19 10/15/21 22:23 Temperature 36.7 C Temperature Source Oral Pulse Rate 75 71 Pulse Rate from SpO2 Sensor Respiratory Rate 12 Respiratory Effort / Characteristics Non-Labored Blood Pressure 146/60 H 146/60 H Blood Pressure Mean 88 88 Pulse Oximetry 95 94 Oxygen Delivery Method Room Air Room Air Oxygen Flow Rate Sepsis Recent Fever Within 48 Hours No Sepsis New/Unexplained Change in Mental Status No Sepsis Action Taken by Nursing No Action Required 10/15/21 22:36 10/15/21 22:38 10/15/21 23:00 Temperature Temperature Source Pulse Rate 66 60 Pulse Rate from SpO2 Sensor Respiratory Rate 18 Respiratory Effort / Characteristics Blood Pressure 156/66 H 152/64 H Blood Pressure Mean 96 93 Pulse Oximetry 96 95 97 Oxygen Delivery Method Nasal Cannula Nasal Cannula Nasal Cannula Oxygen Flow Rate 2 2 2 Sepsis Recent Fever Within 48 Hours Sepsis New/Unexplained Change in Mental Status Sepsis Action Taken by Nursing 10/15/21 23:12 10/15/21 23:40 10/16/21 00:00 Temperature Temperature Source Pulse Rate 67 60 Pulse Rate from SpO2 Sensor 60 Respiratory Rate 21 16 Respiratory Effort / Characteristics Non-Labored Blood Pressure 142/63 H Blood Pressure Mean 89 Pulse Oximetry 89 L 96 Oxygen Delivery Method Room Air Room Air Oxygen Flow Rate Sepsis Recent Fever Within 48 Hours Sepsis New/Unexplained Change in Mental Status Sepsis Action Taken by Nursing 10/16/21 01:00 Temperature Temperature Source Pulse Rate 60 Pulse Rate from SpO2 Sensor Respiratory Rate 19 Respiratory Effort / Characteristics Blood Pressure 164/72 H Blood Pressure Mean 102 Pulse Oximetry 95 Oxygen Delivery Method Room Air Oxygen Flow Rate Sepsis Recent Fever Within 48 Hours Sepsis New/Unexplained Change in Mental Status Sepsis Action Taken by Group Home Medications Current Medication List: was personally reviewed by me Laboratory Data Attestation: I reviewed the patient's lab results. Result diagrams: 10/15/21 22:25 10/15/21 22:25 Lab Results 10/15/21 10/15/21 10/15/21 Range/Units 22:25 22:25 22:25 WBC 6.58 (4.8-10.8) K/uL RBC 4.41 L (4.7-6.1) M/uL Hgb 14.2 (14.0-18.0) g/dL Hct 42.0 (42-52) % MCV 95.2 (80-100) fL MCH 32.2 (25-34) pg MCHC 33.8 (32-36) g/dL RDW Std Deviation 48.7 H (36.4-46.3) fL RDW Coeff of Ese 13.9 (11.5-14.5) % Plt Count 92 L (130-400) K/uL MPV 9.6 (7.4-10.4) fL Immature Gran % (Auto) 0.2 % Neut % (Auto) 79.4 % Lymph % (Auto) 12.2 % Barton % (Auto) 6.5 % Eos % (Auto) 1.5 % Baso % (Auto) 0.2 % Neut # (Auto) 5.23 (1.4-6.5) K/uL Lymph # (Auto) 0.80 L (1.2-3.4) K/uL Barton # (Auto) 0.43 (0.11-0.59) K/uL Eos # (Auto) 0.10 (0-0.5) K/uL Baso # (Auto) 0.01 (0-0.2) K/uL Immature Gran # (Auto) 0.01 (0.00-0.02) K/uL Platelet Estimate Decreased L (Normal) PT 37.9 H (9.0-12.0) Seconds INR 3.8 H (0.9-1.1) APTT 44.6 H (21.0-31.0) Seconds PTT Ratio 1.6 Sodium 138 (136-145) mmol/L Potassium 3.7 (3.5-5.1) mmol/L Chloride 96 L (98-107) mmol/L Carbon Dioxide 35 H (21-32) mmol/L Anion Gap 7 (3-11) BUN 24 H (6-23) mg/dl Creatinine 1.46 H (0.6-1.4) mg/dl Est Cr Clr Drug Dosing 52.6 ml/min Est GFR ( Amer) 54.1 ml/min Est GFR (Non-Af Amer) 46.7 ml/min BUN/Creatinine Ratio 16.4 (10-20) Glucose 114 H (70-99(Fasting)) mg/dl Lactate (0.4-2.0) mmol/L Calcium 9.2 (8.5-10.1) mg/dl Magnesium 1.7 (1.7-2.4) mg/dl Total Bilirubin 0.4 (0.2-1.0) mg/dl AST 23 (13-39) U/L ALT 4 L (7-52) U/L Alkaline Phosphatase 92 (34-104) U/L Troponin I < 0.03 (0-0.04) ng/ml Total Protein 6.7 (6.0-8.3) gm/dl Albumin 3.8 (3.4-5.0) gm/dl Globulin 2.9 (2.5-4.0) gm/dl Albumin/Globulin Ratio 1.3 (0.9-2) Procalcitonin (0-0.5) ng/ml SARS-CoV-2, RNA, NAAT (NEGATIVE) 10/15/21 10/15/21 10/16/21 Range/Units 22:25 22:27 00:23 WBC (4.8-10.8) K/uL RBC (4.7-6.1) M/uL Hgb (14.0-18.0) g/dL Hct (42-52) % MCV (80-100) fL MCH (25-34) pg MCHC (32-36) g/dL RDW Std Deviation (36.4-46.3) fL RDW Coeff of Ese (11.5-14.5) % Plt Count (130-400) K/uL MPV (7.4-10.4) fL Immature Gran % (Auto) % Neut % (Auto) % Lymph % (Auto) % Barton % (Auto) % Eos % (Auto) % Baso % (Auto) % Neut # (Auto) (1.4-6.5) K/uL Lymph # (Auto) (1.2-3.4) K/uL Barton # (Auto) (0.11-0.59) K/uL Eos # (Auto) (0-0.5) K/uL Baso # (Auto) (0-0.2) K/uL Immature Gran # (Auto) (0.00-0.02) K/uL Platelet Estimate (Normal) PT (9.0-12.0) Seconds INR (0.9-1.1) APTT (21.0-31.0) Seconds PTT Ratio Sodium (136-145) mmol/L Potassium (3.5-5.1) mmol/L Chloride (98-107) mmol/L Carbon Dioxide (21-32) mmol/L Anion Gap (3-11) BUN (6-23) mg/dl Creatinine (0.6-1.4) mg/dl Est Cr Clr Drug Dosing ml/min Est GFR ( Amer) ml/min Est GFR (Non-Af Amer) ml/min BUN/Creatinine Ratio (10-20) Glucose (70-99(Fasting)) mg/dl Lactate 1.6 (0.4-2.0) mmol/L Calcium (8.5-10.1) mg/dl Magnesium (1.7-2.4) mg/dl Total Bilirubin (0.2-1.0) mg/dl AST (13-39) U/L ALT (7-52) U/L Alkaline Phosphatase (34-104) U/L Troponin I (0-0.04) ng/ml Total Protein (6.0-8.3) gm/dl Albumin (3.4-5.0) gm/dl Globulin (2.5-4.0) gm/dl Albumin/Globulin Ratio (0.9-2) Procalcitonin 0.06 (0-0.5) ng/ml SARS-CoV-2, RNA, NAAT NEGATIVE (NEGATIVE) Imaging Data Attestation: I personally reviewed and interpreted this imaging study as foll ows: My Impression: Chest x-ray was obtained in the emergency department. My interpretation is no definite infiltrate, no free air, no acute disease Discharge Plan Visit Data Chief Complaint: Choking Stated Complaint: Choking/Aspiration ED Provider: Amol Cheatham Discharge Problem: Aspiration into respiratory tract, Hypoxia, Choking episode Patient Disposition: Being Evaluated by Hospitalist Forms Stand Alone Forms: My [facility] Prescriptions Prescriptions: No Action ascorbic acid (vitamin C) 1,000 mg tablet 1,000 mg PO DAILY RF: 0 acetaminophen [Tylenol Extra Strength] 500 mg tablet 1,000 mg PO HS RF: 0 cyanocobalamin (vitamin B-12) 500 mcg tablet 500 mcg PO DAILY RF: 0 nitroglycerin 0.4 mg tablet, sublingual 0.4 mg SL DIRECTED PRN (Reason: Chest Pain) RF: 0 timolol maleate 0.5 % drops 1 drops OPR BID RF: 0 multivitamin capsule 1 cap PO DAILY RF: 0 peg [id number] [Artificial Tears([id number])] 1-0.2-0.2 % drops 1 drops ophthalmic (eye) DAILY RF: 0 lactobacillus combination no.9 [Adult 50 Plus Probiotic] 4 billion cell capsule 4,000 mmu cells PO DAILY RF: 0 Narcan 4 mg/actuation spray,non-aerosol 1 spray intranasal Q2M PRN (Reason: opioid overdose) Qty: 2 RF: 0 atorvastatin [Lipitor] 40 mg tablet 40 mg PO DAILY Qty: 90 RF: 1 trazodone 50 mg tablet 50 mg PO HS Qty: 90 RF: 1 spironolactone 50 mg tablet 50 mg PO DAILY Qty: 90 RF: 1 flecainide 100 mg tablet 100 mg PO Q12H Qty: 180 RF: 1 alfuzosin 10 mg tablet extended release 24 hr 10 mg PO DAILY Qty: 90 RF: 3 prochlorperazine maleate 10 mg tablet 10 mg PO Q6H PRN (Reason: Nausea And Vomiting) Qty: 90 RF: 1 carbidopa-levodopa [Sinemet] 25-100 mg tablet 2 tab PO QID 90 Days Qty: 720 RF: 1 furosemide [Lasix] 40 mg tablet 40 mg PO DAILY Qty: 180 RF: 1 nystatin 100,000 unit/gram ointment 1 applic topical BID Qty: 30 RF: 5 levothyroxine [Synthroid] 25 mcg tablet 25 mcg PO DAILY Qty: 90 RF: 1 cholecalciferol (vitamin D3) 125 mcg (5,000 unit) capsule 5,000 units PO DAILY Qty: 90 RF: 12 donepezil 10 mg tablet 10 mg PO DAILY Qty: 90 RF: 1 potassium chloride 10 mEq capsule, extended release 10 meq PO BID Qty: 60 RF: 2 sennosides-docusate sodium [Senna with Docusate Sodium] 8.6-50 mg Tablet 3 tab PO HS RF: 0 magnesium 250 mg Tablet 250 mg PO DAILY RF: 0 Pain Pump See Rx Instructions .ROUTE .COMPLEX RF: 0 mineral oil Oil 0 ml PO DAILY PRN (Reason: Constipation) RF: 0 warfarin 1 mg tablet 1 mg PO QPM RF: 0 Referrals Referrals: Giancarlo Dumont III, AALIYAH [Primary Care Provider] -
[2021-10-15 22:53] LABS: Alanine Aminotransferase 4 U/L (7-52); Albumin Globulin Ratio 1.3 (0.9-2); Albumin Level 3.8 gm/dl (3.4-5.0); Alkaline Phosphatase 92 U/L (34-104); Anion Gap 7 (3-11); Aspartate Aminotransferase 23 U/L (13-39); BUN Creatinine Ratio 16.4 (10-20); Bilirubin,Total 0.4 mg/dl (0.2-1.0); Blood Urea Nitrogen 24 mg/dl (6-23); Calcium 9.2 mg/dl (8.5-10.1); Carbon Dioxide 35 mmol/L (21-32); Chloride 96 mmol/L (98-107); Creatinine Clr Calc Pharmacy 52.6 ml/min; Est GFR (African American) 54.1 ml/min; Est GFR (Non-African American) 46.7 ml/min; Globulin 2.9 gm/dl (2.5-4.0); Glucose 114 mg/dl (70-99(Fasting)); Magnesium 1.7 mg/dl (1.7-2.4); Potassium 3.7 mmol/L (3.5-5.1); Sodium 138 mmol/L (136-145); Total Protein 6.7 gm/dl (6.0-8.3)
[2021-10-15 22:54] LABS: INR 3.8 (0.9-1.1); Partial Thromboplastin Ratio 1.6; Partial Thromboplastin Time 44.6 Seconds (21.0-31.0); Prothrombin Time 37.9 Seconds (9.0-12.0); Troponin I < 0.03 ng/ml (0-0.04)
[2021-10-15 22:56] LABS: Hemoglobin 14.2 g/dL (14.0-18.0); Mean Corpuscular Hemoglobin 32.2 pg (25-34); Mean Corpuscular Hgb Conc 33.8 g/dL (32-36); Mean Corpuscular Volume 95.2 fL (80-100); Mean Platelet Volume 9.6 fL (7.4-10.4); Platelet Count 92 K/uL (130-400); RDW Coefficient of Variation 13.9 % (11.5-14.5); RDW Standard Deviation 48.7 fL (36.4-46.3); Red Blood Count 4.41 M/uL (4.7-6.1); White Blood Count 6.58 K/uL (4.8-10.8)
[2021-10-15 22:58] LABS: Basophils # (auto) 0.01 K/uL (0-0.2); Basophils % (auto) 0.2 %; Eosinophils % (auto) 1.5 %; Immature Granulocytes # (auto) 0.01 K/uL (0.00-0.02); Immature Granulocytes % (auto) 0.2 %; Lymphocytes % (auto) 12.2 %; Monocytes # (auto) 0.43 K/uL (0.11-0.59); Monocytes % (auto) 6.5 %; Neutrophils # (auto) 5.23 K/uL (1.4-6.5); Neutrophils % (auto) 79.4 %; Platelet Estimate Decreased (Normal)
--- NOTE | 2021-10-16 01:35 | History & Physical Report ---
Date of Service October 16, 2021 Assessment & Plan (1) Obesity hypoventilation syndrome: Plan: Obesity hypoventilation syndrome/hypoxia secondary to decreased respiratory inspiration- Likely contributing factor also is sedation from intrathecal pain pump Incentive spirometry every hour while awake Monitor oxygen while on telemetry (2) Hypoxia: Plan: See above (3) BPH with obstruction/lower urinary tract symptoms: Plan: Continue alfuzosin. (4) Presence of intrathecal pump: Plan: Intrathecal pump/chronic low back pain/postlaminectomy syndrome- Continue pump, pharmacy notified (5) Atrial fibrillation: Plan: Atrial fibrillation/hypertension/CHF- Continue flecainide, furosemide, spironolactone [facility] INR supratherapeutic at 3.8, and will therefore hold warfarin this evening Resume warfarin when INR is less than or equal to 2.5 (6) Hypercholesterolemia: Plan: Continue atorvastatin 40 mg daily (7) Hypothyroidism: Plan: Continue levothyroxine 25 mcg daily (8) Stage III chronic kidney disease: Plan: Creatinine 1.46 upon admission, with base range 1.14-1.49 Follow serially (9) Lumbar post-laminectomy syndrome: Plan: See above (10) Dementia in Parkinson's disease: Plan: Parkinson's dementia/SDAT- presently stable per 's observation Continue carbidopa/levodopa, donepezil History of Present Illness Chief Complaint: The patient is brought to the ED by EMS, after the called when the patient had a choking episode while eating beef jerky Primary Care Provider: Giancarlo Dumont III, AALIYAH The patient is a 76-year-old male with a past medical history including Parkinson's dementia, BPH with LUTS, gait disorder, pacemaker history, chronic low back pain, presence of intrathecal pump, atrial fibrillation chronic REM sleep behavior disorder, bilateral hearing loss, hypercholesterolemia, hypertension, hypothyroidism, stage III CKD, lumbar postlaminectomy syndrome, thrombocytopenia, pancytopenia and hypomagnesemia. Patient presents to the emergency department after choking incident while at home. This has not been a regular occurrence. The patient was initially having a pulse ox of 97% on room air in the emergency department, and was later found to have a pulse ox of 89% on room air. Patient was observed by me to have shallow respirations, and when asked to take deep breaths, his oxygenation improved to 97-98% on room air Allergies Allergy/AdvReac Type Severity Reaction Status Date / Time Penicillins Allergy Intermediate Hives Verified 10/16/21 01:11 doxycycline AdvReac Intermediate Vomiting Verified 10/16/21 01:11 ondansetron AdvReac Intermediate Gastrointestinal Verified 10/16/21 01:11 Upset Home Medications Medication Instructions Recorded Confirmed Type acetaminophen 500 mg tablet 1,000 mg PO HS tab 04/25/18 10/16/21 History (Tylenol Extra Strength) ascorbic acid (vitamin C) 1,000 mg 1,000 mg PO DAILY tab 04/25/18 10/16/21 History tablet cyanocobalamin (vitamin B-12) 500 500 mcg PO DAILY 04/25/18 10/16/21 History mcg tablet multivitamin 1 cap PO DAILY 04/25/18 10/16/21 History nitroglycerin 0.4 mg sublingual 0.4 mg SL DIRECTED PRN 04/25/18 10/16/21 History tablet peg [id number] 1 1 drops OPHTHALMIC (EYE) DAILY 04/25/18 10/16/21 History %-0.2 %-0.2 % eye drops (Artificial Tears ([id number])) timolol maleate 0.5 % eye drops 1 drops OPR BID 04/25/18 10/16/21 History lactobacillus combination no.9 4 4,000 mmu cells PO DAILY 04/26/18 10/16/21 History billion cell capsule (Adult 50 Plus Probiotic) cholecalciferol (vitamin D3) 125 5,000 units PO DAILY #90 cap 09/11/19 10/16/21 Rx mcg (5,000 unit) capsule Pain Pump See Rx Instructions .ROUTE .COMPLEX 06/01/20 10/16/21 History magnesium 250 mg tablet 250 mg PO DAILY 06/01/20 10/16/21 History mineral oil 0 ml PO DAILY PRN 06/01/20 10/16/21 History sennosides 8.6 mg-docusate sodium 3 tab PO HS 06/01/20 10/16/21 History 50 mg tablet (Senna with Docusate Sodium) potassium chloride 10 mEq 10 meq PO BID #60 cap 06/13/20 10/16/21 Rx capsule,extended release atorvastatin 40 mg tablet (Lipitor) 40 mg PO DAILY #90 tab 05/11/21 10/16/21 Rx spironolactone 50 mg tablet 50 mg PO DAILY #90 tab 05/11/21 10/16/21 Rx trazodone 50 mg tablet 50 mg PO HS #90 tab 05/11/21 10/16/21 Rx flecainide 100 mg tablet 100 mg PO Q12H #180 tab 05/19/21 10/16/21 Rx naloxone 4 mg/actuation nasal 1 spray INTRANASAL Q2M PRN #2 ea 05/30/21 10/16/21 Rx spray (Narcan) alfuzosin 10 mg tablet,extended 10 mg PO DAILY #90 tab 06/16/21 10/16/21 Rx release 24 hr prochlorperazine maleate 10 mg 10 mg PO Q6H PRN #90 tab 08/07/21 10/16/21 Rx tablet carbidopa 25 mg-levodopa 100 mg 2 tab PO QID 90 Days #720 tab 08/20/21 10/16/21 Rx tablet (Sinemet) furosemide 40 mg tablet (Lasix) 40 mg PO DAILY #180 tab 08/27/21 10/16/21 Rx donepezil 10 mg tablet 10 mg PO DAILY #90 tab 08/28/21 10/16/21 Rx nystatin 100,000 unit/gram topical 1 applic TOPICAL BID #30 g 09/16/21 10/16/21 Rx ointment levothyroxine 25 mcg tablet 25 mcg PO DAILY #90 tab 09/17/21 10/16/21 Rx (Synthroid) warfarin 1 mg tablet 1 mg PO QPM 10/16/21 10/16/21 History Past Med/Surg History Medical History Anticoagulation adequate BPH with obstruction/lower urinary tract symptoms Chronic low back pain Hematuria Hiatal hernia Hypomagnesemia care home (current) use of anticoagulants Lumbar post-laminectomy syndrome Near syncope New onset atrial fibrillation Pancytopenia Pneumonia Presence of intrathecal pump Sinus node dysfunction Supratherapeutic INR Urinary stream slowing Surgical History History of back surgery History of cholecystectomy History of hernia repair History of tonsillectomy S/P appendectomy S/P carpal tunnel release S/P hip replacement S/P wisdom tooth extraction Status post placement of cardiac pacemaker Family History Father Heart disease Diabetes Cardiac disorder Neck fracture Mother Heart disease Diabetes Myocardial infarction Sister Stroke Daughter Multiple sclerosis Denies family history of Ovarian cancer Prostate cancer Breast cancer Colorectal cancer Social History Smoking Status: Never smoker Second Hand Exposure: No; Hx Alcohol Use: No Hx Substance Use: No Preferred Language: Welsh Communication Ability: Effective Visual Impairment: Diminished Hearing Ability: Use of Hearing Aid Polisher Dial Required: No Beliefs That Will Affect Care: None marital status: Current Living Situation: Spouse current occupational status: retired Other Information That Helps Us Care for You: No Feels Safe at Home: Yes Safety Concerns: Feels Safe At This Time Childhood Exposure to Second-Hand Smoke: No Diet Comment: needs cut up finely Dental Care, Regularly: No Physical Activity Frequency: Does not Exercise Seatbelt Use: always Sunscreen Use: No Assistive Devices: Walker Review of Systems Review of Systems: The patient denies chest pain, palpitations, shortness of breath, dyspnea on exertion, cough, lower extremity swelling, sore throat, fevers, chills, sweats, weight change, fatigue, nausea, vomiting, diarrhea , constipation, abdominal pain, pelvic pain, blood in urine or stool, dysuria, urinary frequency or urgency, lightheadedness, dizziness, headache, loss of consciousness, rash, abnormal bruising or bleeding, imbalance, focal weakness, numbness or tingling in arms or legs, generalized arthralgias or myalgias, back or neck pain, or night sweats. The review of systems is otherwise negative other than for that already noted above, and at least 10 systems have been reviewed. Physical Exam Physical Exam: The patient is awake, alert and oriented 3, well developed and well nourished, normocephalic and atraumatic, lying in bed and in no acute distress. HEENT--PERRL, EOMI, mucous membranes and oropharynx normal Neck--supple. No JVD. No bruits. Thyroid normal, trachea midline, no adenopathy. Heart--normal S1 and S2. No murmurs, rubs or gallops. Lungs--decreased breath sounds throughout. No respiratory distress, no accessory muscle use. Abdomen--normal bowel sounds and soft. Nontender. Nondistended, no hernias or masses, no organomegaly. Extremities--no cyanosis or clubbing. No edema. Dermatologic--normal skin turgor, normal color, no abnormal lymph nodes, no rash. Neurologic--cranial nerves II through XII grossly intact. Rheumatologic--normal range of motion. Psychiatric--normal affect. Results & Data Results & Data ([facility]) Vital Signs (Past 12 Hours) Vital Signs Temp Pulse Resp BP Pulse Ox 10/16/21 01:00 60 19 164/72 H 95 10/16/21 00:00 60 16 142/63 H 96 10/15/21 23:40 67 21 89 L 10/15/21 23:00 60 18 152/64 H 97 10/15/21 22:38 95 10/15/21 22:36 66 156/66 H 96 10/15/21 22:19 36.7 C 71 12 146/60 H 94 10/15/21 22:13 75 146/60 H 95 Laboratory Results Laboratory Results WBC 6.58 K/uL (4.8-10.8) 10/15/21 22:25 RBC 4.41 M/uL (4.7-6.1) L 10/15/21 22:25 Hgb 14.2 g/dL (14.0-18.0) 10/15/21 22:25 Hct 42.0 % (42-52) 10/15/21 22:25 MCV 95.2 fL (80-100) 10/15/21 22:25 MCH 32.2 pg (25-34) 10/15/21 22:25 MCHC 33.8 g/dL (32-36) 10/15/21 22:25 RDW Std Deviation 48.7 fL (36.4-46.3) H 10/15/21 22:25 RDW Coeff of Ese 13.9 % (11.5-14.5) 10/15/21 22:25 Plt Count 92 K/uL (130-400) L 10/15/21 22:25 MPV 9.6 fL (7.4-10.4) 10/15/21 22:25 Immature Gran % (Auto) 0.2 % 10/15/21 22:25 Neut % (Auto) 79.4 % 10/15/21 22: Lymph % (Auto) 12.2 % 10/15/21 22: [place] % (Auto) 6.5 % 10/15/21 22: Eos % (Auto) 1.5 % 10/15/21 22: Baso % (Auto) 0.2 % 10/15/21: Neut # (Auto) 5.23 K/uL (1.4-6.5) 10/15/21: Lymph # (Auto) 0.80 K/uL (1.2-3.4) L 10/15/21: [place] # (Auto) 0.43 K/uL (0.11-0.59) 10/15/21: Eos # (Auto) 0.10 K/uL (0-0.5) 10/15/21: Baso # (Auto) 0.01 K/uL (0-0.2) 10/15/21: Immature Gran # (Auto) 0.01 K/uL (0.00-0.02) 10/15/21: Platelet Estimate Decreased (Normal) L 10/15/21: PT 37.9 Seconds (9.0-12.0) H 10/15/21: INR 3.8 (0.9-1.1) H 10/15/21: APTT 44.6 Seconds (21.0-31.0) H 10/15/21: PTT Ratio 1.6 10/15/21: Sodium 138 mmol/L (136-145) 10/15/21: Potassium 3.7 mmol/L (3.5-5.1) 10/15/21: Chloride 96 mmol/L (98-107) L 10/15/21: Carbon Dioxide 35 mmol/L (21-32) H 10/15/21: Anion Gap 7 (3-11) 10/15/21 22: BUN 24 mg/dl (6-23) H 10/15/21: Creatinine 1.46 mg/dl (0.6-1.4) H 10/15/21: Est Cr Clr Drug Dosing 52.6 ml/min 03/02/22 22:25 Est GFR ( Amer) 54.1 ml/min 10/15/21 22:25 Est GFR (Non-Af Amer) 46.7 ml/min 10/15/21 22:25 BUN/Creatinine Ratio 16.4 (10-20) 10/15/21 22:25 Glucose 114 mg/dl (70-99(Fasting)) H 10/15/21 22:25 Lactate 1.6 mmol/L (0.4-2.0) 10/16/21 00:23 Calcium 9.2 mg/dl (8.5-10.1) 10/15/21 22:25 Magnesium 1.7 mg/dl (1.7-2.4) 10/15/21 22:25 Total Bilirubin 0.4 mg/dl (0.2-1.0) 10/15/21 22:25 AST 23 U/L (13-39) 10/15/21 22:25 ALT 4 U/L (7-52) L 10/15/21 22:25 Alkaline Phosphatase 92 U/L (34-104) 10/15/21 22:25 Troponin I < 0.03 ng/ml (0-0.04) 10/15/21 22:25 Total Protein 6.7 gm/dl (6.0-8.3) 10/15/21 22:25 Albumin 3.8 gm/dl (3.4-5.0) 10/15/21 22:25 Globulin 2.9 gm/dl (2.5-4.0) 10/15/21 22:25 Albumin/Globulin Ratio 1.3 (0.9-2) 10/15/21 22:25 Procalcitonin 0.06 ng/ml (0-0.5) 10/15/21 22:25 SARS-CoV-2, RNA, NAAT NEGATIVE (NEGATIVE) 10/15/21 22:27 Code Status & VTE Plan Code Status Full code VTE Prophylaxis Plan VTE Prophylaxis will be ordered: Yes PG Care Time/CCT Total # of Minutes Spent Total Time Spent with Patient: Total time spent is greater than 50% in coordination of care (as documented) at patient's floor/unit and/or counseling patient: Coding Level of Care Code INT OBSERVATION CARE 70M LVL 3 Diagnoses Obesity hypoventilation syndrome E66.2 Hypoxia R09.02 Dementia in Parkinson's disease G20; F02.80 BPH with obstruction/lower urinary tract symptoms N40.1; N13.8 Presence of intrathecal pump Z96.89 Atrial fibrillation I48.0 Atrial fibrillation type: paroxysmal Hypercholesterolemia E78.00 Hypothyroidism E03.9 Stage III chronic kidney disease N18.3 Lumbar post-laminectomy syndrome M96.1 (1) Atrial fibrillation Atrial fibrillation type: paroxysmal Qualified Code(s): I48.0 - Paroxysmal atrial fibrillation
[2021-10-16] MEDS ORDERED: ACETAMINOPHEN 325 MG TAB PO STA (01:47)
[2021-10-16] MEDS ORDERED: ONDANSETRON INJ 2 MG/ML 2 ML VIAL IV PRN (03:34)
[2021-10-16] MEDS ORDERED: PROCHLORPERAZINE MALEATE 10 MG TAB PO PRN (03:34)
[2021-10-16] MEDS ORDERED: ACETAMINOPHEN 325 MG TAB PO PRN (03:34)
[2021-10-16] MEDS ORDERED: NALOXONE NASAL SPRAY 4 MG ER HOMEPACK PRN (03:34)
[2021-10-16] MEDS ORDERED: NITROGLYCERIN SL 0.4 MG/TAB TAB SL PRN (03:34)
[2021-10-16] MEDS ORDERED: MORPHINE ITR SCH (03:45)
[2021-10-16] MEDS ORDERED: BUPIVACAINE ITR SCH (03:45)
[2021-10-16] MEDS ORDERED: LEVOTHYROXINE SODIUM 25 MCG TABLET PO SCH (06:30)
[2021-10-16 06:58] LABS: Hematocrit (blood only) 38.7 % (42-52); Hemoglobin 13.2 g/dL (14.0-18.0); Mean Corpuscular Hemoglobin 32.4 pg (25-34); Mean Corpuscular Hgb Conc 34.1 g/dL (32-36); Mean Corpuscular Volume 95.1 fL (80-100); RDW Coefficient of Variation 13.9 % (11.5-14.5); RDW Standard Deviation 48.1 fL (36.4-46.3); Red Blood Count 4.07 M/uL (4.7-6.1); White Blood Count 8.51 K/uL (4.8-10.8)
[2021-10-16 07:00] LABS: Mean Platelet Volume 9.5 fL (7.4-10.4); Platelet Count 84 K/uL (130-400)
[2021-10-16 07:27] LABS: Basophils # (auto) 0.01 K/uL (0-0.2); Basophils % (auto) 0.1 %; Eosinophils # (auto) 0.04 K/uL (0-0.5); Eosinophils % (auto) 0.5 %; Immature Granulocytes # (auto) 0.02 K/uL (0.00-0.02); Immature Granulocytes % (auto) 0.2 %; Lymphocytes # (auto) 0.89 K/uL (1.2-3.4); Lymphocytes % (auto) 10.5 %; Monocytes # (auto) 0.58 K/uL (0.11-0.59); Monocytes % (auto) 6.8 %; Neutrophils # (auto) 6.97 K/uL (1.4-6.5); Neutrophils % (auto) 81.9 %
[2021-10-16 07:32] LABS: Albumin Level 3.4 gm/dl (3.4-5.0); BUN Creatinine Ratio 17.6 (10-20); Calcium 8.8 mg/dl (8.5-10.1); Creatinine Clr Calc Pharmacy 57.3 ml/min; Est GFR (African American) 61.7 ml/min; Est GFR (Non-African American) 53.3 ml/min; Phosphorus 2.8 mg/dl (2.5-4.9); Potassium 4.3 mmol/L (3.5-5.1)
--- NOTE | 2021-10-16 08:06 | XRay Report ---
XR chest 1V portable CLINICAL HISTORY: Sepsis. COMPARISON STUDY: Chest radiograph June 05, 2020. FINDINGS: Dual lead left subclavian pacemaker is in place. No pneumothorax or pleural effusion. Mild cardiomegaly is noted. There is no evidence for pulmonary edema. Linear bibasilar opacities favor ate lectasis. Deformity of the left humeral diaphysis is chronic. IMPRESSION: 1. No consolidation to suggest pneumonia. 2. Linear bibasilar opacities suggestive of atelectasis. ACT 112: Negative or not required by law. Electronically signed by: Best Soto M.D. 10/16/2021 8:05 AM
[2021-10-16] MEDS: CARBIDOPA/LEVODOPA 25/100MG TAB PO SCH ×2 (08:51→11:54)
[2021-10-16] MEDS ORDERED: MULTIVITAMIN TAB PO SCH (09:00)
[2021-10-16] MEDS ORDERED: ALFUZOSIN HCL 10 MG TAB PO SCH (09:00)
[2021-10-16] MEDS ORDERED: TIMOLOL MALEATE 0.5% OP SOLN 5 ML BTL OP SCH (09:00)
[2021-10-16] MEDS ORDERED: FLECAINIDE ACETATE 100 MG TABLET PO SCH (09:00)
[2021-10-16] MEDS ORDERED: ADVANCED PROBIOTIC 1250 MG CAPSULE PO SCH (09:00)
[2021-10-16] MEDS ORDERED: SPIRONOLACTONE 25 MG TAB PO SCH (09:00)
[2021-10-16] MEDS ORDERED: MAGNESIUM OXIDE 400 MG TAB PO SCH (09:00)
[2021-10-16] MEDS ORDERED: ATORVASTATIN 40 MG TAB PO SCH (09:00)
[2021-10-16] MEDS ORDERED: FUROSEMIDE 40 MG TAB PO SCH (09:00)
[2021-10-16] MEDS ORDERED: CYANOCOBALAMIN (B-12) 500 MCG TABLET PO SCH (09:00)
[2021-10-16] MEDS ORDERED: POTASSIUM CHLORIDE 10 MEQ TABCR PO SCH (09:00)
[2021-10-16] MEDS ORDERED: ARTIFICIAL TEARS OP SCH (09:00)
[2021-10-16] MEDS ORDERED: DONEPEZIL HCL 10 MG TAB PO SCH (09:00)
[2021-10-16] MEDS ORDERED: CHOLECALCIFEROL 5,000 UNITS 125 MCG TAB PO SCH (09:00)
[2021-10-16] MEDS ORDERED: ASCORBIC ACID 500 MG TAB PO SCH (09:00)
[2021-10-16 09:45] LABS: Appearance Urine Clear (Clear); Bilirubin Urine Negative (Negative); Blood Urine Negative (Negative); Color Urine Yellow; Glucose Urine UA Negative (Negative); Ketones Urine Negative (Negative); Leukocyte Esterase Urine Negative (Negative); Nitrite Urine Negative (Negative); Protein Urine Negative (Negative); Specific Gravity Urine 1.024 (1.000-1.030); Urobilinogen Urine Negative (Negative)
[2021-10-16 14:26] LABS: INR 4.2 (0.9-1.1); Prothrombin Time 41.2 Seconds (9.0-12.0)
[2021-10-16] MEDS ORDERED: PHYTONADIONE PO STA (16:06)
[2021-10-16] MEDS ORDERED: PHYTONADIONE PED 1 MG, ORA-SWEET SYRUP 2.25 ML, ORA-PLUS SUSP VEHICLE 2.25 ML, BARCODE ... PO ONE (16:30)
--- NOTE | 2021-10-16 16:32 | Discharge Summary ---
Date of Service date of admission - October 16, 2021 date of discharge - October 16, 2021 Admission HPI Per Admitting Provider The patient is a 76-year-old male with a past medical history including Parkinson's dementia, BPH with LUTS, gait disorder, pacemaker history, chronic low back pain, presence of intrathecal pump, atrial fibrillation chronic REM sleep behavior disorder, bilateral hearing loss, hypercholesterolemia, hypertension, hypothyroidism, stage III CKD, lumbar postlaminectomy syndrome, thrombocytopenia, pancytopenia and hypomagnesemia. Patient presents to the emergency department after choking incident while at home. This has not been a regular occurrence. The patient was initially having a pulse ox of 97% on room air in the emergency department, and was later found to have a pulse ox of 89% on room air. Patient was observed by me to have shallow respirations, and when asked to take deep breaths, his oxygenation improved to 97-98% on room air Principal Diagnosis 1. episode of dysphagia/choking 2. supratherapeutic INR 3. transient hypoxia - likely from sleep-disordered breathing 4. parkinson's disease Discharge Exam gen - NAD, pleasant mouth - MMM neck - no JVD heart - RRR, s1 s2 lungs - CTA b/l abd - soft NT ND BS+; intrathecal pump palpable in abdomen ext - pulses 2+ b/l Discharge Data Allergies Allergy/AdvReac Type Severity Reaction Status Date / Time Penicillins Allergy Intermediate Hives Verified 10/16/21 01:11 doxycycline AdvReac Intermediate Vomiting Verified 10/16/21 01:11 ondansetron AdvReac Intermediate Gastrointestinal Verified 10/16/21 01:11 Upset Consultations PT Speech therapy Procedures Performed 2-step ambulatory O2 test - no need for home O2; lowest O2 sat with walking 89% in room air (and this was brief, remaining O2 sats well over 90% entire test) Ordered Studies Chest X-Ray 10/15/21 22:12 XR chest 1V portable CLINICAL HISTORY: Sepsis. COMPARISON STUDY: Chest radiograph June 05, 2020. FINDINGS: Dual lead left subclavian pacemaker is in place. No pneumothorax or pleural effusion. Mild cardiomegaly is noted. There is no evidence for pulmonary edema. Linear bibasilar opacities favor atelectasis. Deformity of the left humeral diaphysis is chronic. IMPRESSION: 1. No consolidation to suggest pneumonia. 2. Linear bibasilar opacities suggestive of atelectasis. ACT 112: Negative or not required by law. Electronically signed by: Best Soto M.D. 10/16/2021 8:05 AM Hospital Course (1) Choking episode: accidental. seen by speech therapy during this brief stay. no overt swallowing difficult seen by speech; no aspiration. they did advise, however, a minced/moist diet and to avoid usage of straws as previous. (2) Hypoxia: chest x-ray was wnl; no pneumonia seen. the hypoxia was noted while the patient was sleeping in the emergency department. suspect he has some form of sleep-disordered breathing. see #3. no hypoxia was seen during his brief stay on the telemetry unit. he passed his 2-step ambulatory o2 test as well. (3) Sleep-disordered breathing: suspected given his body habitus. may have been the cause for #2 above. he could even have central sleep apnea in the setting of his Parkinson's disease. sleep study recommended. (4) BPH with obstruction/lower urinary tract symptoms: Continue alfuzosin. No issues while here. (5) Presence of intrathecal pump: Intrathecal pump/chronic low back pain/postlaminectomy syndrome- follows with [facility]. Pump contains morphine/bupivacaine. (6) Atrial fibrillation: Continue flecainide 100mg BID. Takes coumadin chronically with INR goal 2-3. Presenting INR was 3.8, rising to 4.2. Corresponded with [facility] and the following was advised - * vitamin K 1mg daily * HOLD coumadin until follow-up with Dr Wilson in the Anticoagulation clinic (likely 10/21/21) (7) Hypercholesterolemia: Continue atorvastatin 40 mg daily (8) Hypothyroidism: Continue levothyroxine 25 mcg daily TSH was 2 during the stay (9) Stage III chronic kidney disease: Creatinine 1.46 upon admission, with base range 1.14-1.49 Baseline CrCl 50s c/w stage 3A (10) Lumbar post-laminectomy syndrome: s/p intrathecal pain pump in the past for such (11) Dementia in Parkinson's disease: Continue carbidopa/levodopa, donepezil (12) Status post placement of cardiac pacemaker: placed in the past for sinus node dysfunction no issues while here (13) Venous insufficiency (chronic) (peripheral): continue usual diuretics Total Time Total Time Spent Total Time Spent (In Minutes): 30 Discharge Plan Discharge Items Patient Disposition: Home - Self-Care Reason For Visit: Choking Episode Discharge Diagnosis: 1. episode of choking on food 2. transient low oxygen level - suspected to be from a form of sleep apnea - repeat sleep study needed 3. parkinson's disease 4. elevated INR (coumadin level); INR is 4.2 on day of discharge Activity: Resume your previous activity Non-emergency contact: Primary Care Provider and Specialist Call non-emergency contact if: you have any medication questions Follow-up/Referrals: Giancarlo Dumont III, CRNP [Primary Care Provider] - 10/22/21 9:20 am Daylin Wilson MD, PhD [Pathologist] - 10/21/21 (please call Dr Wilson's office on 10/17/21, to schedule a follow-up appointment. She will likely see Nolberto on 10/21/21. ) Diet: Heart Healthy Diet Texture: Easy to Chew Addtl Attending Provider Instructions: Mr Mitchell, You were seen in the [facility] ER after having an episode of choking at home. Fortunately we did not see any evidence of pneumonia after having had this. You were monitored in the hospital overnight as you had a brief episode of low oxygen in the emergency room. This was unlikely to be from the choking episode but more so from suspected sleep apnea. On 10/16 you were seen by speech therapy. You did well with your swallow test. The speech therapist is recommending you continue on a minced & moist diet. Please do not use straws. You were seen by physical therapy. You did well with your evaluation and they felt you could safely return home with your . A walking oxygen test did NOT show a need for home oxygen at this time. I am concerned that you have some form of sleep apnea. Your previous heart ultrasound (echo) showed that the right side of your heart was enlarged. We typically see this with sleep apnea. Please talk to Mr Dumont about obtaining a new sleep study as well as echocardiogram. Finally, your INR today - 10/16/21 - was 4.2. I spoke with Dr Wilson who recommended -- * HOLD YOUR COUMADIN/DO NOT TAKE YOUR COUMADIN until your follow-up appointment with her * please call Dr Wilson's office tomorrow, 10/17/21, to schedule your follow-up appointment; she would like to see you on 10/21/21 Return to [facility] if - * you have bleeding from any location due to your coumadin * you are short of breath * you have chest pains * any other concerns It was our pleasure to care for you! Dr Guerra Pending Studies at Discharge: No Stand-Alone Forms: My [facility], Smoking Cessation Medications and DC Order Prescriptions: Continued ascorbic acid (vitamin C) 1,000 mg tablet 1,000 mg PO DAILY RF: 0 acetaminophen [Tylenol Extra Strength] 500 mg tablet 1,000 mg PO HS RF: 0 cyanocobalamin (vitamin B-12) 500 mcg tablet 500 mcg PO DAILY RF: 0 nitroglycerin 0.4 mg tablet, sublingual 0.4 mg SL DIRECTED PRN (Reason: Chest Pain) RF: 0 timolol maleate 0.5 % drops 1 drops OPR BID RF: 0 multivitamin capsule 1 cap PO DAILY RF: 0 peg [id number] [Artificial Tears(tm-situ-nfso)] 1-0.2-0.2 % drops 1 drops ophthalmic (eye) DAILY RF: 0 lactobacillus combination no.9 [Adult 50 Plus Probiotic] 4 billion cell capsule 4,000 mmu cells PO DAILY RF: 0 Narcan 4 mg/actuation spray,non-aerosol 1 spray intranasal Q2M PRN (Reason: opioid overdose) Qty: 2 RF: 0 alfuzosin 10 mg tablet extended release 24 hr 10 mg PO DAILY Qty: 90 RF: 3 carbidopa-levodopa [Sinemet] 25-100 mg tablet 2 tab PO QID 90 Days Qty: 720 RF: 1 nystatin 100,000 unit/gram ointment 1 applic topical BID Qty: 30 RF: 5 cholecalciferol (vitamin D3) 125 mcg (5,000 unit) capsule 5,000 units PO DAILY Qty: 90 RF: 12 donepezil 10 mg tablet 10 mg PO DAILY Qty: 90 RF: 1 potassium chloride 10 mEq capsule, extended release 10 meq PO BID Qty: 60 RF: 2 sennosides-docusate sodium [Senna with Docusate Sodium] 8.6-50 mg Tablet 3 tab PO HS RF: 0 magnesium 250 mg Tablet 250 mg PO DAILY RF: 0 Pain Pump See Rx Instructions .ROUTE .COMPLEX RF: 0 mineral oil Oil 0 ml PO DAILY PRN (Reason: Constipation) RF: 0 Discontinued warfarin 1 mg tablet 1 mg PO QPM RF: 0 No Action warfarin 1 mg tablet See Rx Instructions PO .COMPLEX RF: 0 metoclopramide HCl [Reglan] 5 mg tablet 5 mg PO DAILY Qty: 30 RF: 0 furosemide [Lasix] 40 mg tablet 40 mg PO DAILY Qty: 180 RF: 1 levothyroxine [Synthroid] 25 mcg tablet 25 mcg PO DAILY Qty: 90 RF: 1 trazodone 50 mg tablet 50 mg PO HS Qty: 90 RF: 1 atorvastatin [Lipitor] 40 mg tablet 40 mg PO DAILY Qty: 90 RF: 1 flecainide 100 mg tablet 100 mg PO Q12H Qty: 180 RF: 1 spironolactone 50 mg tablet 50 mg PO DAILY Qty: 90 RF: 1 Discharge Orders: Discharge Order (Routine); Ordered 10/16/21 Ordered By: Lawson Guerra Admission Data Admit Date/Time: 10/16/21 01:34 Attending Provider: Lawson Guerra Admit Provider: Faustino Mei Primary Care Provider: Giancarlo Dumont III Other Providers: Faustino Mei Other Interventions: Discharge Summary Assessment (RN) Last Done: 10/16/21 16:36 Coding Level of Care Code 11714 OBS Care - Discharge Diagnoses BPH with obstruction/lower urinary tract symptoms N40.1; N13.8 Presence of intrathecal pump Z96.89 Atrial fibrillation I48.0 Atrial fibrillation type: paroxysmal Hypercholesterolemia E78.00 Hypothyroidism E03.9 Stage III chronic kidney disease N18.3 Lumbar post-laminectomy syndrome M96.1 Dementia in Parkinson's disease G20; F02.80 Choking episode R09.89 Hypoxia R09.02 Sleep-disordered breathing G47.30 Status post placement of cardiac pacemaker Z95.0 Venous insufficiency (chronic) (peripheral) I87.2
[2021-10-16] MEDS ORDERED: DOCUSATE SODIUM/SENNA 50/8.6MG TAB PO SCH (21:00)
[2021-10-16] MEDS ORDERED: ACETAMINOPHEN 500 MG TAB PO SCH (21:00)
[2021-10-16] MEDS ORDERED: traZODone HCL 50 MG TAB PO SCH (21:00)
--- NOTE | 2021-10-17 05:41 | Electrocardiogram Report ---
Test Reason : Blood Pressure : / mmHG Vent. Rate : 065 BPM Atrial Rate : 068 BPM P-R Int : 258 ms QRS Dur : 172 ms QT Int : 484 ms P-R-T Axes : 000 -52 061 degrees QTc Int : 503 ms Poor data quality, interpretation may be adversely affected Atrial-paced rhythm with prolonged AV conduction Left axis deviation Left bundle branch block Abnormal ECG When compared with ECG of 01-JUN-2020 20:48, Atrial pacing is now present Confirmed by Charles Olson ([id number]) on 10/17/2021 5:41:47 AM Referred By: Isiah Pop Confirmed By:Charles Olson
== END 2021-10-16 16:59 | disposition home or self-care (01) ==
LOC: ED 22:08 → 2S 22:08 → SUATTDRO 10-16 01:34 → 2S 10-16 02:54 → 2N 10-16 09:35